=== PATIENT | female | born 1955 | race Caucasian/White ===

== ENCOUNTER 2023-08-24 07:03 | Outpatient (OUT) | payer OTHER, SELFPAY ==
[2023-08-24 07:26] LABS: Basophils Percent Auto 1.1 % (0.2-2.0); Eosinophils Absolute Auto 0.1 10^3/uL (0.0-0.7); Hematocrit 39.2 % (36.0-48.0); Hemoglobin 12.6 g/dL (12.0-16.0); Immature Granulocytes Abs Auto 0.01 10^3/uL (0.00-0.03); Immature Granulocytes Pct Auto 0.3 % (0.0-0.5); Lymphocytes Absolute Auto 1.4 10^3/uL (1.2-3.8); Lymphocytes Percent Auto 38.6 % (20.5-60.0); Mean Corpuscular HGB Conc 32.1 g/dL (29.9-35.2); Mean Corpuscular Volume 99.5 fL (81.0-99.0); Mean Platelet Volume 9.6 fL (9.5-13.5); Monocytes Absolute Auto 0.4 10^3/uL (0.3-0.8); Monocytes Percent Auto 10.9 % (1.7-12.0); Neutrophils Absolute Auto 1.7 10^3/uL (1.4-6.5); Neutrophils Percent Auto 47.1 % (43.0-75.0); Platelet Count 230 10^3/uL (150-450); Red Blood Count 3.94 10^6/uL (4.20-5.40); Red Cell Distribution Width 13.6 % (11.0-15.0); White Blood Count 3.5 10^3/uL (4.0-11.0)
[2023-08-24 09:00] LABS: Percent Iron Saturation 29.1 %
[2023-08-24 10:52] LABS: Alanine Aminotransferase 20 U/L (14-59); Albumin Globulin Ratio 0.9; Albumin Level 3.4 g/dL (3.4-5.0); Alkaline Phosphatase 46 U/L (46-116); Anion Gap 11.8; Aspartate Amino Transferase 15 U/L (15-37); BUN Creatinine Ratio 28.8; Bilirubin Total 0.4 mg/dL (0.2-1.0); Calcium 8.5 mg/dL (8.5-10.1); Carbon Dioxide 27.9 mmol/L (21.0-32.0); Chloride 104 mmol/L (98-107); Chol HDL Ratio 2.2; Cholesterol 213 mg/dL (<=200); Estimated GFR (African America >60 (>=60); Estimated GFR (Non-African Ame >60 (>=60); Globulin 3.7 g/dL; Glucose 90 mg/dL (74-106); HDL Cholesterol 96 mg/dL (40-60); Potassium 3.7 mmol/L (3.5-5.1); Sodium 140 mmol/L (136-145); Total Protein 7.1 g/dL (6.4-8.2); Triglycerides 60 mg/dL (<=150)
[2023-08-25 06:09] LABS: Transferrin 249 mg/dL (192-364)
[2023-08-25 10:09] LABS: Lead, Blood (Adult) 1.1 ug/dL (0.0-3.4)
== END 2023-08-24 07:04 | disposition home or self-care (01) ==
LOC: LAB 07:03
PROVIDERS: PCP Internal Medicine; Visit Provider Internal Medicine
DX: Z77.011 Contact with and (suspected) exposure to lead (principal); E78.5 Hyperlipidemia, unspecified; I10 Essential (primary) hypertension; D50.8 Other iron deficiency anemias
CPT/HCPCS: 36415; 80053; 80061; 82607; 82728; 82746; 83540; 83550; 83655; 84466; 85025

== ENCOUNTER 2023-09-05 09:42 | Emergency (ER) | payer OTHER, SELFPAY ==
[2023-09-05 09:45] VITALS: BP 112/63; PULSE 81; RESP 20; TEMP 37; O2SAT 97; BMI 23.0
--- NOTE | 2023-09-05 10:15 | XR_ITS ---
The [address] [address] Patient Name: CHLOE BADILLO MRN: [id number] date: 1955 Sex: F Assigned Patient Location: ER Current Patient Location: ED.MAIN Accession/Order Number: [id number] Exam Date: 09/05/2023 10:25 Report Date: 09/05/2023 10:39 At the request of: BILLIE JENSEN Procedure: XR chest 1V EXAM: XR chest 1V HISTORY: Cough; dizziness. COMPARISON: None. TECHNIQUE: AP erect portable chest radiograph performed. FINDINGS: The trachea is midline. The cardiac silhouette is upper limits normal size to slightly prominent. There is a large hiatal hernia. The lung volumes are normal. The lung bucio are clear. There is no pneumothorax. The osseous structures are unremarkable. XR/XR chest 1V IMPRESSION: There is no acute cardiopulmonary process. Large hiatal hernia. Electronically authenticated by: SULEMA GARDNER Date: 09/05/2023 10:39
--- NOTE | 2023-09-05 10:15 | ECG_ITS ---
The [facility] Test Date: 2023-09-05 Pat Name: CHLOE PENA Department: Room: - Gender: Female [employer] Manager: : 1955 Requested By: [id number] Order Number: [id number] Reading MD: XAVI DUBOIS Measurements Intervals [place] Rate: 101 P: 58 ME: 170 QRS: 71 QRSD: 86 T: 77 QT: 350 QTc: 408 Interpretive Statements 1120 Sinus tachycardia 2420 RSR (QR) in lead V1/V2, consistent with right ventricular conduction delay 9140 abnormal rhythm ECG No previous ECG available for comparison Electronically Signed On 09-05-2023 17:59:30 EST by XAVI DUBOIS
--- NOTE | 2023-09-05 10:16 | ED.GENADUL1 ---
HPI - General Adult General Chief complaint: Dizziness Stated complaint: DIZZINESS Time Seen by Provider: 09/05/23 10:12 Source: patient Mode of arrival: Wheelchair History of Present Illness HPI narrative: 68-year-old female presents for not feeling well. For few days she has had a cough and has been feeling dizzy. No vomiting or diarrhea and she has not had a known fever. She has not complained to me of any pain. Symptoms are continuous. Related Data Home Medications Medication Instructions Recorded Confirmed alendronate 70 mg tablet mg PO 09/05/23 atenolol 25 mg tablet mg 09/05/23 atorvastatin 20 mg tablet mg 09/05/23 escitalopram oxalate 10 mg tablet mg 09/05/23 escitalopram oxalate 20 mg tablet mg 09/05/23 solifenacin 10 mg tablet mg PO 09/05/23 Previous Rx's Medication Instructions Recorded benzonatate 100 mg capsule 100 mg PO TID PRN cough #20 caps 09/05/23 loratadine 5 mg-pseudoephedrine ER 1 tab PO Q12H PRN nasal congestion 09/05/23 120 mg tablet,extended #20 tabs release,12hr (Claritin-D 12 Hour) Allergies Allergy/AdvReac Type Severity Reaction Status Date / Time No Known Drug Allergies Allergy Verified 09/05/23 09:49 Review of Systems ROS Narrative A ten point review of systems is negative except as noted above. Exam Narrative Exam Narrative: Nurses note and vital signs reviewed and patient is not hypoxic. General: The patient appears in no apparent respiratory distress. Patient is resting comfortably on cart. Her voice is hoarse. Skin: Warm, dry, no pallor noted. There is no rash noted. Head: Normocephalic, atraumatic Eye: Normal conjunctiva, no drainage Ears, Nose, Mouth, and Throat: oral mucosa is slightly dry. Nares patent. Cardiovascular: Regular Rate and Rhythm Respiratory: Patient is in no distress, no accessory muscle use, lungs are clear to auscultation, no wheezing, rales or rhonchi Back: non-tender GI: Soft and nontender Musculoskeletal: The patient has no evidence of calf tenderness, no pitting edema, symmetrical pulses noted bilaterally Neurological: A&O, normal speech Psychiatric: Cooperative Constitutional Vital Signs, click to edit/add: Last Vital Signs Temp 98.6 F 02/18/24 09:45 Pulse 81 09/05/23 09:45 Resp 20 09/05/23 09:45 BP 112/63 09/05/23 09:45 Pulse Ox 97 09/05/23 09:45 O2 Del Method Room Air 09/05/23 09:45 Course Vital Signs Vital signs: Vital Signs Temperature 98.6 F 09/05/23 09:45 Pulse Rate 81 09/05/23 09:45 Respiratory Rate 20 09/05/23 09:45 Blood Pressure 112/63 09/05/23 09:45 Pulse Oximetry 97 09/05/23 09:45 Oxygen Delivery Method Room Air 09/05/23 09:45 Temperature 98.6 F 09/05/23 09:45 Pulse Rate 81 09/05/23 09:45 Respiratory Rate 20 09/05/23 09:45 Blood Pressure 112/63 09/05/23 09:45 Pulse Oximetry 97 09/05/23 09:45 Oxygen Delivery Method Room Air 09/05/23 09:45 Medical Decision Making MDM Narrative Medical decision making narrative: Chest x-ray is negative. COVID and influenza testing is negative. She felt better with IV fluids. She is being discharged home with symptomatic treatment. My clinical impression is that this is a viral illness and there is no indication for an antibiotic. Treatment diagnosis and follow-up were discussed with the patient. Differential Diagnosis Differential Diagnosis: Pneumonia, COVID, influenza Lab Data Lab results reviewed: Yes I reviewed the patient's lab results Labs: Lab Results 09/05/23 09/05/23 Range/Units 09:55 09:58 WBC 4.8 (4.0-11.0) 10^3/uL RBC 3.89 L (4.20-5.40) 10^6/uL Hgb 12.4 (12.0-16.0) g/dL Hct 38.6 (36.0-48.0) % MCV 99.2 H (81.0-99.0) fL MCH 31.9 (26.7-34.0) pg MCHC 32.1 (29.9-35.2) g/dL RDW 13.2 (11.0-15.0) % Plt Count 202 (150-450) 10^3/uL MPV 9.9 (9.5-13.5) fL Neut % (Auto) 65.2 (43.0-75.0) % Lymph % (Auto) 20.8 (20.5-60.0) % [place] % (Auto) 13.0 H (1.7-12.0) % Eos % (Auto) 0.0 L (0.9-7.0) % Baso % (Auto) 0.6 (0.2-2.0) % Neut # (Auto) 3.1 (1.4-6.5) 10^3/uL Lymph # (Auto) 1.0 L (1.2-3.8) 10^3/uL [place] # (Auto) 0.6 (0.3-0.8) 10^3/uL Eos # (Auto) 0.0 (0.0-0.7) 10^3/uL Baso # (Auto) 0.0 (0.0-0.1) 10^3/uL Abs Immat Gran (auto) 0.02 (0.00-0.03) 10^3/uL Imm/Tot Granulo (auto) 0.4 (0.0-0.5) % Sodium 136 (136-145) mmol/L Potassium 4.0 (3.5-5.1) mmol/L Chloride 102 (98-107) mmol/L Carbon Dioxide 27.0 (21.0-32.0) mmol/L Anion Gap 11.0 BUN 18.0 (7.0-18.0) mg/dL Creatinine 0.77 (0.55-1.02) mg/dL Est GFR ( Amer) >60 (>=60) Est GFR (Non-Af Amer) >60 (>=60) BUN/Creatinine Ratio 23.4 Glucose 96 (74-106) mg/dL Calcium 8.6 (8.5-10.1) mg/dL Influenza Type A Ag Negative Influenza Type B Ag Negative SARS-CoV-2 Ag (CV2AG) Negative (NEGATIVE) Imaging Data Chest x-ray: Radiologist's impression: ITS Impressions Chest X-Ray 09/05/23 10:15 IMPRESSION: There is no acute cardiopulmonary process. Large hiatal hernia. Electronically authenticated by: SULEMA GARDNER Date: 09/05/2023 10:39 ECG Data Attestation: I personally reviewed and interpreted this ECG as follows: (EKG on my interpretation shows sinus rhythm with a rate of 101. No acute changes) Discharge Plan Discharge Chief Complaint: Dizziness Clinical Impression: Viral URI Patient Disposition: Home, Self-Care Time of Disposition Decision: 11:18 Condition: Good Mode of Transportation: Private Vehicle Prescriptions / Home Meds: New benzonatate 100 mg capsule 100 mg PO TID PRN (Reason: cough) Qty: 20 0RF Claritin-D 12 Hour 5-120 mg tablet extended release 12 hr 1 tab PO Q12H PRN (Reason: nasal congestion) Qty: 20 0RF No Action atorvastatin 20 mg tablet alendronate 70 mg tablet PO atenolol 25 mg tablet escitalopram oxalate 10 mg tablet escitalopram oxalate 20 mg tablet solifenacin 10 mg tablet PO Instructions: Upper Respiratory Infection (ED), Viral Syndrome (ED) Stand Alone Forms: Portal Instructions Referrals: Shaikh Hinds MD [Primary Care Provider] - 1 week
[2023-09-05 10:26] LABS: Basophils Percent Auto 0.6 % (0.2-2.0); Hematocrit 38.6 % (36.0-48.0); Hemoglobin 12.4 g/dL (12.0-16.0); Immature Granulocytes Abs Auto 0.02 10^3/uL (0.00-0.03); Immature Granulocytes Pct Auto 0.4 % (0.0-0.5); Lymphocytes Percent Auto 20.8 % (20.5-60.0); Mean Corpuscular HGB Conc 32.1 g/dL (29.9-35.2); Mean Corpuscular Hemoglobin 31.9 pg (26.7-34.0); Mean Corpuscular Volume 99.2 fL (81.0-99.0); Mean Platelet Volume 9.9 fL (9.5-13.5); Monocytes Absolute Auto 0.6 10^3/uL (0.3-0.8); Neutrophils Absolute Auto 3.1 10^3/uL (1.4-6.5); Neutrophils Percent Auto 65.2 % (43.0-75.0); Platelet Count 202 10^3/uL (150-450); Red Blood Count 3.89 10^6/uL (4.20-5.40); Red Cell Distribution Width 13.2 % (11.0-15.0); White Blood Count 4.8 10^3/uL (4.0-11.0)
[2023-09-05 10:30] LABS: BUN Creatinine Ratio 23.4; Calcium 8.6 mg/dL (8.5-10.1); Chloride 102 mmol/L (98-107); Estimated GFR (African America >60 (>=60); Estimated GFR (Non-African Ame >60 (>=60); Glucose 96 mg/dL (74-106); Sodium 136 mmol/L (136-145)
[2023-09-05] MEDS: 0.9 % SODIUM CHLORIDE 500 ML IV (10:30)
[2023-09-05 10:38] LABS: Influenza Virus A Antigen Negative; Influenza Virus B Antigen Negative; Internal Control Within Normal Limits; SARS-CoV-2 Ag NEGATIVE (NEGATIVE)
== END 2023-09-05 11:42 | disposition home or self-care (01) ==
PROVIDERS: Emergency Provider Emergency Medicine; PCP Internal Medicine
DX: J06.9 Acute upper respiratory infection, unspecified (principal); Z79.899 Other long term (current) drug therapy; Z20.822 Contact with and (suspected) exposure to COVID-19
CPT/HCPCS: 36415; 71045; 80048; 85025; 87804; 87811; 93005; 99285

== ENCOUNTER 2023-09-20 20:35 | Outpatient (REF) | payer OTHER, SELFPAY ==
--- OUTSIDE RECORDS SUMMARY | 2023-09-20 20:39 | XMS_ITS | CCD ---
Author Name Unknown Address [address] [place] [address] Organization [facility] Care Team Providers Care Ppa Teacher Name Role Phone SHAIKH HINDS Primary Care Physician [phone] DAVID HINDSIKH H Admitting Unavailable FAWWAD, HOOKER H Attending Unavailable FAWWAD, HOOKER H Primary Care Unavailable KARASIK ., DR PARHAM Admitting Unavailabl e KARASIK ., DR PARHAM Attending Unavailabl e FAWWAD, HOOKER H Primary Care Unavailable KARASIK ., DR PARHAM Consulting Unavailabl e KARASIK ., DR PARHAM Admitting Unavailabl e KARASIK ., DR PARHAM Attending Unavailabl e FAWWAD, HOOKER H Primary Care Unavailable KARASIK ., DR PARHAM Consulting Unavailabl e ZIEBEDUARD, DR SABRINA Platt Consulting Unavailable FAWWAD, HOOKER H Admitting Unavailable FAWWAD, HOOKER H Attending Unavailable FAWWAD, HOOKER H Primary Care Unavailable FAWZACHARYD, HOOKER H Consulting Unavailable FAWWAD, HOOKER H Admitting Unavailable FAWWAD, HOOKER H Attending Unavailable FAWWAD, HOOKER H Primary Care Unavailable [place], DR LAVERN Olmos Consulting Unavailable FAWWAD, HOOKER H Consulting Unavailable Shaikh Hinds MD Unavailable Shaikh Hinds MD Primary Care Provider SHAIKH HINDS Attending Unavailable SUSANA BRANDON Attending Unavailable ROMA, SUSANA E Admitting Unavailable SUSANA BRANDON Attending Unavailable SHAIKH HINDS Primary Care Unavailable ROMA, SUSANA E Admitting Unavailable Debi Lucio Attending Unavailable Vinicio HERNANDEZ Attending [facility] Primary Care Unavailable SUSANA BRANDON Attending Unavailable GUZMAN HOOKER Primary Care Unavailable SUSANA BRANDON Attending Unavailable SUSANA BRANDON Attending Unavailable SUSANA BRANDON Attending Unavailable [facility] Primary Care Unavailable Medications Current Medications Medication Drug Class(es) Dates Sig (Normalized) Sig (Original) acetaminophen 500 mg oral tablet (5 sources) Start: 11-26-2020 acetaminophen 500 mg, Oral, PRN as needed for pain, Refills(s) 0 Start Date: 11/26/20 Status: Ordered alendronic acid 70 mg oral tablet (5 sources) Bisphosphonate Start: 06-01-2023 alendronate 70 mg Tab Refills(s) 0 Start Date: 06/01/23 Status: Ordered aspirin 81 mg chewable tablet (5 sources) Platelet Aggregation Inhibitor, Nonsteroidal Anti-inflammatory Drug Start: 11-26-2020 aspirin 81 mg Chew Tab 81 mg = 1 tab(s), Chewed, Daily, Refills(s) 0, Blood Thinner Start Date: 11/26/20 Status: Ordered atenolol 25 mg oral tablet (2 sources) beta-Adrenergic Claire take 1 tablet by mouth in the morning atenolol (Tenormin) 25 MG tablet Take 25 mg by mouth in the morning. 0 Active atorvastatin 20 mg oral tablet (2 sources) HMG-CoA Reductase Inhibitor take 1 tablet by mouth in the morning atorvastatin (Lipitor) 20 MG tablet Take 20 mg by mouth in the morning. 0 Active carvedilol 6.25 mg oral tablet (5 sources) alpha-Adrenergic Claire, beta-Adrenergic Claire Start: 11-26-2020 take 1 tablet by mouth twice daily carvedilol 6.25 mg Tab 6.25 mg = 1 tab(s), Oral, BID, High blood pressure Start Date: 11/26/20 Status: Ordered ciprofloxacin 500 mg oral tablet (1 source) Quinolone Antimicrobial Start: 02-03-2022 End: 02-08-2022 take 1 tablet by mouth twice daily Cipro 500 mg Tab 500 mg = 1 tab(s), Oral, BID, X 5 day(s), # 10 tab(s), Refills(s) 0, Pharmacy: [facility]/pharmacy #[id number], 167, cm, 02/03/22 9:28:00 EDT, Height/Length Dosing, 69, kg, 02/03/22 9:28:00 EDT, Weight Dosing Start Date: 02/03/22 Stop Date: 02/08/22 Status: Ordered escitalopram 20 mg oral tablet (6 sources) Serotonin Reuptake Inhibitor Start: 06-01-2023 take 1 tablet by mouth in the morning escitalopram (Lexapro) 20 MG tablet Take 20 mg by mouth in the morning. 0 08/12/2023 Active End: 08-19-2023 take 1 tablet by mouth in the morning escitalopram (Lexapro) 10 MG tablet Take 10 mg by mouth in the morning. 0 08/19/2023 Discontinued (Dose adjustment) ferrous sulfate 325 mg oral tablet (10 sources) Start: 11-26-2020 take 325 mg by mouth every other day ferrous sulfate 325 mg, Oral, q2Days, Anemia Start Date: 11/26/20 Status: Ordered End: 08-19-2023 take 1 tablet by mouth in the morning ferrous sulfate 325 (65 Fe) MG EC tablet Take 325 mg by mouth in the morning and 325 mg before bedtime. Do not crush, chew, or split.. 0 08/19/2023 Discontinued (Therapy completed) ibuprofen 200 mg oral tablet (5 sources) Nonsteroidal Anti-inflammatory Drug Start: 11-26-2020 take 200 mg by mouth every eight hours as needed for pain ibuprofen 200 mg, Oral, q8hr, PRN as needed for pain, Refills(s) 0 Start Date: 11/26/20 Status: Ordered Multiple Vitamin (multivitamin) tablet (2 sources) take 1 tablet by mouth in the morning Multiple Vitamin (multivitamin) tablet Take 1 tablet by mouth in the morning. 0 Active 24 hr oxybutynin chloride 10 mg extended release oral tablet (6 sources) Cholinergic Muscarinic Antagonist Start: 02-04-2023 take 1 tablet by mouth once daily oxybutynin 10 mg ER Tab 10 mg = 1 tab(s), Oral, Daily, # 30 tab(s), Refills(s) 0, Pharmacy: [facility]/pharmacy #[id number], 167, cm, 02/04/23 11:36:00 EDT, Height/Length Dosing, 69.1, kg, 02/04/23 11:36:00 EDT, Weight Dosing Start Date: 02/04/23 Status: Ordered Start: 02-04-2023 oxybutynin 15 mg ER Tab 15 mg = 1 tab(s), Oral, Daily, start after you finish the 10mg tabs, # 30 tab(s), Refills(s) 0, Pharmacy: [facility]/pharmacy #[id number], 167, cm, 02/04/23 11:36:00 EDT, Height/Length Dosing, 69.1, kg, 02/04/23 11:36:00 EDT, Weight Dosing Start Date: 02/04/23 Status: Ordered solifenacin succinate 10 mg oral tablet (2 sources) Cholinergic Muscarinic Antagonist Start: 06-14-2023 End: 10-12-2023 take 1 tablet by mouth once daily solifenacin 10 mg Tab 10 mg = 1 tab(s), Oral, Daily, X 30 day(s), # 30 tab(s), Refills(s) 3, Pharmacy: [facility]/pharmacy #[id number], 167, cm, 06/01/23 11:31:00 EST, Height/Length Dosing, 63, kg, 06/01/23 11:31:00 EST, Weight Dosing Start Date: 06/14/23 Stop Date: 10/12/23 Status: Ordered 24 hr tolterodine tartrate 2 mg extended release oral capsule (2 sources) Cholinergic Muscarinic Antagonist Start: 08-19-2022 take 1 capsule by mouth once daily tolterodine 2 mg Cap-ER 2 mg = 1 cap(s), Oral, Daily, # 30 cap(s), Refills(s) 2, Pharmacy: [facility] #[id number], 167, cm, 08/19/22 13:07:00 EST, Height/Length Dosing, 69, kg, 08/19/22 13:07:00 EST, Weight Dosing Start Date: 08/19/22 Status: Ordered Vitamin B-12 1000 mcg oral tablet (8 sources) Start: 11-26-2020 take 1 tablet by mouth once daily Vitamin B-12 1000 mcg oral tablet 1,000 mcg = 1 tab(s), Oral, Daily, Anemia Start Date: 11/26/20 Status: Ordered vitamin b12 1 mg oral tablet (2 sources) Vitamin B12 take 1 tablet by mouth in the morning cyanocobalamin (Vitamin B-12) 1000 MCG tablet Take 1,000 mcg by mouth in the morning. 0 Active Completed/Discontinued Medications Medication Drug Class(es) Dates Sig (Normalized) Sig (Original) diphenhydrAMINE hydrochloride 25 mg oral tablet (2 sources) Histamine-1 Receptor Antagonist End: 08-19-2023 diphenhydrAMINE (Sominex) 25 MG tablet Take 25 mg by mouth as needed at bedtime for sleep 0 08/19/2023 Discontinued (Ineffective) estradiol 0.1 mg/ml vaginal cream (1 source) Estrogen Start: 04-29-2022 estradiol 0.1 mg/g Vag Crm See Instructions, 42.5 gm, Refill(s) 6, insert 1 gm Vaginally and apply pea-sized amount around the urethra. Daily x 3 wks. then 3x per week thereafter., [id number], 167, cm, 04/29/22 15:35:00 EDT, Height/Length Dosing, 69, kg, 04/29/22 15:35:... Start Date: 04/29/22 Status: Ordered Problems Active Problems Problem Classification Problem Date Documented Da te Episodic/Chronic Deficiency and other anemia (8 sources) Anemia 02-03-2022 Episodic Deficiency and other anemia (2 sources) Iron deficiency anemia secondary to inadequate dietary iron intake; Translations: [Other iron deficiency anemias] Onset: 08-19-2023 08-19-2023 Episodic Disorders of lipid metabolism (3 sources) Hyperlipidemia, unspecified; Translations: [Hyperlipidemia] Onset: 11-28-2021 08-19-2023 Chronic Essential hypertension (11 sources) Hypertensive disorder; Translations: [Essential (primary) hypertension] Onset: 12-03-2021 02-03-2022 Chronic Genitourinary symptoms and ill-defined conditions (14 sources) Mixed incontinence; Translations: [Incontinence] Onset: 02-03-2022 Chronic Genitourinary symptoms and ill-defined conditions (20 sources) Retention of urine; Translations: [Retention of urine, unspecified] Onset: 04-29-2022 Episodic Mood disorders (2 sources) Recurrent major depression in full remission; Translations: [Major depressive disorder, recurrent, in full remission] Onset: 08-19-2023 08-19-2023 Chronic Occlusion or stenosis of precerebral arteries (1 source) Occlusion and stenosis of bilateral carotid arteries; Translations: [OCCLUSION AND STENOS ROMAINE CAROTID ART] Onset: 12-03-2021 Chronic Osteoporosis (1 source) Age-related osteoporosis without current pathological fracture; Translations: [AGE-REL OSTEOPOR W/O CURR PATH FX] Onset: 02-24-2022 Chronic Other circulatory disease (1 source) Disorder of arteries and arterioles, unspecified; Translations: [DISORDER ARTERIES AND ARTERIOLES UNS] Onset: 12-03-2021 Chronic Other diseases of bladder and urethra (4 sources) Male urethral stricture; Translations: [Unspecified urethral stricture, male, unspecified site] Onset: 04-29-2022 Episodic Other diseases of bladder and urethra (7 sources) Urethral stricture 04-29-2022 Episodic Other female genital disorders (1 source) Disorder of female genital system; Translations: [Unspecified condition associated with female genital organs and menstrual cycle] Onset: 08-19-2023 08-19-2023 Episodic Other screening for suspected conditions (not mental disorders or infectious disease) (9 sources) Encounter for screening for malignant neoplasm of cervix; Translations: [Encounter for screening mammogram for malignant neoplasm of breast] Onset: 11-28-2021 Episodic Prolapse of female genital organs (4 sources) Cystocele 08-20-2022 Chronic Screening and history of mental health and substance abuse codes (8 sources) Ex-smoker 02-03-2022 Episodic Urinary tract infections (13 sources) Acute cystitis; Translations: [Acute cystitis without hematuria] Onset: 02-03-2022 Episodic Past or Other Problems Problem Classification Problem Date Documented Date Episodic/Chronic Deficiency and other anemia (1 source) Iron deficiency anemia, unspecified; Translations: [IRON DEFICIENCY ANEMIA UNSPECIFIED] Onset: 11-28-2021 Episodic Diabetes mellitus without complication (4 sources) Other abnormal glucose; Translations: [OTHER ABNORMAL GLUCOSE] Onset: 11-26-2021 Episodic Immunizations and screening for infectious disease (1 source) Encounter for screening for human papillomavirus (HPV); Translations: [ENC SCREENING HUMAN PAPILLOMAVIRUS] Onset: 12-31-2021 Episodic Residual codes; unclassified (4 sources) Asymptomatic menopausal state; Translations: [ASYMPTOMATIC MENOPAUSAL STATE] Onset: 02-10-2022 Episodic Results Test Name Value Interpretation Reference Range Facility C Urineon 06-03-2023 Bacteria identified Cx Nom (U) Microbiology PROCEDURE: Urine Culture [R1] SOURCE: U CleanCatch BODY SITE: COLLECTED DATE/TIME: 06/01/2023 14:05 EST RECEIVED DATE/TIME: 06/01/2023 19:56 EST START DATE/TIME: 06/01/2023 19:56 EST FREE TEXT SOURCE: ROMA OSCAR, SUSANA BRANDON PA-C, SUSANA Salazar FINAL REPORTS Final Report [] Verified Date/Time: 06/03/2023 08:38 EST >100,000 cfu/ml Escherichia coli SUSCEPTIBILITY RESULTS LEGEND: S=Susceptible, N/R=Not Reported, Blank=Data not available, or drug not advisable or tested, I=Intermediate, ESBL=Extended spectrum beta-lactamase, R=Resistant, TFG=Thymidine-depende nt strain, STACY=Beta-lactamase positive, DOMENIC=mcg/m;(mg/L), S*=Predicted susceptible interp, R*=Predicted resistant interp EC Antibiotic DOMENIC Dilutn DOMENIC Interp Amikacin <=16 S Ampicillin <=8 S Ampicillin/ <=8/4 S Sulbactam Aztreonam <=4 S Cefazolin <=2 S Cefepime <=2 S Cefoxitin <=8 S Ceftazidime <=1 S Ceftazidime/ <=8 S Avibactam Ceftriaxone <=1 S Ciprofloxacin >2 R Ertapenem <=0.5 S Gentamicin <=4 S Levofloxacin 4 I Meropenem <=1 S Nitrofurantoin <=32 S Piperacillin/ <=16 S Tazobactam Tetracycline <=4 S Tigecycline <=2 S Tobramycin <=4 S Trimethoprim/ <=2/38 S Sulfa Performing Locations R1: This test was performed at: [facility], [address] [place] [address], [id number] , , [facility] Comment on above: Performed By: #### [id number] ####[facility] [id number] [place] [address] Screenson 06-02-2023 Screens [id number]# 1.00TIFF [facility] Ambulatory Visit Summaryon 1 08-01-2022 Ambulatory Visit Summary CHLOE MOJICA :1955 Visit Date:06/01/2023 Ambulatory Visit Instructions Your Diagnosis Mixed incontinence Urethral stricture Incomplete bladder emptying UTI (urinary tract infection) Tests Performed Urnls Dip Stick Auto w/o Microscopy POC 11991 Your Care Team Attending Physician - SUSANA BRANDON PA-C Primary Care Physician - GUZMAN HENRY, HOOKER This Is Your Medications List oxybutynin (oxybutynin 10 mg ER Tab) oxybutynin (oxybutynin 15 mg ER Tab) Contact prescribing physician if questions or concerns alendronate (alendronate 70 mg Tab) cyanocobalamin (Vitamin B-12 1000 mcg oral tablet) escitalopram (escitalopram 20 mg Tab) ferrous sulfate Procedures Performed Cystourethroscopy with dilation of urethral stricture (12/03/2022), Cystourethroscopy with dilation of urethral stricture (02/09/2022), Cataract extraction and insertion of intraocular lens (11/26/2020), Cataract extraction and insertion of intraocular lens (11/12/2020), Bilateral tubal ligation (07/19/1981). Discharge Vitals Heart Rate (Peripheral) 68 Respiratory Rate 16 Blood Pressure 116/74 Height 167 cm Height 66 in Weight 63 kg Weight 138.6 lb BMI 22.59 What to do next Scheduled Follow-Up Appointments Wednesday 2:00 PM EST With: SUSANA BRANDON PA-C Where: [facility] Jessica Partida [facility] Patient Educationon 06-01-20 23 Patient Education Obstetrics and Gynecology Overactive Bladder, Adult Overactive bladder is a condition in which a person has a sudden and frequent need to urinate. A person might also leak urine if he or she cannot get to the bathroom fast enough (urinary incontinence). Sometimes, symptoms can interfere with work or social activities. What are the causes? Overactive bladder is associated with poor nerve signals between your bladder and your brain. Your bladder may get the signal to empty before it is full. You may also have very sensitive muscles that make your bladder squeeze too soon. This condition may also be caused by other factors, such as: ? Medical conditions: ? Urinary tract infection. ? Infection of nearby tissues. ? Prostate enlargement. ? Bladder stones, inflammation, or tumors. ? Diabetes. ? Muscle or nerve weakness, especially from these conditions: ? A spinal cord injury. ? Stroke. ? Multiple sclerosis. ? Parkinson's disease. ? Other causes: ? Surgery on the uterus or urethra. ? Drinking too much caffeine or alcohol. ? Certain medicines, especially those that eliminate extra fluid in the body (diuretics). ? Constipation. What increases the risk? You may be at greater risk for overactive bladder if you: ? Are an older adult. ? Smoke. ? Are going through menopause. ? Have prostate problems. ? Have a neurological disease, such as stroke, dementia, Parkinson's disease, or multiple sclerosis (MS). ? Eat or drink alcohol, spicy food, caffeine, and other things that irritate the bladder. ? Are overweight or obese. What are the signs or symptoms? Symptoms of this condition include a sudden, strong urge to urinate. Other symptoms include: ? Leaking urine. ? Urinating 8 or more times a day. ? Waking up to urinate 2 or more times overnight. How is this diagnosed? This condition may be diagnosed based on: ? Your symptoms and medical history. ? A physical exam. ? Blood or urine tests to check for possible causes, such as infection. You may also need to see a health care provider who specializes in urinary tract problems. This is called a urologist. How is this treated? Treatment for overactive bladder depends on the cause of your condition and whether it is mild or severe. Treatment may include: ? Bladder training, such as: ? Learning to control the urge to urinate by following a schedule to urinate at regular intervals. ? Doing Kegel exercises to strengthen the pelvic floor muscles that support your bladder. ? Special devices, such as: ? Biofeedback. This uses sensors to help you become aware of your body's signals. ? Electrical stimulation. This uses electrodes placed inside the body (implanted) or outside the body. These electrodes send gentle pulses of electricity to strengthen the nerves or muscles that control the bladder. ? Women may use a plastic device, called a pessary, that fits into the vagina and supports the bladder. ? Medicines, such as: ? Antibiotics to treat bladder infection. ? Antispasmodics to stop the bladder from releasing urine at the wrong time. ? Tricyclic antidepressants to relax bladder muscles. ? Injections of botulinum toxin type A directly into the bladder tissue to relax bladder muscles. ? Surgery, such as: ? A device may be implanted to help manage the nerve signals that control urination. ? An electrode may be implanted to stimulate electrical signals in the bladder. ? A procedure may be done to change the shape of the bladder. This is done only in very severe cases. Follow these instructions at home: Eating and drinking ? Make diet or lifestyle changes recommended by your health care provider. These may include: ? Drinking fluids throughout the day and not only with meals. ? Cutting down on caffeine or alcohol. ? Eating a healthy and balanced diet to prevent constipation. This may include: ? Choosing foods that are high in fiber, such as beans, whole grains, and fresh fruits and vegetables. ? Limiting foods that are high in fat and processed sugars, such as fried and sweet foods. Lifestyle ? Lose weight if needed. ? Do not use any products that contain nicotine or tobacco. These include cigarettes, chewing tobacco, and vaping devices, such as e-cigarettes. If you need help quitting, ask your health care provider. General instructions ? Take joxa-oha-aixqixj and prescription medicines only as told by your health care provider. ? If you were prescribed an antibiotic medicine, take it as told by your health care provider. Do not stop taking the antibiotic even if you start to feel better. ? Use any implants or pessary as told by your health care provider. ? If needed, wear pads to absorb urine leakage. ? Keep a log to track how much and when you drink, and when you need to urinate. This will help your health care provider monitor yo (more content not included)... Normal [facility] Urology Office/Clinic Noteon 06-01-2023 Urology Office/Clinic Note Chief Complaint Incontinence HPI Staff Former DLS pt. Last seen in our office by SHANTELL 02/05/23 due to mixed incontinence, urethral stricture, incomplete bladder emptying & Hx of UTI. *Oxybutynin 5mg increased to 10mg for 1m then upped to 15mg for 1m at time of last encounter. +C&S at time of last encounter *>100k E Coli Tx'd w/ Keflex therapy. Pt cancelled 2m follow up, then later called to schedule today's appt due to incontinence. Did take 1m of 10mg Oxybutynin, then 1m of Oxybutynin 15mg. Ran out, did not call for refills. recently . Leaking has increased. With activity & urgency. Occasionally leaks through the night. Was not completely satisfied with Oxybutynin 15mg, did improve symptoms but still had to wear pads. Is interested in possible new med. Denies current pain & burning. Denies visible blood in urine. Occasional frequency with smaller voids. PVR 174ml History of Present Illness staff HPI reviewed and agree. Review of Systems PHQ Score Initial Depression Screen Score: 0 SCORE no fever, chills, malaise, myalgia. no rash/lesions. no chest pain, palpitations, or SOB. no abdominal pain, nausea, vomiting. no unilateral calf swelling, redness, pain Physical Exam Vitals & Measurements HR: 68(Peripheral) RR: 16 BP: 116/74 HT: 66 in HT: 167 cm WT: 63 kg WT: 138.6 lb BMI: 22.59 General: nontoxic, NAD Mouth: moist mucosa Lungs: normal respiratory effort Cardio: regular rate, good distal perfusion Abdomen: nondistended, no suprapubic distention or tenderness, no CVA tenderness Neurologic: Grossly normal Skin: No rashes or suspicious lesions Assessment/Plan 1. Mixed incontinence (N39.46: Mixed incontinence) BBS 25. Leaking has increased. With activity & urgency. Occasionally leaks through the night. 2 scripts were sent for Oxybutynin 10mg and 25mg at last visit. Did take 1mg of 10mg Oxybutynin, then 1mg of Oxybutynin 15mg. Ran out, did not call for refills. Was not completely satisfied with Oxybutynin 15mg, did improve symptoms but still had to wear pads. No bothersome side effects. Pt is interested in possible new med. Pt was provided a list of alternative anticholinergics. She was instructed to call her insurance company to see which ones are approved Consider urodynamics vs botox vs SNM if fails 1-2 more meds. -Call with covered meds -Follow up in 3 months (will give us time to try a few dose changes/a few meds) 2. Urethral stricture (N35.919: Unspecified urethral stricture, male, unspecified site) S/p cysto/UD 02/09/2022 and 12/03/22 better stream since UD. 3. Incomplete bladder emptying (R33.9: Retention of urine, unspecified) PVR: 08/19/22 - 60 ml 06/01/23 - 174 ml -Emptying maneuvers discussed at length. pt agrees to try these consistently. 4. UTI (urinary tract infection) (N39.0: Urinary tract infection, site not specified) UCx: 08/19/22 - >100k E Coli. Tx'd w/ Keflex 02/04/23 - >100k E Coli. Tx'd w/ Keflex UA today small blood,+ nitrates and small leuks. Asx currently. -Sending for culture -Pt to be called with results and will tx if + due to #1 Follow-up With When Contact Information ROMA OSCAR, SUSANA Salazar, URL [address] [place] [address] Additional Instructions: 3 mos Patient Education Overactive Bladder, Adult Documentation recorded by the scribe Isabel Christine accurately reflects the services(s) I performed and decisions made by me. Authenticated by Susana Brandon PA-C on 06/01/2023 12:12:10. IIsabel, personally scribed for Susana Brandon PA-C on 06/01/2023 12:06:29. . Problem List/Past Medical History Ongoing Acute cystitis without hematuria Anemia Cystocele with prolapse Former smoker History of UTI Hypertension Incomplete bladder emptying Mixed incontinence Urethral stricture UTI (urinary tract infection) Weak urine stream Historical No qualifying data Procedure/Surgical History Cystourethroscopy with dilation of urethral stricture (12/03/2022), Cystourethroscopy with dilation of urethral stricture (02/09/2022), Cataract extraction and insertion of intraocular lens (11/26/2020), Cataract extraction and insertion of intraocular lens (11/12/2020), Bilateral tubal ligation (07/19/1981). Medications alendronate 70 mg Tab escitalopram 20 mg Tab ferrous sulfate, 325 mg, Oral, q2Days oxybutynin 10 mg ER Tab, 10 mg= 1 tab(s), Oral, Daily, Not taking oxybutynin 15 mg ER Tab, 15 mg= 1 tab(s), Oral, Daily Vitamin B-12 1000 mcg oral tablet, 1000 mcg= 1 tab(s), Oral, Daily Allergies No Known Allergies Social History Alcohol Current, Wine, 1-2 times per month, 02/03/2022 Tobacco Former smoker, quit more than 30 days ago Tobacco Use:. Never Smokeless Tobacco Use:. Cigarettes, Household tobacco concerns: No. Yes, 06/01/2023 Family History Congenital heart disease: Mother and Sister. Diab (more content not included)... Normal [facility] Comment on above: Result Comment: Elec tronically Signed By: SUSANA BRANDON PA-C\.br\Date and Time Signed: 06/01/23 12:12 EST\.br\Electronically Co-Signed By: Isabel Christinebr\Date and Time Co-Signed: 06/01/23 12:06 EST Patient Letter FTon 2022 Patient Letter [facility] [place] April 13, 2023 [address]LOE [address]ICA [address] [place] [address] : 1955 Dear Chloe, You missed your scheduled appointment on: 04/13/2023 with Susana Brandon PA-C. Please note our appointment slots fill quickly. When you fail to cancel or reschedule an appointment the office is unable to fill the appointment slot that was reserved for you. In the future, we ask that you call 24 hours in advance to cancel your appointment. Our current reminder system gives you the opportunity to cancel by responding to our reminder text, phone call or email. You can also call the office to reschedule during normal business hours or use our on-line scheduling portal at your convenience. Our goal is to provide convenient and quality care to all of our patients. We appreciate your consideration regarding any future cancellations. Sincerely, [facility] [address], [place] [address] [facility] C Urineon 02-06-2023 Bacteria identified Cx Nom (U) Microbiology PROCEDURE: Urine Culture [R1] SOURCE: U Random BODY SITE: COLLECTED DATE/TIME: 02/04/2023 14:12 EDT RECEIVED DATE/TIME: 02/04/2023 18:15 EDT START DATE/TIME: 02/04/2023 18:15 EDT FREE TEXT SOURCE: SUSANA BRANDON PA-C, PA-C, SUSANA Salazar FINAL REPORTS Final Report [] Verified Date/Time: 02/06/2023 08:29 EDT >100,000 cfu/ml Escherichia coli SUSCEPTIBILITY RESULTS LEGEND: S=Susceptible, N/R=Not Reported, Blank=Data not available, or drug not advisable or tested, I=Intermediate, ESBL=Extended spectrum beta-lactamase, R=Resistant, TFG=Thymidine-depende nt strain, STACY=Beta-lactamase positive, DOMENIC=mcg/m;(mg/L), S*=Predicted susceptible interp, R*=Predicted resistant interp EC Antibiotic DMOENIC Dilutn DOMENIC Interp Amikacin <=16 S Ampicillin <=8 S Ampicillin/ <=8/4 S Sulbactam Aztreonam <=4 S Cefazolin 8 S Cefepime <=2 S Cefoxitin >16 R Ceftazidime <=1 S Ceftazidime/ <=8 S Avibactam Ceftriaxone <=1 S Ciprofloxacin >2 R Ertapenem <=0.5 S Gentamicin <=4 S Levofloxacin >4 R Meropenem <=1 S Nitrofurantoin <=32 S Piperacillin/ <=16 S Tazobactam Tetracycline <=4 S Tigecycline <=2 S Tobramycin <=4 S Trimethoprim/ <=2/38 S Sulfa Performing Locations R1: This test was performed at: [facility], [address] [place] [address], [facility]- , , [facility] Comment on above: Performed By: #### [id number] ####[place] [address] Urology Office/Clinic Noteon 02-05-2023 Urology Office/Clinic Note Chief Complaint f/u to cysto UD HPI Staff 67 year-old female here for 2 month follow up to Cysto/UD. Previous DX: urethral stricture, mixed incontinence, incomplete bladder emptying, cystocele with prolapse, history of UTI. S/p Cysto/UD done 12/03/22 and 02/09/22. Pt states that she feels the cysto UD did not make any difference with her leakage. She state that she regularly is leaking all over and wakes up with everything soaked with no knowledge that she has even voided. Dysuria: no Incomplete bladder emptying: unsure because she leaks so much Hematuria: no Frequency: pt states she leaks so much that she really doesn't get the urge to void before she will leak out Urgency: once in a while Nocturia: only wakes up once in a while Stream: straining to keep her stream going some times. Leaking: excessively Post void dripping: no Wearing pads/ Depends: pads changes 4-5x or more daily because the pads become soaked Urge incontinence: yes Stress incontinence: yes Incontinence without Sensory Awareness: yes Abdominal pain: no Flank pain: no Sexual complaints: no History of Present Illness staff HPI reviewed and agree. Review of Systems PHQ Score Initial Depression Screen Score: 0 no fever, chills, malaise, myalgia. no rash/lesions. no chest pain, palpitations, or SOB. no abdominal pain, nausea, vomiting. no unilateral calf swelling, redness, pain Physical Exam Vitals & Measurements HR: 79(Peripheral) RR: 16 BP: 132/84 HT: 66 in HT: 167 cm WT: 69.1 kg WT: 152.02 lb BMI: 24.78 General: nontoxic, NAD Mouth: moist mucosa Lungs: normal respiratory effort Cardio: regular rate, good distal perfusion Abdomen: nondistended, no suprapubic distention or tenderness, no CVA tenderness Neurologic: Grossly normal Skin: No rashes or suspicious lesions Assessment/Plan 1. Mixed incontinence (N39.46: Mixed incontinence) She state that she regularly is leaking all over and wakes up with everything soaked with no knowledge that she has even voided. Pt is currently taking Oxybutynin 5 mg, not having any bothersome SE's. Discussed increasing the dose to 10 mg for 1 mos and then upping the dose to 15 mg for 1 mos to see if this improves her symptoms. Side effects discussed. Discussed alternative anticholinergic vs myrbetriq as next steps. then consider urodynamics vs botox vs SNM vs PFPT if fails or possibly PFPT if medication does not improve her symptoms. Will send 2 scripts for Oxybutynin to pharmacy on file. Oxybutynin 10 mg and 15 mg. 2. Urethral stricture (N35.919: Unspecified urethral stricture, male, unspecified site) S/P Cysto/UD 02/09/2022. S/p Cysto/UD 12/03/22 better stream since UD. 3. Incomplete bladder emptying (R33.9: Retention of urine, unspecified) No urine sample given today. 4. History of UTI (Z87.440: Personal history of urinary (tract) infections) No UTI since last OV. No UA given today IO but pt is concerned she may have UTI, pt was given sample cup to bring sample to [place] office. will send for cx if UA abnl. Follow up in 2 mos. All questions/concerns were discussed. Pt to call the office if she encounters any issues prior. Pt acknowledges understanding. Follow-up With When Contact Information ROMA OSCAR, SUSANA Salazar, URL In 2 months [address] [place] [address] Additional Instructions: Patient Education Kegel Exercises Documentation recorded by the scribpatric Leggett accurately reflects the services(s) I performed and decisions made by me. Authenticated by Susana Brandon PA-C on 02/05/2023 18:05:03. ICarmel, personally scribed for Susana Brandon PA-C on 02/04/2023 12:00:46. . Problem List/Past Medical History Ongoing Acute cystitis without hematuria Anemia Cystocele with prolapse Former smoker History of UTI Hypertension Incomplete bladder emptying Mixed incontinence Urethral stricture Weak urine stream Historical No qualifying data Procedure/Surgical History Cystourethroscopy with dilation of urethral stricture (12/03/2022), Cystourethroscopy with dilation of urethral stricture (02/09/2022), Cataract extraction and insertion of intraocular lens (11/26/2020), Cataract extraction and insertion of intraocular lens (11/12/2020), Bilateral tubal ligation (07/19/1981). Medications acetaminophen, 500 mg, Oral, PRN aspirin 81 mg Chew Tab, 81 mg= 1 tab(s), Chewed, Daily carvedilol 6.25 mg Tab, 6.25 mg= 1 tab(s), Oral, BID ferrous sulfate, 325 mg, Oral, q2Days ibuprofen, 200 mg, Oral, q8hr, PRN oxybutynin 5 mg ER Tab, 5 mg= 1 tab(s), Oral, Daily, 3 refills Vitamin B-12 1000 mcg oral tablet, 1000 mcg= 1 tab(s), Oral, Daily Allergies No Known Allergies Social History Alcohol Current, Wine, 1-2 times per month, 02/03/2022 Tobacco Never (less than 100 in lifetime) Tobacco Use:. Never Smokeless Tobacco Use:., 12/03/2022 Family History (more content not included)... [facility] Comment on above: Result Comment: Elec tronically Signed By: SUSANA BRANDON PA-C\.br\Date and Time Signed: 02/05/23 18:05 EDT\.br\Electronically Co-Signed By: Carmel Leggett\.br\Date and Time Co-Signed: 02/04/23 12:01 EDT Ambulatory Visit Summaryon 0 02-04-2023 Ambulatory Visit Summary CHLOE MOJICA :1955 Visit Date:02/04/2023 Ambulatory Visit Instructions Your Diagnosis Mixed incontinence Urethral stricture Incomplete bladder emptying History of UTI Tests Performed Urnls Dip Stick Auto w/o Microscopy POC [address] Your Care Team Attending Physician - SUSANA BRANDON PA-C Primary Care Physician - SHAIKH HINDS This Is Your Medications List oxybutynin (oxybutynin 5 mg ER Tab) Contact prescribing physician if questions or concerns acetaminophen aspirin (aspirin 81 mg Chew Tab) carvedilol (carvedilol 6.25 mg Tab) cyanocobalamin (Vitamin B-12 1000 mcg oral tablet) ferrous sulfate ibuprofen Procedures Performed Cystourethroscopy with dilation of urethral stricture (12/03/2022), Cystourethroscopy with dilation of urethral stricture (02/09/2022), Cataract extraction and insertion of intraocular lens (11/26/2020), Cataract extraction and insertion of intraocular lens (11/12/2020), Bilateral tubal ligation (07/19/1981). Discharge Vitals Heart Rate (Peripheral) 79 Respiratory Rate 16 Blood Pressure 132/84 Height 167 cm Height 66 in Weight 69.1 kg Weight 152.02 lb BMI 24.78 What to do next Scheduled Follow-Up Appointments Wednesday:00 AM EDT With: SUSANA BRANDON PA-C Where: [facility] [place] [facility] Patient Educationon 02-05-20 Patient Education Obstetrics and Gynecology Kegel Exercises Kegel exercises can help strengthen your pelvic floor muscles. The pelvic floor is a group of muscles that support your rectum, small intestine, and bladder. In females, pelvic floor muscles also help support the uterus. These muscles help you control the flow of urine and stool (feces). Kegel exercises are painless and simple. They do not require any equipment. Your provider may suggest Kegel exercises to: ? Improve bladder and bowel control. ? Improve sexual response. ? Improve weak pelvic floor muscles after surgery to remove the uterus (hysterectomy) or after , in females. ? Improve weak pelvic floor muscles after prostate gland removal or surgery, in males. Kegel exercises involve squeezing your pelvic floor muscles. These are the same muscles you squeeze when you try to stop the flow of urine or keep from passing gas. The exercises can be done while sitting, standing, or lying down, but it is best to vary your position. Ask your health care provider which exercises are safe for you. Do exercises exactly as told by your health care provider and adjust them as directed. Do not begin these exercises until told by your health care provider. Exercises How to do Kegel exercises: 1. Squeeze your pelvic floor muscles tight. You should feel a tight lift in your rectal area. If you are a female, you should also feel a tightness in your vaginal area. Keep your stomach, buttocks, and legs relaxed. 2. Hold the muscles tight for up to 10 seconds. 3. Breathe normally. 4. Relax your muscles for up to 10 seconds. 5. Repeat as told by your health care provider. Repeat this exercise daily as told by your health care provider. Continue to do this exercise for at least 4?6 weeks, or for as long as told by your health care provider. You may be referred to a physical therapist who can help you learn more about how to do Kegel exercises. Depending on your condition, your health care provider may recommend: ? Varying how long you squeeze your muscles. ? Doing several sets of exercises every day. ? Doing exercises for several weeks. ? Making Kegel exercises a part of your regular exercise routine. This information is not intended to replace advice given to you by your health care provider. Make sure you discuss any questions you have with your health care provider. Document Revised: 11/13/2021 Document Reviewed: 11/13/2021 Elsevier Patient Education ? 2022 [place]. [facility] Consent for Procedure/Surger yon 12-04-2022 Consent for Procedure/Surgery [id number] [facility] Ambulatory Visit Summaryon 0 12-03-2022 Ambulatory Visit Summary CHLOE MOJICA :1955 Visit Date:12/03/2022 Ambulatory Visit Instructions Your Diagnosis Urethral stricture Mixed incontinence Incomplete bladder emptying Cystocele with prolapse History of UTI Your Care Team Attending Physician - MARY HENRY, Vinicio Marie Primary Care Physician - SHAIKH HINDS This Is Your Medications List ciprofloxacin (Cipro 500 mg Tab) oxybutynin (oxybutynin 5 mg ER Tab) Contact prescribing physician if questions or concerns acetaminophen aspirin (aspirin 81 mg Chew Tab) carvedilol (carvedilol 6.25 mg Tab) cyanocobalamin (Vitamin B-12 1000 mcg oral tablet) ferrous sulfate ibuprofen Procedures Performed Cystourethroscopy with dilation of urethral stricture (12/03/2022), Cystourethroscopy with dilation of urethral stricture (02/09/2022), Cataract extraction and insertion of intraocular lens (11/26/2020), Cataract extraction and insertion of intraocular lens (11/12/2020), Bilateral tubal ligation (07/19/1981). Discharge Vitals Heart Rate (Peripheral) 73 Blood Pressure 125/75 Height 167 cm Height 66 in Weight 69 kg Weight 151.8 lb BMI 24.74 What to do next Scheduled Follow-Up Appointments 2022 11:00 AM EDT With: SUSANA BRANDON PA-C Where: [facility] Patient Educationon 12-04-19 23 Patient Education Obstetrics and Gynecology Overactive Bladder, Adult Overactive bladder is a condition in which a person has a sudden and frequent need to urinate. A person might also leak urine if he or she cannot get to the bathroom fast enough (urinary incontinence). Sometimes, symptoms can interfere with work or social activities. What are the causes? Overactive bladder is associated with poor nerve signals between your bladder and your brain. Your bladder may get the signal to empty before it is full. You may also have very sensitive muscles that make your bladder squeeze too soon. This condition may also be caused by other factors, such as: ? Medical conditions: ? Urinary tract infection. ? Infection of nearby tissues. ? Prostate enlargement. ? Bladder stones, inflammation, or tumors. ? Diabetes. ? Muscle or nerve weakness, especially from these conditions: ? A spinal cord injury. ? Stroke. ? Multiple sclerosis. ? Parkinson's disease. ? Other causes: ? Surgery on the uterus or urethra. ? Drinking too much caffeine or alcohol. ? Certain medicines, especially those that eliminate extra fluid in the body (diuretics). ? Constipation. What increases the risk? You may be at greater risk for overactive bladder if you: ? Are an older adult. ? Smoke. ? Are going through menopause. ? Have prostate problems. ? Have a neurological disease, such as stroke, dementia, Parkinson's disease, or multiple sclerosis (MS). ? Eat or drink alcohol, spicy food, caffeine, and other things that irritate the bladder. ? Are overweight or obese. What are the signs or symptoms? Symptoms of this condition include a sudden, strong urge to urinate. Other symptoms include: ? Leaking urine. ? Urinating 8 or more times a day. ? Waking up to urinate 2 or more times overnight. How is this diagnosed? This condition may be diagnosed based on: ? Your symptoms and medical history. ? A physical exam. ? Blood or urine tests to check for possible causes, such as infection. You may also need to see a health care provider who specializes in urinary tract problems. This is called a urologist. How is this treated? Treatment for overactive bladder depends on the cause of your condition and whether it is mild or severe. Treatment may include: ? Bladder training, such as: ? Learning to control the urge to urinate by following a schedule to urinate at regular intervals. ? Doing Kegel exercises to strengthen the pelvic floor muscles that support your bladder. ? Special devices, such as: ? Biofeedback. This uses sensors to help you become aware of your body's signals. ? Electrical stimulation. This uses electrodes placed inside the body (implanted) or outside the body. These electrodes send gentle pulses of electricity to strengthen the nerves or muscles that control the bladder. ? Women may use a plastic device, called a pessary, that fits into the vagina and supports the bladder. ? Medicines, such as: ? Antibiotics to treat bladder infection. ? Antispasmodics to stop the bladder from releasing urine at the wrong time. ? Tricyclic antidepressants to relax bladder muscles. ? Injections of botulinum toxin type A directly into the bladder tissue to relax bladder muscles. ? Surgery, such as: ? A device may be implanted to help manage the nerve signals that control urination. ? An electrode may be implanted to stimulate electrical signals in the bladder. ? A procedure may be done to change the shape of the bladder. This is done only in very severe cases. Follow these instructions at home: Eating and drinking ? Make diet or lifestyle changes recommended by your health care provider. These may include: ? Drinking fluids throughout the day and not only with meals. ? Cutting down on caffeine or alcohol. ? Eating a healthy and balanced diet to prevent constipation. This may include: ? Choosing foods that are high in fiber, such as beans, whole grains, and fresh fruits and vegetables. ? Limiting foods that are high in fat and processed sugars, such as fried and sweet foods. Lifestyle ? Lose weight if needed. ? Do not use any products that contain nicotine or tobacco. These include cigarettes, chewing tobacco, and vaping devices, such as e-cigarettes. If you need help quitting, ask your health care provider. General instructions ? Take [id number] and prescription medicines only as told by your health care provider. ? If you were prescribed an antibiotic medicine, take it as told by your health care provider. Do not stop taking the antibiotic even if you start to feel better. ? Use any implants or pessary as told by your health care provider. ? If needed, wear pads to absorb urine leakage. ? Keep a log to track how much and when you drink, and when you need to urinate. This will help your health care provider monitor yo (more content not included)... [facility] Urology Office/Clinic Noteon 12-03-2022 Urology Office/Clinic Note Chief Complaint Cysto/UD HPI Staff Cysto/UD ABX TAKEN History of Present Illness I have reviewed and verified the staff HPI to be accurate for this encounter. Review of Systems PHQ Score Initial Depression Screen Score: 0 ROS - Provider Constitutional: denies weight loss, denies hot flashes. Eyes: denies eye problems. Gastrointestinal: denies nausea, denies vomiting. Cardiovascular: denies chest pain or angina. Integumentary: no dryness Musculoskeletal: denies musculoskeletal symptoms. ENMT: denies otolaryngeal symptoms. Respiratory: no shortness of breath. Heme/Lymph: denies easy bleeding tendency, denies easy bruising tendency. Psychiatric: no confusion, no anxiety. Genitourinary: denies vaginal discharge, denies incontinence, denies dysuria, denies hematuria, denies urinary frequency, denies amenorrhea, denies menorrhagia, denies abnormal bleeding, denies pelvic pain, denies genital sores, and denies decreased libido. Physical Exam Vitals & Measurements HR: 73(Peripheral) BP: 125/75 HT: 66 in HT: 167 cm WT: 69 kg WT: 151.8 lb BMI: 24.74 General Appearance: alert , no acute distress, well nourished, well developed female. Genitourinary: bladder nonpalpable, no flank pain. Procedure Operative Information Anesthesia Type: Local Procedure: Local Cystoscopy with Urethral Dilation Complications: None Surgical risks, benefits, details of the procedure have been explained to the patient. Full informed consent has been obtained. Intraoperative Information Prepped: Patient is brought back to the endoscopy suite. Patient is placed in modified dorso/lithotomy position. Patient prepped in the usual fashion with Betadine solution. 2% Xylocaine Jelly is placed per Urethra. After waiting several minutes, the Cystoscope is introduced. The Urethra is: Tight Tight at 16 Fr. The Bladder: Normal, Trabeculated: Moderate (2) No tumors, No Stones. Moderate retained urine. The Ureteral orifices: Show efflux of clear urine The Urethra was dilated to: 16-30 Mauritian with sounds. Specimens Removed: None Removal: Cystoscope is removed. The patient tolerated it well. Postoperative Information Patient is discharged home with antibiotic coverage. Follow up arranged. Assessment/Plan 1. Urethral stricture (N35.919: Unspecified urethral stricture, male, unspecified site) S/P Cysto/UD 02/09/2022. Pt's stream has slowed. Cysto/UD done IO today. Pt will f/u in 3-4 months. 2. Mixed incontinence (N39.46: Mixed incontinence) The leakage can sometimes occur w/ activity and can also occur when sitting doing nothing and can get leakage at night when sleeping. 3. Incomplete bladder emptying (R33.9: Retention of urine, unspecified) PVR last OV 60cc. 4. Cystocele with prolapse (N81.4: Uterovaginal prolapse, unspecified) Moderate cystocele w/ Valsalva on previous exam 5. History of UTI (Z87.440: Personal history of urinary (tract) infections) No UTI since last OV. Overall the patient has a long history of intermittent urethral dilatations and symptoms had persisted and became worse. She tolerates the scope today without difficulty. She is retaining a bit of urine and does show signs of bladder outlet obstruction with a significant bladder trabeculation. She tolerates the urethral dilatation and we will see her back in a couple months with an appointment with David Escobar. She agrees with the plan. She will finish antibiotic Follow-up With When Contact Information MARY HENRY, Vinicio Marie, URL In 4 months 04/05/[address] [place] [id number]- Additional Instructions: Patient Education Overactive Bladder, Adult I, Amnada Hackett , personally scribed for Dr. Hernandez on 12/03/2022 14:37:09. . Documentation recorded by the scribe, Amanda Hackett MA, accurately reflects the services(s) I performed and decisions made by me. Authenticated by Dr. Hernandez on 12/03/2022 14:38:23. Problem List/Past Medical History Ongoing Acute cystitis without hematuria Anemia Cystocele with prolapse Former smoker History of UTI Hypertension Incomplete bladder emptying Mixed incontinence Urethral stricture Weak urine stream Historical No qualifying data Procedure/Surgical History Cystourethroscopy with dilation of urethral stricture (12/03/2022), Cystourethroscopy with dilation of urethral stricture (02/09/2022), Cataract extraction and insertion of intraocular lens (11/26/2020), Cataract extraction and insertion of intraocular lens (11/12/2020), Bilateral tubal ligation (07/19/1981). Medications acetaminophen, 500 mg, Oral, PRN aspirin 81 mg Chew Tab, 81 mg= 1 tab(s), Chewed, Daily carvedilol 6.25 mg Tab, 6.25 mg= 1 tab(s), Oral, BID Cipro 500 mg Tab, See Instructions ferrous sulfate, 325 mg, Oral, q2Days ibuprofen, 200 mg, Oral, q8hr, PRN oxybutynin 5 mg ER Tab, 5 mg= 1 tab(s), Oral, Daily, 3 refills [place]ie (more content not included)... [facility] Comment on above: Result Comment: Elec tronically Signed By: Vinicio HERNANDEZ MD\.br\Date and Time Signed: 12/03/22 14:39 EDT\.br\Electronically Co-Signed By: Amanda Hackett MA\.br\Date and Time Co-Signed: 12/03/22 14:37 EDT URINALYSISOrdered By: Ellen hernadez on 08-19-2022 Bacteria LM Ql (Urine sed) 2+ /HPF Invalid Interpretation Code Trace/HPF [facility] UA Auto SS Bilirubin Ql (U) Negative (08/19/22 2:15 PM) Normal Negative [facility] UA Auto SS Clarity (U) Cloudy *ABN* (08/19/22 2:15 PM) Invalid Interpretation Code Clear [facility] UA Auto SS Color (U) Yellow (08/19/22 2:15 PM) Normal Yellow [facility] UA Auto SS Crystals LM Ql (Urine sed) Present (08/19/22 2:15 PM) Normal [facility] UA Auto SS Epithelial cells.squamous LM.HPF (Urine sed) [#/Area] 0-2 /HPF Normal 0-2/HPF [facility] UA Aut o SS Glucose Test strip (U) [Mass/Vol] Negative (08/19/22 2:15 PM) Normal Negative [facility] UA Auto SS Hemoglobin Ql (U) Negative (08/19/22 2:15 PM) Normal Negative [facility] UA Auto SS Ketones (U) [Mass/Vol] Trace *NA* (08/19/22 2:15 PM) Invalid Interpretation Code Negative [facility] UA Auto SS Carlton.plasma/Lithiu m.RBC (Bld) [Mass ratio] 4-20 /HPF Normal 0-3/HPF [facility] UA Auto SS Mucus Ql (Urine sed) Trace (08/19/22 2:15 PM) Normal [facility] UA Auto SS Nitrite Ql (U) Positive *ABN* (08/19/22 2:15 PM) Invalid Interpretation Code Negative [facility] UA Auto SS pH (U) 6.0 *NA* (08/19/22 2:15 PM) Invalid Interpretation Code 5.0 - 9.0 [facility] UA Auto SS Protein (U) [Mass/Vol] Negative (08/19/22 2:15 PM) Normal Negative [facility] UA Auto SS Specific gravity (U) [Rel density] >=1.030 *NA* (08/19/22 2:15 PM) Invalid Interpretation Code 1.005 - 1.030 [facility] UA Auto SS UA Spec Desc Clean Catch (08/19/22 2:15 PM) Normal [facility] UA Auto SS Urobilinogen Qn (U) [id number] {Shawna'U}/dL Normal 0.0 - 1.0 EU/dL [facility] UA Auto SS WBC Auto Ql (U) 2+ *ABN* (08/19/22 2:15 PM) Invalid Interpretation Code Negative [facility] UA Auto SS WBC LM.HPF (Urine sed) [#/Area] /[HPF] Invalid Interpretation Code 0-5/HPF [facility] UA Auto SS XR DEXA BONE DENSITYon 02-10 XR DEXA BONE DENSITY EXAMINATION: XR DEX A BONE DENSITY, 02/10/2022 1:37 PM EDT HISTORY: Screening for osteoporosis COMPARISON: DEXA bone densitometry 12/19/2013 TECHNIQUE: Dual-energy X-ray absorptiometry (DEXA) bone density study performed for the axial skeleton. FINDINGS: SPINE ANALYSIS: Average bone mineral density is 0.761 g/cm2. T-score (standard deviation relative to young adult mean): -3.5 . -12.8% change since prior study. HIP ANALYSIS: Lowest bone mineral density is within the femoral neck, 0.64 g/cm2. T-score (standard deviation relative to young adult mean): -2.5 . -10.3% change since prior study. IMPRESSION: World [employer] Classification: Osteoporosis - High Fracture Risk Electronically authenticated by: SABRINA PORTILLO Date: 2022-02-10 16:45 Normal [facility] COVID-19 Antigenon 2 COVID-19 Antigen Healthcare Worker?: N Reference Range: Negative Negative results, from patients with symptom onset beyond five days, should be treated as presumptive and confirmation with a molecular assay, if necessary, for patient management, may be performed. Negative results do not rule out COVID-19 and should not be used as the sole basis for treatment or patient management decisions, including infection control decisions. Negative results should be considered in the context of a patient's recent exposures, history and the presence of clinical signs and symptoms consistent with COVID-19. The Vick SARS Antigen QUINN does not differentiate between SARS-CoV and SARS-CoV-2. This test was developed and its performance characteristic determined by [employer] and validated at [facility]. This test has not been FDA cleared or approved. This test has been authorized by FDA under an Emergency Use Authorization (EUA). This test has been validated in accordance with the FDA's Guidance Document (Policy for Diagnostics Testing in Laboratories Certified to Perform High Complexity Testing under CLIA prior to Emergency Use Authorization for Coronavirus Disease-2019 during the Public Health Emergency) issued on October 19, 2019. This test is only authorized for the duration of time the declaration that circumstances exist justifying the authorization of the emergency use of in vitro diagnostic tests for detection of SARS-CoV-2 virus and/or diagnosis of COVID-19 infection under section 564(b)(1) of the Act, 21 U.S.C. 360bbb-3(b)(1), unless the authorization is terminated or revoked sooner. SARS-CoV+SARS-CoV-2 (COVID-19) Ag [Presence] in Respiratory specimen by Rapid immunoassay Negative for SARS Antigen by QUINN PERFORMED BY: [place] [address] PATHOLOGIST LABORATORY CHIEF CHERYL RIVAS M.D. Normal [facility] Comment on above: Performed By: #### S OFJAVIER, COVID-19 VICK #### [address] PAP ACOG PANEL 2: 30 to 65on 01-02-2022 . . Normal [facility] Comment on above: Performed By: #### [id number] #### [facility] [address] [place] [address] Dr. Huang Ojeda Age Gdln ACOG Testing Comment Normal [facility] Comment on above: Result Comment: <21 or >65 or no age provided Performed By: #### [id number] #### [facility] [address] [place] [address] Dr. Huang Ojeda DIAGNOSIS: Comment Normal [facility] Comment on above: Result Comment: NEGA TIVE FOR INTRAEPITHELIAL LESION OR MALIGNANCY. Performed By: #### [id number] #### [facility] [address] [place] [address] Dr. Huang Ojeda Methodology: Comment [facility] Comment on above: Result Comment: This liquid based ThinPrep(R) pap test was screened with the use of an image guided system. Performed By: #### [id number] #### [facility] [address] [place] [address] Dr. Huang Ojeda Note: Comment [facility] Comment on above: Result Comment: The Pap smear is a screening test designed to aid in the detection of premalignant and malignant conditions of the uterine cervix. It is not a diagnostic procedure and should not be used as the sole means of detecting cervical cancer. Both false-positive and false-negative reports do occur. . Performed By: #### [id number] #### [facility] [address] [place] [address] Dr. Huang Ojeda Performed by: Comment Normal [facility] Comment on above: Result Comment: Isela Britt, Child Psychiatrist (ASCP) Performed By: #### [id number] #### [facility] [address] [place] [address] Dr. Huang Ojeda Specimen adequacy: Comment Normal [facility] Comment on above: Result Comment: Sati sfactory for evaluation. Endocervical and/or squamous metaplastic cells (endocervical component) are present. Performed By: #### [id number] #### [facility] [address] [address] [address] Huang Ojeda Vick Ag Negativeon 01-03-20 Vick Ag Negative Negative Normal Negative [facility] Comment on above: Result Comment: This is a duplicate Vick SARS Antigen (QUINN) result to be used for statistical tracking purpose only. PERFORMED BY: [place] [address] PATHOLOGIST LABORATORY CHIEF CHERYL RIVAS M.D. Performed By: #### S OFIANEG, COVID-19 VICK #### [address] MG MAMM SCREEN 3D ROMAINE CADon 11-28-2021 MG MAMM SCREEN 3D ROMAINE CAD Patient: CHLOE MOJICA Exam Date: 11/28/2021 : 1955 Gender:F Ordering : SHAIKH Rand HINDS . Admission #: [id number] Family : Order #: [id number] CLICK HERE TO VIEW EXAM RADIOLOGY REPORT PROCEDURE: MAMMOGRAM SCREENING 3D BILATERAL CAD COMPARISON: MG MAMM ROMAINE SCRN W CAD DIG, 12/19/2013. INDICATIONS: Screening mammography Calculator Name NCI Breast Cancer Risk Assessment Tool 5 Year Breast Cancer Risk 1.20% Lifetime Breast Cancer Risk 4.40% Personal Breast Cancer No Personal Ovarian Cancer No Treatments None Family Cancers None LOCATION: [facility] BREAST COMPOSITION: Scattered areas fibroglandular density. FINDINGS: DIAGNOSTIC CATEGORY 1--NEGATIVE. NO CHANGE FROM COMPARISON ASSESSMENT. Scattered benign-appearing calcifications are present. Scattered benign-appearing lymph nodes are present. RIGHT BREAST: No significant suspicious finding. LEFT BREAST: No significant suspicious finding. RECOMMENDATIONS: ROUTINE MAMMOGRAM AND CLINICAL EVALUATION IN 12 MONTHS. PLEASE NOTE: A NORMAL MAMMOGRAM DOES NOT EXCLUDE THE POSSIBILITY OF BREAST CANCER. A CLINICALLY SUSPICIOUS PALPABLE LUMP SHOULD BE BIOPSIED. Dictated by: Lavern Britt MD on 11/28/2021 at 15:00 Approved by: Lavern Britt MD on 11/28/2021 at 15:01 Normal [facility] US CAROTID ART BILon 022 US CAROTID ART ROMAINE EXAMINATION: US CAROTID ART ROMAINE HISTORY: Bilateral carotid artery occlusion COMPARISON: No relevant comparison available. TECHNIQUE: Duplex Doppler ultrasound analysis of carotid and vertebral arteries. . Bilateral carotid arterial duplex examination was performed using B-mode, color flow and spectral analysis. Carotid stenosis is reported according to validated velocity parameters, similar to NASCET criteria. FINDINGS: RIGHT CAROTID ARTERY Mild atherosclerotic plaque Subclavian: PSV: 86.5 cm/s cm/s EDV: 0.0 cm/s cm/s CCA: Prox: PSV: 68.6 cm/s cm/s EDV: 13.6 cm/s cm/s Mid: PSV: 67.7 cm/s cm/s EDV: 18.0 cm/s cm/s Distal: PSV: 52.9 cm/s cm/s EDV: 16.2 cm/s cm/s BULB: PSV: 49.4 cm/s cm/s EDV: 11.0 cm/s cm/s ICA: Prox: PSV: 65.1 cm/s cm/s EDV: 27.6 cm/s cm/s Mid: PSV: 101.7 cm/s cm/s EDV: 40.9 cm/s cm/s Distal: PSV: 69.4 cm/s cm/s EDV: 20.2 cm/s cm/s ECA: PSV: 54.6 cm/s cm/s EDV: 9.2 cm/s cm/s VERTEBRAL: PSV: 46.8 cm/s cm/s EDV: 16.2 cm/s cm/s ICA/CCA ratio: PSV: 1.9 EDV: 2.5 LEFT CAROTID ARTERY Mild atherosclerotic plaque Subclavian: PSV: 86.6 cm/s cm/s EDV: 0.0 cm/s CCA: Prox: PSV: 90.7 cm/s cm/s EDV: 23.7 cm/s Mid: PSV: 75.3 cm/s cm/s EDV: 18.2 cm/s Distal: PSV: 61.6 cm/s cm/s EDV: 21.5 cm/s BULB: PSV: 45.9 cm/s cm/s EDV: 17.1 cm/s ICA: Prox: PSV: 40.6 cm/s cm/s EDV: 18.0 cm/s Mid: PSV: 49.4 cm/s cm/s EDV: 22.3 cm/s Distal: PSV: 43.3 cm/s cm/s EDV: 20.6 cm/s ECA: PSV: 54.6 cm/s cm/s EDV: 11.0 cm/s VERTEBRAL: PSV: 39.8 cm/s cm/s EDV: 18.0 cm/s ICA/CCA ratio: PSV: 0.8 EDV: 1.0 IMPRESSION: 0-49% flow stenosis bilateral internal carotid arteries Spectral Doppler US Thresholds (Reference: Apollo EG, et al. Radiology 2000; 214:247-252) Stenosis (%) PSV (cm/sec) VICA/VCCA 0-49 <150 <2.5 50-69 150-225 2.5-4.0 >70 >225 >4.0 Electronically authenticated by: LAVERN BRITT Date: 2021-11-28 14:17 Normal [facility] CBC AUTO DIFFon 11-27-2021 BASO # 0.1 103/ul Normal 0.0-0.1 [facility] Comment on above: Performed By: #### C BC #### [facility] [address] [place] [address] Dr. Huang Ojeda Basophils/100 WBC (Bld) 0.8 % Normal 0.2-2.0 [facility] Comment on above: Performed By: #### C BC #### [facility] [address] [place] [address] Dr. Huang Ojeda EO # 0.2 103/ul Normal 0.0-0.7 [facility] Comment on above: Performed By: #### C BC #### [facility] [address] [place] [address] Dr. Huang Ojeda Eosinophils/100 WBC (Bld) 2.5 % Normal 0.9-7.0 [facility] Comment on above: Performed By: #### C BC #### [facility] [address] [place] [address] Dr. Huang Ojeda Erythrocyte distribution width (RBC) [Ratio] 13.1 % Normal 11.0-15.0 [facility] Comment on above: Performed By: #### C BC #### [facility] [address] [place] [address] Dr. Huang Ojeda Hematocrit (Bld) [Volume fraction] 38.9 % Normal 36.0-48.0 [facility] Comment on above: Performed By: #### C BC #### [facility] [address] [place] [address] Dr. Huang Ojeda Hemoglobin (Bld) [Mass/Vol] 12.1 g/dL Normal 12.0-16.0 [facility] Comment on above: Performed By: #### C BC #### [facility] [address] [place] [address] Dr. Huang Ojeda IG # 0.01 10e3/ul Normal 0.00-0.03 [facility] Comment on above: Performed By: #### C BC #### [facility] [address] [place] [address] Dr. Huang Ojeda IG % 0.2 % Normal 0.0-0.5 [facility] Comment on above: Performed By: #### C BC #### [facility] [address] [place] [address] Dr. Huang Ojeda LYMPH # 1.7 103/ul Normal 1.2-3.8 [facility] Comment on above: Performed By: #### C BC #### [facility] [address] [place] [address] Dr. Huang Ojeda Lymphocytes/100 WBC (Bld) 27.8 % Normal 20.5-60.0 [facility] Comment on above: Performed By: #### C BC #### [facility] [address] [place] [address] Dr. Huang Ojeda MANUAL DIFF REQ NO Normal [facility] Comment on above: Performed By: #### C BC #### [facility] [address] [place] [address] Dr. Huang Ojeda MCH (RBC) [Entitic mass] 31.3 pg Normal 26.7-34.0 [facility] Comment on above: Performed By: #### C BC #### [facility] [address] [place] [address] Dr. Huang Ojeda MCHC (RBC) [Mass/Vol] 31.1 g/dL Normal 29.9-35.2 [facility] Comment on above: Performed By: #### C BC #### [facility] [address] [address] [address] Huang Ojeda MCV (RBC) [Entitic vol] 100.8 fL Critically high 81.0-99.0 [facility] Comment on above: Performed By: #### C BC #### [facility] [address] [address] [address] Huang Ojeda MONO # 0.6 103/ul Normal 0.3-0.8 [facility] Comment on above: Performed By: #### C BC #### [facility] [address] [place] [address] Dr. Huang Ojeda Monocytes/100 WBC (Bld) 10.2 % Normal 1.7-12.0 [facility] Comment on above: Performed By: #### C BC #### [facility] [address] [place] [address] Dr. Huang Ojeda NEUT # 3.5 103/ul Normal 1.4-6.5 [facility] Comment on above: Performed By: #### C BC #### [facility] [address] [place] [address] Dr. Huang Ojeda Neutrophils/100 WBC (Bld) 58.5 % Normal 43.0-75.0 [facility] Comment on above: Performed By: #### C BC #### [facility] [address] [place] [address] Dr. Huang Ojeda Platelet mean volume (Bld) [Entitic vol] 10.6 fL Normal 9.5-13.5 [facility] Comment on above: Performed By: #### C BC #### [facility] [address] [place] [address] Dr. Huang Ojeda PLT 364 103/ul Normal 150-450 [facility] Comment on above: Performed By: #### C BC #### [facility] [address] [place] [address] Dr. Huang Ojeda RBC 3.86 106/ul Critically low 4.20-5.40 [facility] Comment on above: Performed By: #### C BC #### [facility] [address] [place] [address] Dr. Huang Ojeda WBC 6.0 103/ul Normal 4.0-11.0 [facility] Comment on above: Performed By: #### C BC #### [facility] [address] [place] [address] Dr. Huang Ojeda FERRITINon 11-27-2021 Ferritin [Mass/Vol] 92.0 ng/mL Normal 8.0-252.0 [facility] Comment on above: Performed By: #### F ERR #### [facility] [address] [place] [address] Dr. Huang Ojeda GLYCOHEMOGLOBIN A1Con 2021 ADA RECOMMENDATION SEE BELOW Normal [facility] Comment on above: Result Comment: ADA RECOMMENDED LIMIT 4.0 - 6.0 ADA THERAPEUTIC TARGET < 7.0 ACTION SUGGESTED > 7.0 Performed By: #### A 1C #### [facility] [address] [place] [address] Dr. Huang Ojeda Glucose [Mass/Vol] 120 mg/dL Normal [facility] Comment on above: Performed By: #### A 1C #### [facility] [address] [place] [address] Dr. Huang Ojeda HbA1c (Bld) [Mass fraction] 5.8 % Normal 4.5-6.2 [facility] Comment on above: Performed By: #### A 1C #### [facility] [address] [place] [address] Dr. Huang Ojeda LIPID PROFILEon 11-27-2021 CHOL-HDL RATIO NORM SEE BELOW Normal [facility] Comment on above: Result Comment: 3.3 - 4.4 LOW RISK 4.4 - 7.1 AVERAGE RISK 7.1 - 11.0 MODERATE RISK >11.0 HIGH RISK Performed By: #### C MP, LIPID #### [facility] [address] [place] [address] Dr. Huang Ojeda Cholesterol [Mass/Vol] 146 mg/dL Normal <=200 [facility] Comment on above: Performed By: #### C MP, LIPID #### [facility] [address] [address] [address] Huang Ojeda Cholesterol in HDL [Mass/Vol] 62 mg/dL Critically high 40-60 [facility] Comment on above: Performed By: #### C MP, LIPID #### [facility] [address] [address] [address] Huang Ojeda Cholesterol in LDL [Mass/Vol] 62.4 mg/dL Normal [facility] Comment on above: Performed By: #### C MP, LIPID #### [facility] [address] [address] [address] Huang Ojeda Cholesterol.total/Cho lesterol in HDL [Mass ratio] 2.4 {ratio} Normal [facility] Comment on above: Performed By: #### C MP, LIPID #### [facility] [address] [address] [address] Huang Ojeda HDL NORMAL > or = 60 mg/dl - LO W CARDIOVASCULAR RISK <40 mg/dl - HIGH CARDIOVASCULAR RISK Normal [facility] Comment on above: Performed By: #### C MP, LIPID #### [facility] [address] [address] [address] Huang Ojeda LDL CALC NORMAL SEE BELOW Normal [facility] Comment on above: Result Comment: <100 mg/dl OPTIMAL 100 - 129 mg/dl NEAR OR ABOVE OPTIMAL 130 - 159 mg/dl BORDERLINE HIGH 160 - 189 mg/dl HIGH >190 mg/dl VERY HIGH Performed By: #### C MP, LIPID #### [facility] [address] [address] [address] Huang Ojeda Triglyceride [Mass/Vol] 108 mg/dL Normal <=150 [facility] Comment on above: Performed By: #### C MP, LIPID #### [facility] [address] [place] [address] Dr. Huang Ojeda VLDL CALC 21.6 mg/dL Normal [facility] Comment on above: Performed By: #### C MP, LIPID #### [facility] [address] [address] [address] Huang Ojeda PROF 14(COMP METB)on 022 Albumin [Mass/Vol] 3.7 g/dL Normal 3.4-5.0 [facility] Comment on above: Performed By: #### C MP, LIPID #### [facility] [address] [address] [address] Huang Ojeda Albumin/Globulin [Mass ratio] 1.1 {ratio} Normal [facility] Comment on above: Performed By: #### C MP, LIPID #### [facility] [address] [address] [address] Huang Ojeda ALP [Catalytic activity/Vol] 72 U/L Normal 46-116 [facility] Comment on above: Performed By: #### C MP, LIPID #### [facility] [address] [address] [address] Huang Ojeda ALT [Catalytic activity/Vol] 28 U/L Normal 14-59 [facility] Comment on above: Performed By: #### C MP, LIPID #### [facility] [address] [address] [address] Huang Ojeda Anion gap [Moles/Vol] 11.0 mmol/L Normal [facility] Comment on above: Performed By: #### C MP, LIPID #### [facility] [address] [address] [address] Huang Ojeda AST [Catalytic activity/Vol] 17 U/L Normal 15-37 [facility] Comment on above: Performed By: #### C MP, LIPID #### [facility] [address] [address] [address] Huang Ojeda Bilirubin [Mass/Vol] 0.3 mg/dL Normal 0.2-1.0 [facility] Comment on above: Performed By: #### C MP, LIPID #### [facility] [address] [address] [address] Huang Ojeda Calcium [Mass/Vol] 9.2 mg/dL Normal 8.5-10.1 [facility] Comment on above: Performed By: #### C MP, LIPID #### [facility] [address] [address] [address] Huang Ojeda Chloride [Moles/Vol] 106 mmol/L Normal 98-107 [facility] Comment on above: Performed By: #### C MP, LIPID #### [facility] [address] [address] [address] Huang Ojeda CO2 [Moles/Vol] 29.1 mmol/L Normal 21.0-32.0 [facility] Comment on above: Performed By: #### C MP, LIPID #### [facility] [address] [address] [address] Huang Ojeda Creatinine [Mass/Vol] 0.69 mg/dL Normal 0.55-1.02 [facility] Comment on above: Performed By: #### C MP, LIPID #### [facility] [address] [place] [address] Dr. Huang Ojeda EGFR-AF SAUDI ARABIAN >60 Normal >=60 [facility] Comment on above: Performed By: #### C MP, LIPID #### [facility] [address] [place] [address] Dr. Huang Ojeda EGFR-NON AF SAUDI ARABIAN >60 Normal >=60 [facility] Comment on above: Performed By: #### C MP, LIPID #### [facility] [address] [place] [address] Dr. Huang Ojeda Globulin (S) [Mass/Vol] 3.4 g/dL Normal [facility] Comment on above: Performed By: #### C MP, LIPID #### [facility] [address] [place] [address] Dr. Huang Ojeda Glucose [Mass/Vol] 92 mg/dL Normal 74-106 [facility] Comment on above: Performed By: #### C MP, LIPID #### [facility] [address] [address] [address] Huang Ojeda Potassium [Moles/Vol] 4.1 mmol/L Normal 3.5-5.1 [facility] Comment on above: Performed By: #### C MP, LIPID #### [facility] [address] [place] [address] Dr. Huang Ojeda Protein [Mass/Vol] 7.1 g/dL Normal 6.4-8.2 [facility] Comment on above: Performed By: #### C MP, LIPID #### [facility] [address] [address] [address] Huang Ojeda Sodium [Moles/Vol] 142 mmol/L Normal 136-145 [facility] Comment on above: Performed By: #### C MP, LIPID #### [facility] [address] [address] [address] Huang Ojeda Urea nitrogen [Mass/Vol] 19.0 mg/dL Critically high 7.0-18.0 [facility] Comment on above: Performed By: #### C MP, LIPID #### [facility] [address] [address] [address] Huang Ojeda Urea nitrogen/Creatinine [Mass ratio] 27.5 mg/mg Normal [facility] Comment on above: Performed By: #### C MP, LIPID #### [facility] [address] [address] [address] Huang Ojeda Vital Signs Date Time Vital Sign Value Performing Clinician Facility 08-19-2023 15:43-0500 Body height 166.6 cm Shaikh Guzman HENRY Work Phone: [facility] 08-19-2023 15:43-0500 Body mass index (BMI) [Ratio] 22.38 kg/m2 Shaikh Guzman HENYR Work Phone: [facility] 08-19-2023 15:43-0500 Body temperature 96.49 [degF] Shaikh Guzman HENRY Work Phone: [facility] 08-19-2023 15:43-0500 Body weight 62.14 kg Shaikh Guzman HENRY Work Phone: [facility] 08-19-2023 15:43-0500 Diastolic blood pressure 84 mm[Hg] Shaikh Guzman HENRY Work Phone: [facility] 08-19-2023 15:43-0500 Heart rate 73 /min Shaikh Guzman HENRY Work Phone: [facility] 08-19-2023 15:43-0500 SaO2% (BldA) [Mass fraction] 99 % Shaikh Guzman HENRY Work Phone: [facility] 08-19-2023 15:43-0500 Systolic blood pressure 130 mm[Hg] Shaikh Guzman HENRY Work Phone: [facility] 06-01-2023 11:30-0500 Blood Pressure Location SUSANA ROMA [facility] 06-01-2023 11:30-0500 Diastolic blood pressure 74 mm[Hg] SUSANA ROMA [facility] 06-01-2023 11:30-0500 Heart rate 68 /min SUSANA ROMA [facility] 06-01-2023 11:30-0500 Respiratory rate 16 /min SUSANA ROMA [facility] 06-01-2023 11:30-0500 Systolic blood pressure 116 mm[Hg] SUSANA ROMA [facility] 02-04-2023 11:11-0400 Blood Pressure Location SUSANA ROMA [facility] 02-04-2023 11:11-0400 Diastolic blood pressure 84 mm[Hg] SUSANA ROMA [facility] 02-04-2023 11:11-0400 Heart rate 79 /min SUSANA ROMA [facility] 02-04-2023 11:11-0400 Respiratory rate 16 /min SUSANA BRANDON [facility] 02-04-2023 11:11-0400 Systolic blood pressure 132 mm[Hg] SUSANA ROMA [facility] 08-19-2022 12:57-0500 Blood Pressure Location Cynthia Rodriguez [facility] 08-19-2022 12:57-0500 Diastolic blood pressure 87 mm[Hg] Cynthia Rodriguez [facility] 08-19-2022 12:57-0500 Heart rate 76 /min Cynthia Rodriguez [facility] 08-19-2022 12:57-0500 Systolic blood pressure 135 mm[Hg] Cynthia Rodriguez [facility] 04-29-2022 15:33-0400 Blood Pressure Location SUSANA BRANDON [facility] 04-29-2022 15:33-0400 Diastolic blood pressure 76 mm[Hg] SUSANA ROMA [facility] 04-29-2022 15:33-0400 Heart rate 62 /min SUSANA KAURRY [facility] 04-29-2022 15:33-0400 Systolic blood pressure 134 mm[Hg] SUSANA ROMA [facility] 02-03-2022 09:21-0400 Blood Pressure Location Chucky Berkowitz Jr. [facility] 02-03-2022 09:21-0400 Diastolic blood pressure 82 mm[Hg] Chucky Berkowitz Jr. [facility] 02-03-2022 09:21-0400 Heart rate 70 /min Chucky Berkowitz Jr. [facility] 02-03-2022 09:21-0400 Systolic blood pressure 140 mm[Hg] Chucky Berkowitz Jr. [facility] Encounters Encounter Date Encounter Type Care Provider Facility Start: 09-24-2023 ambulatory Debi X Orzech Facilit y:YANELI Morejon Start: 09-07-2023 End: 09-08-2023 ambulatory SUSANA BRANDON Facility:[facility] Start: 09-07-2023 End: 09-07-2023 Patient encounter procedure SUSANA BRANDON [facility] Start: 08-19-2023 End: 08-19-2023 ambulatory SHAIKH GUZMAN Not Available Start: 08-19-2023 End: 08-19-2023 Office outpatient visit 25 minutes Shaikh Guzman HENRY Work Phone: [facility] Comment on above: Hyperlipidemia, unsp ecified hyperlipidemia type (CMS/HCC) (Primary Dx); Essential hypertension (CMS/HCC); Mixed incontinence; Encounter for screening mammogram for breast cancer; Iron deficiency anemia secondary to inadequate dietary iron intake; Recurrent major depressive disorder, in full remission (CMS/HCC) Start: 08-19-2023 Catia Hinds MD Work Phone: [facility] Start: 08-19-2023 Catia Hinds MD Work Phone: [facility] Start: 06-01-2023 End: 06-02-2023 ambulatory SUSANA E ROMA Facility:[facility] Start: 06-01-2023 End: 06-01-2023 Lab Drop off SUSANA E ROMA [facility] Start: 06-01-2023 End: 06-02-2023 ambulatory SUSANA E ROMA Facility:[facility] Start: 06-01-2023 End: 06-01-2023 Patient encounter procedure SUSANA E ROMA [facility] Start: 04-13-2023 End: 04-14-2023 ambulatory SUSANA E ROMA Facility:[facility] Start: 02-04-2023 End: 02-05-2023 ambulatory SUSANA E ROMA Facility:[facility] Start: 02-04-2023 End: 02-05-2023 ambulatory SUASNA E ROMA Facility:[facility] Start: 02-04-2023 End: 02-04-2023 Patient encounter procedure SUSANA E ROMA [facility] Start: 12-03-2022 End: 12-04-2022 ambulatory Vinicio HERNANDEZ Facility:[facility] Start: 09-24-2022 ambulatory SHAIKH Monique Joy y:[facility] Start: 08-19-2022 End: 08-19-2022 Lab Drop off Cynthia Rodriguez [facility] Start: 08-19-2022 End: 08-19-2022 Patient encounter procedure Cynthia Rodriguez [facility] Start: 04-29-2022 End: 04-29-2022 Patient encounter procedure SUSANA E ROMA [facility] Start: 02-10-2022 End: 02-11-[address] VINICIO KERNS . Facility:[facility] Start: 02-03-2022 End: 02-03-2022 Patient encounter procedure Chucky Berkowitz Jr. [facility] Start: 12-30-2021 End: 12-30-[address] VINICIO KERNS . Facility:[facility] Start: 11-28-2021 End: 11-29-2021 ambulatory SHAIKH Monique HINDS Facility:[facility] Start: 11-26-2021 End: 11-27-2021 ambulatory SHAIKH Monique HINDS Facility:[facility] Procedures Date Procedure Procedure Detail Performing Clinician Start: 12-03-2022 Cystourethroscopy wi th dilation of urethral stricture SUSANA ROMA Start: 02-17-2022 Colonoscopy Shaikh Flaquito hughes MD Work Phone: Start: 02-09-2022 Cystourethroscopy wi th dilation of urethral stricture SUSANA ROMA Start: 11-26-2020 Cataract extraction and insertion of intraocular lens Chucky Berkowitz Jr. Start: 11-12-2020 Cataract extraction and insertion of intraocular lens Chucky Berkowitz Jr. Start: 01-01-2014 Colonoscopy Shaikh Flaquito hughes MD Work Phone: Start: 07-19-1981 Bilateral tubal ligation Chucky Berkowitz Jr. Plan of Treatment Date Care Activity Detail Author Start: 02-18-2032 Screening for malign ant neoplasm of colon [facility] Start: 01-02-2024 Screening for malign ant neoplasm of colon [facility] Start: 12-29-2023 End: 12-29-2023 Patient encounter procedure 12/29/2023 3:15 PM EDT Office Visit [facility] [address] [place] [id number] Shaikh Hinds MD [address] [place] [address] [facility] Start: 09-20-2023 End: 09-20-2023 Patient encounter procedure 09/20/2023 10:00 AM EST Office Visit [facility] [address] [place] [address] Alba Daley PA [address] [place] [address] [facility] Start: 08-19-2023 End: 08-19-2023 Patient encounter procedure 08/19/2023 3:45 PM EST Office Visit [facility] [address] [place] [address] Shaikh Hinds MD [address] [place] [address] Arrived [facility] Comment on above: Arrived Start: 08-19-2023 End: 08-19-2024 CBC W Auto Differential panel - Blood CBC and differential Lab Routine Essential hypertension (CMS/HCC) Expected: 08/19/2023 (Approximate), Expires: 08/19/2024 [facility] Comment on above: Expected: 08/19/2023 (Approximate), Expires: 08/19/2024 Start: 08-19-2023 End: 08-19-2024 Cobalamin (Vitamin B12) [Mass/volume] in Serum or Plasma Vitamin B12 Lab Routine Iron deficiency anemia secondary to inadequate dietary iron intake Expected: 08/19/2023 (Approximate), Expires: 08/19/2024 [facility] Comment on above: Expected: 08/19/2023 (Approximate), Expires: 08/19/2024 Start: 08-19-2023 End: 08-19-2024 Comprehensive metabolic 2000 panel - Serum or Plasma Comprehensive metabolic panel Lab Routine Essential hypertension (CMS/HCC) Expected: 08/19/2023 (Approximate), Expires: 08/19/2024 [facility] Comment on above: Expected: 08/19/2023 (Approximate), Expires: 08/19/2024 Start: 08-19-2023 End: 08-19-2024 Ferritin [Mass/volume] in Serum or Plasma Ferritin Lab Routine Iron deficiency anemia secondary to inadequate dietary iron intake Expected: 08/19/2023 (Approximate), Expires: 08/19/2024 [facility] Comment on above: Expected: 08/19/2023 (Approximate), Expires: 08/19/2024 Start: 08-19-2023 End: 08-19-2024 Folate [Mass/volume] in Serum or Plasma Folate Lab Routine Iron deficiency anemia secondary to inadequate dietary iron intake Expected: 08/19/2023 (Approximate), Expires: 08/19/2024 [facility] Comment on above: Expected: 08/19/2023 (Approximate), Expires: 08/19/2024 Start: 08-19-2023 End: 08-19-2024 Iron + transferrin + TIBC Iron + transferrin + TIBC Lab Routine Iron deficiency anemia secondary to inadequate dietary iron intake Expected: 08/19/2023 (Approximate), Expires: 08/19/2024 [facility] Comment on above: Expected: 08/19/2023 (Approximate), Expires: 08/19/2024 Start: 08-19-2023 End: 08-19-2024 Lipid 1996 panel - Serum or Plasma Lipid panel Lab Routine Hyperlipidemia, unspecified hyperlipidemia type (CMS/HCC) Expected: 08/19/2023 (Approximate), Expires: 08/19/2024 [facility] Comment on above: Expected: 08/19/2023 (Approximate), Expires: 08/19/2024 Start: 08-19-2023 End: 10-17-2024 MG Breast - bilateral Screening Bilateral screening mammogram Imaging Routine Encounter for screening mammogram for breast cancer Expected: 08/19/2023, Expires: 10/17/2024 [facility] Work Phone: Comment on above: Expected: 08/19/2023 , Expires: 10/17/2024 Start: 03-19-2023 Influenza vaccination Influenza Vacc ine (#1) [facility] Start: 2020 Pneumococcal Vaccine : 65+ Years (1 - PCV) Pneumococcal Vaccine: 65+ Years (1 - PCV) [facility] Start: 1995 Screening for malign ant neoplasm of breast Mammogram [facility] Start: 1955 Medicare Annual Wellness (AWV) Medicare Annual Wellness (AWV) [facility] Start: 1955 Screening for malign ant neoplasm of colon [facility] Immunizations Immunization Date Immunization Notes Care Provider [facility] 12-08-2022 zoster vaccine recombinant SUSANA ROMA [facility] 10-07-2022 zoster vaccine recombinant SUSANA ROMA [facility] 05-20-2022 influenza virus vaccine, unspecified formulation Cynthia Rodriguez [facility] 05-20-2022 Influenza, High-dose Seasonal, Quadrivalent, Preservative Free Shaikh Guzman HENRY Work Phone: [facility] 05-20-2022 SARS-CoV-2 (COVID-19 ) [id number] Cynthia Melvinmons [facility] 04-07-2021 influenza virus vaccine, unspecified formulation SUSANA ROMA [facility] 04-07-2021 Influenza, High-dose Seasonal, Quadrivalent, Preservative Free Shaikh Guzman HENRY Work Phone: [facility] 11-20-2020 SARS-CoV-2 (COVID-19 ) mRNA BNT-162b2 vax SUSANA ROMA [facility] 10-30-2020 SARS-CoV-2 (COVID-19 ) mRNA BNT-162b2 vax SUSANA ROMA [facility] Payers Date Payer Category Payer Unknown [employer] [id number] 2022-Present [address] [place] [address] [id number] 2020 Unknown [id number] 1959 Medicare [id number] 1955 Unknown [id number] 1955 Unknown [id number] 1955 Unknown [id number] 1955 Unknown [id number] 1955 Unknown [id number] 1955 Unknown [id number] 1955 Unknown [id number] 1955 Unknown [id number] 1955 Unknown [id number] 1955 Unknown [id number] 1955 Unknown [id number] 1955 Unknown [id number] 1955 Unknown [id number] 1955 Unknown [id number] Social History Date Type Detail Facility Start: 02-03-2022 End: 12-03-2022 Tobacco smoking status Never smoked tobacco (finding) [facility] Tobacco smoking status Never [facility] Start: 06-18-2023 End: 08-19-2023 Sex Assigned At Female [facility] Start: 06-01-2023 End: 08-19-2023 Tobacco smoking status Ex-smoker (finding) [facility] End: 07-19-1989 History of tobacco use Current smoker [facility] End: 07-19-1989 History of tobacco use Cigarette Smoker [facility] Start: 07-01-2023 End: 08-19-2023 Alcohol intake Current drinker of alcohol (finding) [facility] Start: 06-18-2023 End: 08-19-2023 History of Social function [facility] Start: 06-18-2023 Alcohol Comment Positive alcohol use [facility] Start: 1955 Sex Assigned At Not on file [facility] NEGATED: Highlighted rowStart: NINF History of tobacco use Passive smoker [facility] Medical Equipment Procedure Code Equipment Code Equipment Origin al Text Equipment Identifier Dates CATARACT EXTRACT ION W/ INTRAOCULAR LENS Nohemidallaseduard MIN Devan 11/12/20 Non Biological Eye L [id number] FDA Start: 11-12-2020 CATARACT EXTRACT ION W/ INTRAOCULAR LENS NohemiDevan esquivel DO 11/26/20 Non Biological Eye R {[id number] FDA Start: 11-26-2020 Functional Status Date Assessment Result Facility 06-01-2023 Functional Status N/A [facility] 02-04-2023 Functional Status N/A [facility] 08-19-2022 Functional Status N/A [facility] Jean-Pierre 04-29-2022 Functional Status N/A [facility] Jessica 02-03-2022 Functional Status N/A [facility] Clinical Notes 02-03-2022 to 08-19-2023 Shaikh Guzman MD - 08/19/2023 5:03 PM Janette Hinds MD - 08/19/2023 5:02 PM Janette Hinds MD - 08/19/2023 5:02 PM Janette Hinds MD - 08/19/2023 5:01 PM EST Note Date & Type Note Facility 08-19-2023 History of Present illness Narrative Associated Problem(s): Hyperlipidemia (CMS/HCC) On Lipitor 20 mg. Check Lipid panel. Associated Problem(s): Mixed incontinence Following Urology and recently started using Vesicare. Associated Problem(s): Recurrent major depressive disorder, in full remission (CMS/HCC) Was acutely exacerbated by her 's illness and then his . She was started on Lexapro and has been doing well on it. Her mood is stable and depression well controlled on current dose of Lexapro. Denies adverse effects and tolerating it well. Associated Problem(s): Iron deficiency anemia secondary to inadequate dietary iron intake Normal colonoscopy 03/09. On PO Iron. Check Iron profile, CBC. Associated Problem(s): Essential hypertension (CMS/HCC) BP well controlled. On average less than 130/90. Tolerating Anti hypertensive w/o adverse effects. Denies lightheadedness, dizziness, syncope, presyncope. Patient encouraged to continue with home BP monitoring and call office if he experiences orthostatic symptoms or persistently elevated BP. C/w atenolol. Subjective Patient ID: Chloe Mojica is a 68 y.o. female who presents for Follow-up. Patient here for regular follow up. No active complaints to offer. Tolerating her medications w/o adverse effects. Current Outpatient Medications on File Prior to Visit Medication Sig Dispense Refill alendronate (Fosamax) 70 MG tablet Take 70 mg by mouth every 7 (seven) days Take in the morning with a full glass of water, on an empty stomach, and do not take anything else by mouth or lie down for the next 30 min. atenolol (Tenormin) 25 MG tablet Take 25 mg by mouth in the morning. atorvastatin (Lipitor) 20 MG tablet Take 20 mg by mouth in the morning. cyanocobalamin (Vitamin B-12) 1000 MCG tablet Take 1,000 mcg by mouth in the morning. escitalopram (Lexapro) 20 MG tablet Take 20 mg by mouth in the morning. Multiple Vitamin (multivitamin) tablet Take 1 tablet by mouth in the morning. solifenacin (VESIcare) 10 MG tablet Take 10 mg by mouth in the morning. [DISCONTINUED] diphenhydrAMINE (Sominex) 25 MG tablet Take 25 mg by mouth as needed at bedtime for sleep [DISCONTINUED] escitalopram (Lexapro) 10 MG tablet Take 10 mg by mouth in the morning. [DISCONTINUED] ferrous sulfate 325 (65 Fe) MG EC tablet Take 325 mg by mouth in the morning and 325 mg before bedtime. Do not crush, chew, or split.. No current facility-administered medications on file prior to visit. No Known Allergies Review of System All systems negative except as mentioned in HPI. Visit Vitals BP 130/84 (BP Location: Left arm, Patient Position: Sitting, BP Cuff Size: Large adult) Pulse 73 Temp 96.5 F (Tympanic) Ht 5' 5.6 Wt 137 lb SpO2 99% BMI 22.38 kg/m Smoking Status Former BSA 1.7 m Patient Health Questionnaire-2 Score: 0 @LABRESULTS@ No images are attached to the encounter. Objective Comfortable, doing well. No complaints to offer. Physical Exam General: Comfortable, NAD HEENT: AT/NC. Resp: Normal RR, CTA b/l CVS: Normal HR, No mumur noted. Neuro: AAOX 3, moving all extremities. Psych: Calm, co operative, no HI/SI. Assessment/Plan Problem List Items Addressed This Visit Essential hypertension (CMS/HCC) BP well controlled. On average less than 130/90. Tolerating Anti hypertensive w/o adverse effects. Denies lightheadedness, dizziness, syncope, presyncope. Patient encouraged to continue with home BP monitoring and call office if he experiences orthostatic symptoms or persistently elevated BP. C/w atenolol. Relevant Orders CBC and differential Comprehensive metabolic panel Hyperlipidemia (CMS/HCC) - Primary On Lipitor 20 mg. Check Lipid panel. Relevant Orders Lipid panel Mixed incontinence Following Urology and recently started using Vesicare. Recurrent major depressive disorder, in full remission (CMS/HCC) Was acutely exacerbated by her 's illness and then his . She was started on Lexapro and has been doing well on it. Her mood is stable and depression well controlled on current dose of Lexapro. Denies adverse effects and tolerating it well. Iron deficiency anemia secondary to inadequate dietary iron intake Normal colonoscopy 03/09. On PO Iron. Check Iron profile, CBC. Relevant Orders Folate Vitamin B12 Ferritin Iron + transferrin + TIBC Other Visit Diagnoses Encounter for screening mammogram for breast cancer Relevant Orders Bilateral screening mammogram Follow up in about 3 months (around 11/17/2023). documented in this encounter [facility] 06-01-2023 Hospital Discharge instructions Patient Education 06/01/2023 12:05:35 Overactive Bladder, Adult Overactive Bladder, Adult Overactive bladder is a condition in which a person has a sudden and frequent need to urinate. A person might also leak urine if he or she cannot get to the bathroom fast enough (urinary incontinence). Sometimes, symptoms can interfere with work or social activities. What are the causes? Overactive bladder is associated with poor nerve signals between your bladder and your brain. Your bladder may get the signal to empty before it is full. You may also have very sensitive muscles that make your bladder squeeze too soon. This condition may also be caused by other factors, such as: Medical conditions: ?Urinary tract infection. ?Infection of nearby tissues. ?Prostate enlargement. ?Bladder stones, inflammation, or tumors. ?Diabetes. ?Muscle or nerve weakness, especially from these conditions: ?A spinal cord injury. ?Stroke. ?Multiple sclerosis. ?Parkinson's disease. Other causes: ?Surgery on the uterus or urethra. ?Drinking too much caffeine or alcohol. ?Certain medicines, especially those that eliminate extra fluid in the body (diuretics). ?Constipation. What increases the risk? You may be at greater risk for overactive bladder if you: Are an older adult. Smoke. Are going through menopause. Have prostate problems. Have a neurological disease, such as stroke, dementia, Parkinson's disease, or multiple sclerosis (MS). Eat or drink alcohol, spicy food, caffeine, and other things that irritate the bladder. Are overweight or obese. What are the signs or symptoms? Symptoms of this condition include a sudden, strong urge to urinate. Other symptoms include: Leaking urine. Urinating 8 or more times a day. Waking up to urinate 2 or more times overnight. How is this diagnosed? This condition may be diagnosed based on: Your symptoms and medical history. A physical exam. Blood or urine tests to check for possible causes, such as infection. You may also need to see a health care provider who specializes in urinary tract problems. This is called a urologist. How is this treated? Treatment for overactive bladder depends on the cause of your condition and whether it is mild or severe. Treatment may include: Bladder training, such as: ?Learning to control the urge to urinate by following a schedule to urinate at regular intervals. ?Doing Kegel exercises to strengthen the pelvic floor muscles that support your bladder. Special devices, such as: ?Biofeedback. This uses sensors to help you become aware of your body's signals. ?Electrical stimulation. This uses electrodes placed inside the body (implanted) or outside the body. These electrodes send gentle pulses of electricity to strengthen the nerves or muscles that control the bladder. ?Women may use a plastic device, called a pessary, that fits into the vagina and supports the bladder. Medicines, such as: ?Antibiotics to treat bladder infection. ?Antispasmodics to stop the bladder from releasing urine at the wrong time. ?Tricyclic antidepressants to relax bladder muscles. ?Injections of botulinum toxin type A directly into the bladder tissue to relax bladder muscles. Surgery, such as: ?A device may be implanted to help manage the nerve signals that control urination. ?An electrode may be implanted to stimulate electrical signals in the bladder. ?A procedure may be done to change the shape of the bladder. This is done only in very severe cases. Follow these instructions at home: Eating and drinking Make diet or lifestyle changes recommended by your health care provider. These may include: ?Drinking fluids throughout the day and not only with meals. ?Cutting down on caffeine or alcohol. ?Eating a healthy and balanced diet to prevent constipation. This may include: ?Choosing foods that are high in fiber, such as beans, whole grains, and fresh fruits and vegetables. ?Limiting foods that are high in fat and processed sugars, such as fried and sweet foods. Lifestyle Lose weight if needed. Do not use any products that contain nicotine or tobacco. These include cigarettes, chewing tobacco, and vaping devices, such as e-cigarettes. If you need help quitting, ask your health care provider. General instructions Take [id number] and prescription medicines only as told by your health care provider. If you were prescribed an antibiotic medicine, take it as told by your health care provider. Do not stop taking the antibiotic even if you start to feel better. Use any implants or pessary as told by your health care provider. If needed, wear pads to absorb urine leakage. Keep a log to track how much and when you drink, and when you need to urinate. This will help your health care provider monitor your condition. Keep all follow-up visits. This is important. Contact a health care provider if: You have a fever or chills. Your symptoms do not get better with treatment. Your pain and discomfort get worse. You have more frequent urges to urinate. Get help right away if: You are not able to control your bladder. Summary Overactive bladder refers to a condition in which a person has a sudden and frequent need to urinate. Several conditions may lead to an overactive bladder. Treatment for overactive bladder depends on the cause and severity of your condition. Making lifestyle changes, doing Kegel exercises, keeping a log, and taking medicines can help with this condition. This information is not intended to replace advice given to you by your health care provider. Make sure you discuss any questions you have with your health care provider. Document Revised: 03/24/2021 Document Reviewed: 03/24/2021 [employer] Patient Education 2022 [place]. 06/01/2023 11:59:28 Clean Intermittent Catheterization, Female Clean Intermittent Catheterization, Female Clean intermittent catheterization (CIC) is a procedure to remove urine from the bladder by placing a small, flexible tube (catheter) into the bladder though the urethra. The urethra is a tube in the body that carries urine from the bladder out of the body. CIC may be done when: You cannot completely empty your bladder on your own. This may be due to a blockage in the bladder or urethra. Your bladder leaks urine. This may happen when the muscles or nerves near the bladder are not working normally, and the bladder overflows. Your health care provider will show you how to perform CIC and will help you to feel comfortable performing this procedure at home. Your health care provider will also help you to get the home care supplies that are needed for this procedure. Supplies needed Germ-free (sterile), water-based lubricant. A container for urine collection. You may also use the toilet to dispose of urine from the catheter. A catheter. Your health care provider will determine the best size for you. ?Use this catheter size: Clean gloves. Soap and water. Clean washcloth and towel. How to perform this procedure: Most people need CIC at least 4 times per day to adequately empty the bladder. Your health care provider will tell you how often you should perform CIC. Number of times per day to perform CIC: To perform CIC, follow these steps: 1.Wash your hands with soap and water. If soap and water are not available, use hand registrar assistant. 2.Prepare the supplies that you will use during the procedure. Open the catheter package and lubricant. 3.Get in a comfortable position. It may be helpful to use a handheld mirror to look at the opening of your urethra. Possible positions include: Sitting on a toilet, a chair, or the edge of a bed. Standing next to a toilet with one foot on the toilet rim. Lying down with your head raised on pillows and your knees pointing to the ceiling. You may wish to place a waterproof mat or pad under you. 4.If you are using a urine collection container, position it between your legs. 5.Urinate, if you are able. 6.Put on gloves. 7.Apply lubricant to about 2 inches (5 cm) of the tip of the catheter. 8.Set the catheter down on a clean, dry surface within reach. 9.Gently spread the folds of skin around your vagina (labia) with your non-dominant hand. For example, if you are right-handed, use your left hand to do this. With the other hand, clean the urethral opening with a washcloth and warm, soapy water, wiping from front to back. Dry the area completely with a towel. 10.While keeping your labia spread apart, slowly insert the lubricated catheter straight into your urethra until urine flows freely. This is usually 2 3 inches (5 8 cm). 11.When urine starts to flow freely, insert the catheter 1 inch (3 cm) more. Allow urine to drain into the toilet or the urine collection container. 12.When urine stops flowing, slowly remove the catheter. 13.Note the color, amount, and odor of the urine. 14.Measure your urine and note the amount, if told by your health care provider. 15.Discard the urine in the toilet. 16.Wash your genital area with soap and water. Wipe from front to back. 17.If you are using a single-use catheter, discard the catheter and supplies. 18.Wash your hands with soap and water. 19.If you are using a reusable catheter, follow package instructions about how to clean the catheter after each use. What are the risks? Generally, this is a safe procedure, however problems may occur, including: Infection. Injury to the urethra. Irritation of the urethra. How often should I perform this procedure? Do CIC to empty your bladder every 4 6 hours or as often as told by your health care provider. ?If you have symptoms of too much urine in your bladder (overdistension) and you are not able to urinate, perform CIC. Symptoms of overdistension may include: ?Restlessness. ?Sweating or chills. ?Headache. ?Flushed or pale skin. ?Bloated lower abdomen. Follow these instructions at home: General instructions Drink enough fluid to keep your urine pale yellow. Dispose of a multiple-use catheter when it becomes dry, brittle, or cloudy. This usually happens after you use the catheter for 1 week. Avoid caffeine. Caffeine may make you need to urinate more frequently and more urgently. When traveling, bring extra supplies with you in case of delays. Keep supplies with you in a place that you can access easily. If traveling by plane: ?Make sure that the lubricant in your carry-on bag is less than 3.4 ounces (100 mL). ?Use a single-use catheter. It may be difficult to clean a reusable catheter in a small bathroom. Take jirg-mpk-isijlsc and prescription medicines only as told by your health care provider. Keep all follow-up visits as told by your health care provider. This is important. Contact a health care provider if you: Have problems performing CIC. Have urine leaking during CIC. Have: ?Dark or cloudy urine. ?Blood in your urine or in your catheter. ?A change in the smell of your urine or discharge. ?A burning feeling while you urinate. Feel nauseous or you vomit. Have pain in your abdomen, your back, or your sides below your ribs. Have swelling or redness around the opening of your urethra. Develop a rash or sores on your skin. Get help right away if you have: A fever. Symptoms that do not go away after 3 days. Symptoms that suddenly get worse. Severe pain. A decrease in the amount of urine that drains from your bladder. Summary Clean intermittent catheterization (CIC) is a procedure to remove urine from the bladder by placing a small, flexible tube (catheter) into the bladder though the urethra. Your health care provider will show you how to perform CIC and will help you to feel comfortable performing this procedure at home. Most people need CIC at least 4 times per day to adequately empty the bladder. This information is not intended to replace advice given to you by your health care provider. Make sure you discuss any questions you have with your health care provider. Document Revised: 05/11/2022 Document Reviewed: 05/11/2022 [employer] Patient Education 2022 [employer]. Follow Up Care 05/03/2023 11:43:53 With:ROMA OSCAR, SUSANA Salazar, URL Address: [address] [place] [address] When: Unknown [facility] Hospital Discharge instructions Patient Education 02/04/2023 12:00:21 Kegel Exercises Kegel Exercises Kegel exercises can help strengthen your pelvic floor muscles. The pelvic floor is a group of muscles that support your rectum, small intestine, and bladder. In females, pelvic floor muscles also help support the uterus. These muscles help you control the flow of urine and stool (feces). Kegel exercises are painless and simple. They do not require any equipment. Your provider may suggest Kegel exercises to: Improve bladder and bowel control. Improve sexual response. Improve weak pelvic floor muscles after surgery to remove the uterus (hysterectomy) or after , in females. Improve weak pelvic floor muscles after prostate gland removal or surgery, in males. Kegel exercises involve squeezing your pelvic floor muscles. These are the same muscles you squeeze when you try to stop the flow of urine or keep from passing gas. The exercises can be done while sitting, standing, or lying down, but it is best to vary your position. Ask your health care provider which exercises are safe for you. Do exercises exactly as told by your health care provider and adjust them as directed. Do not begin these exercises until told by your health care provider. Exercises How to do Kegel exercises: 1.Squeeze your pelvic floor muscles tight. You should feel a tight lift in your rectal area. If you are a female, you should also feel a tightness in your vaginal area. Keep your stomach, buttocks, and legs relaxed. 2.Hold the muscles tight for up to 10 seconds. 3.Breathe normally. 4.Relax your muscles for up to 10 seconds. 5.Repeat as told by your health care provider. Repeat this exercise daily as told by your health care provider. Continue to do this exercise for at least 4 6 weeks, or for as long as told by your health care provider. You may be referred to a physical therapist who can help you learn more about how to do Kegel exercises. Depending on your condition, your health care provider may recommend: Varying how long you squeeze your muscles. Doing several sets of exercises every day. Doing exercises for several weeks. Making Kegel exercises a part of your regular exercise routine. This information is not intended to replace advice given to you by your health care provider. Make sure you discuss any questions you have with your health care provider. Document Revised: 11/13/2021 Document Reviewed: 11/13/2021 [employer] Patient Education 2022 [employer]. Follow Up Care 12/03/2022 14:42:27 With:ROMA OSCAR, SUSANA Salazar, URL Address: [address] [facility] [place] [address] When:Within 2 Month(s) [facility] 08-19-2022 Evaluation + Plan note Diagnostic Tests PendingUrine Culture 08/19/22 [facility] 04-29-2022 Hospital Discharge instructions Patient Education 04/29/2022 15:36:40 Overactive Bladder, Adult Overactive Bladder, Adult Overactive bladder refers to a condition in which a person has a sudden need to pass urine. The person may leak urine if he or she cannot get to the bathroom fast enough (urinary incontinence). A person with this condition may also wake up several times in the night to go to the bathroom. Overactive bladder is associated with poor nerve signals between your bladder and your brain. Your bladder may get the signal to empty before it is full. You may also have very sensitive muscles that make your bladder squeeze too soon. These symptoms might interfere with daily work or social activities. What are the causes? This condition may be associated with or caused by: Urinary tract infection. Infection of nearby tissues, such as the prostate. Prostate enlargement. Surgery on the uterus or urethra. Bladder stones, inflammation, or tumors. Drinking too much caffeine or alcohol. Certain medicines, especially medicines that get rid of extra fluid in the body (diuretics). Muscle or nerve weakness, especially from: ?A spinal cord injury. ?Stroke. ?Multiple sclerosis. ?Parkinson's disease. Diabetes. Constipation. What increases the risk? You may be at greater risk for overactive bladder if you: Are an older adult. Smoke. Are going through menopause. Have prostate problems. Have a neurological disease, such as stroke, dementia, Parkinson's disease, or multiple sclerosis (MS). Eat or drink things that irritate the bladder. These include alcohol, spicy food, and caffeine. Are overweight or obese. What are the signs or symptoms? Symptoms of this condition include: Sudden, strong urge to urinate. Leaking urine. Urinating 8 or more times a day. Waking up to urinate 2 or more times a night. How is this diagnosed? Your health care provider may suspect overactive bladder based on your symptoms. He or she will diagnose this condition by: A physical exam and medical history. Blood or urine tests. You might need bladder or urine tests to help determine what is causing your overactive bladder. You might also need to see a health care provider who specializes in urinary tract problems (urologist). How is this treated? Treatment for overactive bladder depends on the cause of your condition and whether it is mild or severe. You can also make lifestyle changes at home. Options include: Bladder training. This may include: ?Learning to control the urge to urinate by following a schedule that directs you to urinate at regular intervals (timed voiding). ?Doing Kegel exercises to strengthen your pelvic floor muscles, which support your bladder. Toning these muscles can help you control urination, even if your bladder muscles are overactive. Special devices. This may include: ?Biofeedback, which uses sensors to help you become aware of your body's signals. ?Electrical stimulation, which uses electrodes placed inside the body (implanted) or outside the body. These electrodes send gentle pulses of electricity to strengthen the nerves or muscles that control the bladder. ?Women may use a plastic device that fits into the vagina and supports the bladder (pessary). Medicines. ?Antibiotics to treat bladder infection. ?Antispasmodics to stop the bladder from releasing urine at the wrong time. ?Tricyclic antidepressants to relax bladder muscles. ?Injections of botulinum toxin type A directly into the bladder tissue to relax bladder muscles. Lifestyle changes. This may include: ?Weight loss. Talk to your health care provider about weight loss methods that would work best for you. ?Diet changes. This may include reducing how much alcohol and caffeine you consume, or drinking fluids at different times of the day. ?Not smoking. Do not use any products that contain nicotine or tobacco, such as cigarettes and e-cigarettes. If you need help quitting, ask your health care provider. Surgery. ?A device may be implanted to help manage the nerve signals that control urination. ?An electrode may be implanted to stimulate electrical signals in the bladder. ?A procedure may be done to change the shape of the bladder. This is done only in very severe cases. Follow these instructions at home: Lifestyle Make any diet or lifestyle changes that are recommended by your health care provider. These may include: ?Drinking less fluid or drinking fluids at different times of the day. ?Cutting down on caffeine or alcohol. ?Doing Kegel exercises. ?Losing weight if needed. ?Eating a healthy and balanced diet to prevent constipation. This may include: ?Eating foods that are high in fiber, such as fresh fruits and vegetables, whole grains, and beans. ?Limiting foods that are high in fat and processed sugars, such as fried and sweet foods. General instructions Take hzif-adt-vlugokd and prescription medicines only as told by your health care provider. If you were prescribed an antibiotic medicine, take it as told by your health care provider. Do not stop taking the antibiotic even if you start to feel better. Use any implants or pessary as told by your health care provider. If needed, wear pads to absorb urine leakage. Keep a journal or log to track how much and when you drink and when you feel the need to urinate. This will help your health care provider monitor your condition. Keep all follow-up visits as told by your health care provider. This is important. Contact a health care provider if: You have a fever. Your symptoms do not get better with treatment. Your pain and discomfort get worse. You have more frequent urges to urinate. Get help right away if: You are not able to control your bladder. Summary Overactive bladder refers to a condition in which a person has a sudden need to pass urine. Several conditions may lead to an overactive bladder. Treatment for overactive bladder depends on the cause and severity of your condition. Follow your health care provider's instructions about lifestyle changes, doing Kegel exercises, keeping a journal, and taking medicines. This information is not intended to replace advice given to you by your health care provider. Make sure you discuss any questions you have with your health care provider. Document Released: 05/01/2010 Document Revised: 10/26/2019 Document Reviewed: 07/21/2018 [employer] Patient Education 2020 [employer]. Follow Up Care 04/07/2022 15:15:55 With:DAVID BRANDON PA-CNIJULIETTE Salazar, URL Address: [address] [place] [address] [phone] When: Unknown [facility] Hospital Discharge instructions Patient Education 02/03/2022 09:39:24 Overactive Bladder, Adult Overactive Bladder, Adult Overactive bladder refers to a condition in which a person has a sudden need to pass urine. The person may leak urine if he or she cannot get to the bathroom fast enough (urinary incontinence). A person with this condition may also wake up several times in the night to go to the bathroom. Overactive bladder is associated with poor nerve signals between your bladder and your brain. Your bladder may get the signal to empty before it is full. You may also have very sensitive muscles that make your bladder squeeze too soon. These symptoms might interfere with daily work or social activities. What are the causes? This condition may be associated with or caused by: Urinary tract infection. Infection of nearby tissues, such as the prostate. Prostate enlargement. Surgery on the uterus or urethra. Bladder stones, inflammation, or tumors. Drinking too much caffeine or alcohol. Certain medicines, especially medicines that get rid of extra fluid in the body (diuretics). Muscle or nerve weakness, especially from: ?A spinal cord injury. ?Stroke. ?Multiple sclerosis. ?Parkinson's disease. Diabetes. Constipation. What increases the risk? You may be at greater risk for overactive bladder if you: Are an older adult. Smoke. Are going through menopause. Have prostate problems. Have a neurological disease, such as stroke, dementia, Parkinson's disease, or multiple sclerosis (MS). Eat or drink things that irritate the bladder. These include alcohol, spicy food, and caffeine. Are overweight or obese. What are the signs or symptoms? Symptoms of this condition include: Sudden, strong urge to urinate. Leaking urine. Urinating 8 or more times a day. Waking up to urinate 2 or more times a night. How is this diagnosed? Your health care provider may suspect overactive bladder based on your symptoms. He or she will diagnose this condition by: A physical exam and medical history. Blood or urine tests. You might need bladder or urine tests to help determine what is causing your overactive bladder. You might also need to see a health care provider who specializes in urinary tract problems (urologist). How is this treated? Treatment for overactive bladder depends on the cause of your condition and whether it is mild or severe. You can also make lifestyle changes at home. Options include: Bladder training. This may include: ?Learning to control the urge to urinate by following a schedule that directs you to urinate at regular intervals (timed voiding). ?Doing Kegel exercises to strengthen your pelvic floor muscles, which support your bladder. Toning these muscles can help you control urination, even if your bladder muscles are overactive. Special devices. This may include: ?Biofeedback, which uses sensors to help you become aware of your body's signals. ?Electrical stimulation, which uses electrodes placed inside the body (implanted) or outside the body. These electrodes send gentle pulses of electricity to strengthen the nerves or muscles that control the bladder. ?Women may use a plastic device that fits into the vagina and supports the bladder (pessary). Medicines. ?Antibiotics to treat bladder infection. ?Antispasmodics to stop the bladder from releasing urine at the wrong time. ?Tricyclic antidepressants to relax bladder muscles. ?Injections of botulinum toxin type A directly into the bladder tissue to relax bladder muscles. Lifestyle changes. This may include: ?Weight loss. Talk to your health care provider about weight loss methods that would work best for you. ?Diet changes. This may include reducing how much alcohol and caffeine you consume, or drinking fluids at different times of the day. ?Not smoking. Do not use any products that contain nicotine or tobacco, such as cigarettes and e-cigarettes. If you need help quitting, ask your health care provider. Surgery. ?A device may be implanted to help manage the nerve signals that control urination. ?An electrode may be implanted to stimulate electrical signals in the bladder. ?A procedure may be done to change the shape of the bladder. This is done only in very severe cases. Follow these instructions at home: Lifestyle Make any diet or lifestyle changes that are recommended by your health care provider. These may include: ?Drinking less fluid or drinking fluids at different times of the day. ?Cutting down on caffeine or alcohol. ?Doing Kegel exercises. ?Losing weight if needed. ?Eating a healthy and balanced diet to prevent constipation. This may include: ?Eating foods that are high in fiber, such as fresh fruits and vegetables, whole grains, and beans. ?Limiting foods that are high in fat and processed sugars, such as fried and sweet foods. General instructions Take huuf-umu-qesnesr and prescription medicines only as told by your health care provider. If you were prescribed an antibiotic medicine, take it as told by your health care provider. Do not stop taking the antibiotic even if you start to feel better. Use any implants or pessary as told by your health care provider. If needed, wear pads to absorb urine leakage. Keep a journal or log to track how much and when you drink and when you feel the need to urinate. This will help your health care provider monitor your condition. Keep all follow-up visits as told by your health care provider. This is important. Contact a health care provider if: You have a fever. Your symptoms do not get better with treatment. Your pain and discomfort get worse. You have more frequent urges to urinate. Get help right away if: You are not able to control your bladder. Summary Overactive bladder refers to a condition in which a person has a sudden need to pass urine. Several conditions may lead to an overactive bladder. Treatment for overactive bladder depends on the cause and severity of your condition. Follow your health care provider's instructions about lifestyle changes, doing Kegel exercises, keeping a journal, and taking medicines. This information is not intended to replace advice given to you by your health care provider. Make sure you discuss any questions you have with your health care provider. Document Released: 05/01/2010 Document Revised: 10/26/2019 Document Reviewed: 07/21/2018 [employer] Patient Education 2020 [employer] [facility] Evaluation + Plan note No data available for this section [facility] Evaluation + Plan note Future Appointments Appointment Date:03/30/2023 09:00:00 AM Scheduled Provider:SUSANA BRANDON PA-C Location:[facility] Appointment Type:URO Office Visit [facility] Evaluation + Plan note Future Appointments Appointment Date:09/07/2023 02:00:00 PM Scheduled Provider:SUSANA BRANDON PA-C Location:[facility] Appointment Type:URO Office Visit [facility] Evaluation + Plan note Future Appointments Appointment Date:09/07/2023 02:00:00 PM Scheduled Provider:SUSANA BRANDON PA-C Location:[facility] Appointment Type:URO Office Visit Diagnostic Tests PendingUrine Culture 06/01/23 [facility] Evaluation + Plan note Future Appointments Appointment Date:09/24/2023 08:00:00 AM Scheduled Provider:BLADIMIR Lucio APRN, [place] [facility] Location:[facility] Appointment Type:URO Office Visit [facility] Evaluation note Diagnosis Hyperlipidemia, unspecified hyperlipidemia type (CMS/HCC)- Primary Essential hypertension (CMS/HCC) Unspecified essential hypertension Mixed incontinence Mixed incontinence urge and stress (male)(female) Encounter for screening mammogram for breast cancer Iron deficiency anemia secondary to inadequate dietary iron intake Recurrent major depressive disorder, in full remission (CMS/HCC) [facility] in [facility] encounter [facility] No data available for this section [facility] Progress note No data available for this section [facility] [employer] Summary Purpose Family History No Family History Records FoundNo Family History Records Found No data available for this section No data available for this section No Family History Records Found No data available for this section No Family History Records Found Advance Directives No Advanced Directives Records FoundNo Advanced Directives Records FoundNo Advanced Directives Records FoundNo Advanced Directives Records Found Additional Source Comments INFORMATION SOURCE (unrecogn ized section and content) DATE CREATED AUTHOR 01/09/2022 [facility] DATE CREATED AUTHOR AUTHOR'S ORGANIZ ATION 09/25/2022 [facility] DATE CREATED AUTHOR AUTHOR'S ORGANIZ ATION 08/21/2023 [facility] EPIC DATE CREATED AUTHOR AUTHOR'S ORGANIZ ATION 09/15/2023 Otto Meehan [facility] Care Team (unrecognized sect ion and content) Ppa Teacher Relationship Specialty Start Date End Date Shaikh Hinds MD [address] [place] [phone] PCP - Devoted 04/18/23 Shaikh Hinds MD [address] [place] [phone] PCP - General Internal Medicine 08/19/23 Ppa Teacher Relationship Specialty Start Date End Date Shaikh Hinds MD [address] [place] [phone] PCP - Devoted 04/18/23 Shaikh Hinds MD [address] [place] [phone] PCP - General Internal Medicine 08/19/23 Reason for Visit (unrecogniz ed section and content) Reason Comments Follow-up FOR RECORDS PERTAINING TO PATIENTS WHO ARE OR HAVE BEEN ENROLLED IN A CHEMICAL DEPENDENCY/SUBSTANCEABUSE PROGRAM, SOME INFORMATION MAY BE OMITTED. This clinical summary was aggregated from multiple sources. Caution should be exercised in using it in the provision of clinical care. This summary normalizes information from multiple sources, and as a consequence, information in this document may materially change the coding, format and clinical context of patient data. In addition, data may be omitted in some cases. CLINICAL DECISIONS SHOULD BE BASED ON THE PRIMARY CLINICAL RECORDS. [employer] [facility]. provides no warranty or guarantee of the accuracy or completeness of information in this document.
[2023-09-24 19:08] LABS: Age Gdln ACOG Testing Note (.); Pap IG (Image Guided) Note (.)
== END 2023-09-20 20:36 | disposition home or self-care (01) ==
LOC: LAB 20:35
PROVIDERS: PCP Internal Medicine; Visit Provider Physician Assistant
DX: Z01.419 Encounter for gynecological examination (general) (routine) without abnormal findings (principal)
CPT/HCPCS: G0145

== ENCOUNTER 2024-02-14 14:07 | Outpatient (OUT) | payer OTHER, SELFPAY ==
--- NOTE | 2024-02-14 14:10 | XR_ITS ---
[address] [address] Patient Name: CHLOE BADILLO MRN: [id number] date: 1955 Sex: F Assigned Patient Location: [facility] Current Patient Location: Accession/Order Number: [id number] Exam Date: 02/14/2024 14:20 Report Date: 02/15/2024 05:13 At the request of: JAVIER CASTILLO Procedure: XR DEXA axial skeleton EXAMINATION: XR DEXA axial skeleton HISTORY: Post Menopausal State Z78.0 COMPARISON: DEXA bone densitometry 02/10/2022 TECHNIQUE: Dual-energy X-ray absorptiometry (DXA) was performed. FINDINGS: SPINE ANALYSIS: Average bone mineral density is 0.704 g/cm2. T-score (standard deviation relative to young adult mean): -4.0 . -7.5% change since prior study. HIP ANALYSIS: Lowest bone mineral density is within the left femoral neck, 0.668 g/cm2. T-score (standard deviation relative to young adult mean): -2.7 . -0.9% change since prior study. XR/XR DEXA axial skeleton IMPRESSION: World Health Organization Classification: Osteoporosis - High Fracture Risk FRAX: Cannot calculate. Pharmacologic treatment recommendations * No uniform recommendation applies to all patients. Management plans must be individualized. * Consider initiating pharmacologic treatment in postmenopausal women and men >= 50 years of age who have the following: Primary fracture prevention: * T-score <= - 2.5 at the femoral neck, total hip, lumbar spine, 33% radius (some uncertainty with existing data) by DXA. * Low bone mass (osteopenia: T-score between - 1.0 and - 2.5) at the femoral neck or total hip by DXA with a 10-year hip fracture risk >= 3% or a 10-year major osteoporosis-related fracture risk >= 20% (i.e., clinical vertebral, hip, forearm, or proximal humerus) based on the [place]-adapted FRAXregistered model. Secondary fracture prevention: * Fracture of the hip or vertebra regardless of BMD [4, 5]. * Fracture of proximal humerus, pelvis, or distal forearm in persons with low bone mass (osteopenia: T-score between - 1.0 and - 2.5). The decision to treat should be individualized in persons with a fracture of the proximal humerus, pelvis, or distal forearm who do not have osteopenia or low BMD [12, 13]. Cecilio MS, Keiry SL, Gurjit KL, Laura EM, Mono KG, AJ, Radha ES. The clinician's guide to prevention and treatment of osteoporosis. Osteoporos Int. 2021;33(10):4039-7967. doi: 10.1007/y54657-676-73625-p. Epub 2021Nov 13. Erratum in: Osteoporos Int. 2021Feb 12;: PMID: [id number]; PMCID: [id number]. Electronically authenticated by: SABRINA PORTILLO Date: 02/15/2024 05:13
--- NOTE | 2024-02-14 14:11 | MM_ITS ---
Patient Name: CHLOE BAIDLLO MR#: [id number] : 1955 Exam Date: 02/14/2024 Ordering Doctor: SANTOS Daley . RADIOLOGY REPORT PROCEDURE: MM TOMOSYNTHESIS SCREENING BI COMPARISON: MG MAMM SCREEN 3D ROMAINE CAD, 11/28/2021. MG MAMM ROMAINE SCRN W CAD DIG, 12/19/2013. INDICATIONS: Screening Calculator Name NCI Breast Cancer Risk Assessment Tool 5 Year Breast Cancer Risk 1.20% Lifetime Breast Cancer Risk 4.00% Personal Breast Cancer No Personal Ovarian Cancer No Treatments None Family Cancers None LOCATION: [facility] BREAST COMPOSITION: There are scattered areas of fibroglandular density. FINDINGS: DIAGNOSTIC CATEGORY 1--NEGATIVE. RIGHT BREAST: No significant suspicious finding. No significant change has occurred. LEFT BREAST: No significant suspicious finding. No significant change has occurred. RECOMMENDATIONS: ROUTINE MAMMOGRAM AND CLINICAL EVALUATION IN 12 MONTHS. PLEASE NOTE: A NORMAL MAMMOGRAM DOES NOT EXCLUDE THE POSSIBILITY OF BREAST CANCER. A CLINICALLY SUSPICIOUS PALPABLE LUMP SHOULD BE BIOPSIED. Dictated by: Justin Lara M.D. on 02/14/2024 at 16:28 Approved by: Justin Lara M.D. on 02/14/2024 at 16:35
--- OUTSIDE RECORDS SUMMARY | 2024-02-14 14:21 | XMS_ITS | CCD ---
Author Organization [facility] CliniSynj Care Team Providers Care Casting Sorter Name Role Phone SHAIKH HINDS Primary Care Physician FAWZACHARYD, HOOKER H Admitting Unavailable FAWWAD, HOOKER H Attending Unavailable FAWWAEsther, HOOKER H Primary Care Unavailable KARASIK ., DR PARHAM Admitting Unavailabl e KARASIK ., DR PARHAM Attending Unavailabl e FAWWAD, HOOKER H Primary Care Unavailable KARASIK ., DR PARHAM Consulting Unavailabl e KARASIK ., DR PARHAM Admitting Unavailabl e KARASIK ., DR PARHAM Attending Unavailabl e FAWWAD, HOOKER H Primary Care Unavailable KARASIK ., DR PARHAM Consulting Unavailabl e ZIEBER, DR SABRINA Platt Consulting Unavailable FAWWAD, HOOKER H Admitting Unavailable FAWWAD, HOOKER H Attending Unavailable FAWWAD, HOOKER H Primary Care Unavailable FAWWAD, HOOKER H Consulting Unavailable FAWWAD, HOOKER H Admitting Unavailable FAWWAD, HOOKER H Attending Unavailable FAWWAD, HOOKER H Primary Care Unavailable WEST, DR LAVERN Olmos Consulting Unavailable FAWWAD, HOOKER H Consulting Unavailable Ivanwwad Shaikh HENRY Unavailable Shaikh Hinds MD Primary Care Provider SHAIKH HINDS Primary Care Unavailable SUSANA BRANDON Attending Unavailable SUSANA BRANDON Attending Unavailable SUSANA BRANDON Attending Unavailable SHAIKH HINDS Primary Care Unavailable ROMASUSANA ANAND Attending Unavailable Orzekeshawn, Debi X Admitting Unavailable Orkevin Debi X Attending Unavailable ROMASUSANA ANAND Admitting Unavailable ROMASUSANA ANAND Attending Unavailable SUSANA BRANDON Admitting Unavailable [facility], [facility] Primary Care Unavailable SUSANA BRANDON Attending Unavailable SUSANA BRANDON Attending Unavailable SUSANA BRANDON Admitting Unavailable Dione HERNANDEZ Attending Unavailable [facility], [facility] Primary Care Unavailable SUSANA BRANDON Attending Unavailable Debi Lucio Attending Unavailable GUZMAN, [facility] Attending Unavailable ALBA CASTILLO Attending Unavailable ZACK WILSON Attending Unavailable ZACK WILSON Attending Unavailable ZACK WILSON Attending Unavailable Franki MOTT Attending Unavailable Medications Current Medications Medication Drug Class(es) Dates Sig (Normalized) Sig (Original) acetaminophen 500 mg oral tablet (5 sources) Start: 11-26-2020 acetaminophen 500 mg, Oral, PRN as needed for pain, Refills(s) 0 Start Date: 11/26/20 Status: Ordered alendronic acid 70 mg oral tablet (11 sources) Bisphosphonate Start: 06-01-2023 take 1 tablet by mouth every week alendronate 70 mg Tab 70 mg = 1 tab(s), Oral, qWeek, Refills(s) 0 Start Date: 06/01/23 Status: Ordered Start: 06-01-2023 alendronate 70 mg Tab Refills(s) 0 Start Date: 06/01/23 Status: Ordered aspirin 81 mg chewable tablet (5 sources) Platelet Aggregation Inhibitor, Nonsteroidal Anti-inflammatory Drug Start: 11-26-2020 aspirin 81 mg Chew Tab 81 mg = 1 tab(s), Chewed, Daily, Refills(s) 0, Blood Thinner Start Date: 11/26/20 Status: Ordered atenolol 25 mg oral tablet (6 sources) beta-Adrenergic Claire Start: 12-02-2023 take 1 tablet by mouth once daily atenolol 25 mg Tab 25 mg = 1 tab(s), Oral, Daily, Refills(s) 0 Start Date: 12/02/23 Status: Ordered take 1 tablet by mouth in the mo rning atenolol (Tenormin) 25 MG tablet Take 25 mg by mouth in the morning. 0 Active atorvastatin 20 mg oral tablet (6 sources) HMG-CoA Reductase Inhibitor Start: 12-02-2023 take 1 tablet by mouth once daily atorvastatin 20 mg Tab 20 mg = 1 tab(s), Oral, Daily, Refills(s) 0 Start Date: 12/02/23 Status: Ordered take 1 tablet by mouth in the mo rning atorvastatin (Lipitor) 20 MG tablet Take 20 mg by mouth in the morning. 0 Active carvedilol 6.25 mg oral tablet (5 sources) alpha-Adrenergic Claire, beta-Adrenergic Claire Start: 11-26-2020 take 1 tablet by mouth twice daily carvedilol 6.25 mg Tab 6.25 mg = 1 tab(s), Oral, BID, High blood pressure Start Date: 11/26/20 Status: Ordered Chondroitin Sulfates / Glucosamine (4 sources) Start: 12-02-2023 take 2 capsules by mouth once daily Glucosamine Chondroitin 2 cap(s), Oral, Daily, Refill(s) 0 Start Date: 12/02/23 Status: Ordered ciprofloxacin 500 mg oral tablet (1 source) Quinolone Antimicrobial Start: 02-03-2022 End: 02-08-2022 take 1 tablet by mouth twice daily Cipro 500 mg Tab 500 mg = 1 tab(s), Oral, BID, X 5 day(s), # 10 tab(s), Refills(s) 0, Pharmacy: [facility]/pharmacy #[id number], 167, cm, 02/03/22 9:28:00 EDT, Height/Length Dosing, 69, kg, 02/03/22 9:28:00 EDT, Weight Dosing Start Date: 02/03/22 Stop Date: 02/08/22 Status: Ordered escitalopram 20 mg oral tablet (12 sources) Serotonin Reuptake Inhibitor Start: 06-01-2023 take 1 tablet by mouth once daily escitalopram 20 mg Tab 20 mg = 1 tab(s), Oral, Daily, Refills(s) 0 Start Date: 06/01/23 Status: Ordered End: 08-19-2023 take 1 tablet by mouth in the morning escitalopram (Lexapro) 10 MG tablet Take 10 mg by mouth in the morning. 0 08/19/2023 Discontinued (Dose adjustment) ferrous sulfate 325 mg oral tablet (16 sources) Start: 11-26-2020 take 325 mg by [...] Refills(s) 0 Start Date: 11/26/20 Status: Ordered Multi Vitamin+ (4 sources) Start: 12-02-2023 take 1 capsule by mouth once daily Multi Vitamin+ 1 cap, Oral, Daily, Refill(s) 0 Start Date: 12/02/23 Status: Ordered Multiple Vitamin (multivitamin) tablet (2 [...] Daily, # 30 tab(s), Refills(s) 0, Pharmacy: [facility]/pharmacy #[id number], 167, cm, 02/04/23 11:36:00 EDT, Height/Length Dosing, 69.1, kg, 02/04/23 11:36:00 EDT, Weight Dosing Start Date: 02/04/23 Status: Ordered Start: 02-04-2023 oxybutynin 15 mg ER Tab 15 mg = 1 tab(s), Oral, Daily, start after you finish the 10mg tabs, # 30 tab(s), Refills(s) 0, Pharmacy: [facility]/pharmacy #[id number], 167, cm, 02/04/23 11:36:00 EDT, Height/Length Dosing, 69.1, kg, 02/04/23 11:36:00 EDT, Weight Dosing Start Date: 02/04/23 Status: Ordered solifenacin succinate 10 mg oral tablet (8 sources) Cholinergic Muscarinic Antagonist Start: 12-02-2023 take 1 tablet by mouth once daily solifenacin 10 mg Tab 10 mg = 1 tab(s), Oral, Daily, # 30 tab(s), Refills(s) 3, Pharmacy: [facility]/pharmacy #[id number], 167, cm, 12/02/23 10:10:00 EDT, Height/Length Dosing, 61.3, kg, 12/02/23 10:10:00 EDT, Weight Dosing Start Date: 12/02/23 Status: Ordered Start: 06-14-2023 End: 10-12-2023 take 1 tablet by mouth once daily solifenacin 10 mg Tab 10 mg = 1 tab(s), Oral, Daily, X 30 day(s), # 30 tab(s), Refills(s) 3, Pharmacy: [facility]/pharmacy #[id number], 167, cm, 06/01/23 11:31:00 EST, Height/Length Dosing, 63, kg, 06/01/23 11:31:00 EST, Weight Dosing Start Date: 06/14/23 Stop Date: 10/12/23 Status: Ordered sulfamethoxazole 400 mg / trimethoprim 80 mg oral tablet (2 sources) Dihydrofolate Reductase Inhibitor Antibacterial, Sulfonamide Antimicrobial Start: 12-13-2023 Bactrim 400 mg-80 mg Tab 1 tab(s), Oral, Daily, 30 tab(s), Refill(s) 1, [facility]/pharmacy #[id number], 167, cm, 12/02/23 10:10:00 EDT, Height/Length Dosing, 61.3, kg, 12/02/23 10:10:00 EDT, Weight Dosing Start Date: 12/13/23 Status: Ordered 24 hr tolterodine tartrate 2 mg extended release oral capsule (2 sources) Cholinergic Muscarinic Antagonist Start: 08-19-2022 take 1 capsule by mouth once daily tolterodine 2 mg Cap-ER 2 mg = 1 cap(s), Oral, Daily, # 30 cap(s), Refills(s) 2, Pharmacy: [facility] #[id number], 167, cm, 08/19/22 13:07:00 EST, Height/Length Dosing, 69, kg, 08/19/22 13:07:00 EST, Weight Dosing Start Date: 08/19/22 Status: Ordered trospium chloride 20 mg oral tablet (2 sources) Cholinergic Muscarinic Antagonist Start: 09-24-2023 take 1 tablet by mouth twice daily trospium 20 mg oral tablet 20 mg = 1 tab(s), Oral, BID, # 60 tab(s), Refills(s) 2, [id number], cm, 09/24/23 8:07:00 EST, Height/Length Dosing, 62.6, kg, 09/24/23 8:07:00 EST, Weight Dosing Start Date: 09/24/23 Status: Ordered Vitamin B-12 1000 mcg oral tablet (14 sources) Start: 11-26-2020 take 1 tablet by [...] 3 wks. then 3x per week thereafter., [facility]/pharmacy #[id number], 167, cm, 04/29/22 15:35:00 EDT, Height/Length Dosing, 69, kg, 04/29/22 15:35:... Start Date: 04/29/22 Status: Ordered Problems Active Problems Problem Classification Problem Date Documented Da te Episodic/Chronic Deficiency and other anemia (14 sources) Anemia 02-03-2022 Episodic Deficiency and other anemia (2 sources) Iron deficiency anemia secondary to inadequate dietary iron intake; Translations: [Other iron deficiency anemias] Onset: 08-19-2023 08-19-2023 Episodic Disorders of lipid metabolism (3 sources) Hyperlipidemia, unspecified; Translations: [Hyperlipidemia] Onset: 11-28-2021 08-19-2023 Chronic Essential hypertension (17 sources) Hypertensive disorder; Translations: [Essential (primary) hypertension] Onset: 12-03-2021 02-03-2022 Chronic Genitourinary symptoms and ill-defined conditions (20 sources) Mixed incontinence; Translations: [Incontinence] Onset: 02-03-2022 [...] Chronic Other diseases of bladder and urethra (6 sources) Male urethral stricture; Translations: [Unspecified urethral stricture, male, unspecified site] Onset: 04-29-2022 Episodic Other diseases of bladder and urethra (13 sources) Urethral stricture 04-29-2022 Episodic Other female [...] 11-28-2021 Episodic Prolapse of female genital organs (10 sources) Cystocele 08-20-2022 Chronic Screening and history of mental health and substance abuse codes (14 sources) Ex-smoker 02-03-2022 Episodic Urinary tract infections (20 sources) Acute cystitis; Translations: [Acute cystitis without [...] Value Interpretation Reference Range Facility C Urineon 12-04-2023 Bacteria identified Cx Nom (U) Microbiology PROCEDURE: Urine Culture [R1] SOURCE: U Random BODY SITE: COLLECTED DATE/TIME: 12/02/2023 10:33 EDT RECEIVED DATE/TIME: 12/02/2023 12:47 EDT START DATE/TIME: 12/02/2023 12:47 EDT FREE TEXT SOURCE: SUSANA BRANDON PA-C, PA-C, SUSANA Salazar FINAL REPORTS Final Report [] Verified Date/Time: 12/04/2023 09:25 EDT >100,000 cfu/ml Escherichia coli SUSCEPTIBILITY RESULTS LEGEND: S=Susceptible, N/R=Not Reported, Blank=Data not available, or drug not advisable or tested, I=Intermediate, ESBL=Extended spectrum beta-lactamase, R=Resistant, TFG=Thymidine-depende nt strain, STACY=Beta-lactamase positive, DOMENIC=mcg/m;(mg/L), S*=Predicted susceptible interp, R*=Predicted resistant interp EC Antibiotic DOMENIC Dilutn DOMENIC Interp Amikacin <=16 S Ampicillin <=8 S Ampicillin/ <=8/4 S Sulbactam Aztreonam <=4 S Cefazolin <=2 S Cefepime <=2 S Cefoxitin 16 I Ceftazidime <=1 S Ceftazidime/ <=8 S Avibactam Ceftriaxone <=1 S Ciprofloxacin >2 R Ertapenem <=0.5 S Gentamicin <=4 S Levofloxacin >4 R Meropenem <=1 S Nitrofurantoin <=32 S Piperacillin/ <=16 S Tazobactam Tetracycline <=4 S Tigecycline <=2 S Tobramycin <=4 S Trimethoprim/ <=2/38 S Sulfa Performing Locations R1: This test was performed at: [facility], [address] [place] [address], [id number] , , [facility] Comment on above: Performed By: #### [id number] #### [facility] [address] [place] [id number] Bacteria identified Cx Nom (U) Microbiology PROCEDURE: Urine Culture [R1] SOURCE: U Random BODY SITE: COLLECTED DATE/TIME: 12/02/2023 10:33 EDT RECEIVED DATE/TIME: 12/02/2023 12:47 EDT START DATE/TIME: 12/02/2023 12:47 EDT FREE TEXT SOURCE: ROMA OSCAR, SUSANA BRANDON PA-C, SUSANA Salazar FINAL REPORTS Final Report [] Verified Date/Time: 12/04/2023 09:25 EDT >100,000 cfu/ml Escherichia coli SUSCEPTIBILITY RESULTS LEGEND: S=Susceptible, N/R=Not Reported, Blank=Data not available, or drug not advisable or tested, I=Intermediate, ESBL=Extended spectrum beta-lactamase, R=Resistant, TFG=Thymidine-depende nt strain, STACY=Beta-lactamase positive, DOMENIC=mcg/m;(mg/L), S*=Predicted susceptible interp, R*=Predicted resistant interp EC Antibiotic DOMENIC Dilutn DOMENIC Interp Amikacin <=16 S Ampicillin <=8 S Ampicillin/ <=8/4 S Sulbactam Aztreonam <=4 S Cefazolin <=2 S Cefepime <=2 S Cefoxitin 16 I Ceftazidime <=1 S Ceftazidime/ <=8 S Avibactam Ceftriaxone <=1 S Ciprofloxacin >2 R Ertapenem <=0.5 S Gentamicin <=4 S Levofloxacin >4 R Meropenem <=1 S Nitrofurantoin <=32 S Piperacillin/ <=16 S Tazobactam Tetracycline <=4 S Tigecycline <=2 S Tobramycin <=4 S Trimethoprim/ <=2/38 S Sulfa Performing Locations R1: This test was performed at: [facility], [address] [place] [address], [phone] , , [facility] Comment on above: Performed By: #### [id number] #### [facility] [address] [place] [address] Screenson 12-03-2023 Screens [id number] Normal [facility] Ambulatory Visit Summaryon 0 12-02-2023 Ambulatory Visit Summary NICCI MOJICA :1955 Visit Date:12/02/2023 Ambulatory Visit Instructions Your Diagnosis Mixed incontinence UTI (urinary tract infection) Incomplete bladder emptying Urethral stricture Your Care Team Attending Physician - SUSANA BRANDON PA-C Primary Care Physician - GUZMAN HENRY, This Is Your Medications List trospium (trospium 20 mg oral tablet) Contact prescribing physician if questions or concerns alendronate (alendronate 70 mg Tab) ascorbic acid/chondroitin/gluc cassandra/wei (Glucosamine Chondroitin) atenolol (atenolol 25 mg Tab) atorvastatin (atorvastatin 20 mg Tab) cyanocobalamin (Vitamin B-12 1000 mcg oral tablet) escitalopram (escitalopram 20 mg Tab) ferrous sulfate multivitamin (Multi Vitamin+) Procedures Performed Cystourethroscopy with dilation of urethral stricture (12/03/2022), Cystourethroscopy with dilation of urethral stricture (02/09/2022), Cataract extraction and insertion of intraocular lens (11/26/2020), Cataract extraction and insertion of intraocular lens (11/12/2020), Bilateral tubal ligation (07/19/1981). Discharge Vitals Temperature (Temporal Artery) 36.7 ?C Heart Rate (Peripheral) 58 Respiratory Rate 16 Blood Pressure 128/77 Height 167 cm Height 66 in Weight 61.3 kg Weight 134.86 lb BMI 21.98 What to do next You Need to Schedule the Following Appointments Follow Up with MARY HENRY, SHERYL Valle When: Comments: sched Botox Where: [address] [place] [id number]- Medications What How Much When Why Instructions Unchanged trospium (trospium 20 mg oral tablet) 1 Tablets By Mouth 2 times a day Acute cystitis without hematuria Unchanged alendronate (alendronate 70 mg Tab) 1 Tablets By Mouth Every week Contact prescribing physician if questions or concerns Unchanged ascorbic acid/ chondroitin/ glucosa/ wei (Glucosamine Chondroitin) 2 Capsules By Mouth Every day Contact prescribing physician if questions or concerns Unchanged atenolol (atenolol 25 mg Tab) 1 Tablets By Mouth Every day Contact prescribing physician if questions or concerns Unchanged atorvastatin (atorvastatin 20 mg Tab) 1 Tablets By Mouth Every day Contact prescribing physician if questions or concerns Unchanged cyanocobalamin (Vitamin B-12 1000 mcg oral tablet) 1 Tablets By Mouth Every day Contact prescribing physician if questions or concerns Unchanged escitalopram (escitalopram 20 mg Tab) 1 Tablets By Mouth Every day Contact prescribing physician if questions or concerns Unchanged ferrous sulfate 325 Milligram By Mouth Every other day Contact prescribing physician if questions or concerns Unchanged multivitamin (Multi Vitamin+) 1 cap By Mouth Every day Contact prescribing physician if questions or concerns Allergies No Known Allergies Problems Ongoing - Any problem that you are currently receiving treatment for. Acute cystitis without hematuria Anemia Cystocele with prolapse Former smoker History of UTI Hypertension Incomplete bladder emptying Mixed incontinence Urethral stricture UTI (urinary tract infection) Weak urine stream Patient Survey You may receive a survey via text or e-mail asking about your office visit. Please share your experience with us by completing your survey. We appreciate your feedback and thank you for choosing us for your care. Education Materials Botulinum Toxin Bladder Injection A botulinum toxin bladder injection is a procedure to treat an overactive bladder. During the procedure, a drug called botulinum toxin is injected into the bladder through a long, thin needle. This drug relaxes the bladder muscles and reduces overactivity. You may need this procedure if your medicines are not working or you cannot take them. The procedure may be repeated as needed. The treatment is done once and it usually lasts for 6 months. Your health care provider will monitor you to see how well you respond. Tell a health care provider about: ? Any allergies you have. ? All medicines you are taking, including vitamins, herbs, eye drops, creams, and npcd-dhu-flgenuu medicines. ? Any problems you or family members have had with anesthetic medicines. ? Any bleeding problems you have. ? Any surgeries you have had. ? Any medical conditions you have. ? Any previous reactions to a botulinum toxin injection. ? Any symptoms of urinary tract infection. These include chills, fever, a burning feeling when passing urine, and needing to pass urine often. ? Whether you are or may be . What are the risks? Generally this is a safe procedure. However, problems may occur, including: ? Not being able to pass urine. If this happens, you may need to have your bladder emptied with a thin tube (urinary catheter). ? Bleeding. ? Urinary tract infection. ? Allergic reaction to the botulinum toxin. (more content not included)... Normal [facility] Patient Educationon 12-02-19 Patient Education Urology Botulinum Toxin Bladder Injection A botulinum toxin bladder injection is a procedure to treat an overactive bladder. During the procedure, a drug called botulinum toxin is injected into the bladder through a long, thin needle. This drug relaxes the bladder muscles and reduces overactivity. You may need this procedure if your medicines are not working or you cannot take them. The procedure may be repeated as needed. The treatment is done once and it usually lasts for 6 months. Your health care provider will monitor you to see how well you respond. Tell a health care provider about: ? Any allergies you have. ? All medicines you are taking, including vitamins, herbs, eye drops, creams, and uwoc-fkk-lfimmop medicines. ? Any problems you or family members have had with anesthetic medicines. ? Any bleeding problems you have. ? Any surgeries you have had. ? Any medical conditions you have. ? Any previous reactions to a botulinum toxin injection. ? Any symptoms of urinary tract infection. These include chills, fever, a burning feeling when passing urine, and needing to pass urine often. ? Whether you are or may be . What are the risks? Generally this is a safe procedure. However, problems may occur, including: ? Not being able to pass urine. If this happens, you may need to have your bladder emptied with a thin tube (urinary catheter). ? Bleeding. ? Urinary tract infection. ? Allergic reaction to the botulinum toxin. ? Pain or burning when passing urine. ? Damage to nearby structures or organs. What happens before the procedure? When to stop eating and drinking Follow instructions from your health care provider about what you may eat and drink before your procedure. These may include: ? 8 hours before the procedure ? Stop eating most foods. Do not eat meat, fried foods, or fatty foods. ? Eat only light foods, such as toast or crackers. ? All liquids are okay except energy drinks and alcohol. ? 6 hours before the procedure ? Stop eating. ? Drink only clear liquids, such as water, clear fruit juice, black coffee, plain tea, and sports drinks. ? Do not drink energy drinks or alcohol. ? 2 hours before the procedure ? Stop drinking all liquids. ? You may be allowed to take medicines with small sips of water. If you do not follow your health care provider's instructions, your procedure may be delayed or canceled. Medicines Ask your health care provider about: ? Changing or stopping your regular medicines. This is especially important if you are taking diabetes medicines or blood thinners. ? Taking medicines such as aspirin and ibuprofen. These medicines can thin your blood. Do not take these medicines unless your health care provider tells you to take them. ? Taking ypws-kat-dseonbk medicines, vitamins, herbs, and supplements. General instructions ? Ask your health care provider what steps will be taken to help prevent infection. These steps may include: ? Removing hair at the procedure site. ? Washing skin with a germ-killing soap. ? Taking antibiotic medicine. ? If you will be going home right after the procedure, plan to have a responsible adult: ? Take you home from the hospital or clinic. You will not be allowed to drive. ? Care for you for the time you are told. What happens during the procedure? ? You will be asked to empty your bladder. ? An IV will be inserted into one of your veins. ? You will be given one or more of the following: ? A medicine to help you relax (sedative). ? A medicine to numb the area (local anesthetic). ? A medicine to make you fall asleep (general anesthetic). ? A long, thin scope called a cystoscope will be passed into your bladder through the part of the body that carries urine from your bladder (urethra). ? The cystoscope will be used to fill your bladder with water. ? A long needle will be passed through the cystoscope and into the bladder. ? The botulinum toxin will be injected into your bladder. It may be injected into multiple areas of your bladder. ? The cystoscope will be removed and your bladder will be emptied with a urinary catheter. The procedure may vary among health care providers and hospitals. What can I expect after the procedure? After your procedure, it is common to have: ? Blood-tinged urine. ? Burning or soreness when you pass urine. Follow these instructions at home: Medicines ? Take urll-xqi-hnvuhmi and prescription medicines only as told by your health care provider. ? If you were prescribed an antibiotic medicine, take it as told by your health care provider. Do not stop using the antibiotic even if you start to feel better. General instructions ? If you were given a sedative during the procedure, it can affect you for several hours. Do not drive or operate machinery until your health ca (more content not included)... Normal [facility] Urology Office/Clinic Noteon 12-02-2023 Urology Office/Clinic Note Chief Complaint 2 mo f/u HPI Staff [facility] pt here for 2 mos f/u w/ PVR. Last seen in office 09/24/23 by GUERRERO. Previous dx: mixed incontinence, urethral stricture, incomplete bladder emptying, UTI. Most recent cysto/UD 12/03/22. *Stopped Solifenacin 10mg and started on Tropsium 20mg bid at prior OV. Pt called our office 11/30/23 c/o Trospium not working after taking it for 2 months. Urine culture 09/24/23 - >100k E. coli. Not treated, pt was asymptomatic. Dysuria: denies Incomplete bladder emptying: yes Hematuria: denies Frequency: yes Urgency: yes Nocturia: 4x a night Stream: weak Leaking: yes Post void dripping: yes Wearing pads/ Depends: wears pads and depends Urge incontinence: yes Stress incontinence: yes Incontinence without Sensory Awareness: denies Abdominal pain: denies Flank pain: denies Sexual complaints: _ History of Present Illness staff HPI reviewed and agree. Review of Systems PHQ Score Initial Depression Screen Score: 0 SCORE no fever, chills, malaise, myalgia. no rash/lesions. no chest pain, palpitations, or SOB. no abdominal pain, nausea, vomiting. no unilateral calf swelling, redness, pain Physical Exam Vitals & Measurements T: 36.7 ?C(Temporal Artery) HR: 58(Peripheral) RR: 16 BP: 128/77 HT: 66 in HT: 167 cm WT: 61.3 kg WT: 134.86 lb BMI: 21.98 General: nontoxic, NAD Mouth: moist mucosa Lungs: normal respiratory effort Cardio: regular rate, good distal perfusion Abdomen: nondistended, no suprapubic distention or tenderness, no CVA tenderness Neurologic: Grossly normal Skin: No rashes or suspicious lesions Assessment/Plan [facility] pt 1. Mixed incontinence (N39.46: Mixed incontinence) BBS 25. Failed multiple doses of oxybutynin. D/c'd Solifenacin 10mg at prior OV due to insufficient improvement (had some, but not at goal). Started on Tropsium 20mg bid. However pt does not feel this improved sxs at all after taking it for 2 months. no control with leakage. Wears pads and depends, changes 6x/day. Very bothersome,especially at work. Discussed options including adding Gemtesa/Myrbetriq to anticholinergic regimen vs Botox. Pt prefers latter. Procedural details/risks/benefit s discussed. -D/c Trospium. Resume Vesicare as pt thinks this worked better. Will take through Botox treatment and then likely dc after Botox takes effect. -Will schedule Botox. The procedural risks, benefits, details, and treatment alternatives have been discussed with the patient. These include bleeding, infection, continued problems with overactive bladder, inability to empty the bladder which could require an indwelling catheter or need for in/out catheterization to empty the bladder, and need for repeat procedures over time (usually lasts up to six months), as well as fatigue and insomnia, among others. There is a minimal risk of Botox entering the blood stream and causing neurological problems, which is quite rare. Full informed consent has been obtained. Will order Local anesthesia. 2. UTI (urinary tract infection) (N39.0: Urinary tract infection, site not specified) UCx: 08/19/22 - >100k E Coli, tx'd w/ Keflex 02/04/23 - >100k E Coli, tx'd w/ Keflex 06/01/23 - >100e E coli, tx'd w/ keflex 09/24/23 - >100k E. coli. Not treated, was asx and previously treated multiple times w abx w no sx change. UA today shows trace-intact blood, moderate leuks, and positive nitrites (similar to UA 09/24/23). No deanna UTI sx. Continues to have her baseline voiding sx. Discussed pt is likely colonized with E. coli -Urine sample to be sent for culture. Will treat if positive and then start low dose suppressive abx until Botox procedure so infection does not come back/postpone procedure. 3. Incomplete bladder emptying (R33.9: Retention of urine, unspecified) PVR (cc): 08/19/22 - 60 06/01/23 - 174 09/24/23 - 98 12/02/23 - 78 Emptying has improved. -Double voids 4. Urethral stricture (N35.919: Unspecified urethral stricture, male, unspecified site) S/p Cysto/UD 02/09/22 by D[facility] and 12/03/22 by [facility]. Continues to report mildly weak stream. Again discussed repeat urethral dilation. Still declines treatment. -Double voids Follow-up With When Contact Information MARY HENRY, Dione Marie, URL [address] [address]- Additional Instructions: sched Botox Patient Education Botulinum Toxin Bladder Injection Documentation recorded by the scribmartin Mac accurately reflects the services(s) I performed and decisions made by me. Authenticated by Susana Brandon PA-C on 12/02/2023 12:15:27. INereida, personally scribed for Susana Brandon PA-C on 12/02/2023 10:33:23. . Problem List/Past Medical History Ongoing Acute cystitis without hematuria Anemia Cystocele with prolapse Former smoker History of UTI Hypertension Incomplete bladder emptying Mixed incontinence Urethral st (more content not included)... Normal [facility] Comment on above: Result Comment: Elec tronically Signed By: SUSANA BRANDON PA-C\.br\Date and Time Signed: 12/02/23 12:15 EDT\.br\Electronically Co-Signed By: Nereida Macbr\Date and Time Co-Signed: 12/02/23 10:33 EDT C Urineon 09-26-2023 Bacteria identified Cx Nom (U) Microbiology PROCEDURE: Urine Culture [R1] SOURCE: U CleanCatch BODY SITE: COLLECTED DATE/TIME: 09/24/2023 08:31 EST RECEIVED DATE/TIME: 09/24/2023 12:39 EST START DATE/TIME: 09/24/2023 12:39 EST FREE TEXT SOURCE: BLADIMIR Lucio APRN, BLADIMIR Lucio APRN, Debi Carrera X FINAL REPORTS Final Report [] Verified Date/Time: 09/26/2023 09:15 EDT >100,000 cfu/ml Escherichia coli SUSCEPTIBILITY RESULTS LEGEND: S=Susceptible, N/R=Not Reported, Blank=Data not available, or drug not advisable or tested, I=Intermediate, ESBL=Extended spectrum beta-lactamase, R=Resistant, TFG=Thymidine-depende nt strain, STACY=Beta-lactamase positive, DOMENIC=mcg/m;(mg/L), S*=Predicted susceptible interp, R*=Predicted resistant interp EC Antibiotic DOMENIC Dilutn DOMENIC Interp Amikacin <=16 S Ampicillin <=8 S Ampicillin/ <=8/4 S Sulbactam Aztreonam <=4 S Cefazolin <=2 S Cefepime <=2 S Cefoxitin 16 I Ceftazidime <=1 S Ceftazidime/ <=8 S Avibactam Ceftriaxone <=1 S Ciprofloxacin >2 R Ertapenem <=0.5 S Gentamicin <=4 S Levofloxacin >4 R Meropenem <=1 S Nitrofurantoin <=32 S Piperacillin/ <=16 S Tazobactam Tetracycline <=4 S Tigecycline <=2 S Tobramycin <=4 S Trimethoprim/ <=2/38 S Sulfa Performing Locations R1: This test was performed at: [facility], [address] [place] [address], [id number]- , [place], [facility] Comment on above: Performed By: #### 2 [id number] ####[facility] [id number] [place] [id number] Ambulatory Visit Summaryon 0 09-24-2023 Ambulatory Visit Summary NICCI MOJICA :1955 Visit Date:09/24/2023 Ambulatory Visit Instructions Your Diagnosis Mixed incontinence Urethral stricture Incomplete bladder emptying UTI (urinary tract infection) Your Care Team Attending Physician - BLADIMIR Lucio APRN, [place] X Primary Care Physician - SHAIKH HINDS MD This Is Your Medications List trospium (trospium 20 mg oral tablet) Contact prescribing physician if questions or concerns alendronate (alendronate 70 mg Tab) cyanocobalamin (Vitamin B-12 1000 mcg oral tablet) escitalopram (escitalopram 20 mg Tab) ferrous sulfate solifenacin (solifenacin 10 mg Tab) Procedures Performed Cystourethroscopy with dilation of urethral stricture (12/03/2022), Cystourethroscopy with dilation of urethral stricture (02/09/2022), Cataract extraction and insertion of intraocular lens (11/26/2020), Cataract extraction and insertion of intraocular lens (11/12/2020), Bilateral tubal ligation (07/19/1981). Discharge Vitals Temperature (Temporal Artery) 37.0 ?C Heart Rate (Peripheral) 82 Blood Pressure 124/80 Height 167 cm Height 66 in Weight 62.6 kg Weight 137.72 lb BMI 22.45 What to do next Scheduled Follow-Up Appointments 2023 3:15 PM EDT With: SUSANA BRANDON PA-C Where: [facility] Patient Educationon 09-24-19 Patient Education Obstetrics and Gynecology Kegel Exercises [...] Reviewed: 11/13/2021 Elsevier Patient Education ? 2022 [employer]. Urology Urinary Incontinence Urinary incontinence refers to a condition in which a person is unable to control where and when to pass urine. A person with this condition will urinate involuntarily. This means that the person urinates when he or she does not mean to. What are the causes? This condition may be caused by: ? Medicines. ? Infections. ? Constipation. ? Overactive bladder muscles. ? Weak bladder muscles. ? Weak pelvic floor muscles. These muscles provide support for the bladder, intestine, and, in women, the uterus. ? Enlarged prostate in men. The prostate is a gland near the bladder. When it gets too big, it can pinch the urethra. With the urethra blocked, the bladder can weaken and lose the ability to empty properly. ? Surgery. ? Emotional factors, such as anxiety, stress, or post-traumatic stress disorder (PTSD). ? Spinal cord injury, nerve injury, or other neurological conditions. ? Pelvic organ prolapse. This happens in women when organs move out of place and into the vagina. This movement can prevent the bladder and urethra from working properly. What increases the risk? The following factors may make you more likely to develop this condition: ? Age. The older you are, the higher the risk. ? Obesity. ? Being physically inactive. ? and childbirth. ? Menopause. ? Diseases that affect the nerves or spinal cord. ? Long-term, or chronic, coughing. This can increase pressure on the bladder and pelvic floor muscles. What are the signs or symptoms? Symptoms may vary depending on the type of urinary incontinence you have. They include: ? A sudden urge to urinate, and passing urine involuntarily before you can get to a bathroom (urge incontinence). ? Suddenly passing urine when doing activities that force urine to pass, such as coughing, laughing, exercising, or sneezing (stress incontinence). ? Needing to urinate often but urinating only a small amount, or constantly dribbling urine (overflow incontinence). ? Urinating because you cannot get to the bathroom in time due to a physical disability, such as arthritis or injury, or due to a communication or thinking problem, such as Alzheimer's disease (functional incontinence). How is this diagnosed? This condition may be diagnosed based on: ? Your medical history. ? A physical exam. ? Tests, such as: ? Urine tests. ? X-rays of your kidney and bladder (more content not included)... Normal [facility] Urology Office/Clinic Noteon 09-24-2023 Urology Office/Clinic Note Chief Complaint 4 month F/U HPI Staff 68 year old female here for 3 month F/U. Previous DX: Mixed incontinence, urethral stricture, incomplete bladder emptying and UTI. S/P Cysto/UD done 02/09/22 and 12/03/22. >100,000 E. coil done 06/01/23 Solifencin is working good for her PVR 93 Dysuria: _denies Incomplete bladder emptying: sometimes Hematuria: denies visible blood Frequency: every 3 hours Urgency: once and awhile Nocturia: _sometimes 2x Stream: _yes hesitation, weaker stream Leaking: sometimes Post void dripping: _a little bit Wearing pads/ Depends: wears pads daily changes at least once through the day Urge incontinence: _yes Stress incontinence: yes Incontinence without Sensory Awareness: occasionally Abdominal pain: denies Flank pain: denies Sexual complaints: denies History of Present Illness I have reviewed and verified the staff HPI to be accurate for this encounter. Review of Systems PHQ Score Initial Depression Screen Score: 0 SCORE Physical Exam Vitals & Measurements T: 37.0 ?C(Temporal Artery) HR: 82(Peripheral) BP: 124/80 HT: 66 in HT: 167 cm WT: 62.6 kg WT: 137.72 lb BMI: 22.45 General: Well developed, well nourished, in no acute distress. Genitourinary: Flank Pain: none. Bladder: nonpalpable. Assessment/Plan 1. Mixed incontinence (N39.46: Mixed incontinence) Patient has previously failed multiple doses of oxybutynin. At prior office visit she did opt to start new medication, Solifenacin 10 mg. Patient reports she does have improvement of leaking with new medication. However, she is not quite satisfied with her treatment. Discussed with patient that she is on the max dose of Solifenacin. Discussed staying on this medication versus trying new medication. Patient does opt to trial new medication. Discussed possible side effects of dry eyes, dry mouth, constipation. Treat the symptomatically. Will start trospium 20 mg twice daily. Contact office if medication is not covered by insurance or experiencing intolerable side effects. Rx sent to [facility] [place]. Again discussed possibility of Botox with patient. - Follow-up 3 months with PVR. 2. Urethral stricture (N35.919: Unspecified urethral stricture, male, unspecified site) S/p cysto/UD 02/09/2022 and 12/03/22 [1] Patient does admit that she has a somewhat weak stream. Discussed repeat urethral dilation. However, patient does not feel that she needs this at this time. Most recent UTI in May 2023. Patient was asymptomatic at that time. Patient to call office if she changes her mind, is getting frequent UTIs again, or feeling that she is not able to empty. 3. Incomplete bladder emptying (R33.9: Retention of urine, unspecified) PVR: 08/19/22 - 60 ml 06/01/23 - 174 ml [2] 09/24/23- 98 ml Discussed voiding maneuvers, double voiding. 4. UTI (urinary tract infection) (N39.0: Urinary tract infection, site not specified) UCx: 08/19/22 - >100k E Coli. Tx'd w/ Keflex 02/04/23 - >100k E Coli. Tx'd w/ Keflex [3] 06/01/23 - >100e E coli, tx'd w/ keflex Patient was asymptomatic of UTI in May. UA today with trace blood, small leukocytes, positive nitrates. Patient is asymptomatic today. -Send UA for culture today. Patient to call if she becomes symptomatic. Orders: trospium, 20 mg = 1 tab(s), Oral, BID, # 60 tab(s), Refills(s) 2, Pharmacy: [facility]/pharmacy #[id number], 167, cm, 09/24/23 8:07:00 EST, Height/Length Dosing, 62.6, kg, 09/24/23 8:07:00 EST, Weight Dosing 60642 Measure Post Void residual urine and/or bladder capacity by US- non-imaging Urine Culture Urnls Dip Stick Auto w/o Microscopy POC 31094 Follow-up With When Contact Information ROMA OSCAR, SUSANA Salazar, URL In 3 months [address] [place] [address] Additional Instructions: w/ PVR Patient Education Urinary Incontinence Kegel Exercises Problem List/Past Medical History Ongoing Acute cystitis [...] Tab ferrous sulfate, 325 mg, Oral, q2Days solifenacin 10 mg Tab, 10 mg= 1 tab(s), Oral, Daily, 3 refills trospium 20 mg oral tablet, 20 mg= 1 tab(s), Oral, BID, 2 refills Vitamin B-12 1000 mcg oral tablet, 1000 mcg= 1 tab(s), Oral, Daily Allergies No Known Allergies Social History Alcohol Current, Wine, 1-2 times per month, 02/03/2022 Tobacco Former s (more content not included)... Normal [facility] Comment on above: Result Comment: Elec tronically Signed By: BLADIMIR Lucio APRN, Debi Klein\.br\Date and Time Signed: 09/24/23 09:06 EST C Urineon 06-03-2023 Bacteria identified Cx Nom (U) Microbiology PROCEDURE: Urine Culture [R1] SOURCE: U CleanCatch BODY SITE: COLLECTED DATE/TIME: 06/01/2023 14:05 EST RECEIVED DATE/TIME: 06/01/2023 19:56 EST START DATE/TIME: 06/01/2023 19:56 EST FREE TEXT SOURCE: SUSANA BRANDON PA-C, PA-C, JENNIFER E FINAL REPORTS Final Report [] Verified Date/Time: [...] Locations R1: This test was performed at: [facility], [address] [place] [address], [id number] , , [facility] Comment on above: Performed By: #### 2 [id number] ####[address] [address] [place] 06-02-2023 Screens [id number]# 1.00TIFF [facility] Ambulatory Visit Summaryon 08-01-2022 Ambulatory Visit Summary NICCI MOJICA :1955 Visit Date:06/01/2023 Ambulatory Visit Instructions Your Diagnosis Mixed incontinence Urethral stricture Incomplete bladder emptying UTI (urinary tract infection) Tests Performed Urnls Dip Stick Auto w/o Microscopy POC 99356 Your Care Team Attending Physician - SUSANA BRANDON PA-C Primary Care Physician - SHAIKH HINDS MD This Is Your Medications List oxybutynin (oxybutynin [...] SUSANA BRANDON PA-C Where: [facility] Patient Educationon 06-01-20 23 Patient Education Obstetrics [...] health care provider. General instructions ? Take rlfl-vqf-zldhnvk and prescription medicines only as told by [...] monitor yo (more content not included)... Normal [facility] Urology Office/Clinic Noteon 06-01-2023 Urology Office/Clinic Note [...] Contact Information ROMA OSCAR, SUSANA Salazar, URL [address] [place] [address] Additional Instructions: 3 mos Patient Education Overactive Bladder, Adult Documentation recorded by the chip Christine accurately reflects the services(s) I performed and decisions made by me. Authenticated by Susana Brandon PA-C on 06/01/2023 12:12:10. Isabel Salmon, personally scribed for Susana Brandon PA-C on [...] Sister. Diab (more content not included)... Normal [facility] Comment on above: Result Comment: Elec tronically Signed By: SUSANA BRANDON PA-C\.br\Date and Time Signed: 06/01/23 12:12 EST\.br\Electronically Co-Signed By: Isabel Christine\.br\Date and Time Co-Signed: 06/01/23 12:06 EST Patient Letter FTon 2022 Patient Letter [facility] April 13, 2023 NICCI MOJICA [phone] [place] [address] : 1955 Dear Nicci, You missed your scheduled appointment on: 04/13/2023 [...] [facility] [address], [place] [address] Jaquan [facility] Andriy Urineon 02-06-2023 Bacteria identified Cx Nom (U) Microbiology PROCEDURE: Urine Culture [R1] SOURCE: U Random BODY SITE: COLLECTED DATE/TIME: 02/04/2023 14:12 EDT RECEIVED DATE/TIME: 02/04/2023 18:15 EDT START DATE/TIME: 02/04/2023 18:15 EDT FREE TEXT SOURCE: ROMA OSCAR, SUSANA BRANDON [...] Locations R1: This test was performed at: [facility], [address] [place] [address], [address] , , Normal [facility] Comment on above: Performed By: #### 2 [id number] ####[facility] [address] [place] [address] Urology Office/Clinic Noteon 02-05-2023 Urology Office/Clinic Note [...] given sample cup to bring sample to [place] office. will send for cx if UA abnl. Follow up in 2 mos. All questions/concerns were discussed. Pt to call the office if she encounters any issues prior. Pt acknowledges understanding. Follow-up With When Contact Information SUSANA BRANDON PA-C, URL In 2 months [address] [place] [address] Additional Instructions: Patient Education Kegel Exercises Documentation recorded by the scribe Carmel Leggett accurately reflects the services(s) I performed and decisions made by me. Authenticated by Susana Brandon PA-C on 02/05/2023 18:05:03. I, Carmel Leggett, personally scribed for Susana Brandon PA-C on [...] Family History (more content not included)... Normal [facility] Comment on above: Result Comment: Elec tronically Signed By: SUSANA BRANDON PA-C\.br\Date and Time Signed: 02/05/23 18:05 EDT\.br\Electronically Co-Signed By: Carmel Leggett\.jaleesa\Date and Time Co-Signed: 02/04/23 12:01 EDT Ambulatory Visit Summaryon 0 02-04-2023 Ambulatory Visit Summary NICCI MOJICA :1955 Visit Date:02/04/2023 Ambulatory Visit Instructions Your Diagnosis Mixed incontinence Urethral stricture Incomplete bladder emptying History of UTI Tests Performed Urnls Dip Stick Auto w/o Microscopy POC 19584 Your Care Team Attending Physician - SUSANA [...] to do next Scheduled Follow-Up Appointments Wednesday 9:00 AM EDT With: SUSANA BRANDON PA-C Where: [facility] Patient Educationon 02-05-20 23 Patient Education Obstetrics and Gynecology Kegel Exercises [...] provider. Document Revised: 11/13/2021 Document Reviewed: 11/13/2021 [employer] Patient Education ? 2022 [employer] Normal [facility] Consent for Procedure/Surger yon 12-04-2022 Consent for Procedure/Surgery [id number]# 1.00CD:127 Normal [facility] Ambulatory Visit Summaryon 0 12-03-2022 Ambulatory Visit Summary NICCI MOJICA :1955 Visit Date:12/03/2022 Ambulatory Visit Instructions Your Diagnosis Urethral stricture Mixed incontinence Incomplete bladder emptying Cystocele with prolapse History of UTI Your Care Team Attending Physician - MARY HENRY, Dione Marie Primary Care Physician - SHAIKH HINDS [...] SUSANA BRANDON PA-C Where: [facility] Patient Educationon 12-04-19 23 Patient Education Obstetrics [...] health care provider. General instructions ? Take ocuw-lra-uzxeuph and prescription medicines only as told by [...] monitor yo (more content not included)... Normal [facility] Urology Office/Clinic Noteon 12-03-2022 Urology Office/Clinic Note [...] urine The Urethra was dilated to: 16-30 Azeri with sounds. Specimens Removed: None Removal: Cystoscope [...] a couple months with an appointment with Lashawn Escobar. She agrees with the plan. She will finish antibiotic Follow-up With When Contact Information MARY HENRY, Dione Marie, URL In 4 months 04/05/[address] [address]- Additional Instructions: Patient Education Overactive Bladder, Adult I, Amanda Hackett , personally scribed for Dr. Hernandez [...] refills Dixie (more content not included)... Normal [facility] Comment on above: Result Comment: Elec tronically Signed By: Dione HERNANDEZ MD\.br\Date and Time Signed: 12/03/22 14:39 [...] Interpretation Code Negative [facility] UA Auto SS [place].plasma/Lithiu m.RBC (Bld) [Mass ratio] 4-20 /HPF Normal [...] PM) Invalid Interpretation Code 1.005 - 1.030 [facility] UA Auto SS UA Spec Desc Clean Catch (08/19/22 2:15 PM) Normal [facility] UA Auto SS Urobilinogen Qn (U) [id number] {Shawna'U}/dL Normal 0.0 - 1.0 EU/dL [facility] UA Auto SS WBC Auto Ql (U) 2+ *ABN* (08/19/22 2:15 PM) Invalid Interpretation Code Negative [facility] UA Auto SS WBC LM.HPF (Urine sed) [#/Area] /[HPF] Invalid Interpretation Code 0-5/HPF [facility] UA Auto SS XR DEXA BONE DENSITYon [...] by: SABRINA PORTILLO Date: 2022-02-10 16:45 Normal [facility] COVID-19 Antigenon 2 COVID-19 Antigen Healthcare Worker?: [...] developed and its performance characteristic determined by [employer] and validated at [facility]. This test has not been FDA cleared [...] for SARS Antigen by QUINN PERFORMED BY: [place] [address] PATHOLOGIST JUDICIAL ADMINISTRATIVE ASSISTANT CHERYL RIVAS M.D. [facility] Comment on above: Performed By: #### S OFDEANGELOEG, COVID-19 VICK #### [address] PAP ACOG PANEL 2: 30 to 65on 01-02-2022 . . Normal [facility] Comment on above: Performed By: #### 4 [id number] #### [facility] [address] [place] [address] Dr. Huang Ojeda Age Gdln ACOG Testing Comment [facility] Comment on above: Result Comment: <21 or >65 or no age provided Performed By: #### 4 [id number] #### [facility] [address] [place] [address] Dr. Huang Ojeda DIAGNOSIS: Comment [facility] Comment on above: Result Comment: NEGA TIVE FOR INTRAEPITHELIAL LESION OR MALIGNANCY. Performed By: #### 4 [id number] #### [facility] [address] [place] [address] Dr. Huang Ojeda Methodology: Comment Normal [facility] Comment on above: Result Comment: This liquid based ThinPrep(R) pap test was screened with the use of an image guided system. Performed By: #### 4 [id number] #### [facility] [address] [place] [address] Dr. Huang Ojeda Note: Comment Normal [facility] Comment on above: Result Comment: The Pap smear is a screening test designed to aid in the detection of premalignant and malignant conditions of the uterine cervix. It is not a diagnostic procedure and should not be used as the sole means of detecting cervical cancer. Both false-positive and false-negative reports do occur. . Performed By: #### 4 [id number] #### [facility] [address] [place] [address] Dr. Huang Ojeda Performed by: Comment [facility] Comment on above: Result Comment: Isela Britt, Bill Hiker (ASCP) Performed By: #### 4 [id number] #### [facility] [address] [place] [address] Dr. Huang Ojeda Specimen adequacy: Comment Normal [facility] Comment on above: Result Comment: Sati sfactory for evaluation. Endocervical and/or squamous metaplastic cells (endocervical component) are present. Performed By: #### 4 [id number] #### [facility] [address] [place] [address] Dr. Huang Ojeda Vick Ag Negativeon 01-03-20 22 Vick Ag Negative Negative Normal Negative [facility] Comment on above: Result Comment: This is a duplicate Vick SARS Antigen (QUINN) result to be used for statistical tracking purpose only. PERFORMED BY: [place] [address] PATHOLOGIST JUDICIAL ADMINISTRATIVE ASSISTANT CHERYL RIVAS M.D. Performed By: #### S JOSE COVID-19 VICK #### [address] MG MAMM SCREEN 3D ROMAINE CADon 11-28-2021 MG MAMM SCREEN 3D ROMAINE CAD Patient: NICCI MOJICA Exam Date: 11/28/2021 : 1955 Gender:F Ordering : SHAIKH Rand HINDS . Admission #: [id number] Family : Order #: [id number] CLICK HERE TO VIEW EXAM RADIOLOGY REPORT PROCEDURE: MAMMOGRAM SCREENING 3D BILATERAL CAD COMPARISON: MG MAMM ROMAINE SCRN W CAD DIG, 12/19/2013. INDICATIONS: Screening mammography Calculator Name NCI Breast Cancer Risk Assessment Tool 5 Year Breast Cancer Risk 1.20% Lifetime Breast Cancer Risk 4.40% Personal Breast Cancer No Personal Ovarian Cancer No Treatments None Family Cancers None LOCATION: [facility] BREAST COMPOSITION: Scattered areas fibroglandular density. FINDINGS: [...] MD on 11/28/2021 at 15:01 Normal [facility] US CAROTID ART BILon 11-28-2 022 US CAROTID ART ROMAINE EXAMINATION: US [...] LAVERN BRITT Date: 2021-11-28 14:17 Normal [facility] CBC AUTO DIFFon 11-27-2021 BASO # 0.1 103/ul Normal 0.0-0.1 [facility] Comment on above: Performed By: #### C BC #### [facility] [address] [address] [address] Huang Ojeda Basophils/100 WBC (Bld) 0.8 % Normal 0.2-2.0 [facility] Comment on above: Performed By: #### C BC #### [facility] [address] [address] [address] Huang Ojeda EO # 0.2 103/ul Normal 0.0-0.7 [facility] Comment on above: Performed By: #### C BC #### [facility] [address] [address] [address] Huang Ojeda Eosinophils/100 WBC (Bld) 2.5 % Normal 0.9-7.0 [facility] Comment on above: Performed By: #### C BC #### [facility] [address] [place] [address] Dr. Huang Ojeda Erythrocyte distribution width (RBC) [Ratio] 13.1 % Normal 11.0-15.0 [facility] Comment on above: Performed By: #### C BC #### [facility] [address] [place] [address] Dr. Huang Ojeda Hematocrit (Bld) [Volume fraction] 38.9 % Normal 36.0-48.0 [facility] Comment on above: Performed By: #### C BC #### [facility] [address] [address] [address] Hunag Ojeda Hemoglobin (Bld) [Mass/Vol] 12.1 g/dL Normal 12.0-16.0 [facility] Comment on above: Performed By: #### C BC #### [facility] [address] [place] [address] Dr. Huang Ojeda IG # 0.01 10e3/ul Normal 0.00-0.03 [facility] Comment on above: Performed By: #### C BC #### [facility] [address] [place] [address] Dr. Huang Ojeda IG % 0.2 % Normal 0.0-0.5 [facility] Comment on above: Performed By: #### C BC #### [facility] [address] [place] [address] Dr. Huang Ojeda LYMPH # 1.7 103/ul Normal 1.2-3.8 [facility] Comment on above: Performed By: #### C BC #### [facility] [address] [place] [address] Dr. Huang Ojeda Lymphocytes/100 WBC (Bld) 27.8 % Normal 20.5-60.0 [facility] Comment on above: Performed By: #### C BC #### [facility] [address] [place] [address] Dr. Huang Ojead MANUAL DIFF REQ NO Normal [facility] Comment on above: Performed By: #### C BC #### [facility] [address] [place] [address] Dr. Huang Ojeda MCH (RBC) [Entitic mass] 31.3 pg Normal 26.7-34.0 [facility] Comment on above: Performed By: #### C BC #### [facility] [address] [place] [address] Dr. Huang Ojeda MCHC (RBC) [Mass/Vol] 31.1 g/dL Normal 29.9-35.2 [facility] Comment on above: Performed By: #### C BC #### [facility] [address] [place] [address] Dr. Huang Ojeda MCV (RBC) [Entitic vol] 100.8 fL Critically high 81.0-99.0 [facility] Comment on above: Performed By: #### C BC #### [facility] [address] [place] [address] Dr. Huang Ojeda MONO # 0.6 103/ul Normal 0.3-0.8 [facility] Comment on above: Performed By: #### C BC #### [facility] [address] [place] [address] Dr. Huang Ojeda Monocytes/100 WBC (Bld) 10.2 % Normal 1.7-12.0 [facility] Comment on above: Performed By: #### C BC #### [facility] [address] [address] [address] Huang Ojeda NEUT # 3.5 103/ul Normal 1.4-6.5 [facility] Comment on above: Performed By: #### C BC #### [facility] [address] [place] [address] Dr. Huang Ojeda Neutrophils/100 WBC (Bld) 58.5 % Normal 43.0-75.0 [facility] Comment on above: Performed By: #### C BC #### [facility] [address] [place] [address] Dr. Huang Ojeda Platelet mean volume (Bld) [Entitic vol] 10.6 fL Normal 9.5-13.5 [facility] Comment on above: Performed By: #### C BC #### [facility] [address] [place] [address] Dr. Huang Ojeda PLT 364 103/ul Normal 150-450 [facility] Comment on above: Performed By: #### C BC #### [facility] [address] [place] [address] Dr. Huang Ojeda RBC 3.86 106/ul Critically low 4.20-5.40 [facility] Comment on above: Performed By: #### C BC #### [facility] [address] [place] [address] Dr. Huang Ojeda WBC 6.0 103/ul Normal 4.0-11.0 [facility] Comment on above: Performed By: #### C BC #### [facility] [address] [place] [address] Dr. Huang Ojeda FERRITINon 11-27-2021 Ferritin [Mass/Vol] 92.0 ng/mL Normal 8.0-252.0 [facility] Comment on above: Performed By: #### F ERR #### [facility] [address] [address] [address] Huang Ojeda GLYCOHEMOGLOBIN A1Con 2021 ADA RECOMMENDATION SEE BELOW Normal [facility] Comment on above: Result Comment: ADA RECOMMENDED LIMIT 4.0 - 6.0 ADA THERAPEUTIC TARGET < 7.0 ACTION SUGGESTED > 7.0 Performed By: #### A 1C #### [facility] [address] [address] [address] Huang Ojeda Glucose [Mass/Vol] 120 mg/dL Normal [facility] Comment on above: Performed By: #### A 1C #### [facility] [address] [place] [address] Dr. Huang Ojeda HbA1c (Bld) [Mass fraction] 5.8 % Normal 4.5-6.2 [facility] Comment on above: Performed By: #### A 1C #### [facility] [address] [place] [address] Dr. Huang Ojeda LIPID PROFILEon 11-27-2021 CHOL-HDL RATIO NORM SEE BELOW Normal [facility] Comment on above: Result Comment: 3.3 - 4.4 LOW RISK 4.4 - 7.1 AVERAGE RISK 7.1 - 11.0 MODERATE RISK >11.0 HIGH RISK Performed By: #### C MP, LIPID #### [facility] [address] [place] [address] Dr. Huang Ojeda Cholesterol [Mass/Vol] 146 mg/dL Normal <=200 [facility] Comment on above: Performed By: #### C MP, LIPID #### [facility] [address] [place] [address] Dr. Huang Ojeda Cholesterol in HDL [Mass/Vol] 62 mg/dL Critically high 40-60 [facility] Comment on above: Performed By: #### C MP, LIPID #### [facility] [address] [place] [address] Dr. Huang Ojeda Cholesterol in LDL [Mass/Vol] 62.4 mg/dL Normal [facility] Comment on above: Performed By: #### C MP, LIPID #### [facility] [address] [place], [place] [id number] Dr. Huang Ojeda Cholesterol.total/Cho lesterol in HDL [Mass ratio] 2.4 {ratio} Normal [facility] Comment on above: Performed By: #### C MP, LIPID #### [facility] [address] [place] [address] Dr. Huang Ojeda HDL NORMAL > or = 60 mg/dl - LO W CARDIOVASCULAR RISK <40 mg/dl - HIGH CARDIOVASCULAR RISK Normal [facility] Comment on above: Performed By: #### C MP, LIPID #### [facility] [address] [place] [address] Dr. Huang Ojeda LDL CALC NORMAL SEE BELOW Normal [facility] Comment on above: Result Comment: <100 mg/dl OPTIMAL 100 - 129 mg/dl NEAR OR ABOVE OPTIMAL 130 - 159 mg/dl BORDERLINE HIGH 160 - 189 mg/dl HIGH >190 mg/dl VERY HIGH Performed By: #### C MP, LIPID #### [facility] [address] [place] [address] Dr. Huang Ojeda Triglyceride [Mass/Vol] 108 mg/dL Normal <=150 [facility] Comment on above: Performed By: #### C MP, LIPID #### [facility] [address] [place] [address] Dr. Huang Ojeda VLDL CALC 21.6 mg/dL Normal [facility] Comment on above: Performed By: #### C MP, LIPID #### [facility] [address] [place] [address] Dr. Huang Ojeda PROF 14(COMP METB)on 022 Albumin [Mass/Vol] 3.7 g/dL Normal 3.4-5.0 [facility] Comment on above: Performed By: #### C MP, LIPID #### [facility] [address] [place] [address] Dr. Huang Ojeda Albumin/Globulin [Mass ratio] 1.1 {ratio} Normal [facility] Comment on above: Performed By: #### C MP, LIPID #### [facility] [address] [place] [address] Dr. Huang Ojeda ALP [Catalytic activity/Vol] 72 U/L Normal 46-116 [facility] Comment on above: Performed By: #### C MP, LIPID #### [facility] [address] [address] [address] Huang Ojeda ALT [Catalytic activity/Vol] 28 U/L Normal 14-59 [facility] Comment on above: Performed By: #### C MP, LIPID #### [facility] [address] [address] [address] Huang Ojeda Anion gap [Moles/Vol] 11.0 mmol/L Normal [facility] Comment on above: Performed By: #### C MP, LIPID #### [facility] [address] [address] [address] Huang Ojeda AST [Catalytic activity/Vol] 17 U/L Normal 15-37 [facility] Comment on above: Performed By: #### C MP, LIPID #### [facility] [address] [address] [address] Huang Ojeda Bilirubin [Mass/Vol] 0.3 mg/dL Normal 0.2-1.0 [facility] Comment on above: Performed By: #### C MP, LIPID #### [facility] [address] [address] [address] Huang Ojeda Calcium [Mass/Vol] 9.2 mg/dL Normal 8.5-10.1 [facility] Comment on above: Performed By: #### C MP, LIPID #### [facility] [address] [address] [address] Huang Ojeda Chloride [Moles/Vol] 106 mmol/L Normal 98-107 [facility] Comment on above: Performed By: #### C MP, LIPID #### [facility] [address] [address] [address] Huang Ojeda CO2 [Moles/Vol] 29.1 mmol/L Normal 21.0-32.0 [facility] Comment on above: Performed By: #### C MP, LIPID #### [facility] [address] [address] [address] Huang Ojeda Creatinine [Mass/Vol] 0.69 mg/dL Normal 0.55-1.02 [facility] Comment on above: Performed By: #### C MP, LIPID #### [facility] [address] [address] [address] Huang Ojeda EGFR-AF MICRONESIAN >60 Normal >=60 [facility] Comment on above: Performed By: #### C MP, LIPID #### [facility] [address] [address] [address] Huang Ojeda EGFR-NON AF MICRONESIAN >60 Normal >=60 [facility] Comment on above: Performed By: #### C MP, LIPID #### [facility] [address] [address] [address] Huang Ojeda Globulin (S) [Mass/Vol] 3.4 g/dL Normal [facility] Comment on above: Performed By: #### C MP, LIPID #### [facility] [address] [address] [address] Huang Ojeda Glucose [Mass/Vol] 92 mg/dL Normal 74-106 [facility] Comment on above: Performed By: #### C MP, LIPID #### [facility] [address] [address] [address] Huang Ojeda Potassium [Moles/Vol] 4.1 mmol/L Normal 3.5-5.1 [facility] Comment on above: Performed By: #### C MP, LIPID #### [facility] [address] [address] [address] Huang Ojeda Protein [Mass/Vol] 7.1 g/dL Normal 6.4-8.2 [facility] Comment on above: Performed By: #### C MP, LIPID #### [facility] [address] [address] [address] Huang Ojeda Sodium [Moles/Vol] 142 mmol/L Normal 136-145 [facility] Comment on above: Performed By: #### C MP, LIPID #### [facility] [address] [address] [address] Huang Ojeda Urea nitrogen [Mass/Vol] 19.0 mg/dL Critically high 7.0-18.0 [facility] Comment on above: Performed By: #### C MP, LIPID #### [facility] [address] [place], [place] [address] Dr. Huang Ojeda Urea nitrogen/Creatinine [Mass ratio] 27.5 mg/mg Normal [facility] Comment on above: Performed By: #### C MP, LIPID #### [facility] [address] [place], [place] [address] Dr. Huang Ojeda Vital Signs Date Time Vital Sign Value Performing Clinician Facility 12-02-2023 10:01-0400 Blood Pressure Location SUSANA ROMA [facility] 12-02-2023 10:01-0400 Body temperature 98.06 [degF] SUSANA ROMA [facility] 12-02-2023 10:01-0400 Diastolic blood pressure 77 mm[Hg] SUSANA ROMA [facility] 12-02-2023 10:01-0400 Heart rate 58 /min SUSANA ROMA [facility] 12-02-2023 10:01-0400 Respiratory rate 16 /min SUSANA ROMA [facility] 12-02-2023 10:01-0400 Systolic blood pressure 128 mm[Hg] SUSANA ROMA [facility] 09-24-2023 08:06-0500 Blood Pressure Location Debi OrzeConnolly [facility] 09-24-2023 08:06-0500 Body temperature 98.6 [degF] Debi Orzech [facility] 09-24-2023 08:06-0500 Diastolic blood pressure 80 mm[Hg] Debi Orzech [facility] 09-24-2023 08:06-0500 Heart rate 82 /min Debi Orzech [facility] 09-24-2023 08:06-0500 Systolic blood pressure 124 mm[Hg] Debi Orzech [facility] 08-19-2023 15:43-0500 Body height 166.6 cm Shaikh Guzman HENRY Work Phone: [facility] 08-19-2023 15:43-0500 Body mass index (BMI) [Ratio] 22.38 kg/m2 Shaikh Guzman HENRY Work Phone: [facility] 08-19-2023 15:43-0500 Body temperature 96.49 [degF] Shaikh Guzman HENRY Work Phone: [facility] 08-19-2023 15:43-0500 Body weight 62.14 kg Shaikh Guzman HENRY Work Phone: [facility] 08-19-2023 15:43-0500 Diastolic blood pressure 84 mm[Hg] Shaikh Guzman HENRY Work Phone: [facility] 08-19-2023 15:43-0500 Heart rate 73 /min Shaikh Guzman HENRY Work Phone: [facility] 08-19-2023 15:43-0500 SaO2% (BldA) [Mass fraction] 99 % Shaikh Guzman HENRY Work Phone: [facility] 08-19-2023 15:43-0500 Systolic blood pressure 130 mm[Hg] Shaikh Guzman HENRY Work Phone: [facility] 06-01-2023 11:30-0500 Blood Pressure Location SUSANA ROMA [facility] 06-01-2023 11:30-0500 Diastolic blood pressure 74 mm[Hg] SUSANA ROMA [facility] 06-01-2023 11:30-0500 Heart rate 68 /min SUSANA ROMA [facility] 06-01-2023 11:30-0500 Respiratory rate 16 /min SUSANA ROMA [facility] 06-01-2023 11:30-0500 Systolic blood pressure 116 mm[Hg] SUSANA ROMA [facility] 02-04-2023 11:11-0400 Blood Pressure Location SUSANA ROMA [facility] 02-04-2023 11:11-0400 Diastolic blood pressure 84 mm[Hg] SUSANA ROMA [facility] 02-04-2023 11:11-0400 Heart rate 79 /min SUSANA ROMA [facility] 02-04-2023 11:11-0400 Respiratory rate 16 /min SUSANA ROMA [facility] 02-04-2023 11:11-0400 Systolic blood pressure 132 mm[Hg] SUSANA ROMA [facility] 08-19-2022 12:57-0500 Blood Pressure Location Cynthia Rodriguez [facility] 08-19-2022 12:57-0500 Diastolic blood pressure 87 mm[Hg] Cynthia Rodriguez [facility] 08-19-2022 12:57-0500 Heart rate 76 /min Cynthia Rodriguez [facility] 08-19-2022 12:57-0500 Systolic blood pressure 135 mm[Hg] Cynthia Rodriguez [facility] 04-29-2022 15:33-0400 Blood Pressure Location SUSANA BRANDON [facility] 04-29-2022 15:33-0400 Diastolic blood pressure 76 mm[Hg] SUSANA ROMA [facility] 04-29-2022 15:33-0400 Heart rate 62 /min SUSANA ROMA [facility] 04-29-2022 15:33-0400 Systolic blood pressure 134 mm[Hg] SUSANA BRANDON [facility] 02-03-2022 09:21-0400 Blood Pressure Location Chucky Berkowitz Jr. [facility] 02-03-2022 09:21-0400 Diastolic blood pressure 82 mm[Hg] Chucky Berkowitz Jr. [facility] 02-03-2022 09:21-0400 Heart rate 70 /min Chucky Berkowitz Jr. [facility] 02-03-2022 09:21-0400 Systolic blood pressure 140 mm[Hg] Chucky Berkowitz Jr. [facility] Encounters Encounter Date Encounter Type Care Provider Facility Start: 01-31-2024 End: 01-31-2024 ambulatory Frankimarsha MOTT Facility:[facility] Start: 01-31-2024 End: 01-31-2024 Patient encounter procedure Franki MOTT [facility] Start: 01-04-2024 End: 01-04-2024 ambulatory ZACK WILSON Not Available Start: 12-07-2023 End: 12-07-2023 ambulatory ZACK WILSON Not Available Start: 12-07-2023 End: 02-08-2024 Pre-admission assessment Dione HERNANDEZ [facility] Start: 12-02-2023 End: 12-03-2023 ambulatory SUSANA BRANDON [facility] Start: 12-02-2023 End: 12-02-2023 Lab Drop off SUSANA BRANDON [facility] Start: 12-02-2023 End: 12-02-2023 Patient encounter procedure SUSANA BRANDON [facility] Start: 09-28-2023 End: 09-28-2023 ambulatory ZACK WILSON Not Available Start: 09-24-2023 End: 09-25-2023 ambulatory Debi X Orzech [facility] Start: 09-24-2023 End: 09-24-2023 Lab Drop off Debi X Orzech [facility] Start: 09-24-2023 End: 09-24-2023 Patient encounter procedure Debi X Orzech [facility] Start: 09-20-2023 End: 09-20-2023 ambulatory ALBA CASTILLO Not Available Start: 09-07-2023 End: 09-08-2023 ambulatory SUSANA E ROMA Facility:[facility] Start: 09-07-2023 End: 09-07-2023 Patient encounter procedure SUSANA E ROMA [facility] Start: 08-19-2023 End: 08-19-2023 Office outpatient visit 25 minutes Shaikh Guzman HENRY Work Phone: [facility] Comment on above: Hyperlipidemia, unsp ecified hyperlipidemia type (CMS/HCC) (Primary Dx); Essential hypertension (CMS/HCC); Mixed incontinence; Encounter for screening mammogram for breast cancer; Iron deficiency anemia secondary to inadequate dietary iron intake; Recurrent major depressive disorder, in full remission (CMS/HCC) Start: 08-19-2023 End: 08-19-2023 ambulatory SHAIKH GUZMAN Not Available Start: 08-19-2023 Catia flowsheet Shaikh Guzman HENRY Work Phone: [facility] Start: 08-19-2023 Catia Hinds MD Work Phone: [facility] Start: 06-01-2023 End: 06-02-2023 ambulatory SUSANA E ROMA [facility] Start: 06-01-2023 End: 06-01-2023 Lab Drop off SUSANA E ROMA [facility] Start: 06-01-2023 End: 06-02-2023 ambulatory SUSANA E ROMA Facility:[facility] Start: 06-01-2023 End: 06-01-2023 Patient encounter procedure SUSANA E ROMA [facility] Start: 04-13-2023 End: 04-14-2023 ambulatory HOOKER IVANIsraelZACHARYD Facility:[facility] Start: 02-04-2023 End: 02-05-2023 ambulatory SUSANA Martin ROMA [facility] Start: 02-04-2023 End: 02-05-2023 ambulatory SHAIKH FLAQUITOZACHARYD Facility:[facility] Start: 02-04-2023 End: 02-04-2023 Patient encounter procedure SUSANA BRANDON [facility] Start: 12-03-2022 End: 12-04-2022 ambulatory Dione HERNANDEZ Facility:[facility] Start: 09-24-2022 ambulatory SHAIKH Monique HUDDLESTONZACHARYEsther Facilit y:[facility] Start: 08-19-2022 End: 08-19-2022 Lab Drop off Cynthia Vega [facility] Start: 08-19-2022 End: 08-19-2022 Patient encounter procedure Cynthia Vega [place] [facility] Start: 04-29-2022 End: 04-29-2022 Patient encounter procedure SUSANA E ROMA [facility] Start: 02-10-2022 End: 02-11-[address] DIONE KERNS . Facility: Start: 02-03-2022 End: 02-03-2022 Patient encounter procedure Chucky Berkowitz Jr. [facility] Start: 12-30-2021 End: 12-30-[address] DIONE KERNS . Facility: Start: 11-28-2021 End: 11-29-2021 ambulatory Monique GUZMAN Facility: Start: 11-26-2021 End: 11-27-2021 ambulatory SHAIKH Monique HINDS Facility:[facility] Procedures Date Procedure Procedure Detail Performing Clinician Start: 12-03-2022 Cystourethroscopy wi th dilation of urethral stricture SUSANA BRANDON Start: 02-17-2022 Colonoscopy Shaikh Flaquito hughes MD Work Phone: Start: 02-09-2022 Cystourethroscopy wi th dilation of urethral stricture SUSANA BRANDON Start: 11-26-2020 Cataract extraction and insertion of intraocular lens Chucky Berkowitz Jr. Start: 11-12-2020 Cataract extraction and insertion of intraocular lens Chucky Berkowitz Jr. Start: 01-01-2014 Colonoscopy Shaikh Flaquito hughes MD Work Phone: Start: 07-19-1981 Bilateral tubal ligation Chucky Berkowitz Jr. Plan of Treatment Date Care Activity Detail Author Start: 02-18-2032 Screening for malign ant neoplasm of colon [facility] Start: 01-02-2024 Screening for malign ant neoplasm of colon [facility] Start: 12-29-2023 End: 12-29-2023 Patient encounter procedure 12/29/2023 3:15 PM EDT Office Visit [facility] [address] [place] [address] Shaikh Hinds MD [address] [place] [address] [facility] Start: 09-20-2023 End: 09-20-2023 Patient encounter procedure 09/20/2023 10:00 AM EST Office Visit [facility] [address] [place] [id number] Alba Castillo PA [address] [place] [address] [facility] Start: 08-19-2023 End: 08-19-2023 Patient encounter procedure 08/19/2023 3:45 PM EST Office Visit [facility] [address] [place] [address] Shaikh Hinds MD [address] [place] [address] Arrived [facility] Comment on above: Arrived Start: 08-19-2023 End: 08-19-2024 CBC W Auto Differential panel - Blood CBC and differential Lab Routine Essential hypertension (CMS/HCC) Expected: 08/19/2023 (Approximate), Expires: 08/19/2024 [facility] Comment on above: Expected: 08/19/2023 (Approximate), Expires: 08/19/2024 Start: 08-19-2023 End: 08-19-2024 Cobalamin (Vitamin B12) [Mass/volume] in Serum or Plasma Vitamin B12 Lab Routine Iron deficiency anemia secondary to inadequate dietary iron intake Expected: 08/19/2023 (Approximate), Expires: 08/19/2024 [facility] Comment on above: Expected: 08/19/2023 (Approximate), Expires: 08/19/2024 Start: 08-19-2023 End: 08-19-2024 Comprehensive metabolic 2000 panel - Serum or Plasma Comprehensive metabolic panel Lab Routine Essential hypertension (CMS/HCC) Expected: 08/19/2023 (Approximate), Expires: 08/19/2024 [facility] Comment on above: Expected: 08/19/2023 (Approximate), Expires: 08/19/2024 Start: 08-19-2023 End: 08-19-2024 Ferritin [Mass/volume] in Serum or Plasma Ferritin Lab Routine Iron deficiency anemia secondary to inadequate dietary iron intake Expected: 08/19/2023 (Approximate), Expires: 08/19/2024 [facility] Comment on above: Expected: 08/19/2023 (Approximate), Expires: 08/19/2024 Start: 08-19-2023 End: 08-19-2024 Folate [Mass/volume] in Serum or Plasma Folate Lab Routine Iron deficiency anemia secondary to inadequate dietary iron intake Expected: 08/19/2023 (Approximate), Expires: 08/19/2024 [facility] Comment on above: Expected: 08/19/2023 (Approximate), Expires: 08/19/2024 Start: 08-19-2023 End: 08-19-2024 Iron + transferrin + TIBC Iron + transferrin + TIBC Lab Routine Iron deficiency anemia secondary to inadequate dietary iron intake Expected: 08/19/2023 (Approximate), Expires: 08/19/2024 [facility] Comment on above: Expected: 08/19/2023 (Approximate), Expires: 08/19/2024 Start: 08-19-2023 End: 08-19-2024 Lipid 1996 panel - Serum or Plasma Lipid panel Lab Routine Hyperlipidemia, unspecified hyperlipidemia type (CMS/HCC) Expected: 08/19/2023 (Approximate), Expires: 08/19/2024 [facility] Comment on above: Expected: 08/19/2023 (Approximate), Expires: 08/19/2024 Start: 08-19-2023 End: 10-17-2024 MG Breast - bilateral Screening Bilateral screening mammogram Imaging Routine Encounter for screening mammogram for breast cancer Expected: 08/19/2023, Expires: 10/17/2024 [facility] Work Phone: Comment on above: Expected: 08/19/2023 , Expires: 10/17/2024 Start: 03-19-2023 Influenza vaccination Influenza Vacc ine (#1) [facility] Start: 2020 Pneumococcal Vaccine : 65+ Years (1 - PCV) Pneumococcal Vaccine: 65+ Years (1 - PCV) [facility] Start: 1995 Screening for malign ant neoplasm of breast Mammogram [facility] Start: 1955 Medicare Annual Wellness (AWV) Medicare Annual Wellness (AWV) [facility] Start: 1955 Screening for malign ant neoplasm of colon [facility] Immunizations Immunization Date Immunization Notes Care Provider Ivan mendoza 12-08-2022 zoster vaccine recombinant SUSANA BRANDON [facility] 10-07-2022 zoster vaccine recombinant SUSANA BRANDON [facility] 05-20-2022 influenza virus vaccine, unspecified formulation Cynthia Melvinmons [facility] 05-20-2022 Influenza, High-dose Seasonal, Quadrivalent, Preservative Free Shaikh Guzman HENRY Work Phone: [facility] 05-20-2022 SARS-CoV-2 (COVID-19 ) [id number] Cynthia [place] [facility] 04-07-2021 influenza virus vaccine, unspecified formulation SUSANA BRANDON [facility] 04-07-2021 Influenza, High-dose Seasonal, Quadrivalent, Preservative Free Shaikh Guzman HENRY Work Phone: [facility] 11-20-2020 SARS-CoV-2 (COVID-19 ) mRNA BNT-162b2 vax SUSANA BRANDON [facility] 10-30-2020 SARS-CoV-2 (COVID-19 ) mRNA BNT-162b2 vax SUSANA ROMA [facility] Payers Date Payer Category Payer Unknown [employer] [id number] 2022-Present [address] [place] [address] [id number] 2020 Unknown [id number] 1959 Medicare [id number] 1955 Unknown [id number] [id number]3 1955 Unknown [id number] 2.16.840.1.029050.3.579.2.593 1955 Unknown [id number] 2.16.840.1.364871.3.579.2.593 1955 Unknown [id number] 2.16.840.1.337202.3.579.2.593 1955 Unknown [id number] 2.16.840.1.082037.3.579.2.593 1955 Unknown [id number] 2.16.840.1.985241.3.579.2.727 1955 Unknown [id number] 2.16.840.1.505532.3.579.2.727 1955 Unknown [id number] 2.16.840.1.088088.3.579.2.727 1955 Unknown [id number] 2.16.840.1.226770.3.579.2.727 1955 Unknown [id number] 2.16.840.1.617803.3.579.2.727 1955 Unknown [id number] 2.16.840.1.028720.3.579.2.727 1955 Unknown [id number] 2.16.840.1.819885.3.579.2.727 1955 Unknown [id number] 2.16.840.1.447323.3.579.2.727 1955 Unknown [id number] 2.16.840.1.901857.3.579.2.727 1955 Unknown [id number] 2.16.840.1.989101.3.579.2.727 1955 Unknown [id number] 2.16.840.1.913048.3.579.2.727 1955 Unknown [id number] 2.16.840.1.996867.3.579.2.1259 1955 Unknown [id number] 2.16.840.1.441488.3.579.2.1259 1955 Unknown [id number] 2.16.840.1.660321.3.579.2.1259 1955 Unknown [id number] 2.16.840.1.599065.3.579.2.1259 1955 Unknown [id number] 2.16.840.1.009761.3.579.2.1259 1955 Unknown [id number] 2.16.840.1.272840.3.579.2.727 Social History Date Type Detail Facility Start: 02-03-2022 End: 12-03-2022 Tobacco smoking status Never smoked tobacco (finding) [facility] Tobacco smoking status Never [facility] Start: 06-18-2023 End: 08-19-2023 Sex Assigned At Female [facility] Start: 06-01-2023 End: 12-02-2023 Tobacco smoking status Ex-smoker (finding) [facility] End: 07-19-1989 History of tobacco use Current [...] Dates CATARACT EXTRACT ION W/ INTRAOCULAR LENS Zack Wilson DO 11/12/20 Non Biological Eye L {[id number] FDA Start: 11-12-2020 CATARACT EXTRACT ION W/ INTRAOCULAR LENS Zack Wilson DO 11/26/20 Non Biological Eye R {01}[id number] FDA Start: 11-26-2020 Functional Status Date Assessment Result Facility 12-02-2023 Functional Status N/A [facility] 09-24-2023 Functional Status N/A [facility] 06-01-2023 Functional Status N/A [facility] 02-04-2023 Functional Status N/A [facility] 08-19-2022 Functional Status N/A [facility] 04-29-2022 Functional Status N/A [facility] 02-03-2022 Functional Status N/A [facility] Clinical Notes 02-03-2022 to 12-02-2023 Shaikh Guzman MD - 08/19/2023 5:03 PM Janette Hinds MD - 08/19/2023 5:02 PM Janette Hinds MD - 08/19/2023 5:02 PM Janette Hinds MD - 08/19/2023 5:01 PM EST Note Date & Type Note Facility 12-02-2023 Evaluation + Plan note Diagnostic Tests PendingUrine Culture 12/02/23 [facility] 12-02-2023 Hospital Discharge instructions Patient Education 12/02/2023 10:28:46 Botulinum Toxin Bladder Injection Botulinum Toxin Bladder Injection A botulinum toxin bladder injection is a procedure to treat an overactive bladder. During the procedure, a drug called botulinum toxin is injected into the bladder through a long, thin needle. This drug relaxes the bladder muscles and reduces overactivity. You may need this procedure if your medicines are not working or you cannot take them. The procedure may be repeated as needed. The treatment is done once and it usually lasts for 6 months. Your health care provider will monitor you to see how well you respond. Tell a health care provider about: Any allergies you have. All medicines you are taking, including vitamins, herbs, eye drops, creams, and ymwz-rlr-zfogsjk medicines. Any problems you or family members have had with anesthetic medicines. Any bleeding problems you have. Any surgeries you have had. Any medical conditions you have. Any previous reactions to a botulinum toxin injection. Any symptoms of urinary tract infection. These include chills, fever, a burning feeling when passing urine, and needing to pass urine often. Whether you are or may be . What are the risks? Generally this is a safe procedure. However, problems may occur, including: Not being able to pass urine. If this happens, you may need to have your bladder emptied with a thin tube (urinary catheter). Bleeding. Urinary tract infection. Allergic reaction to the botulinum toxin. Pain or burning when passing urine. Damage to nearby structures or organs. What happens before the procedure? When to stop eating and drinking Follow instructions from your health care provider about what you may eat and drink before your procedure. These may include: 8 hours before the procedure ?Stop eating most foods. Do not eat meat, fried foods, or fatty foods. ?Eat only light foods, such as toast or crackers. ?All liquids are okay except energy drinks and alcohol. 6 hours before the procedure ?Stop eating. ?Drink only clear liquids, such as water, clear fruit juice, black coffee, plain tea, and sports drinks. ?Do not drink energy drinks or alcohol. 2 hours before the procedure ?Stop drinking all liquids. ?You may be allowed to take medicines with small sips of water. If you do not follow your health care provider's instructions, your procedure may be delayed or canceled. Medicines Ask your health care provider about: Changing or stopping your regular medicines. This is especially important if you are taking diabetes medicines or blood thinners. Taking medicines such as aspirin and ibuprofen. These medicines can thin your blood. Do not take these medicines unless your health care provider tells you to take them. Taking xtcr-oyg-bhomqdf medicines, vitamins, herbs, and supplements. General instructions Ask your health care provider what steps will be taken to help prevent infection. These steps may include: ?Removing hair at the procedure site. ?Washing skin with a germ-killing soap. ?Taking antibiotic medicine. If you will be going home right after the procedure, plan to have a responsible adult: ?Take you home from the hospital or clinic. You will not be allowed to drive. ?Care for you for the time you are told. What happens during the procedure? You will be asked to empty your bladder. An IV will be inserted into one of your veins. You will be given one or more of the following: ?A medicine to help you relax (sedative). ?A medicine to numb the area (local anesthetic). ?A medicine to make you fall asleep (general anesthetic). A long, thin scope called a cystoscope will be passed into your bladder through the part of the body that carries urine from your bladder (urethra). The cystoscope will be used to fill your bladder with water. A long needle will be passed through the cystoscope and into the bladder. The botulinum toxin will be injected into your bladder. It may be injected into multiple areas of your bladder. The cystoscope will be removed and your bladder will be emptied with a urinary catheter. The procedure may vary among health care providers and hospitals. What can I expect after the procedure? After your procedure, it is common to have: Blood-tinged urine. Burning or soreness when you pass urine. Follow these instructions at home: Medicines Take waup-pae-ydpplbz and prescription medicines only as told by your health care provider. If you were prescribed an antibiotic medicine, take it as told by your health care provider. Do not stop using the antibiotic even if you start to feel better. General instructions If you were given a sedative during the procedure, it can affect you for several hours. Do not drive or operate machinery until your health care provider says that it is safe. Drink enough fluid to keep your urine pale yellow. Return to your normal activities as told by your health care provider. Ask your health care provider what activities are safe for you. Keep all follow-up visits. Contact a health care provider if you have: A fever or chills. Blood-tinged urine for more than one day after your procedure. Worsening pain or burning when you pass urine. Pain or burning when passing urine for more than two days after your procedure. Trouble emptying your bladder. Get help right away if you: Have bright red blood in your urine. Are unable to pass urine. Summary A botulinum toxin bladder injection is a procedure to treat an overactive bladder. This is generally a safe procedure. However, problems may occur, including not being able to pass urine, bleeding, infection, pain, and an allergic reaction to the botulinum toxin. You will be told when to stop eating and drinking, and what medicines to change or stop. Follow instructions carefully. After the procedure, it is common to have blood in your urine and to have soreness or burning when passing urine. Contact a health care provider if you have a fever, blood in your urine for more than a few days, or trouble passing urine. Get help right away if you have bright red blood in your urine, or if you are unable to pass urine. This information is not intended to replace advice given to you by your health care provider. Make sure you discuss any questions you have with your health care provider. Document Revised: 01/09/2022 Document Reviewed: 01/09/2022 [employer]ighter Patient Education 2022 [employer]. Follow Up Care 09/24/2023 08:48:04 With:MARY HENRY, Dione Marie, URL Address: [address] [place] [address] When: Unknown Comments:prashant Lorenzanaox [facility] 09-24-2023 Hospital Discharge instructions Patient Education 09/24/2023 09:05:26 Urinary Incontinence Urinary Incontinence Urinary incontinence refers to a condition in which a person is unable to control where and when to pass urine. A person with this condition will urinate involuntarily. This means that the person urinates when he or she does not mean to. What are the causes? This condition may be caused by: Medicines. Infections. Constipation. Overactive bladder muscles. Weak bladder muscles. Weak pelvic floor muscles. These muscles provide support for the bladder, intestine, and, in women, the uterus. Enlarged prostate in men. The prostate is a gland near the bladder. When it gets too big, it can pinch the urethra. With the urethra blocked, the bladder can weaken and lose the ability to empty properly. Surgery. Emotional factors, such as anxiety, stress, or post-traumatic stress disorder (PTSD). Spinal cord injury, nerve injury, or other neurological conditions. Pelvic organ prolapse. This happens in women when organs move out of place and into the vagina. This movement can prevent the bladder and urethra from working properly. What increases the risk? The following factors may make you more likely to develop this condition: Age. The older you are, the higher the risk. Obesity. Being physically inactive. and childbirth. Menopause. Diseases that affect the nerves or spinal cord. Long-term, or chronic, coughing. This can increase pressure on the bladder and pelvic floor muscles. What are the signs or symptoms? Symptoms may vary depending on the type of urinary incontinence you have. They include: A sudden urge to urinate, and passing urine involuntarily before you can get to a bathroom (urge incontinence). Suddenly passing urine when doing activities that force urine to pass, such as coughing, laughing, exercising, or sneezing (stress incontinence). Needing to urinate often but urinating only a small amount, or constantly dribbling urine (overflow incontinence). Urinating because you cannot get to the bathroom in time due to a physical disability, such as arthritis or injury, or due to a communication or thinking problem, such as Alzheimer's disease (functional incontinence). How is this diagnosed? This condition may be diagnosed based on: Your medical history. A physical exam. Tests, such as: ?Urine tests. ?X-rays of your kidney and bladder. ?Ultrasound. ?CT scan. ?Cystoscopy. In this procedure, a health care provider inserts a tube with a light and camera (cystoscope) through the urethra and into the bladder to check for problems. ?Urodynamic testing. These tests assess how well the bladder, urethra, and sphincter can store and release urine. There are different types of urodynamic tests, and they vary depending on what the test is measuring. To help diagnose your condition, your health care provider may recommend that you keep a log of when you urinate and how much you urinate. How is this treated? Treatment for this condition depends on the type of incontinence that you have and its cause. Treatment may include: Lifestyle changes, such as: ?Quitting smoking. ?Maintaining a healthy weight. ?Staying active. Try to get 150 minutes of moderate-intensity exercise every week. Ask your health care provider which activities are safe for you. ?Eating a healthy diet. ?Avoid high-fat foods, like fried foods. ?Avoid refined carbohydrates like white bread and white rice. ?Limit how much alcohol and caffeine you drink. ?Increase your fiber intake. Healthy sources of fiber include beans, whole grains, and fresh fruits and vegetables. Behavioral changes, such as: ?Pelvic floor muscle exercises. ?Bladder training, such as lengthening the amount of time between bathroom breaks, or using the bathroom at regular intervals. ?Using techniques to suppress bladder urges. This can include distraction techniques or controlled breathing exercises. Medicines, such as: ?Medicines to relax the bladder muscles and prevent bladder spasms. ?Medicines to help slow or prevent the growth of a man's prostate. ?Botox injections. These can help relax the bladder muscles. Treatments, such as: ?Using pulses of electricity to help change bladder reflexes (electrical nerve stimulation). ?For women, using a medical care evaluation specialist to prevent urine leaks. This is a small, tampon-like, disposable device that is inserted into the urethra. ?Injecting collagen or carbon beads (bulking agents) into the urinary sphincter. These can help thicken tissue and close the bladder opening. ?Surgery. Follow these instructions at home: Lifestyle Limit alcohol and caffeine. These can fill your bladder quickly and irritate it. Keep yourself clean to help prevent odors and skin damage. Ask your health care provider about special skin creams and cleansers that can protect the skin from urine. Consider wearing pads or adult diapers. Make sure to change them regularly, and always change them right after experiencing incontinence. General instructions Take otmq-vhq-ynsvfie and prescription medicines only as told by your health care provider. Use the bathroom about every 3 4 hours, even if you do not feel the need to urinate. Try to empty your bladder completely every time. After urinating, wait a minute. Then try to urinate again. Make sure you are in a relaxed position while urinating. If your incontinence is caused by nerve problems, keep a log of the medicines you take and the times you go to the bathroom. Keep all follow-up visits. This is important. Where to find more information National [place] of Diabetes and Digestive and Kidney Diseases: www.niddk.nih.gov [employer]: www.urologyhealth.org Contact a health care provider if: You have pain that gets worse. Your incontinence gets worse. Get help right away if: You have a fever or chills. You are unable to urinate. You have redness in your groin area or down your legs. Summary Urinary incontinence refers to a condition in which a person is unable to control where and when to pass urine. This condition may be caused by medicines, infection, weak bladder muscles, weak pelvic floor muscles, enlargement of the prostate (in men), or surgery. Factors such as older age, obesity, and childbirth, menopause, neurological diseases, and chronic coughing may increase your risk for developing this condition. Types of urinary incontinence include urge incontinence, stress incontinence, overflow incontinence, and functional incontinence. This condition is usually treated first with lifestyle and behavioral changes, such as quitting smoking, eating a healthier diet, and doing regular pelvic floor exercises. Other treatment options include medicines, bulking agents, medical devices, electrical nerve stimulation, or surgery. This information is not intended to replace advice given to you by your health care provider. Make sure you discuss any questions you have with your health care provider. Document Revised: 02/07/2021 Document Reviewed: 02/07/2021 High[employer]ighter Patient Education 2022 [employer]. 09/24/2023 09:05:24 Kegel Exercises Kegel Exercises Kegel exercises can [...] provider. Document Revised: 11/13/2021 Document Reviewed: 11/13/2021 [employer]ighter Patient Education 2022 [employer]. Follow Up Care 09/06/2023 13:10:25 With:ROMA OSCAR, SUSANA Salazar, URL Address: [address] [place] [address] When:Within 3 Month(s) Comments:w/ PVR [facility] [place] 08-19-2023 History of Present illness Narrative Associated [...] elevated BP. C/w atenolol. Subjective Patient ID: Nicci Mojica is a 68 y.o. female who [...] months (around 11/17/2023). documented in this encounter [facility] 06-01-2023 Hospital Discharge instructions Patient Education 06/01/2023 [...] your health care provider. General instructions Take bbcc-okn-owyjsdi and prescription medicines only as told by [...] provider. Document Revised: 03/24/2021 Document Reviewed: 03/24/2021 High[employer]ighter Patient Education 2022 [employer]. 06/01/2023 11:59:28 Clean Intermittent Catheterization, Female Clean [...] and water are not available, use hand loader unloader. 2.Prepare the supplies that you will use [...] reusable catheter in a small bathroom. Take pyxa-jaj-vyjakvk and prescription medicines only as told by [...] provider. Document Revised: 05/11/2022 Document Reviewed: 05/11/2022 [employer]ighter Patient Education 2022 [employer]. Follow Up Care 05/03/2023 11:43:53 With:ROMA OSCAR, SUSANA Salazar, URL Address: [address] [place] [address] [place] [address] When: Unknown [facility] 02-04-2023 Hospital Discharge instructions Patient Education 02/04/2023 [...] provider. Document Revised: 11/13/2021 Document Reviewed: 11/13/2021 High[employer]ighter Patient Education 2022 [employer]. Follow Up Care 12/03/2022 14:42:27 With:ROMA OSCAR, SUSANA Salazar, URL Address: [address] [place] [address]. [place] [address] When:Within 2 Month(s) [facility] 08-19-2022 Evaluation + Plan note Diagnostic Tests PendingUrine Culture 08/19/22 [facility] 04-29-2022 Hospital Discharge instructions Patient Education 04/29/2022 [...] fried and sweet foods. General instructions Take ewrx-ltm-hzdingz and prescription medicines only as told by [...] 05/01/2010 Document Revised: 10/26/2019 Document Reviewed: 07/21/2018 Highlighter Patient Education 2020 [employer]. Follow Up Care 04/07/2022 15:15:55 With:ROMA OSCAR, SUSANA Salazar, URL Address: [address] [place] [address] [facility] [place] [address] [phone] When: Unknown [facility] 02-03-2022 Hospital Discharge instructions Patient Education 02/03/2022 [...] fried and sweet foods. General instructions Take cawo-soq-avwziqg and prescription medicines only as told by [...] 05/01/2010 Document Revised: 10/26/2019 Document Reviewed: 07/21/2018 Elsevier Patient Education 2020 [employer]. [facility] Evaluation + Plan note No data available for this section [facility] Evaluation + Plan note Future Appointments Appointment Date:03/30/2023 09:00:00 AM Scheduled Provider:SUSANA BRANDON PA-C Location:[facility] Appointment Type:URO Office Visit [facility] Evaluation + Plan note Future Appointments Appointment Date:09/07/2023 02:00:00 PM Scheduled Provider:SUSANA BRANDON PA-C Location:[facility] Appointment Type:URO Office Visit [facility] Evaluation + Plan note Future Appointments Appointment Date:09/07/2023 02:00:00 PM Scheduled Provider:SUSANA BRANDON PA-C Location:[facility] Appointment Type:URO Office Visit Diagnostic Tests PendingUrine Culture 06/01/23 [facility] Evaluation + Plan note Future Appointments Appointment Date:09/24/2023 08:00:00 AM Scheduled Provider:BLADIMIR Lucio APRN, [place] Location:[facility] Appointment Type:URO Office Visit [facility] Evaluation + Plan note Future Appointments Appointment Date:12/30/2023 03:15:00 PM Scheduled Provider:SUSANA BRANDON PA-C Location:[facility] Appointment Type:URO Office Visit [facility] Evaluation + Plan note Future Appointments Appointment Date:12/30/2023 03:15:00 PM Scheduled Provider:SUSANA BRANDON PA-C Location:[facility] Appointment Type:URO Office Visit Diagnostic Tests PendingUrine Culture 09/24/23 [facility] Evaluation + Plan note Future Appointments Appointment Date:02/02/2024 10:00:00 AM Scheduled Provider: Location:[facility] Appointment Type:Urology CALL PAT FT Appointment Date:02/07/2024 03:00:00 PM Scheduled Provider: Location:[facility] Appointment Type:Urology FT [facility] Evaluation note Diagnosis Hyperlipidemia, unspecified hyperlipidemia type [...] this section [facility] Progress note No data available for this section [facility] Summary Purpose Family History No Family History Records FoundNo Family History Records Found No data available for this section No data available for this section No data available for this section No data available for this section No data available for this section No data available for this section No data available for this section No Family History Records FoundNo Family History Records FoundNo Family History Records Found No data available for this section No Family History Records Found No data available for this section Advance Directives No Advanced Directives Records FoundNo Advanced Directives Records FoundNo Advanced Directives Records FoundNo Advanced Directives Records FoundNo Advanced Directives Records FoundNo Advanced Directives Records Found Additional Source Comments INFORMATION SOURCE (unrecogn ized section and content) DATE CREATED AUTHOR 01/09/2022 [facility] DATE CREATED AUTHOR AUTHOR'S ORGANIZ ATION 09/25/2022 [facility] DATE CREATED AUTHOR AUTHOR'S ORGANIZ ATION 12/04/2023 [facility] DATE CREATED AUTHOR AUTHOR'S ORGANIZ ATION 12/06/2023 [facility] DATE CREATED AUTHOR AUTHOR'S ORGANIZ ATION 01/06/2024 [facility] DATE CREATED AUTHOR AUTHOR'S ORGANIZ ATION 02/04/2024 [facility] Care Team (unrecognized sect ion and content) Personnel Name: SHAIKH HINDS MD Address: Address: [address] [place] [address] [employer] Relationship Specialty Start Date End Date Shaikh Hinds MD [address] [place] [id number] PCP - Devoted 04/18/23 Shaikh Hinds MD [address] [place] [id number] PCP - General Internal Medicine 08/19/23 [employer] Relationship Specialty Start Date End Date Shaikh Hinds MD [address] [place] [id number] PCP - Devoted 04/18/23 Shaikh Hinds MD [address] [place] [phone] PCP - General Internal Medicine 08/19/23 Reason [...] BE BASED ON THE PRIMARY CLINICAL RECORDS. [facility] [employer] provides no warranty or guarantee of the accuracy or completeness of information in this document.
== END 2024-02-14 14:08 | disposition home or self-care (01) ==
LOC: MAMMO 14:07
PROVIDERS: PCP Internal Medicine; Visit Provider Physician Assistant
DX: Z12.31 Encounter for screening mammogram for malignant neoplasm of breast (principal); Z78.0 Asymptomatic menopausal state; M81.8 Other osteoporosis without current pathological fracture
CPT/HCPCS: 77063; 77067; 77080

== ENCOUNTER 2025-01-17 23:51 | Emergency (ER) | payer OTHER, SELFPAY ==
[2025-01-17 23:54] VITALS: BP 120/95; PULSE 78; TEMP 36.8; O2SAT 100; BMI 23.1
--- NOTE | 2025-01-18 | XR_ITS ---
The [address] [address] Patient Name: CHLOE BADILLO MRN: [id number] date: 1955 Sex: F Assigned Patient Location: ER Current Patient Location: Accession/Order Number: [id number] Exam Date: 01/18/2025 08:50 Report Date: 01/18/2025 08:53 At the request of: SAGAR HESS Procedure: XR ankle RT 2V RIGHT ANKLE - 2 views CLINICAL DATA: Follow-up after closed reduction of ankle fractures and disrupted ankle mortise COMPARISON: 01/18/2025 AP and lateral views were obtained in a cast that slightly obscures fine bone detail. There is redemonstration of a comminuted fracture at the distal shaft of the fibula with mild displacement of the fracture fragments, similar to the prior. There is also redemonstration of a displaced fracture at the base of the medial malleolus. There is continued disruption of the ankle mortise with medial displacement of the tibial plafond. No new bony abnormalities are seen. XR/XR ankle RT 2V IMPRESSION: DISTAL TIBIA AND FIBULAR FRACTURES WITH DISRUPTION OF THE ANKLE MORTISE NO SIGNIFICANT CHANGE FROM THE PREREDUCTION EXAM. Impression dictated by: Veronica Pickering M.D. 01/18/2025 8:53 AM Dictation Location: [place] [address] Electronically authenticated by: [id number] Y Date: 01/18/2025 08:53
--- OUTSIDE RECORDS SUMMARY | 2025-01-18 00:04 | XMS_ITS | CCD ---
Author Organization [facility] Care Team Providers Care Chief Fundraising Officer Name Role Phone SHAIKH HINDS Primary Care Physician FASHAYY, HOOKER H Admitting Unavailable FAWWAD, HOOKER H [...] Unavailable FAWWAD, HOOKER H Primary Care Unavailable LORENZA, DR LAVERN Olmos Consulting Unavailable FAWWAD, HOOKER H Consulting Unavailable JerilynwaShaikh arreaga MD Unavailable Shaikh Hinds MD Primary Care Provider Franki MOTT Attending Unavailable Franki MOTT Attending Unavailable Dione HERNANDEZ Admitting Unavailable Dione HERNANDEZ Attending Unavailable KHRIS BRANDON Attending Unavailable KHRIS BRANDON Attending Unavailable Lizette Carrero Attending Unavailable Lizette Carrero Attending Unavailable Dione HERNANDEZ Referring Unavailable Dione HERNANDEZ Admitting Unavailable Dione HERNANDEZ Attending Unavailable Shaikh Hinds MD Unavailable Shaikh Hinds MD Primary Care Provider SHAIKH HINDS Attending Unavailable ALBA CASTILLO Attending Unavailable ZACK WILSON Attending Unavailable ZACK WILSON Attending Unavailable ZACK WILSON Attending Unavailable ZACK WILSON Attending Unavailable No Moore Attending Unavailable Debi Lucio Attending Unavailable No Moore Attending Unavailable No Moore Admitting Unavailable Debi Lucio Attending Unavailable Dione HERNANDEZ Attending Unavailable Dione HERNANDEZ Referring Unavailable Lizette Carrero Attending Unavailable Dione HERNANDEZ Referring Unavailable Dione HERNANDEZ Admitting Unavailable Dione HERNANDEZ Attending Unavailable Medications Current Medications Medication Drug Class(es) Dates Sig (Normalized) Sig (Original) acetaminophen 500 mg oral tablet (5 sources) Start: 11-26-2020 acetaminophen 500 mg, Oral, PRN as needed for pain, Refills(s) 0 Start Date: 11/26/20 Status: Ordered alendronic acid 70 mg oral tablet (20 sources) Bisphosphonate Start: 09-06-2024 take 1 tablet by mouth every week alendronate (Fosamax) 70 MG tablet Indications: Age-related osteoporosis without current pathological fracture ([facility]) TAKE 1 TABLET BY MOUTH ONCE PER WEEK 12 tablet 09/06/2024 Active Start: 06-01-2023 End: 09-06-2024 take 1 tablet by mouth every week alendronate 70 mg Tab 70 mg = 1 tab(s), Oral, qWeek, Refills(s) 0 Start Date: 06/01/23 Status: Ordered Repeat number: 1 Start: 06-01-2023 alendronate 70 mg Tab Refills(s) 0 Start Date: 06/01/23 Status: Ordered aspirin 81 mg chewable tablet (5 sources) Platelet Aggregation Inhibitor, Nonsteroidal Anti-inflammatory Drug Start: 11-26-2020 aspirin 81 mg Chew Tab 81 mg = 1 tab(s), Chewed, Daily, Refills(s) 0, Blood Thinner Start Date: 11/26/20 Status: Ordered atenolol 25 mg oral tablet (20 sources) beta-Adrenergic Claire Start: 10-18-2023 End: 05-19-2024 take 1 tablet by mouth once daily atenolol 25 mg Tab 25 mg = 1 tab(s), Oral, Daily, Refills(s) 0 Start Date: 12/02/23 Status: Ordered Repeat number: 1 take 1 tablet by mouth in the hi rning atenolol (Tenormin) 25 MG tablet Take 25 mg by mouth in the morning. 0 Active atorvastatin 20 mg oral tablet (20 sources) HMG-CoA Reductase Inhibitor Start: 11-02-2023 End: 06-29-2024 take 1 tablet by mouth once daily atorvastatin 20 mg Tab 20 mg = 1 tab(s), Oral, Daily, Refills(s) 0 Start Date: 12/02/23 Status: Ordered Repeat number: 1 take 1 tablet by mouth in the [facility] atorvastatin (Lipitor) 20 MG tablet Take 20 mg by mouth in the morning. 0 Active benzonatate 100 mg oral capsule (5 sources) Non-narcotic Antitussive Start: 09-05-2023 take 1 capsule by mouth three times daily as needed for cough benzonatate (Tessalon) 100 MG capsule TAKE 1 CAPSULE BY MOUTH THREE TIMES A DAY NEEDED FOR COUGH 09/05/2023 Active brimonidine tartrate 1 mg/ml ophthalmic solution (2 sources) alpha-Adrenergic Agonist Start: 07-05-2024 End: 01-01-2025 take 1 drop(s) into the eye(s) in the morning brimonidine (Alphagan P) 0.1 % ophthalmic solution Indications: Optic atrophy Administer 1 drop into both eyes in the morning and 1 drop before bedtime. 10 mL 5 07/05/2024 01/01/2025 Active carvedilol 6.25 mg oral tablet (5 sources) alpha-Adrenergic Claire, beta-Adrenergic Claire Start: 11-26-2020 take 1 tablet by mouth twice daily carvedilol 6.25 mg Tab 6.25 mg = 1 tab(s), Oral, BID, High blood pressure Start Date: 11/26/20 Status: Ordered cephalexin 500 mg oral capsule (1 source) Cephalosporin Antibacterial Start: 11-13-2024 End: 11-20-2024 take 1 capsule by mouth twice daily cephalexin 500 mg Cap 500 mg = 1 cap(s), Oral, BID, X 7 day(s), # 14 cap(s), Refills(s) 0, Pharmacy: [facility]/pharmacy #[id number], 167, cm, 10/16/24 8:18:00 EDT, Height/Length Dosing, 61, kg, 10/16/24 8:18:00 EDT, Weight Dosing Start Date: 11/13/24 Stop Date: 11/20/24 Status: Ordered Quantity: 14.0 Unit: cap(s) Repeat number: 1 Chondroitin Sulfates / Glucosamine (13 sources) Start: 12-02-2023 take 2 capsules by mouth once daily Glucosamine Chondroitin 2 cap(s), Oral, Daily, Refill(s) 0 Start Date: 12/02/23 Status: Ordered Repeat number: 1 Start: 12-02-2023 take 2 capsules by m outh once daily Glucosamine Chondroitin 2 cap(s), Oral, Daily, Refill(s) 0 Start Date: 12/02/23 Status: Ordered ciprofloxacin 500 mg oral tablet (5 sources) Quinolone Antimicrobial Start: 10-16-2024 Cipro 500 mg Tab 500 mg = 1 tab(s), Oral, BID, Take twice daily x5 days starting the day prior to the procedure, # 10 tab(s), Refills(s) 0, Pharmacy: [facility]/pharmacy #[id number], 167, cm, 10/16/24 8:18:00 EDT, Height/Length Dosing, 61, kg, 10/16/24 8:18:00 EDT, Weight Dosing Start Date: 10/16/24 Status: Ordered Quantity: 10.0 Unit: tab(s) Repeat number: 1 Start: 02-14-2024 Cipro 500 mg T ab 500 mg = 1 tab(s), Oral, BID, Take twice daily x5 days starting the day prior to the procedure, # 10 tab(s), Refills(s) 0, Pharmacy: [facility]/pharmacy #[id number], 167, cm, 12/02/23 10:10:00 EDT, Height/Length Dosing, 61.3, kg, 12/02/23 10:10:00 EDT, Weight Dosing Start Date: 02/14/24 Status: Ordered Start: 02-03-2022 End: 02-08-2022 take 1 tablet by mouth twice daily Cipro 500 mg Tab 500 mg = 1 tab(s), Oral, BID, X 5 day(s), # 10 tab(s), Refills(s) 0, Pharmacy: [facility]/pharmacy #[id number], 167, cm, 02/03/22 9:28:00 EDT, Height/Length Dosing, 69, kg, 02/03/22 9:28:00 EDT, Weight Dosing Start Date: 02/03/22 Stop Date: 02/08/22 Status: Ordered escitalopram 20 mg oral tablet (20 sources) Serotonin Reuptake Inhibitor Start: 09-06-2024 take 1 tablet by mouth once daily escitalopram (Lexapro) 20 MG tablet Indications: Major depressive disorder, single episode, moderate (HCC) (CMS/HCC) TAKE 1 TABLET BY MOUTH EVERY DAY 90 tablet 09/06/2024 Active Start: 06-01-2023 End: 09-06-2024 take 1 tablet by mouth once daily escitalopram 20 mg Tab 20 mg = 1 tab(s), Oral, Daily, Refills(s) 0 Start Date: 06/01/23 Status: Ordered Repeat number: 1 End: 08-19-2023 take 1 tablet by mouth in the morning escitalopram (Lexapro) 10 MG tablet Take 10 mg by mouth in the morning. 0 08/19/2023 Discontinued (Dose adjustment) ferrous sulfate 325 mg oral tablet (20 sources) Start: 11-26-2020 take 325 mg by mouth every other day ferrous sulfate 325 mg, Oral, q2Days, Anemia Start Date: 11/26/20 Status: Ordered Repeat number: 1 End: 08-19-2023 take 1 tablet by mouth [...] Refills(s) 0 Start Date: 11/26/20 Status: Ordered 12 hr loratadine 5 mg / pseudoephedrine sulfate 120 mg extended release oral tablet (5 sources) alpha-Adrenergic Agonist Start: 09-05-2023 take 5-120 mg by mouth every twelve hours as needed [facility] Allergy Relief-D12 5-120 MG 12 hr tablet TAKE 1 TABLET BY MOUTH EVERY 12 HOURS NEEDED FOR NASAL CONGESTION 09/05/2023 Active Multi Vitamin+ (13 sources) Start: 12-02-2023 take 1 capsule by mouth once daily Multi Vitamin+ 1 cap, Oral, Daily, Refill(s) 0 Start Date: 12/02/23 Status: Ordered Repeat number: 1 Start: 12-02-2023 take 1 capsule by mo [facility] once daily Multi Vitamin+ 1 cap, Oral, Daily, Refill(s) 0 Start Date: 12/02/23 Status: Ordered Multiple Vitamin (multivitamin) tablet (7 sources) take 1 tablet by tracy in the morning Multiple Vitamin (multivitamin) tablet Take 1 tablet by mouth in the morning. Active take 1 tablet by mouth in the mo rning Multiple Vitamin (multivitamin) tablet Take 1 tablet by mouth in the morning. 0 Active 24 hr oxybutynin chloride 10 mg extended release oral tablet (6 sources) Cholinergic Muscarinic Antagonist Start: 02-04-2023 take 1 tablet by mouth once daily oxybutynin 10 mg ER Tab 10 mg = 1 tab(s), Oral, Daily, # 30 tab(s), Refills(s) 0, [id number] 167, cm, 02/04/23 11:36:00 EDT, Height/Length Dosing, 69.1, kg, 02/04/23 11:36:00 EDT, Weight Dosing Start Date: 02/04/23 Status: Ordered Start: 02-04-2023 oxybutynin 15 mg ER Tab 15 mg = 1 tab(s), Oral, Daily, start after you finish the 10mg tabs, # 30 tab(s), Refills(s) 0, Pharmacy: [facility]/pharmacy #[id number], 167, cm, 02/04/23 11:36:00 EDT, Height/Length Dosing, 69.1, kg, 02/04/23 11:36:00 EDT, Weight Dosing Start Date: 02/04/23 Status: Ordered solifenacin succinate 10 mg oral tablet (20 sources) Cholinergic Muscarinic Antagonist Start: 12-02-2023 take 1 tablet by mouth once daily solifenacin 10 mg Tab 10 mg = 1 tab(s), Oral, Daily, # 30 tab(s), Refills(s) 3, Pharmacy: [facility]/pharmacy #[id number], 167, cm, 12/02/23 10:10:00 EDT, Height/Length Dosing, 61.3, kg, 12/02/23 10:10:00 EDT, Weight Dosing Start Date: 12/02/23 Status: Ordered Quantity: 30.0 Unit: tab(s) Repeat number: 4 Start: 06-14-2023 End: 10-12-2023 take 1 tablet by mouth once daily solifenacin 10 mg Tab 10 mg = 1 tab(s), Oral, Daily, X 30 day(s), # 30 tab(s), Refills(s) 3, Pharmacy: [facility]/pharmacy #[id number], 167, cm, 06/01/23 11:31:00 EST, Height/Length Dosing, 63, kg, 06/01/23 11:31:00 EST, Weight Dosing Start Date: 06/14/23 Stop Date: 10/12/23 Status: Ordered sulfamethoxazole 400 mg / trimethoprim 80 mg oral tablet (10 sources) Dihydrofolate Reductase Inhibitor Antibacterial, Sulfonamide Antimicrobial Start: 12-13-2023 Bactrim 400 mg-80 mg Tab 1 tab(s), Oral, Daily, 30 tab(s), Refill(s) 1, [id number], cm, 12/02/23 10:10:00 EDT, Height/Length Dosing, 61.3, kg, 12/02/23 10:10:00 EDT, Weight Dosing Start Date: 12/13/23 Status: Ordered Start: 12-06-2023 take 1 tablet by tracy th once in the morning, then take 1 tablet by mouth once at bedtime sulfamethoxazole-trimethoprim (Bactrim D S) 800-160 MG per tablet Take 1 tablet by mouth in the morning and 1 tablet before bedtime. 12/06/2023 Active 24 hr tolterodine tartrate 2 mg extended release oral capsule (2 sources) Cholinergic Muscarinic Antagonist Start: 08-19-2022 take 1 capsule by mouth once daily tolterodine 2 mg Cap-ER 2 mg = 1 cap(s), Oral, Daily, # 30 cap(s), Refills(s) 2, [facility]: [id number], 167, cm, 08/19/22 13:07:00 EST, Height/Length Dosing, 69, kg, 08/19/22 13:07:00 EST, Weight Dosing Start Date: 08/19/22 Status: Ordered trospium chloride 20 mg oral tablet (7 sources) Cholinergic Muscarinic Antagonist Start: 09-24-2023 trospium (Sanctura) 20 MG tablet 09/24/2023 Active Vitamin B-12 1000 mcg oral tablet (20 sources) Start: 11-26-2020 take 1 tablet by mouth once daily Vitamin B-12 1000 mcg oral tablet 1,000 mcg = 1 tab(s), Oral, Daily, Anemia Start Date: 11/26/20 Status: Ordered Repeat number: 1 Start: 11-26-2020 take 1 tablet by mouth once da yao Vitamin B-12 1000 mcg oral tablet 1,000 mcg = 1 tab(s), Oral, Daily, Anemia Start Date: 11/26/20 Status: Ordered vitamin b12 1 mg oral tablet (7 sources) Vitamin B12 take 1 tablet by mouth in the morning cyanocobalamin (Vitamin B-12) 1000 MCG tablet Take 1,000 mcg by mouth in the morning. Active Completed/Discontinued Medications Medication Drug Class(es) Dates [...] Da te Episodic/Chronic Deficiency and other anemia (20 sources) Anemia 07-19-2022 Episodic Disorders of lipid metabolism (9 sources) Hyperlipidemia, unspecified; Translations: [Hyperlipidemia] Onset: 11-28-2021 08-19-2023 Chronic Essential hypertension (20 sources) Hypertensive disorder; Translations: [Essential (primary) hypertension] Onset: 12-03-2021 02-03-2022 Chronic Genitourinary symptoms and ill-defined conditions (20 sources) Mixed incontinence; Translations: [Incontinence] Onset: 02-03-2022 Chronic Genitourinary symptoms and ill-defined conditions (20 sources) Retention of urine; Translations: [Retention of urine, unspecified] Onset: 04-29-2022 Episodic Mood disorders (8 sources) Recurrent major depression in full remission; Translations: [Major depressive disorder, recurrent, in full remission] Onset: 08-19-2023 08-19-2023 Chronic Occlusion or stenosis of precerebral arteries (1 source) Occlusion and stenosis of bilateral carotid arteries; Translations: [OCCLUSION AND STENOS ROMAINE CAROTID ART] Onset: 12-03-2021 Chronic Osteoporosis (2 sources) Age-related osteoporosis without current pathological fracture; Translations: [Senile osteoporosis] Onset: 02-24-2022 09-06-2024 Chronic Other circulatory disease (1 source) Disorder of arteries and arterioles, unspecified; Translations: [DISORDER ARTERIES AND ARTERIOLES UNS] Onset: 12-03-2021 Chronic Other diseases of bladder and urethra (9 sources) Male urethral stricture; Translations: [Unspecified urethral stricture, male, unspecified site] Onset: 04-29-2022 Episodic Other diseases of bladder and urethra (20 sources) Urethral stricture 04-29-2022 Episodic Other eye disorders (6 sources) Optic atrophy; Translations: [Unspecified optic atrophy] Onset: 09-28-2023 09-28-2023 Chronic Other screening for suspected conditions (not mental disorders or infectious disease) (9 sources) Encounter for screening for malignant neoplasm of cervix; Translations: [Encounter for screening mammogram for malignant neoplasm of breast] Onset: 11-28-2021 Episodic Prolapse of female genital organs (19 sources) Cystocele 08-20-2022 Chronic Retinal detachments; defects; vascular occlusion; and retinopathy (6 sources) Nonexudative age-related macular degeneration; Translations: [Nonexudative age-related macular degeneration, bilateral, early dry stage] Onset: 09-28-2023 09-28-2023 Chronic Screening and history of mental health and substance abuse codes (20 sources) Ex-smoker 02-03-2022 Episodic Urinary tract infections (20 sources) Acute cystitis; Translations: [Acute cystitis without hematuria] Onset: 02-03-2022 Episodic Past or Other Problems Problem Classification Problem Date Documented Date Episodic/Chronic Deficiency and other anemia (1 source) Iron deficiency anemia, unspecified; Translations: [IRON DEFICIENCY ANEMIA UNSPECIFIED] Onset: 11-28-2021 Episodic Deficiency and other anemia (7 sources) Iron deficiency anemia secondary to inadequate dietary iron intake; Translations: [Other iron deficiency anemias] Onset: 08-19-2023 08-19-2023 Episodic Diabetes mellitus without complication (4 sources) Other abnormal glucose; Translations: [OTHER ABNORMAL GLUCOSE] Onset: 11-26-2021 Episodic Immunizations and screening for infectious disease (1 source) Encounter for screening for human papillomavirus (HPV); Translations: [ENC SCREENING HUMAN PAPILLOMAVIRUS] Onset: 12-31-2021 Episodic Inflammation; infection of eye (except that caused by tuberculosis or sexually transmitteddisease) (6 sources) Blepharitis of upper and lower eyelids of bilateral eyes; Translations: [Unspecified blepharitis right eye, upper and lower eyelids] Onset: 09-29-2023 09-29-2023 Episodic Other eye disorders (6 sources) Dry eyes; Translations: [Dry eye syndrome of bilateral lacrimal glands] Onset: 09-28-2023 09-28-2023 Episodic Other female genital disorders (6 sources) Disorder of female genital system; Translations: [Unspecified condition associated with female genital organs and menstrual cycle] Onset: 08-19-2023 08-19-2023 Episodic Residual codes; unclassified (4 sources) Asymptomatic menopausal state; Translations: [ASYMPTOMATIC MENOPAUSAL STATE] Onset: 02-10-2022 Episodic Results Test Name Value Interpretation Reference Range Facility Patient Letter FTon 2024 Patient Letter [facility] [place] [facility] December 07, 2024 NICCI MOJICA [phone] [place] [id number] : 1955 Dear Ms. Nicci Mojica, You missed your scheduled appointment on:12/07/2024. Please note our appointment slots fill quickly. [...] regarding any future cancellations. Sincerely, [facility] [phone] [phone] [facility] Inpatient Patient Summaryon 11-16-2024 Inpatient Patient Summary Inpatient Patient Summary [address] [address] Clinical Summary Person Information Name: NICCI MOJICA Age: 69 Years : 1955 Sex: Female PCP: SHAIKH HINDS MD Marital Status: Race: White Ethnicity: Non- or Language: Bermudian Visit Id: Visit Reason: URINARY INCONTENENCE Speciality: Acuity: Enc Type: Outpatient Med Service: Surgery Arrival: 11/16/2024 10:39:50 Discharge: Dispo Type: Address: [address] [id number] Provider Notes: Diagnosis: Problems Active History of UTI Cystocele with prolapse Weak urine stream Urethral stricture Incomplete bladder emptying Mixed incontinence Former smoker Hypertension Anemia Smoking Status: Functional Status: Sensory Deficits: History of Falls: Mobility Assistance Prior to Admission: ADLs: Current Level of Assistance for Self-Care/Mobility: Cognitive Status: Allergies No Known Allergies Laboratory or Other Results This Visit (last charted value for your 11/16/2024 visit) No Laboratory or Other Results This Visit Measurements: Height: 164 cm Weight: 61 kg Blood Pressure: Not Valued / Not Valued BMI: 22.68 kg/m2 Procedures No Procedures Documented Immunizations No Immunizations Documented This Visit Final Med List: alendronate (alendronate 70 mg Tab) 1 Tablets By Mouth every week. ascorbic acid/chondroitin/gluc cassandra/wei (Glucosamine Chondroitin) 2 Capsules By Mouth every day. atenolol (atenolol 25 mg Tab) 1 Tablets By Mouth every day. atorvastatin (atorvastatin 20 mg Tab) 1 Tablets By Mouth every day. cephalexin (cephalexin 500 mg Cap) 1 Capsules By Mouth 2 times a day for 7 Days. Refills: 0. cyanocobalamin (Vitamin B-12 1000 mcg oral tablet) 1 Tablets By Mouth every day. escitalopram (escitalopram 20 mg Tab) 1 Tablets By Mouth every day. ferrous sulfate 325 Milligram By Mouth every other day. multivitamin (Multi Vitamin+) 1 cap By Mouth every day. solifenacin (solifenacin 10 mg Tab) 1 Tablets By Mouth every day. Refills: 3. Care Team Members: Attending Physician: Dione HERNANDEZ MD Consulting Physician: Referring Physician: Dione HERNANDEZ MD Follow up: With: Address: When: Dione HERNANDEZ [address] [place] [address], [address], [place] [address] [facility] (1) Comments: We were able to put the 150 units of Botox into the bladder. Monitor for bladder emptying. We know you do not empty sometimes so it is important that you take your time to do so. Hopefully the dilatation of the urinary channel will help with that as well. Please make a follow-up appointment with one of our nurse practitioners or physician assistants within the next 2 to 3 weeks with a bladder scan. Please finish your antibiotics and have a great day. Patient Education Information: EU - Cystoscopy with Botox Injection Discharge Instructions (Custom) [facility] Main OR Intraoperative Recor don 11-16-2024 Main OR Intraoperative Record Main OR Intraoperative Record IntraOp Document Type FTURO Summary Primary Physician: Dione HERNANDEZ MD Finalized Date/Time: 11/16/24 12:15:18 Pt. Name: NICCI MOJICA/Sex: 1955 Female Med Rec #: [id number] Physician: Dione HERNANDEZ MD Financial #: [id number] Pt. Type: O Room/Bed: / Admit/Disch: 11/16/24 10:39:50 - Institution: Case Times FTURO Entry 1 Patient Times In Room 11/16/24 11:56:00 Out Room 11/16/24 12:18:00 Procedure Times Start 11/16/24 12:02:00 Stop 11/16/24 12:13:00 Anesthesia Times Last Modified By: Princess HUNG, CHASOR, Jahaira 11/16/24 12:13:49 Case Attendance FTURO Entry 1 Entry 2 Entry 3 Case Attendee MARY HENRY, Dione Sánchez RN, CNOR, Robbi ZAVALA, Millicent Campo Role Performed Surgeon - Primary Cnc Milling Machinist - Primary Scrub - Primary Time In 11/16/24 11:56:00 11/16/24 11:56:00 11/16/24 11:56:00 Time Out 11/16/24 12:18:00 11/16/24 12:18:00 11/16/24 12:18:00 Procedure CYSTOSCOPY LOCAL(.) CYSTOSCOPY LOCAL(.) CYSTOSCOPY LOCAL(.) Comments Last Modified By: Princess HUNG, CNOR, Princess HUNG, CHASOR, Pricness HUNG, CHASOR, Jahaira 11/16/24 Jahaira 11/16/24 Jahaira 11/16/24 12:13:51 12:14:06 12:14:06 Surgical Procedures FTURO Entry 1 Procedure Description Procedure CYSTOSCOPY LOCAL Modifiers . Surgeon Description CYSTO 150 UNITS OF BOTOX Primary Procedure Yes Primary Surgeon MARY HENRY, Dione Terrazas 11/16/24 12:02:00 Stop 11/16/24 12:13:00 Anesthesia Type Local Surgical Service Urology Wound Class 2 - Clean-Contaminated Last Modified By: Princess HUNG, CHASOR, Jahaira 11/16/24 12:13:53 General Comments: botox 150 units lot [id number] outdate 11/2026 General Case Data FTURO Pre-Care Text: Classifies surgical wound, implements aseptic technique, initiates traffic control Entry 1 Case Information OR URO 1 FT Case Level None Wound Class 2 - Clean-Contaminated Specialty Urology Preop Diagnosis URINARY INCONTENENCE Postop Same As Preop Yes Postop Diagnosis URINARY INCONTENENCE Outcomes Met? Yes Last Modified By: Princess HUNG, CHASOR, Jahaira 11/16/24 12:08:46 Post-Care Text: The patient is free from signs and symptoms of infection EU IntraOp - FTURO Pre-Care Text: Implements protective measures prior to operative or invasive procedure, confirms identity before the operative or invasive procedure, verifies operative procedure, surgical site, and laterality Entry 1 EU Perioperative Protocols Procedure(s) CYSTOSCOPY LOCAL(.) Patient Identity Birthday, ID Band Verified (select at Check, Patient least 2): Participation Consents / H and P H&P, Surgery/Procedure Operative Site N/A Verified Consent Marking Verified Surgical Site Yes Laterality Verified n/a Verified Procedure Verified Yes Correct Patient Yes Position Verified Availability Equipment, Medication Time Out Dione HERNANDEZ MD, Verified (If Participants CHAS Sánchez RNOR, Applicable) Robbi Campo CST, Millicent Vega Time Out Complete 11/16/24 11:58:00 Allergies Reviewed? Yes Allergies Reviewed Self/Patient With Body Position Low Lithotomy Prep Area perineal area Prep Agents Betadine Solution Skin. Condition Unable to Visualize Additional None Specimens Collected Vitals - EU Blood Pressure 120/82 Pulse 74 bpm Respirations 18 br/min SPO2 97 % EBL 0 I&O - EU Total Intake 0 mL Total Output 0 mL Outcomes Met? Yes Last Modified By: MALINDA Sánchez RN, Ruthann 11/16/24 12:15:02 Post-Care Text: The patient is free from signs and symptoms of injury caused by extraneous objects Sign Out FTURO Entry 1 Before Patient Leaves OR Nurse verbally Yes Nurse verbally n/a confirms with the confirms with the team the name of team that the procedure(s) instrument, sponge, recorded and needle counts are correct (or N/A) Nurse verbally n/a Nurse verbally n/a confirms with the confirms with the team how the team whether there specimen is labeled are any equipment (including patient problems to be name), if applicable addressed Sign Out Complete 11/16/24 12:16:00 Last Modified By: MALINDA Sánchez RN, Ruthann 11/16/24 12:15:15 Case Comments Finalized By: MALINDA Sánchez RN, Ruthann Document Signatures Signed By: MALINDA Sánchez RN, Ruthann 11/16/24 12:15 Normal [facility] Main OR Preoperative Recordo n 11-16-2024 Main OR Preoperative Record Main OR Preoperative Record Holding Area Document Type FTURO Summary Primary Physician: Dione HERNANDEZ MD Finalized Date/Time: 11/16/24 11:45:28 Pt. Name: NICCI MOJICA /Sex: 1955 Female Med Rec #: [id number] Physician: Dione HERNANDEZ MD Financial #: [id number] Pt. Type: O Room/Bed: / Admit/Disch: 11/16/24 10:39:50 - Institution: Case Times Holding FTURO Pre-Care Text: Verifies consent for planned procedure, identifies individual values and wishes concerning care, includes family members in perioperative teaching Secures patient's records' belongings, and valuables, maintains patient's dignity and privacy, and maintains patient confidentiality Entry 1 In Holding 11/16/24 11:44:00 Outcomes Met? Yes Last Modified By: Cally Fernandez 11/16/24 11:44:27 Post-Care Text: The patient participates in decisions affecting his or her perioperative plan of care The patient's right to privacy is maintained Surgery Checklist FTURO Entry 1 Patient Birthday, ID Band Procedure History and Physical, Identification: Check, Patient Verification: Surgical Consent, With Participation Patient NPO after Midnight: n/a Date/Time: 11/16/24 11:44:00 Personal Items: Glasses, Jewelry Personal Items CLOTHES, SHOES AND PURSE Comment: Limitations: N/A Complaints of Pain: No Pain Comment: NONE Skin Integrity Unable to Visualize Vitals - EU Blood Pressure 128/82 Pulse 74 bpm Respirations 18 br/min SPO2 97 % Additional Other (See Comment) Specimens Comment URINE FOR UA DIPSTICK Specimens Collected Residual Amount - 0 RN Reviewed Yes Post Void Last Modified By: Cally Fernandez 11/16/24 11:45:25 Finalized By: Cally Fernandez Document Signatures Signed By: Cally Fernandez 11/16/24 11:45 [facility] Operative Reporton Operative Report Operative Report Patient: NICCI MOJICA Age: 69 years Sex: Female : 1955 Associated Diagnoses: None Author: MARY HENRY, Dione Marie Procedure Operative Information Details: Date/ Time: 11/16/2024 12:12:00. Pre-Op Dx: Mixed stress and urge urinary incontinence (KNJ28-DX N39.46, Working, Medical), OAB (overactive bladder) (MCM96-BX N32.81, Working, Medical), Unspecified urethral stricture, female (DTP37-II N35.92, Working, Medical). Post-Op Dx: Same. Anesthesia Type: Local. Procedure: Local Cystoscopy with botox injection, , along with urethral calibration/dilatatio n. Complications: None. Risks/Benefits/Inform ed Consent: Surgical risks, benefits, details of the procedure have been explained to the patient, Full informed consent has been obtained. Intraoperative Information Prepped: Patient is brought back to the endoscopy suite, Female Prep (Patient is placed in modified dorso/lithotomy position, 5 cc 2% Xylocaine Jelly is placed per Urethra, Straight cath inserted to obtain urine specimen, 60 cc 2% Xylocaine liquid inserted into bladder, 5 additional cc 2% Xylocaine Jelly is placed per Urethra, Patient in sitting position for 20 min dwell), Urine Specimen Results Negative for infection, Patient prepped in the usual fashion with Betadine solution, 10 cc 2% Xylocaine Jelly is placed per Urethra, After waiting several minutes the Cystoscope is introduced. Procedure: The trigone was identified and evaluated, The bladder was instilled with enough saline to achieve adequate visualization for the injections, The needle was inserted approximately 2 mm into the detrusor spaced approximately 1 cm apart, Upon placement of the scope, I was unable to. I to proceed with urethral dilatation. [place] sounds were utilized. I was able to paste the [address] [place] sound and followed all the way up to [address] [place]. This caused no bleeding. I was subsequently able to pass the scope into the bladder. Panendoscopy reveals no tumors, no stones. There is a bladder diverticulum extending off the right posterolateral aspect of the bladder. The scope was placed within it. Nothing suspicious present. She does have trabeculation universally. The Botox instillation was initiated. A total of 15 injections were utilized to place 150 units.. The Urethra is: Tight. Botox: 200 units. The ureteral orifices: Show efflux of clear urine. Devices Implanted: None. Removal: Cystoscope is removed, The patient tolerated it well. Postoperative Information Discharge: Patient is discharged home with antibiotic coverage, Follow up arranged, Follow-up within the next 2 to 3 weeks with one of our AALIYAH's with a bladder scan for PVR, knowing that she does carry a moderate residual. The patient understands that we will be monitoring for worsening urinary retention.. Correction: 150 units Botox injected in total. [facility] Comment on above: Result Comment: Elec tronically Signed By: Dione HERNANDEZ MD\.br\Date and Time Signed: 11/16/24 12:16 EDT Outpatient Surgery Discharge Instructionon 11-16-2024 Outpatient Surgery Discharge Instruction Outpatient Surgery Discharge Instruction [address] [address] Patient Discharge Instructions PERSON INFORMATION Name: NICCI MOJICA Date of : 1955 Current Date: 11/16/2024 12:12:12 PHYSICIANS Admitting Physician: Dione HERNANDEZ MD Comment: Discharge Diagnosis: NICCI MOJICA has been given the following list of follow-up instructions, prescriptions, and patient education materials: IF UNABLE TO CONTACT YOUR PHYSICIAN AND YOU FEEL IT IS AN EMERGENCY, GO TO THE NEAREST EMERGENCY ROOM OR CALL 911 Follow up: With: Address: When: Dione HERNANDEZ [address] [place] [address], [address], [place] [id number] [facility] (1) Comments: We were able to put the 150 units of Botox into the bladder. Monitor for bladder emptying. We know you do not empty sometimes so it is important that you take your time to do so. Hopefully the dilatation of the urinary channel will help with that as well. Please make a follow-up appointment with one of our nurse practitioners or physician assistants within the next 2 to 3 weeks with a bladder scan. Please finish your antibiotics and have a great day. Comment: PATIENT EDUCATION INFORMATION Instructions: Cystoscopy with Botox injection ??? Voiding after the procedure: there may be some pain, burning, urgency, frequency and blood tinged urine following the procedure. These symptoms usually resolve within 2-5 days. Drink the amount of fluid it takes to keep the urine pink to yellow or clear in color. Drinking enough water and fluids will help to ease any discomfort after your procedure. ??? It may take a few days to a week to notice a gradual improvement in the overactive bladder symptoms. ??? If you are having problems that seem out of the ordinary, please call. ??? If unable to contact your physician and you feel it is an emergency, go to the nearest emergency room or call 911 ??? Do not lift more than fifteen pounds for 1-2 days. If you see a lot of blood, you probably did too much. ??? Diet ??? you may resume your normal diet. ??? Pain control ??? You may take extra strength Tylenol or Motrin for discomfort. ??? Call if you have a fever over 100 degrees. ABY Salmon VILMA A, have received the attached patient education materials/instruction s and have verbalized understanding: May we do a follow up call? Yes No I was present when discharge instructions were given Patient Signature Date Clinican/Nurse Signature Date You may receive a survey from Natali Clifford asking you to rate your care experience. Your feedback is important and will help us understand what we do well and how we can improve the quality of care we provide to you, your loved ones and our community. It???s an honor to serve you. Thank you for choosing [facility] C Urineon 11-12-2024 Bacteria identified Cx Nom (U) Microbiology PROCEDURE: Urine Culture [R1] SOURCE: U CleanCatch BODY SITE: COLLECTED DATE/TIME: 11/09/2024 16:11 EDT RECEIVED DATE/TIME: 11/10/2024 17:58 EDT START DATE/TIME: 11/10/2024 17:58 EDT FREE TEXT SOURCE: Oscar HENRY, No Moore MD, No Olvera FINAL REPORTS Final Report [] Verified Date/Time: 11/12/2024 11:39 EDT 75,000 cfu/ml Enterococcus faecium SUSCEPTIBILITY RESULTS LEGEND: S=Susceptible, N/R=Not Reported, Blank=Data not available, or drug not advisable or tested, I=Intermediate, ESBL=Extended spectrum beta-lactamase, R=Resistant, TFG=Thymidine-depende nt strain, STACY=Beta-lactamase positive, DOMENIC=mcg/m;(mg/L), S*=Predicted susceptible interp, R*=Predicted resistant interp Entfaeci Antibiotic DOMENIC Dilutn DOMENIC Interp Ampicillin <=2 S Ciprofloxacin 2 I Daptomycin 4 S Levofloxacin 4 I Linezolid <=2 S Nitrofurantoin <=32 S Penicillin 2 S Rifampin >2 R Tetracycline <=4 S Vancomycin <=0.5 S Performing Locations R1: This test was performed at: [facility], [address] [place] [address], [id number] , [place], Normal [facility] Comment on above: Performed By: #### 2 [id number] #### [facility] [address] [place] [id number] Ambulatory Visit Summaryon 0 10-16-2024 Ambulatory Visit Summary Ambulatory Visit Summary NICCI MOJICA :1955 Visit Date:10/16/2024 Ambulatory Visit Instructions Your Diagnosis Mixed incontinence Incomplete bladder emptying Urethral stricture Your Care Team Attending Physician - Naveed CHRISTIANSON, BLADIMIR, Debi Klein Primary Care Physician - GUZMAN HENRY, This Is Your Medications List Contact prescribing physician if questions or concerns alendronate (alendronate 70 mg Tab) ascorbic acid/chondroitin/gluc cassandra/wei (Glucosamine Chondroitin) atenolol (atenolol 25 mg Tab) atorvastatin (atorvastatin 20 mg Tab) cyanocobalamin (Vitamin B-12 1000 mcg oral tablet) escitalopram (escitalopram 20 mg Tab) ferrous sulfate multivitamin (Multi Vitamin+) solifenacin (solifenacin 10 mg Tab) Procedures Performed 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 Discharge Vitals Heart Rate (Peripheral) 76 Respiratory Rate 19 Blood Pressure 138/88 Height 167 cm Height 66 in Weight 61 kg Weight 134.482 lb BMI 21.87 What to do next Scheduled Follow-Up Appointments Wednesday 12:00 PM EDT Where: [facility] November. 2024 11:15 AM EDT Where: [facility] You Need to Schedule the Following Appointments Follow Up with MARY HENRY, SHERYL Valle When: Where: [address] [place] [id number] Medications What How Much When Instructions Unchanged alendronate (alendronate 70 mg Tab) 1 [...] prescribing physician if questions or concerns Unchanged solifenacin (solifenacin 10 mg Tab) 1 Tablets By Mouth Every day Contact prescribing physician if questions or concerns Allergies No Known Allergies Problems Ongoing - Any problem that you are currently receiving treatment for. Anemia Cystocele with prolapse Former smoker History of UTI Hypertension Incomplete bladder emptying Mixed incontinence Urethral stricture Weak urine stream Patient Survey You may receive a survey via text or e-mail asking about your office visit. Please share your experience with us by completing your survey. We appreciate your feedback and thank you for choosing us for your care. [facility] Urology Office/Clinic Noteon 10-16-2024 Urology Office/Clinic Note Urology Office/Clinic Note Chief Complaint 2 month F/U HPI Staff 69 year old female 2 month follow up Previous DX: mixed incontinence, UTI and incomplete bladder emptying S/p Cysto, Botox 100u, UD done 04/03/24 BBSQ 21 Pt. denies dysuria and gross hematuria Pt. denies abd pain History of Present Illness Tests reviewed: UA I have reviewed the previous health record information and history for this patient from Dr. Hernandez. I have reviewed and verified the staff HPI to be accurate for this encounter. Review of Systems PHQ Score Initial Depression Screen Score: 0 SCORE ROS - Provider Constitutional: denies weight loss, denies hot flashes. Eyes: denies eye problems. Gastrointestinal: denies nausea, denies vomiting. Cardiovascular: denies chest pain or angina. Integumentary: no dryness Musculoskeletal: denies musculoskeletal symptoms. ENMT: denies otolaryngeal symptoms. Respiratory: no shortness of breath. Heme/Lymph: denies easy bleeding tendency, denies easy bruising tendency. Psychiatric: no confusion, no anxiety. Genitourinary: See HPI. Physical Exam Vitals & Measurements HR: 76(Peripheral) RR: 19 BP: 138/88 HT: 66 in HT: 167 cm WT: 61 kg WT: 134.482 lb BMI: 21.87 General Appearance: alert, no distress, well nourished, well developed female. Assessment/Plan Nicci 69 year old female 2 month follow up Previous DX: mixed incontinence, UTI and incomplete bladder emptying 1. Mixed incontinence (N39.46: Mixed incontinence) S/p Cysto, Botox 100u, UD 04/03/24. Stopped taking Solifenacin 10 mg qd after Botox. BBS 21, continues w/ bothersome OAB/UUI sxs, but improvement of stream since UD, improved emptying. Discussed repeat botox at increased dose Will schedule Botox. The procedural risks, benefits, details, [...] has been obtained. Will order Local anesthesia. -scheduled botox, likely 150 units, but will discuss w/ [facility] 2. Incomplete bladder emptying (R33.9: Retention of urine, unspecified) PVR (cc): 08/19/22 - 60 06/01/23 - 174 09/24/23 - 98 12/02/23 - 78 04/20/24 - 84 06/22/24 - 191 10/16/24 - 155 UA today shows trace intact blood and small leuks. Denies any gross hematuria or dysuria. Denies any recent urinary infections. No longer taking Solifenacin 10mg. Pt reports still having the same urinary sxs, does see improvement with stream. Shares at times she can control it better. Discussed PVR with the patient today, which is decreasing, discussed increasing Botox injections to 150u. Pt agrees. Follow up Schedule Botox Injections or sooner if needed. Pt understands and agrees with plan. 3. Urethral stricture (N35.919: Unspecified urethral stricture, male, unspecified site) S/p Cysto/UD 02/09/22 by DLS and 12/03/22 by GPC. 04/03/24 cysto/Botox - 100u (1st), urethra tight [1]. Follow-up With When Contact Information MARY HENRY, Dione P, URL [address] [place] [id number] Additional Instructions: Follow up Schedule Botox Injections or sooner if needed Patient Education Noam Salmon, personally scribed for BLADIMIR Ventura APRN on 10/16/2024 08:34:16. . Documentation recorded by the chip Rodriguez accurately reflects the services(s) I performed and decisions made by me. Authenticated by Debi Lucio APRN, FNP-C on 10/16/2024 08:46:59. 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 Medications alendronate 70 mg Tab, 70 mg= 1 tab(s), Oral, qWeek atenolol 25 mg Tab, 25 mg= 1 tab(s), Oral, Daily atorvastatin 20 mg Tab, 20 mg= 1 tab(s), Oral, Daily escitalopram 20 mg Tab, 20 mg= 1 tab(s), Oral, Daily ferrous sulfate, 325 mg, Oral, q2Days Glucosamine Chondroitin, 2 cap(s), Oral, Daily Multi Vitamin+, 1 cap, Oral, Daily solifen (more content not included)... [facility] Comment on above: Result Comment: Elec tronically Signed By: BLADIMIR Lucio APRN, [place] X\.br\Date and Time Signed: 10/16/24 08:47 EDT\.br\Electronically Co-Signed By: Noam Rodriguez\.br\Date and Time Co-Signed: 10/16/24 08:34 EDT Ambulatory Visit Summaryon 0 08-14-2024 Ambulatory Visit Summary Ambulatory Visit Summary NICCI MOJICA [place] :1955 Visit Date:08/14/2024 Ambulatory Visit Instructions Your Diagnosis Urethral stricture Mixed incontinence Incomplete bladder emptying Your Care Team Attending Physician - MARY HENRY, Dione Marie Primary Care Physician - GUZMAN HENRY, This Is Your Medications List solifenacin (solifenacin 10 mg Tab) Contact prescribing physician if questions or concerns alendronate (alendronate 70 mg Tab) ascorbic acid/chondroitin/gluc cassandra/wei (Glucosamine Chondroitin) atenolol (atenolol 25 mg Tab) atorvastatin (atorvastatin 20 mg Tab) cyanocobalamin (Vitamin B-12 1000 mcg oral tablet) escitalopram (escitalopram 20 mg Tab) ferrous sulfate multivitamin (Multi Vitamin+) Procedures Performed 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 Discharge Vitals Heart Rate (Peripheral) 64 Respiratory Rate 16 Blood Pressure 160/100 Height 167 cm Height 66 in Weight 61 kg Weight 134.482 lb BMI 21.87 What to do next Scheduled Follow-Up Appointments Wednesday 10:20 AM EDT With: BLADIMIR Lucio APRN, Debi Klein Where: [facility] [address] [place] [address]- You Need to Schedule the Following Appointments Follow Up with MARY HENRY, Dione Marie, SHERYL When: Where: [address] [facility] [address] [place] [address]- Medications What How Much When Instructions Unchanged solifenacin (solifenacin 10 mg Tab) 1 Tablets By Mouth Every day Unchanged alendronate (alendronate 70 mg Tab) 1 [...] that you are currently receiving treatment for. Anemia Cystocele with prolapse Former smoker History of UTI Hypertension Incomplete bladder emptying Mixed incontinence Urethral stricture Weak urine stream Patient Survey You may receive a survey via text or e-mail asking about your office visit. Please share your experience with us by completing your survey. We appreciate your feedback and thank you for choosing us for your care. Education Materials Urethral Dilation Urethral dilation is a procedure to stretch open (dilate) the urethra. The urethra is the tube that drains pee (urine) from the bladder out of the body. In females, the urethra opens above the vaginal opening. In males, the urethra opens at the tip of the penis. Urethral dilation is usually done to treat narrowing of the urethra (urethral stricture), which can make it difficult to pee (urinate). Urethral strictures can be caused by scar tissue, infection, injury, or surgery. Urethral dilation widens the urethra so that you can pee normally. Urethral dilation is done through the opening of the urethra. There are no incisions made during the procedure. Tell a health care provider about: ??? Any allergies you have. ??? All medicines you are taking, including vitamins, herbs, eye drops, creams, and [id number] medicines. ??? Any problems you or family members have had with anesthesia. ??? Any bleeding problems you have. ??? Any surgeries you have had. ??? Any medical conditions you have. ??? Whether you are or may be . What are the risks? Your health care provider will talk with you about risks. These may include: ??? Bleeding. ??? Infection. ??? A return of urethral stricture, which requires repeating the dilation procedure or more surgery. ??? Damage to the urethr (more content not included)... [facility] Urology Office/Clinic Noteon 08-14-2024 Urology Office/Clinic Note Urology Office/Clinic Note Chief Complaint IO UD HPI Staff IO UD Previous Dx: mixed incontinence, UTI and incomplete bladder emptying S/p Cysto, Botox 100u, UD done 04/03/24 *Solifenacin 10mg QD-stopped after she had botox in March 2024 Dysuria: _ Incomplete bladder emptying: sometimes Hematuria: _ Frequency: yes Urgency: yes Nocturia: 2x Stream: denies hesitancy, denies weak stream Leaking: denies Post void dripping: denies Wearing pads/ Depends: yes wears pads daily, changes 3-4x a day Urge incontinence: yes Stress incontinence: yes Incontinence without Sensory Awareness: denies Abdominal pain: denies Flank pain: denies Sexual complaints: deneis History of Present Illness Tests reviewed: UA I have reviewed the previous health record information and history for this patient from DAYRON Miller I have reviewed and verified the staff HPI to be accurate for this encounter. Review of Systems PHQ Score Initial Depression Screen Score: 0 SCORE ROS - Provider Constitutional: denies weight loss, denies hot flashes. Eyes: denies eye problems. Gastrointestinal: denies nausea, denies vomiting. Cardiovascular: denies chest pain or angina. Integumentary: no dryness Musculoskeletal: denies musculoskeletal symptoms. ENMT: denies otolaryngeal symptoms. Respiratory: no shortness of breath. Heme/Lymph: denies easy bleeding tendency, denies easy bruising tendency. Psychiatric: no confusion, no anxiety. Genitourinary: See HPI. Physical Exam Vitals & Measurements HR: 64(Peripheral) RR: 16 BP: 160/100 HT: 66 in HT: 167 cm WT: 61 kg WT: 134.482 lb BMI: 21.87 General Appearance: alert, no distress, well nourished, well developed female. Procedure Operative Information Anesthesia Type: Local Procedure: Local Urethral Dilation Complications: None Surgical risks, benefits, details of the procedure have been explained to the patient. Full informed consent has been obtained. Intraoperative Information Prepped: Patient is brought back to the endoscopy suite. Patient is placed in modified dorso/lithotomy position. Patient prepped in the usual fashion with Betadine solution. 2% Xylocaine Jelly is placed per Urethra. The Urethra is: Tightat 16 Fr. The Urethra was dilated to: 16-30 [place] with sounds. Specimens Removed: None Postoperative Information Patient is discharged home. Follow up arranged. Assessment/Plan Last seen by AO. 1. Urethral stricture (N35.919: Unspecified urethral stricture, male, unspecified site) S/p Cysto/UD 02/09/22 by DLS and 12/03/22 by GPC. 04/03/24 cysto/Botox - 100u (1st), urethra tight [1]. UA shows small leuks. Asx. Pt had IO UD today wo complications. Follow up 2 mos with AALIYAH or sooner if needed. Pt understands and agrees with plan. 2. Mixed incontinence (N39.46: Mixed incontinence) S/p Cysto, Botox 100u, UD 04/03/24. Stopped taking Solifenacin 10 mg qd after Botox. 3. Incomplete bladder emptying (R33.9: Retention of urine, unspecified) PVR (cc): 08/19/22 - 60 06/01/23 - 174 09/24/23 - 98 12/02/23 - 78 04/20/24 - 84 06/22/24 - 191 The patient tolerates the urethral dilatation well. She still has overactive bladder symptomatology despite the Botox about 4 months ago. Hopefully decreasing bladder outlet tone will improve some symptomatology. We did discuss the possibility of repeating Botox sooner than they normally planned every 6 months and we could consider increasing the dose. We do have to take into account that she had her 190 cc PVR at last visit but my estimation of residual urine today based on the dilatation is not as high. She agrees with the plan to f/u with AALIYAH in two months Follow-up With When Contact Information MARY HENRY, Dione Marie, URL [address] [place] [id number]- Additional Instructions: 2 mos with AALIYAH (AG on mat leave) Patient Education Urethral Dilation I, Sultana Casillas, personally scribed for Dr. Hernandez on 08/14/2024 10:26:38. . Documentation recorded by the scribe, Sultana Casillas, accurately reflects the services(s) I performed and decisions made by me. Authenticated by Dr. Hernandez on 08/14/2024 10:29:07. Portions of this record may have been created with voice recognition artificial intelligence software, specifically [employer] and or [employer]. Substitutions may have occurred due to the inherent limitations of voice recognition and artificial intelligence software. 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 [facility] Comment on above: Result Comment: Elec tronically Signed By: Dione HERNANDEZ MD\.br\Date and Time Signed: 08/14/24 10:30 EST\.br\Electronically Co-Signed By: Sultana Casillas\.br\Date and Time Co-Signed: 08/14/24 10:27 EST Ophthalmic OCT panelon 07-05 [facility] Right Eye Images reviewed and comparison made to baseline, Images reviewed. To assess optic nerve function and for use in future follow-up. Reliability: good and adequate. Left Eye Images reviewed and comparison made to baseline, Images reviewed. To assess optic nerve function and for use in future follow-up. Reliability: good and adequate. 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 [facility] Radiology Study observation (narrative) [facility] Optical coherence tomography study reporton 07-05-2024 [facility] Radiology Study observation (narrative) [facility] C Urineon 06-24-2024 Bacteria identified Cx Nom (U) Microbiology PROCEDURE: Urine Culture [R1] SOURCE: U Random BODY SITE: COLLECTED DATE/TIME: 06/22/2024 09:35 EST RECEIVED DATE/TIME: 06/22/2024 18:56 EST START DATE/TIME: 06/22/2024 18:56 EST FREE TEXT SOURCE: Lizette Ball, Lizette Urbina FINAL REPORTS Final Report [] Verified Date/Time: 06/24/2024 07:49 EST 75,000 cfu/ml Viridans Streptococcus Group Presumptive isolated. Therapeutic Options: Penicillin or ceftriaxone, with or without an aminoglycoside; vancomycin is used in cases of penicillin allergies and beta-lactam resistance. 200 cfu/ml Mixed skin contaminants Performing Locations R1: This test was performed at: [facility], [address] [place] [address], [id number] , [place], Normal [facility] Comment on above: Performed By: #### [id number] #### [facility] [address] [place] [id number] Ambulatory Visit Summaryon 1 Ambulatory Visit Summary Ambulatory Visit Summary NICCI MOJICA :1955 Visit Date:04/20/2024 Ambulatory Visit Instructions Your Diagnosis Mixed incontinence UTI (urinary tract infection) Incomplete bladder emptying Urethral stricture Your Care Team Attending Physician - Lizette Ball Primary Care Physician - SHAIKH HINDS MD This Is Your Medications List Contact prescribing physician if questions or concerns alendronate (alendronate 70 mg Tab) ascorbic acid/chondroitin/gluc cassandra/wei (Glucosamine Chondroitin) atenolol (atenolol 25 mg Tab) atorvastatin (atorvastatin 20 mg Tab) cyanocobalamin (Vitamin B-12 1000 mcg oral tablet) escitalopram (escitalopram 20 mg Tab) ferrous sulfate multivitamin (Multi Vitamin+) solifenacin (solifenacin 10 mg Tab) Procedures Performed 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 Discharge Vitals Temperature (Temporal Artery) 37 ?C Heart Rate (Peripheral) 63 Respiratory Rate 16 Blood Pressure 128/74 Height 167 cm Height 66 in Weight 61 kg Weight 134.2 lb BMI 21.87 What to do next Scheduled Follow-Up Appointments 2023 9:00 AM EST With: Lizette Ball Where: [facility] [address] [place] [address]- Medications What How Much When Instructions Unchanged alendronate (alendronate 70 mg Tab) 1 [...] prescribing physician if questions or concerns Unchanged solifenacin (solifenacin 10 mg Tab) 1 Tablets By Mouth Every [...] you for choosing us for your care. [facility] Urology Office/Clinic Noteon 04-20-2024 Urology Office/Clinic Note Urology Office/Clinic Note Chief Complaint f/u to Botox done 04/03/24 HPI Staff [facility] pt here for 2 wk f/u to Botox w/ PVR. PVR today is 84 ml. Previous dx: mixed incontinence, urethral stricture, incomplete bladder emptying, UTI. *Solifenacin 10mg qd S/p Cysto, Botox 100u, UD done 04/03/24. Dysuria: denies Incomplete bladder emptying: not always Hematuria: denies Frequency: every couple of hours Urgency: states once in a while Nocturia: denies Stream: a little straining Leaking: yes Post void dripping: denies Wearing pads/ Depends: wears pads changes 3x daily Urge incontinence: yes Stress incontinence: yes Incontinence without Sensory Awareness: pt states she dribbles when she sleeps without knowing Abdominal pain: denies Flank pain: denies Sexual complaints: denies History of Present Illness Staff HPI reviewed and agree. Review of Systems PHQ Score Initial Depression Screen Score: 0 SCORE no fever, chills, malaise, myalgia. no rash/lesions. no chest pain, palpitations, or SOB. no abdominal pain, nausea, vomiting. no unilateral calf swelling, redness, pain Physical Exam Vitals & Measurements T: 37 ?C(Temporal Artery) HR: 63(Peripheral) RR: 16 BP: 128/74 HT: 66 in HT: 167 cm WT: 61 kg WT: 134.2 lb BMI: 21.87 General: nontoxic, well-nourished, appears stated age Mouth: moist mucosa Lungs: normal respiratory effort Cardio: regular rate, good distal perfusion Abdomen: nondistended, no suprapubic distention or tenderness, no CVA tenderness Neurologic: Grossly normal Skin: No rashes or suspicious lesions Assessment/Plan [facility] pt 1. Mixed incontinence (N39.46: Mixed incontinence) 04/03/24 cysto/Botox - 100u (1st) UA today trace-intact blood, small leuks PVR today 84 ml BBSQ 12(25) Pt previously failed multiple doses of oxybutynin, vesicare 10mg and tropsium 20mg bid. Pt had 1st Botox on 04/03/[address] Hernandez. Pt previously had no control with leakage and was wearing 6 pads per day. Pt now reports wearing 2 pads during the day and 1 pad at night. Pt reports daytime symptoms are better after Botox but she continues to leak at night without knowing she is leaking, she will wake up in the morning and her pad will be soaked. Pt reports she drinks coffee or pop in the evenings. Advised pt to stop bladder irritants in the evening and reduce fluid intake at HS. Discussed with patient that Botox can take up to 6 weeks or so to see full effect so since we are only about 2 weeks out, we can follow up closely to monitor symptoms and adjust medications at that time. Pt is taking Vesicare 10mg at this time but we can consider increasing dose at HS at follow up if pt continues with bothersome leakage. Also discussed timed and double voiding with patient. -Timed voids, double voids -Limit bladder irritants and fluids at HS -F/U 8 weeks with PVR -If PVR lower and pt continues leakage, will need to consider dosage increase Ordered: E&M of Est. Patient Moderate 30-39 Min 44690 Urnls Dip Stick Auto w/o Microscopy POC 49004 2. UTI (urinary tract infection) (N39.0: Urinary tract infection, site not specified) UCx: 08/19/22 - >100k E Coli, tx'd w/ Keflex 02/04/23 - >100k E Coli, tx'd w/ Keflex 06/01/23 - >100k E coli, tx'd w/ keflex 09/24/23 - >100k E. coli. Not treated, was asx and previously treated multiple times w abx w no sx change. UA today trace-intact blood & small leuks Pt denies UTI symptoms today. -Call our office for any future UTI symptoms Ordered: E&M of Est. Patient Moderate 30-39 Min 09274 3. Incomplete bladder emptying (R33.9: Retention of urine, unspecified) PVR (cc): 08/19/22 - 60 06/01/23 - 174 09/24/23 - 98 12/02/23 - 78 04/20/24 - 84 -See #1 Ordered: E&M of Est. Patient Moderate 30-39 Min 09112 4. Urethral stricture (N35.919: Unspecified urethral stricture, male, unspecified site) S/p Cysto/UD 02/09/22 by [facility] and 12/03/22 by [facility] Continues to report mildly weak stream. Again discussed repeat urethral dilation if patient continues to have leakage, weak stream and increased PVRs. -See #1 -Consider UD at f/u Ordered: E&M of Est. 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 [facility] Comment on above: Result Comment: Elec tronically Signed By: Lizette Ball\.br\Date and Time Signed: 04/20/24 12:17 EDT Inpatient Patient Summaryon 04-03-2024 Inpatient Patient Summary Inpatient Patient Summary [address] [address] Clinical Summary Person Information Name: NICCI MOJICA Age: 68 Years : 1955 Sex: Female PCP: SHAIKH HINDS MD Marital Status: Race: White Ethnicity: Non- or Language: Bermudian Visit Id: Visit Reason: URINARY INCONTINENCE Speciality: Acuity: Enc Type: Outpatient Med Service: Surgery Arrival: 04/03/2024 13:00:31 Discharge: Dispo Type: Address: [address] [id number] Provider Notes: Diagnosis: Problems Active UTI (urinary tract infection) History of UTI Cystocele with prolapse Weak urine stream Urethral stricture Incomplete bladder emptying Acute cystitis without hematuria Mixed incontinence Former smoker Hypertension Anemia Smoking Status: Functional Status: Sensory Deficits: History of Falls: Mobility Assistance Prior to Admission: ADLs: Current Level of Assistance for Self-Care/Mobility: Cognitive Status: Allergies No Known Allergies Laboratory or Other Results This Visit (last charted value for your 04/03/2024 visit) No Laboratory or Other Results This Visit Measurements: Height: Weight: Blood Pressure: Not Valued / Not Valued BMI: Procedures No Procedures Documented Immunizations No Immunizations Documented This Visit Final Med List: alendronate (alendronate 70 mg Tab) 1 Tablets By Mouth every week. ascorbic acid/chondroitin/gluc cassandra/wei (Glucosamine Chondroitin) 2 Capsules By Mouth every day. atenolol (atenolol 25 mg Tab) 1 Tablets By Mouth every day. atorvastatin (atorvastatin 20 mg Tab) 1 Tablets By Mouth every day. ciprofloxacin (Cipro 500 mg Tab) 1 Tablets By Mouth 2 times a day. Take twice daily x5 days starting the day prior to the procedure. Refills: 0. cyanocobalamin (Vitamin B-12 1000 mcg oral tablet) 1 Tablets By Mouth every day. escitalopram (escitalopram 20 mg Tab) 1 Tablets By Mouth every day. ferrous sulfate 325 Milligram By Mouth every other day. multivitamin (Multi Vitamin+) 1 cap By Mouth every day. solifenacin (solifenacin 10 mg Tab) 1 Tablets By Mouth every day. Refills: 3. sulfamethoxazole-trim ethoprim (Bactrim 400 mg-80 mg Tab) 1 Tablets By Mouth every day. Refills: 1. Care Team Members: Attending Physician: Dione HERNANDEZ MD Consulting Physician: Referring Physician: Dione HRENANDEZ MD Follow up: With: Address: When: Lizette Carrero Within 2 to 4 weeks Comments: Please make an appointment so we can check the urine and do the bladder scan to be sure you are emptying the bladder. For now, stay on the Vesicare (solefenacin), which may be stopped at that visit. Have a great day! Patient Education Information: EU - Cystoscopy with Botox Injection Discharge Instructions (Custom) [facility] Main OR Intraoperative Recor don 04-03-2024 Main OR Intraoperative Record Main OR Intraoperative Record IntraOp Document Type FTURO Summary Primary Physician: Dione HERNANDEZ MD Finalized Date/Time: 04/03/24 13:41:31 Pt. Name: NICCI MOJICA./Sex: 1955 Female Med Rec #: [id number] Physician: Dione HERNANDEZ MD Financial #: [id number] Pt. Type: O Room/Bed: / Admit/Disch: 04/03/24 13:00:31 - Institution: Case Times FTURO Entry 1 Patient Times In Room 04/03/24 13:25:00 Out Room 04/03/24 13:42:00 Procedure Times Start 04/03/24 13:30:00 Stop 04/03/24 13:37:00 Anesthesia Times Last Modified By: Narinder Dillard Ii 04/03/24 13:39:03 Case Attendance FTURO Entry 1 Entry 2 Entry 3 Case Attendee Dione HERNANDEZ MD, Alfons Ii F McClain CST, Kimberly A Role Performed Surgeon - Primary Cnc Milling Machinist - Primary Scrub - Primary Time In 04/03/24 13:25:00 04/03/24 13:25:00 04/03/24 13:25:00 Time Out 04/03/24 13:42:00 04/03/24 13:42:00 04/03/24 13:42:00 Procedure CYSTOSCOPY LOCAL BOTOX CYSTOSCOPY LOCAL BOTOX CYSTOSCOPY LOCAL BOTOX INJECTION(.) INJECTION(.) INJECTION(.) Comments Last Modified By: Narinder Dillard Ii, Alfons Ii F Letrondo, Alfons Ii F 04/03/24 13:39:04 04/03/24 13:39:04 04/03/24 13:39:04 Surgical Procedures FTURO Entry 1 Procedure Description Procedure CYSTOSCOPY LOCAL BOTOX Modifiers . INJECTION Surgeon Description CYSTO 100 UNITS BOTOX Primary Procedure Yes Primary Surgeon Dione HERNANDEZ MD Start 04/03/24 13:30:00 Stop 04/03/24 13:37:00 Anesthesia Type Local Surgical Service Urology Wound Class 2 - Clean-Contaminated Last Modified By: Narinder Dillard Ii 04/03/24 13:39:04 General Case Data FTURO Pre-Care Text: Classifies surgical wound, implements aseptic technique, initiates traffic control Entry 1 Case Information OR URO 1 FT Case Level None Wound Class 2 - Clean-Contaminated Specialty Urology Preop Diagnosis URINARY INCONTINENCE Postop Same As Preop Yes Postop Diagnosis URINARY INCONTINENCE Outcomes Met? Yes Last Modified By: Narinder Dillard Ii 04/03/24 13:15:29 Post-Care Text: The patient is free from signs and symptoms of infection EU IntraOp - FTURO Pre-Care Text: Implements protective measures prior to operative or invasive procedure, confirms identity before the operative or invasive procedure, verifies operative procedure, surgical site, and laterality Entry 1 EU Perioperative Protocols Procedure(s) CYSTOSCOPY LOCAL BOTOX Patient Identity Birthday, ID Band INJECTION(.) Verified (select at Check, Patient least 2): Participation Consents / H and P H&P, Surgery/Procedure Operative Site N/A Verified Consent Marking Verified Surgical Site Yes Laterality Verified n/a Verified Procedure Verified Yes Correct Patient Yes Position Verified Availability Equipment, Medication Time Out Narinder Dillard Ii, Verified (If Participants Dione HERNANDEZ MD, Applicable) Millicent Culp CST Time Out Complete 04/03/24 13:30:00 Allergies Reviewed? Yes Allergies Reviewed Self/Patient With Body Position Low Lithotomy Prep Area VAGINA Prep Agents Betadine Solution Skin. Condition Intact, [place], Warm, & Dry Additional None Specimens Collected Vitals - EU Blood Pressure 128/74 Pulse 63 bpm Respirations SPO2 98 % I&O - EU Outcomes Met? Yes Last Modified By: Narinder Dillard Ii 04/03/24 13:33:27 Post-Care Text: The patient is free from signs and symptoms of injury caused by extraneous objects Sign Out FTURO Entry 1 Before Patient Leaves OR Nurse verbally Yes Nurse verbally n/a confirms with the confirms with the team the name of team that the procedure(s) instrument, sponge, recorded and needle counts are correct (or N/A) Nurse verbally Yes Nurse verbally Yes confirms with the confirms with the team how the team whether there specimen is labeled are any equipment (including patient problems to be name), if applicable addressed Sign Out Complete 04/03/24 13:37:00 Last Modified By: Narinder Dillard Ii 04/03/24 13:39:11 Case Comments Finalized By: Narinder Dillard Ii Document Signatures Signed By: Narinder Dillard Ii 04/03/24 13:41 [facility] Main OR Preoperative Recordo n 04-03-2024 Main OR Preoperative Record Main OR Preoperative Record Holding Area Document Type FTURO Summary Primary Physician: Dione HERNANDEZ MD Finalized Date/Time: 04/03/24 13:26:47 Pt. Name: ABYNICCI./Sex: 1955 Female Med Rec #: [id number] Physician: Dione HERNANDEZ MD Financial #: [id number] Pt. Type: O Room/Bed: / Admit/Disch: 04/03/24 13:00:31 - Institution: Case Times Holding FTURO Pre-Care Text: Verifies consent for planned procedure, identifies individual values and wishes concerning care, includes family members in perioperative teaching Secures patient's records' belongings, and valuables, maintains patient's dignity and privacy, and maintains patient confidentiality Entry 1 In Holding 04/03/24 13:24:00 Outcomes Met? Yes Last Modified By: Princess HUNG, Jahaira PETTY 04/03/24 13:24:48 Post-Care Text: The patient participates in decisions affecting his or her perioperative plan of care The patient's right to privacy is maintained Surgery Checklist FTURO Entry 1 Patient Birthday, ID Band Procedure History and Physical, Identification: Check, Patient Verification: Surgical Consent Participation NPO after Midnight: n/a Personal Items: Cataract Lens Implant, Dentures Personal Items clothes Limitations: none Comment: Complaints of Pain: n/a Skin Integrity Unable to Visualize Vitals - EU Blood Pressure 128/74 Pulse 66 bpm Respirations 14 br/min SPO2 98 % Additional Other (See Comment) Specimens Comment ua dipstick Specimens Collected RN Reviewed Yes Last Modified By: MALINDA Sánchez RN, Ruthann 04/03/24 13:26:45 Finalized By: MALINDA Sánchez RN, Ruthann Document Signatures Signed By: MALINDA Sánchez RN, Ruthann 04/03/24 13:26 [facility] Operative Reporton Operative Report Operative Report Patient: NICCI MOJICA Age: 68 years Sex: Female : 1955 Associated Diagnoses: None Author: Dione HERNANDEZ MD Procedure Operative Information Details: Date/ Time: 04/03/2024 13:39:00. Pre-Op Dx: Mixed stress and urge urinary incontinence (CSO06-RZ N39.46, Working, Medical), Overactive bladder (YPW33-LL N32.81, Working, Medical), Recurrent UTI (QZH67-GH N39.0, Working, Medical), Unspecified urethral stricture, female (YVY36-JK N35.92, Working, Medical). Post-Op Dx: Same. Anesthesia Type: Local. Procedure: Local Cystoscopy with botox injection, Urethral dilation. Complications: None. Risks/Benefits/Inform ed Consent: Surgical risks, benefits, details of the procedure have been explained to the patient, Full informed consent has been obtained. Intraoperative Information Prepped: Patient is brought back to the endoscopy suite, Female Prep (Patient is placed in modified dorso/lithotomy position, 5 cc 2% Xylocaine Jelly is placed per Urethra, Straight cath inserted to obtain urine specimen, 60 cc 2% Xylocaine liquid inserted into bladder, 5 additional cc 2% Xylocaine Jelly is placed per Urethra, Patient in sitting position for 20 min dwell, Unable to initially place the 22 Fr. Scope. Dilated urethra from 16 to 26 Fr. Tight at 16 Fr. Then scope placed. ), Patient prepped in the usual fashion with Betadine solution, 10 cc 2% Xylocaine Jelly is placed per Urethra, After waiting several minutes the Cystoscope is introduced. Procedure: The trigone was identified and evaluated, 20 template injection sites were identified, The bladder was instilled with enough saline to achieve adequate visualization for the injections, The needle was inserted approximately 2 mm into the detrusor spaced approximately 1 cm apart, A total of 20 injections with a 0.5 ml volume was delivered at each site for a total of 100 units of Botox. The Urethra is: Tight. Botox: 100 units. The ureteral orifices: Show efflux of clear urine. The Bladder is: Trabeculated Moderate (2), No tumor, no stones identified. . Devices Implanted: None. Removal: Cystoscope is removed, The patient tolerated it well. Postoperative Information Discharge: Patient is discharged home with antibiotic coverage, Follow up arranged, F/U with LAURA Ordoñez within 2-4 weeks with bladder scan for PVR> . [facility] Comment on above: Result Comment: Elec tronically Signed By: Dione HERNANDEZ MD\.br\Date and Time Signed: 04/03/24 13:42 EDT Outpatient Surgery Discharge Instructionon 04-03-2024 Outpatient Surgery Discharge Instruction Outpatient Surgery Discharge Instruction [place] [id number] Patient Discharge Instructions PERSON INFORMATION Name: NICCI MOJICA Date of : 1955 Current Date: 04/03/2024 13:38:30 PHYSICIANS Admitting Physician: Dione HERNANDEZ MD Comment: Discharge Diagnosis: NICCI MOJICA has been given the following list of follow-up instructions, prescriptions, and patient education materials: IF UNABLE TO CONTACT YOUR PHYSICIAN AND YOU FEEL IT IS AN EMERGENCY, GO TO THE NEAREST EMERGENCY ROOM OR CALL 911 Follow up: With: Address: When: Lizette Carrero Within 2 to 4 weeks Comments: Please make an appointment so we can check the urine and do the bladder scan to be sure you are emptying the bladder. For now, stay on the Vesicare (solefenacin), which may be stopped at that visit. Have a great day! Comment: PATIENT EDUCATION INFORMATION Instructions: Cystoscopy with Botox injection ? Voiding after the procedure: there may be some pain, burning, urgency, frequency and blood tinged urine following the procedure. These symptoms usually resolve within 2-5 days. Drink the amount of fluid it takes to keep the urine pink to yellow or clear in color. Drinking enough water and fluids will help to ease any discomfort after your procedure. ? It may take a few days to a week to notice a gradual improvement in the overactive bladder symptoms. ? If you are having problems that seem out of the ordinary, please call. ? If unable to contact your physician and you feel it is an emergency, go to the nearest emergency room or call 911 ? Do not lift more than fifteen pounds for 1-2 days. If you see a lot of blood, you probably did too much. ? Diet ? you may resume your normal diet. ? Pain control ? You may take extra strength Tylenol or Motrin for discomfort. ? Call if you have a fever over 100 degrees. ABY Salmon VILMA A, have received the attached patient education materials/instruction s and have verbalized understanding: May we do a follow up call? Yes No I was present when discharge instructions were given Patient Signature Date Clinican/Nurse Signature Date You may receive a survey from Natali Clifford asking you to rate your care experience. Your feedback is important and will help us understand what we do well and how we can improve the quality of care we provide to you, your loved ones and our community. It?s an honor to serve you. Thank you for choosing [facility] C Urineon 03-30-2024 Bacteria identified Cx Nom (U) Microbiology PROCEDURE: Urine Culture [R1] SOURCE: U CleanCatch BODY SITE: COLLECTED DATE/TIME: 03/27/2024 16:30 EDT RECEIVED DATE/TIME: 03/28/2024 18:37 EDT START DATE/TIME: 03/28/2024 18:37 EDT FREE TEXT SOURCE: MARY HENRY, Dione HERNANDEZ MD, Dione Marie FINAL REPORTS Final Report [] Verified Date/Time: 03/30/2024 11:02 EDT 2,000 cfu/ml Mixed skin contaminants Performing Locations R1: This test was performed at: [facility], [address] [place] [address], [facility] , , [facility] Comment on above: Performed By: #### [id number] #### [facility] [address] [place] [address] Urineon 12-04-2023 Bacteria identified Cx Nom (U) Microbiology PROCEDURE: Urine Culture [R1] SOURCE: U Random BODY SITE: COLLECTED DATE/TIME: 12/02/2023 10:33 EDT RECEIVED DATE/TIME: 12/02/2023 12:47 EDT START DATE/TIME: 12/02/2023 12:47 EDT FREE TEXT SOURCE: ROMA OSCAR, KHRIS BRANDON PA-C, KHRIS Salazar FINAL REPORTS Final Report [] Verified [...] Locations R1: This test was performed at: [facility], [address] [place] [address], [id number] , , [facility] Comment on above: Performed By: #### [id number] #### [facility] [address] [place] [id number] Bacteria identified Cx Nom (U) Microbiology PROCEDURE: Urine Culture [R1] SOURCE: U Random BODY SITE: COLLECTED DATE/TIME: 12/02/2023 10:33 EDT RECEIVED DATE/TIME: 12/02/2023 12:47 EDT START DATE/TIME: 12/02/2023 12:47 EDT FREE TEXT SOURCE: KHRIS BRANDON PA-C, PA-C, KHRIS Salazar FINAL REPORTS Final Report [] Verified [...] Locations R1: This test was performed at: [facility], [address] [place] [address], [id number] , [place], Normal [facility] Comment on above: Performed By: #### [id number] #### [facility] [address] [place] [id number] URINALYSISOrdered By: Ellen hernadez on 08-19-2022 Bacteria [...] Interpretation Code Negative [facility] UA Auto SS [place].plasma/Lithiu m.RBC (Bld) [Mass ratio] 4-20 /HPF Normal [...] [facility] UA Auto SS Urobilinogen Qn (U) [id number] {Shawna'U}/dL Normal 0.0 - 1.0 EU/dL [facility] [...] by: SABRINA PORTILLO Date: 2022-02-10 16:45 Normal [facility] COVID-19 Antigenon 2 COVID-19 Antigen Healthcare Worker?: [...] developed and its performance characteristic determined by [facility] and validated at [facility]. This test has not been FDA [...] for SARS Antigen by QUINN PERFORMED BY: [place] [address] PATHOLOGIST GRASSLAND CONSERVATIONIST CHERYL RIVAS M.D. [facility] Comment on above: Performed By: #### S OFIANEG, COVID-19 VICK #### [facility] [address] PAP ACOG PANEL 2: 30 to 65on 01-02-2022 . . [facility] Comment on above: Performed By: #### [id number] #### [facility] [address] [place] [address] Dr. Huang Sullivan Gdln ACOG Testing Comment [facility] Comment on above: Result Comment: <21 or >65 or no age provided Performed By: #### [id number] #### [facility] [address] [place] [address] Dr. Huang Ojeda DIAGNOSIS: Comment Normal [facility] Comment on above: Result Comment: NEGA TIVE FOR INTRAEPITHELIAL LESION OR MALIGNANCY. Performed By: #### [id number] #### [facility] [address] [place] [address] Dr. Huang Ojeda Methodology: Comment Normal [facility] Comment on above: Result Comment: This liquid based ThinPrep(R) pap test was screened with the use of an image guided system. Performed By: #### [id number] #### [facility] [address] [place] [address] Dr. Huang Ojeda Note: Comment Normal [facility] Comment on above: Result Comment: The Pap smear is a screening test designed to aid in the detection of premalignant and malignant conditions of the uterine cervix. It is not a diagnostic procedure and should not be used as the sole means of detecting cervical cancer. Both false-positive and false-negative reports do occur. . Performed By: #### [id number] #### [facility] [address] [place] [address] Dr. Huang Ojeda Performed by: Comment Normal [facility] Comment on above: Result Comment: Isela Britt, Wood Pile Driver Operator (ASCP) Performed By: #### [id number] #### [facility] [address] [place] [address] Dr. Huang Ojeda Specimen adequacy: Comment Normal [facility] Comment on above: Result Comment: Sati sfactory for evaluation. Endocervical and/or squamous metaplastic cells (endocervical component) are present. Performed By: #### [id number] #### [facility] [address] [place] [address] Dr. Huang Ojeda Vick Ag Negativeon 01-03-20 22 Vick Ag Negative Negative Normal Negative [facility] Comment on above: Result Comment: This is a duplicate Vick SARS Antigen (QUINN) result to be used for statistical tracking purpose only. PERFORMED BY: [place] [address] PATHOLOGIST GRASSLAND CONSERVATIONIST CHERYL RIVAS M.D. Performed By: #### S STEVE GARCIA #### [address] MG MAMM SCREEN 3D ROMAINE CADon 11-28-2021 MG MAMM SCREEN 3D ROMAINE CAD Patient: NICCI MOJICA Exam Date: 11/28/2021 : 1955 Gender:F Ordering : SHAIKH Rand HINDS . Admission #: [id number] Family : Order #: [id number] CLICK HERE TO VIEW EXAM RADIOLOGY REPORT PROCEDURE: MAMMOGRAM SCREENING 3D BILATERAL CAD COMPARISON: MG MAMM ROMAINE SCRN W CAD DIG, 12/19/2013. INDICATIONS: Screening mammography Calculator Name NCI Breast Cancer Risk Assessment Tool 5 Year Breast Cancer Risk 1.20% Lifetime Breast Cancer Risk 4.40% Personal Breast Cancer No Personal Ovarian Cancer No Treatments None Family Cancers None LOCATION: [facility] BREAST COMPOSITION: Scattered areas fibroglandular density. FINDINGS: [...] MD on 11/28/2021 at 15:01 Normal [facility] US CAROTID ART BILon 2 022 US CAROTID ART ROMAINE EXAMINATION: US [...] LAVERN BRITT Date: 2021-11-28 14:17 Normal [facility] CBC AUTO DIFFon 11-27-2021 BASO # 0.1 103/ul Normal 0.0-0.1 [facility] Comment on above: Performed By: #### C BC #### [facility] [address] [place] [address] Dr. Huang Ojeda Basophils/100 WBC (Bld) 0.8 % Normal 0.2-2.0 [facility] Comment on above: Performed By: #### C BC #### [facility] [address] [place] [address] Dr. Huang Ojeda EO # 0.2 103/ul Normal 0.0-0.7 [facility] Comment on above: Performed By: #### C BC #### [facility] [address] [place] [address] Dr. Huang Ojeda Eosinophils/100 WBC (Bld) 2.5 % Normal 0.9-7.0 [facility] Comment on above: Performed By: #### C BC #### [facility] [address] [place] [address] Dr. Huang Ojeda Erythrocyte distribution width (RBC) [Ratio] 13.1 % Normal 11.0-15.0 [facility] Comment on above: Performed By: #### C BC #### [facility] [address] [place] [address] Dr. Huang Ojeda Hematocrit (Bld) [Volume fraction] 38.9 % Normal 36.0-48.0 [facility] Comment on above: Performed By: #### C BC #### [facility] [address] [place] [address] Dr. Huang Ojeda Hemoglobin (Bld) [Mass/Vol] 12.1 g/dL Normal 12.0-16.0 [facility] Comment on above: Performed By: #### C BC #### [facility] [address] [place] [address] Dr. Huang Ojeda IG # 0.01 10e3/ul Normal 0.00-0.03 [facility] Comment on above: Performed By: #### C BC #### [facility] [address] [place] [address] Dr. Huang Ojeda IG % 0.2 % Normal 0.0-0.5 [facility] Comment on above: Performed By: #### C BC #### [facility] [address] [place] [address] Dr. Huang Ojeda LYMPH # 1.7 103/ul Normal 1.2-3.8 [facility] Comment on above: Performed By: #### C BC #### [facility] [address] [place] [address] Dr. Huang Ojeda Lymphocytes/100 WBC (Bld) 27.8 % Normal 20.5-60.0 [facility] Comment on above: Performed By: #### C BC #### [facility] [address] [place] [address] Dr. Huang Ojeda MANUAL DIFF REQ NO Normal [facility] Comment on above: Performed By: #### C BC #### [facility] [address] [place] [address] Dr. Huang Ojeda MCH (RBC) [Entitic mass] 31.3 pg Normal 26.7-34.0 [facility] Comment on above: Performed By: #### C BC #### [facility] [address] [place] [address] Dr. Huang Ojeda MCHC (RBC) [Mass/Vol] 31.1 g/dL Normal 29.9-35.2 [facility] Comment on above: Performed By: #### C BC #### [facility] [address] [place] [address] Dr. Huang Ojeda MCV (RBC) [Entitic vol] 100.8 fL Critically high 81.0-99.0 [facility] Comment on above: Performed By: #### C BC #### [facility] [address] [place] [address] Dr. Huang Ojeda MONO # 0.6 103/ul Normal 0.3-0.8 [facility] Comment on above: Performed By: #### C BC #### [facility] [address] [place] [address] Dr. Huang Ojeda Monocytes/100 WBC (Bld) 10.2 % Normal 1.7-12.0 [facility] Comment on above: Performed By: #### C BC #### [facility] [address] [place] [address] Dr. Huang Ojeda NEUT # 3.5 103/ul Normal 1.4-6.5 [facility] Comment on above: Performed By: #### C BC #### [facility] [address] [place] [address] Dr. Huang Ojeda Neutrophils/100 WBC (Bld) 58.5 % Normal 43.0-75.0 [facility] Comment on above: Performed By: #### C BC #### [facility] [address] [place] [address] Dr. Huang Ojeda Platelet mean volume (Bld) [Entitic vol] 10.6 fL Normal 9.5-13.5 [facility] Comment on above: Performed By: #### C BC #### [facility] [address] [place] [address] Dr. Huang Ojeda PLT 364 103/ul Normal 150-450 [facility] Comment on above: Performed By: #### C BC #### [facility] [address] [place] [address] Dr. Huang Ojeda RBC 3.86 106/ul Critically low 4.20-5.40 [facility] Comment on above: Performed By: #### C BC #### [facility] [address] [place] [address] Dr. Huang Ojeda WBC 6.0 103/ul Normal 4.0-11.0 [facility] Comment on above: Performed By: #### C BC #### [facility] [address] [address] [address] Huang Ojeda FERRITINon 11-27-2021 Ferritin [Mass/Vol] 92.0 ng/mL Normal 8.0-252.0 [facility] Comment on above: Performed By: #### F ERR #### [facility] [address] [address] [address] Huang Ojeda GLYCOHEMOGLOBIN A1Con 2021 ADA RECOMMENDATION SEE BELOW Normal [facility] Comment on above: Result Comment: ADA RECOMMENDED LIMIT 4.0 - 6.0 ADA THERAPEUTIC TARGET < 7.0 ACTION SUGGESTED > 7.0 Performed By: #### A 1C #### [facility] [address] [place] [address] Dr. Huang Ojeda Glucose [Mass/Vol] 120 mg/dL Normal [facility] Comment on above: Performed By: #### A 1C #### [facility] [address] [address] [address] Huang Ojeda HbA1c (Bld) [Mass fraction] 5.8 % Normal 4.5-6.2 [facility] Comment on above: Performed By: #### A 1C #### [facility] [address] [place] [address] Dr. Huang Ojeda LIPID PROFILEon 11-27-2021 CHOL-HDL RATIO NORM SEE BELOW Normal [facility] Comment on above: Result Comment: 3.3 - 4.4 LOW RISK 4.4 - 7.1 AVERAGE RISK 7.1 - 11.0 MODERATE RISK >11.0 HIGH RISK Performed By: #### C MP, LIPID #### [facility] [address] [address] [address] Huang Ojeda Cholesterol [Mass/Vol] 146 mg/dL Normal <=200 [facility] Comment on above: Performed By: #### C MP, LIPID #### [facility] [address] [address] [address] Huang Ojeda Cholesterol in HDL [Mass/Vol] 62 mg/dL Critically high 40-60 [facility] Comment on above: Performed By: #### C MP, LIPID #### [facility] [address] [address] [address] Huang Ojeda Cholesterol in LDL [Mass/Vol] 62.4 mg/dL Normal [facility] Comment on above: Performed By: #### C MP, LIPID #### [facility] [address] [address] [address] Huang Ojeda Cholesterol.total/Cho lesterol in HDL [Mass ratio] 2.4 {ratio} Normal [facility] Comment on above: Performed By: #### C MP, LIPID #### [facility] [address] [place] [address] Dr. Huang Ojeda HDL NORMAL > or = 60 mg/dl - LO W CARDIOVASCULAR RISK <40 mg/dl - HIGH CARDIOVASCULAR RISK Normal [facility] Comment on above: Performed By: #### C MP, LIPID #### [facility] [address] [place] [address] Dr. Huang Ojeda LDL CALC NORMAL SEE BELOW Normal [facility] Comment on above: Result Comment: <100 mg/dl OPTIMAL 100 - 129 mg/dl NEAR OR ABOVE OPTIMAL 130 - 159 mg/dl BORDERLINE HIGH 160 - 189 mg/dl HIGH >190 mg/dl VERY HIGH Performed By: #### C MP, LIPID #### [facility] [address] [place] [address] Dr. Huang Ojeda Triglyceride [Mass/Vol] 108 mg/dL Normal <=150 [facility] Comment on above: Performed By: #### C MP, LIPID #### [facility] [address] [place] [address] Dr. Huang Ojeda VLDL CALC 21.6 mg/dL Normal [facility] Comment on above: Performed By: #### C MP, LIPID #### [facility] [address] [place] [address] Dr. Huang Ojeda PROF 14(COMP METB)on 022 Albumin [Mass/Vol] 3.7 g/dL Normal 3.4-5.0 [facility] Comment on above: Performed By: #### C MP, LIPID #### [facility] [address] [place] [address] Dr. Huang Ojeda Albumin/Globulin [Mass ratio] 1.1 {ratio} Normal [facility] Comment on above: Performed By: #### C MP, LIPID #### [facility] [address] [place] [address] Dr. Huang Ojeda ALP [Catalytic activity/Vol] 72 U/L Normal 46-116 [facility] Comment on above: Performed By: #### C MP, LIPID #### [facility] [address] [place] [address] Dr. Huang Ojeda ALT [Catalytic activity/Vol] 28 U/L Normal 14-59 [facility] Comment on above: Performed By: #### C MP, LIPID #### [facility] [address] [place] [address] Dr. Huang Ojeda Anion gap [Moles/Vol] 11.0 mmol/L Normal [facility] Comment on above: Performed By: #### C MP, LIPID #### [facility] [address] [place] [address] Dr. Huang Ojeda AST [Catalytic activity/Vol] 17 U/L Normal 15-37 [facility] Comment on above: Performed By: #### C MP, LIPID #### [facility] [address] [place] [address] Dr. Huang Ojeda Bilirubin [Mass/Vol] 0.3 mg/dL Normal 0.2-1.0 [facility] Comment on above: Performed By: #### C MP, LIPID #### [facility] [address] [place] [address] Dr. Huang Ojeda Calcium [Mass/Vol] 9.2 mg/dL Normal 8.5-10.1 [facility] Comment on above: Performed By: #### C MP, LIPID #### [facility] [address] [place] [address] Dr. Huang Ojeda Chloride [Moles/Vol] 106 mmol/L Normal 98-107 [facility] Comment on above: Performed By: #### C MP, LIPID #### [facility] [address] [place] [address] Dr. Huang Ojeda CO2 [Moles/Vol] 29.1 mmol/L Normal 21.0-32.0 [facility] Comment on above: Performed By: #### C MP, LIPID #### [facility] [address] [place] [address] Dr. Huang Ojeda Creatinine [Mass/Vol] 0.69 mg/dL Normal 0.55-1.02 [facility] Comment on above: Performed By: #### C MP, LIPID #### [facility] [address] [place] [address] Dr. Huang Ojeda EGFR-AF [place]ANDER >60 Normal >=60 [facility] Comment on above: Performed By: #### C MP, LIPID #### [facility] [address] [place] [address] Dr. Huang Ojeda EGFR-NON AF [place]ANDER >60 Normal >=60 [facility] Comment on above: Performed By: #### C MP, LIPID #### [facility] [address] [place] [address] Dr. Huang Ojeda Globulin (S) [Mass/Vol] 3.4 g/dL Normal [facility] Comment on above: Performed By: #### C MP, LIPID #### [facility] [address] [place] [address] Dr. Huang Ojeda Glucose [Mass/Vol] 92 mg/dL Normal 74-106 [facility] Comment on above: Performed By: #### C MP, LIPID #### [facility] [address] [place] [address] Dr. Huang Ojeda Potassium [Moles/Vol] 4.1 mmol/L Normal 3.5-5.1 [facility] Comment on above: Performed By: #### C MP, LIPID #### [facility] [address] [place] [address] Dr. Huang Ojeda Protein [Mass/Vol] 7.1 g/dL Normal 6.4-8.2 [facility] Comment on above: Performed By: #### C MP, LIPID #### [facility] [address] [place] [address] Dr. Huang Ojeda Sodium [Moles/Vol] 142 mmol/L Normal 136-145 [facility] Comment on above: Performed By: #### C MP, LIPID #### [facility] [address] [address] [address] Huang Ojeda Urea nitrogen [Mass/Vol] 19.0 mg/dL Critically high 7.0-18.0 [facility] Comment on above: Performed By: #### C MP, LIPID #### [facility] [address] [place], [place] [address] Dr. Huang Ojeda Urea nitrogen/Creatinine [Mass ratio] 27.5 mg/mg Normal [facility] Comment on above: Performed By: #### C MP, LIPID #### [facility] [address] [address] [address] Huang Ojeda Vital Signs Date Time Vital Sign Value Performing Clinician Facility 08-14-2024 10:00-0500 Diastolic blood pressure 100 mm[Hg] Dione HERNANDEZ [facility] 08-14-2024 10:00-0500 Heart rate 64 /min [employer] [facility] 08-14-2024 10:00-0500 Respiratory rate 16 /min Dione HERNANDEZ [facility] 08-14-2024 10:00-0500 Systolic blood pressure 160 mm[Hg] Dione HERNANDEZ [facility] 06-22-2024 09:08-0500 Blood Pressure Location Lizette Galea [facility] 06-22-2024 09:08-0500 Body temperature 98.6 [degF] Lizette Galea [facility] 06-22-2024 09:08-0500 Diastolic blood pressure 92 mm[Hg] Lizette Galea [facility] 06-22-2024 09:08-0500 Heart rate 76 /min Lizette Galea [facility] 06-22-2024 09:08-0500 Respiratory rate 16 /min Lizette Galea [facility] 06-22-2024 09:08-0500 Systolic blood pressure 140 mm[Hg] Lizette Galea [facility] 04-20-2024 11:28-0400 Blood Pressure Location Lizette Galea [facility] 04-20-2024 11:28-0400 Body temperature 98.6 [degF] Lizette Galea [facility] 04-20-2024 11:28-0400 Diastolic blood pressure 74 mm[Hg] Lizette Galea [facility] 04-20-2024 11:28-0400 Heart rate 63 /min Lizette Galea [facility] 04-20-2024 11:28-0400 Respiratory rate 16 /min Lizette Galea [facility] 04-20-2024 11:28-0400 Systolic blood pressure 128 mm[Hg] Lizette Galea [facility] 12-02-2023 10:01-0400 Blood Pressure Location KHRIS BRANDON [facility] 12-02-2023 10:01-0400 Body temperature 98.06 [degF] KHIRS ROMA [facility] 12-02-2023 10:01-0400 Diastolic blood pressure 77 mm[Hg] KHRIS ROMA [facility] 12-02-2023 10:01-0400 Heart rate 58 /min KHRIS ROMA [facility] 12-02-2023 10:01-0400 Respiratory rate 16 /min KHRIS ROMA [facility] 12-02-2023 10:01-0400 Systolic blood pressure 128 mm[Hg] KHRIS ROMA [facility] 09-24-2023 08:06-0500 Blood Pressure Location Debi Orzech [facility] 09-24-2023 08:06-0500 Body temperature 98.6 [degF] Debi Orzech [facility] 09-24-2023 08:06-0500 Diastolic blood pressure 80 mm[Hg] Debi Orzech [facility] 09-24-2023 08:06-0500 Heart rate 82 /min Debi Orzech [facility] 09-24-2023 08:06-0500 Systolic blood pressure 124 mm[Hg] Debi Orzech [facility] 08-19-2023 15:43-0500 Body height 166.6 cm Shaikh Guzman HENRY Work Phone: [facility] 08-19-2023 15:43-0500 Body mass index (BMI) [Ratio] 22.38 kg/m2 Shaikh Guzman HENRY Work Phone: [facility] 08-19-2023 15:43-0500 Body temperature 96.49 [degF] Shaikh Guzman HENRY Work Phone: [facility] 08-19-2023 15:43-0500 Body weight 62.14 kg Shaikh Guzman HENRY Work Phone: [facility] 08-19-2023 15:43-0500 Diastolic blood pressure 84 mm[Hg] Shaikh Guzman HENRY Work Phone: [facility] 08-19-2023 15:43-0500 Heart rate 73 /min Shaikh Guzman HENRY Work Phone: [facility] 08-19-2023 15:43-0500 SaO2% (BldA) [Mass fraction] 99 % Shaikh Guzman HENRY Work Phone: [facility] 08-19-2023 15:43-0500 Systolic blood pressure 130 mm[Hg] Shaikh Guzman HENRY Work Phone: [facility] 06-01-2023 11:30-0500 Blood Pressure Location KHRISJULIETTE BRANDON [facility] 06-01-2023 11:30-0500 Diastolic blood pressure 74 mm[Hg] KHRIS ROMA [facility] 06-01-2023 11:30-0500 Heart rate 68 /min KHRIS ROMA [facility] 06-01-2023 11:30-0500 Respiratory rate 16 /min KHRIS ROMA [facility] 06-01-2023 11:30-0500 Systolic blood pressure 116 mm[Hg] KHRIS ROMA [facility] 02-04-2023 11:11-0400 Blood Pressure Location KHRIS ROMA [facility] 02-04-2023 11:11-0400 Diastolic blood pressure 84 mm[Hg] KHRIS ROMA [facility] 02-04-2023 11:11-0400 Heart rate 79 /min KHRIS ROMA [facility] 02-04-2023 11:11-0400 Respiratory rate 16 /min KHRIS ROMA [facility] 02-04-2023 11:11-0400 Systolic blood pressure 132 mm[Hg] KHRIS ROMA [facility] 08-19-2022 12:57-0500 Blood Pressure Location Cynthia Rodriguez [facility] 08-19-2022 12:57-0500 Diastolic blood pressure 87 mm[Hg] Cynthia Rodriguez [facility] [facility] 08-19-2022 12:57-0500 Heart rate 76 /min Cynthia Rodriguez [facility] 08-19-2022 12:57-0500 Systolic blood pressure 135 mm[Hg] Cynthia Rodriguez [facility] 04-29-2022 15:33-0400 Blood Pressure Location KHRIS ROMA [facility] 04-29-2022 15:33-0400 Diastolic blood pressure 76 mm[Hg] KHRIS ROMA [facility] 04-29-2022 15:33-0400 Heart rate 62 /min KHRIS BRANDON [facility] 04-29-2022 15:33-0400 Systolic blood pressure 134 mm[Hg] KHRIS BRANDON [facility] 02-03-2022 09:21-0400 Blood Pressure Location Chucky Berkowitz Jr. [facility] 02-03-2022 09:21-0400 Diastolic blood pressure 82 mm[Hg] Chucky Berkowitz Jr. [facility] 02-03-2022 09:21-0400 Heart rate 70 /min Chucky Berkowitz Jr. [facility] 02-03-2022 09:21-0400 Systolic blood pressure 140 mm[Hg] Chucky Berkowitz Jr. [facility] Encounters Encounter Date Encounter Type Care Provider Facility Start: 12-07-2024 End: 12-07-2024 ambulatory Dione HERNANDEZ Facility:[facility] Start: 11-16-2024 End: 11-16-2024 ambulatory Dione HERNANDEZ Facility:[facility] Start: 11-16-2024 End: 11-16-2024 Patient encounter procedure Dione HERNANDEZ [facility] Start: 11-09-2024 End: 11-09-2024 Lab Drop off No Moore [facility] Start: 11-09-2024 End: 11-09-2024 ambulatory No Moore Facility:[facility] Start: 10-16-2024 End: 10-16-2024 ambulatory Debi X Orzech Facility:[facility] Start: 10-09-2024 End: 10-09-2024 ambulatory Debi X Orzech Facility:[facility] Start: 09-06-2024 End: 09-06-2024 Refill Stephenie Olivier TUBE LANCER Work Phone: [facility] Comment on above: Age-related osteopor osis without current pathological fracture (CMS/HCC); Major depressive disorder, single episode, moderate (HCC) (CMS/HCC) Start: 08-14-2024 End: 08-14-2024 ambulatory Dione HERNANDEZ Facility:[facility] Start: 08-14-2024 End: 08-14-2024 Patient encounter procedure Dione HERNANDEZ [facility] Start: 07-05-2024 End: 07-05-2024 Bamboo flowsheet Zack Wilson DO Work Phone: [facility] Start: 07-05-2024 End: 07-05-2024 Bamboo flowsheet Zack Wilson DO Work Phone: [facility] Start: 07-05-2024 End: 07-05-2024 ambulatory ZACK WILSON Not Available Start: 06-29-2024 End: 06-29-2024 Refill Stephenie Olivier TUBE LANCER Work Phone: [facility] Comment on above: Hyperlipidemia, unsp ecified hyperlipidemia type (CMS/HCC) Start: 06-22-2024 End: 06-22-2024 Lab Drop off Lizette Carrero [facility] Start: 06-22-2024 ambulatory Lizette Carrero Facility :[facility] Start: 06-22-2024 End: 06-22-2024 Patient encounter procedure Lizette Carrero [facility] Start: 05-18-2024 End: 05-19-2024 Refill Stepheniejuancarlos Olivier TUBE LANCER Work Phone: [facility] Comment on above: Essential (primary) hypertension (CMS/HCC); Benign essential hypertension (CMS/HCC) Start: 04-20-2024 End: 04-20-2024 ambulatory Lizette Carrero Facility:[facility] Start: 04-20-2024 End: 04-20-2024 Patient encounter procedure Lizette Carrero [facility] Start: 04-03-2024 End: 04-03-2024 ambulatory Dione HERNANDEZ Facility:[facility] Start: 04-03-2024 End: 04-03-2024 Patient encounter procedure Dione HERNANDEZ [facility] Start: 03-27-2024 End: 03-27-2024 ambulatory Dione HERNANDEZ Facility:[facility] Start: 03-27-2024 End: 03-27-2024 Lab Drop off Dione HERNANDEZ [facility] Start: 03-27-2024 End: 03-27-2024 ambulatory Franki MOTT Facility:[facility] Start: 03-27-2024 End: 03-27-2024 Patient encounter procedure Franki MOTT [facility] Start: 03-02-2024 ambulatory KHRIS Villalobos ty:YANELI Jimenes Start: 01-31-2024 End: 01-31-2024 ambulatory Franki MOTT Facility:[facility] Start: 01-31-2024 End: 01-31-2024 Patient encounter procedure Franki Platt PANTERA [facility] Start: 01-04-2024 End: 01-04-2024 ambulatory ZACK WILSON Not Available Start: 12-07-2023 End: 12-07-2023 ambulatory ZACK WILSON Not Available Start: 12-07-2023 End: 02-08-2024 Pre-admission assessment Dione Frank HERNANDEZ [facility] Start: 12-02-2023 End: 12-02-2023 Lab Drop off KHRIS BRANDON [facility] Start: 12-02-2023 End: 12-02-2023 Patient encounter procedure KHRIS BRANDON [facility]Pierre Start: 09-28-2023 End: 09-28-2023 ambulatory ZACK WILSON Not Available Start: 09-24-2023 End: 09-24-2023 Lab Drop off Debi X Orzech [facility] Start: 09-24-2023 End: 09-24-2023 Patient encounter procedure Debi X Orzech [facility]-Pierre Start: 09-20-2023 End: 09-20-2023 ambulatory ALBA JONATHAN Not Available Start: 09-07-2023 End: 09-07-2023 Patient encounter procedure KHRIS BRANDON [facility] Start: 08-19-2023 End: 08-19-2023 Office outpatient visit [...] ambulatory SHAIKH GUZMAN Not Available Start: 08-19-2023 ipsyheet Shaikh Guzman HENRY Work Phone: [facility] Start: 08-19-2023 ipsyheet Shaikh Guzman HENRY Work Phone: [facility] Start: 06-01-2023 End: 06-01-2023 Lab Drop off KHRIS BRANDON [facility] Start: 06-01-2023 End: 06-01-2023 Patient encounter procedure KHRIS BRANDON [facility] Start: 02-04-2023 End: 02-04-2023 Patient encounter procedure KHRIS BRANDON [facility] Start: 09-24-2022 ambulatory SHAIKH Monique HINDS Facilit y:[facility] Start: 08-19-2022 End: 08-19-2022 Lab Drop off Cynthia Rodriguez [facility] Start: 08-19-2022 End: 08-19-2022 Patient encounter procedure Cynthia Rodriguez [facility] Start: 04-29-2022 End: 04-29-2022 Patient encounter procedure KHRIS BRANDON [facility] Start: 02-10-2022 End: 02-11-[address] DIONE KERNS . Facility:[facility] Start: 02-03-2022 End: 02-03-2022 Patient encounter procedure Chucky Berkowitz Jr. [facility] Start: 12-30-2021 End: 12-30-[address] DIONE KERNS . Facility:[facility] Start: 11-28-2021 End: 11-29-2021 ambulatory SHAIKH Monique HINDS Facility: Start: 11-26-2021 End: 11-27-2021 ambulatory SHAIKH Monique HINDS Facility: Procedures Date Procedure Procedure Detail Performing Clinician Start: 07-05-2024 End: 07-05-2024 [facility] medical xm&eval comprhnsv estab pt 1/> Optic atrophy Zack Wilson DO Work Phone: Comment on above: Optic atrophy (Prima ry Dx); Early dry stage nonexudative age-related macular degeneration of both eyes; Dry eyes; Blepharitis of upper and lower eyelids of both eyes, unspecified type Start: 07-05-2024 End: 07-05-2024 Computerized ophthalmic imaging optic nerve Zack Wilson DO Work Phone: Start: 04-03-2024 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 Lizettekendrick Carrero Start: 02-14-2024 Mammography Stephenie cervantes NP Work Phone: Start: 12-03-2022 Cystourethroscopy wi th dilation of urethral stricture KHRIS BRANDON Start: 02-17-2022 Colonoscopy Shaikh Jerilyn hguhes MD Work Phone: Start: 02-09-2022 Cystourethroscopy wi th dilation of urethral stricture KHRIS BRANDON Start: 11-26-2020 Cataract extraction and insertion of intraocular lens Chucky Woo Perry Start: 11-12-2020 Cataract extraction and insertion of intraocular lens Chucky Woo Perry Start: 01-01-2014 Colonoscopy Shaikh Jerilyn hughes MD Work Phone: Start: 07-19-1981 Bilateral tubal ligation Chucky Woo Perry Plan of Treatment Date Care Activity Detail Author Start: 02-18-2032 Screening for malign ant neoplasm of colon [facility] Start: 02-13-2025 Screening for malign ant neoplasm of breast Mammogram [facility] Start: 01-08-2025 End: 01-08-2025 Patient encounter procedure 01/08/2025 1:00 PM EDT Office Visit [facility] [address] [place] [address] Zack Wilson, [address] [place] [address] [facility] Start: 09-19-2024 Medicare Annual Wellness (AWV) Medicare Annual Wellness (AWV) [facility] Start: 07-05-2024 End: 07-05-2024 Patient encounter procedure [facility] Comment on above: Arrived Start: 03-19-2024 Influenza vaccination Influenza Vacc ine (#1) [facility] Start: 01-02-2024 Screening for malign ant neoplasm of colon [facility] Start: 12-29-2023 End: 12-29-2023 Patient encounter procedure 12/29/2023 3:15 PM EDT Office Visit [facility] [address] [place] [id number] Shaikh Hinds MD [address] [place] [address] [facility] Start: 09-20-2023 End: 09-20-2023 Patient encounter procedure 09/20/2023 10:00 AM EST Office Visit [facility] [address] [place] [id number] Alba Castillo PA [address] [place] [address] [facility] Start: 08-19-2023 End: 08-19-2023 Patient encounter procedure 08/19/2023 3:45 PM EST Office Visit [facility] [address] [place] [address] Shaikh Hinds MD [address] [place] [phone] Arrived [facility] Comment on above: Arrived Start: 08-19-2023 End: 08-19-2024 CBC W Auto Differential panel - Blood CBC and differential Lab Routine Essential hypertension (CMS/HCC) Expected: 08/19/2023 (Approximate), Expires: 08/19/2024 [facility] Comment on above: Expected: 08/19/2023 (Approximate), Expires: 08/19/2024 Start: 08-19-2023 End: 08-19-2024 Cobalamin (Vitamin B12) [Mass/volume] in Serum or Plasma Vitamin B12 Lab Routine Iron deficiency anemia secondary to inadequate dietary iron intake Expected: 08/19/2023 (Approximate), Expires: 08/19/2024 [facility] Comment on above: Expected: 08/19/2023 (Approximate), Expires: 08/19/2024 Start: 08-19-2023 End: 08-19-2024 Comprehensive metabolic 2000 panel - Serum or Plasma Comprehensive metabolic panel Lab Routine Essential hypertension (CMS/HCC) Expected: 08/19/2023 (Approximate), Expires: 08/19/2024 [facility] Comment on above: Expected: 08/19/2023 (Approximate), Expires: 08/19/2024 Start: 08-19-2023 End: 08-19-2024 Ferritin [Mass/volume] in Serum or Plasma Ferritin Lab Routine Iron deficiency anemia secondary to inadequate dietary iron intake Expected: 08/19/2023 (Approximate), Expires: 08/19/2024 [facility] Comment on above: Expected: 08/19/2023 (Approximate), Expires: 08/19/2024 Start: 08-19-2023 End: 08-19-2024 Folate [Mass/volume] in Serum or Plasma Folate Lab Routine Iron deficiency anemia secondary to inadequate dietary iron intake Expected: 08/19/2023 (Approximate), Expires: 08/19/2024 [facility] Comment on above: Expected: 08/19/2023 (Approximate), Expires: 08/19/2024 Start: 08-19-2023 End: 08-19-2024 Iron + transferrin + TIBC Iron + transferrin + TIBC Lab Routine Iron deficiency anemia secondary to inadequate dietary iron intake Expected: 08/19/2023 (Approximate), Expires: 08/19/2024 [facility] Comment on above: Expected: 08/19/2023 (Approximate), Expires: 08/19/2024 Start: 08-19-2023 End: 08-19-2024 Lipid 1996 panel - Serum or Plasma Lipid panel Lab Routine Hyperlipidemia, unspecified hyperlipidemia type (CMS/HCC) Expected: 08/19/2023 (Approximate), Expires: 08/19/2024 [facility] Comment on above: Expected: 08/19/2023 (Approximate), Expires: 08/19/2024 Start: 08-19-2023 End: 10-17-2024 MG Breast - bilateral Screening Bilateral screening mammogram Imaging Routine Encounter for screening mammogram for breast cancer Expected: 08/19/2023, Expires: 10/17/2024 [facility] Work Phone: Comment on above: Expected: 08/19/2023 , Expires: 10/17/2024 Start: 03-19-2023 Influenza vaccination Influenza Vacc ine (#1) [facility] Start: 2020 Pneumococcal Vaccine : 65+ Years (1 - PCV) Pneumococcal Vaccine: 65+ Years (1 - PCV) [facility] Start: 2020 Pneumococcal Vaccine : 65+ Years (1 of 1 - PCV) Pneumococcal Vaccine: 65+ Years (1 of 1 - PCV) [facility] Start: 1995 Screening for malign ant neoplasm of breast Mammogram [facility] Start: 1955 Medicare Annual Wellness (AWV) Medicare Annual Wellness (AWV) [facility] Start: 1955 Screening for malign ant neoplasm of colon [facility] Immunizations Immunization Date Immunization Notes Care Provider [facility] 12-08-2022 zoster vaccine recombinant KHRIS ROMA [facility] 10-07-2022 zoster vaccine recombinant KHRIS ROMA [facility] 05-20-2022 influenza virus vaccine, unspecified formulation Cynthia Rodriguez [facility] 05-20-2022 Influenza, High-dose Seasonal, Quadrivalent, Preservative Free Shaikh Guzman HENRY Work Phone: [facility] 05-20-2022 SARS-CoV-2 (COVID-19 ) [id number] Cynthia Melvinmons [facility] 04-07-2021 influenza virus vaccine, unspecified formulation KHRIS ROMA [facility] 04-07-2021 Influenza, High-dose Seasonal, Quadrivalent, Preservative Free Shaikh Guzman HENRY Work Phone: [facility] 11-20-2020 SARS-CoV-2 (COVID-19 ) mRNA BNT-162b2 vax KHRIS ROMA [facility] 10-30-2020 SARS-CoV-2 (COVID-19 ) mRNA BNT-162b2 vax KHRIS ROMA [facility] Payers Date Payer Category Payer Medicare [id number] 2022 Medicare (Managed Care) [employer] [id number] 2022 Unknown [employer] D [facility] [employer] [id number] 2022-Present [address] [place] [phone] [id number] 2020 Unknown [id number] 1959 Medicare [id number] 1955 Unknown [id number] 2.16.840.1.877450.3.579. 2.593 1955 Unknown [id number] 2.16.840.1.874674.3.579. 2.593 1955 Unknown [id number] 2.16.840.1.695493.3.579. 2.593 1955 Unknown [id number] 2.16.840.1.728529.3.579. 2.593 1955 Unknown [id number] 2.16.840.1.864509.3.579. 2.593 1955 Unknown [id number] 2.16.840.1.218058.3.579. 2.727 1955 Unknown [id number] 2.16.840.1.882523.3.579. 2.727 1955 Unknown [id number] 2.16.840.1.706293.3.579. 2.727 1955 Unknown [id number] 2.16.840.1.803078.3.579. 2.72 1955 Unknown [id number] 2.16.840.1.611496.3.579. 2.72 1955 Unknown [id number] 2.16.840.1.813200.3.579. 2.72 1955 Unknown [id number] 2.16.840.1.738269.3.579. 2.72 1955 Unknown [id number] 2.16.840.1.160627.3.579. 2.72 1955 Unknown [id number] 2.16.840.1.186970.3.579. 2.1258 1955 Unknown [id number] 2.16.840.1.552847.3.579. 2.1259 1955 Unknown [id number] 2.16.840.1.608523.3.579. 2.1258 1955 Unknown [id number] 2.16.840.1.827679.3.579. 2.1259 1955 Unknown [id number] 2.16.840.1.368695.3.579. 2.125 1955 Unknown [id number] 2.16.840.1.180126.3.579. 2.1259 1955 Unknown [id number] 2.16.840.1.912081.3.579. 2.72 1955 Unknown [id number] 2.16.840.1.346195.3.579. 2.72 1955 Unknown [id number] 2.16.840.1.293499.3.579. 2.72 1955 Unknown [id number] 2.16.840.1.098258.3.579. 2.727 1955 Unknown [id number] 2.16.840.1.865939.3.579. 2.727 1955 Unknown [id number] 2.16.840.1.895924.3.579. 2.727 1955 Unknown [id number] 2.16.840.1.949655.3.579. 2.727 Social History Date Type Detail Facility Start: 02-03-2022 End: 12-03-2022 Tobacco smoking status Never smoked tobacco (finding) [facility] Tobacco smoking status Never [facility] Start: 06-18-2023 End: 07-05-2024 Sex Assigned At Female [facility] Start: 06-01-2023 End: 10-16-2024 Tobacco smoking status Ex-smoker (finding) [facility] End: 07-19-1989 History of tobacco use Current smoker [facility] End: 07-19-1989 History of tobacco use Cigarette Smoker [facility] Start: 07-01-2023 End: 07-05-2024 Alcohol intake Current drinker of alcohol (finding) [facility] Start: 06-18-2023 End: 07-05-2024 History of Social function [facility] Start: 06-18-2023 Alcohol Comment Positive alcohol use [facility] Start: 1955 Sex Assigned At Not on file [facility] Sexual Orientation [facility] Start: 09-24-2020 Sex Female (finding) [facility] NEGATED: Highlighted rowStart: NINF History of tobacco use Passive smoker [facility] Medical Equipment Procedure Code Equipment Code Equipment Origin al Text Equipment Identifier Dates CATARACT EXTRACT ION W/ INTRAOCULAR LENS Zack Wilson DO 11/12/20 Non Biological Eye L {[id number] FDA Start: 11-12-2020 CATARACT EXTRACT ION W/ INTRAOCULAR LENS Zack Wilson DO 11/26/20 Non Biological Eye R {[id number] FDA Start: 11-26-2020 Functional Status Date Assessment Result Facility 11-16-2024 Functional Status N/A [facility] 08-14-2024 Functional Status N/A [facility] 06-22-2024 Functional Status N/A [facility] 04-20-2024 Functional Status N/A [facility] 12-02-2023 Functional Status N/A [facility] 09-24-2023 Functional Status N/A [facility] 06-01-2023 Functional Status N/A [facility] 02-04-2023 Functional Status N/A [facility] 08-19-2022 Functional Status N/A [facility] 04-29-2022 Functional Status N/A [facility] 02-03-2022 Functional Status N/A [facility] Clinical Notes 02-03-2022 to 11-16-2024 Note Date & Type Note Facility 11-16-2024 Evaluation + Plan note Extrac vera from: Title:EU Local Cysto with willy tox injection 200 Units - FT Author:Dione HERNANDEZ MD Date:11/16/24 Patient: NICCI MOJICA Age: 69 years Sex: Female : 1955 Associated Diagnoses: None Author: Dione HERNANDEZ MD Procedure Operative Information Details: Date/ Time: 11/16/2024 12:12:00. Pre-Op Dx: Mixed stress and urge urinary incontinence (SCV82-VU N39.46, Working, Medical), OAB (overactive bladder) (OPL18-EP N32.81, Working, Medical), Unspecified urethral stricture, female (FES75-EI N35.92, Working, Medical). Post-Op Dx: Same. Anesthesia Type: Local. Procedure: Local Cystoscopy with botox injection, , along with urethral calibration/dilatation. Complications: None. Risks/Benefits/Informed Consent: Surgical risks, benefits, details of the procedure have been explained to the patient, Full informed consent has been obtained. Intraoperative Information Prepped: Patient is brought back to the endoscopy suite, Female Prep (Patient is placed in modified dorso/lithotomy position, 5 cc 2% Xylocaine Jelly is placed per Urethra, Straight cath inserted to obtain urine specimen, 60 cc 2% Xylocaine liquid inserted into bladder, 5 additional cc 2% Xylocaine Jelly is placed per Urethra, Patient in sitting position for 20 min dwell), Urine Specimen Results Negative for infection, Patient prepped in the usual fashion with Betadine solution, 10 cc 2% Xylocaine Jelly is placed per Urethra, After waiting several minutes the Cystoscope is introduced. Procedure: The trigone was identified and evaluated, The bladder was instilled with enough saline to achieve adequate visualization for the injections, The needle was inserted approximately 2 mm into the detrusor spaced approximately 1 cm apart, Upon placement of the scope, I was unable to. I to proceed with urethral dilatation. [place] sounds were utilized. I was able to paste the [address] [place] sound and followed all the way up to [address] [place]. This caused no bleeding. I was subsequently able to pass the scope into the bladder. Panendoscopy reveals no tumors, no stones. There is a bladder diverticulum extending off the right posterolateral aspect of the bladder. The scope was placed within it. Nothing suspicious present. She does have trabeculation universally. The Botox instillation was initiated. A total of 15 injections were utilized to place 150 units.. The Urethra is: Tight. Botox: 200 units. The ureteral orifices: Show efflux of clear urine. Devices Implanted: None. Removal: Cystoscope is removed, The patient tolerated it well. Postoperative Information Discharge: Patient is discharged home with antibiotic coverage, Follow up arranged, Follow-up within the next 2 to 3 weeks with one of our AALIYAH's with a bladder scan for PVR, knowing that she does carry a moderate residual. The patient understands that we will be monitoring for worsening urinary retention.. Addendum by Dione HERNANDEZ MD on November 16, 2024 12:16 EDT Correction: 150 units Botox injected in total. Future Appointments Appointment Date:12/07/2024 10:40:00 AM Scheduled Provider:Lizette Ball Location:[facility] Appointment Type:URO Office Visit [facility] 05-01-2025 Hospital Discharge instructions Patient Education 11/16/2024 11:49:18 EU - Cystoscopy with Botox Injection Discharge Instructions (Custom) Cystoscopy with Botox injection Voiding after the procedure: there may be some pain, burning, urgency, frequency and blood tinged urine following the procedure. These symptoms usually resolve within 2-5 days. Drink the amount of fluid it takes to keep the urine pink to yellow or clear in color. Drinking enough water and fluids will help to ease any discomfort after your procedure. It may take a few days to a week to notice a gradual improvement in the overactive bladder symptoms. If you are having problems that seem out of the ordinary, please call. If unable to contact your physician and you feel it is an emergency, go to the nearest emergency room or call 911 Do not lift more than fifteen pounds for 1-2 days. If you see a lot of blood, you probably did too much. Diet you may resume your normal diet. Pain control You may take extra strength Tylenol or Motrin for discomfort. Call if you have a fever over 100 degrees. Follow Up Care 10/16/2024 08:40:28 With:Dione HERNANDEZ Address: [address] [id number]- Business (1) When: Unknown Comments:We were able to put the 150 units of Botox into the bladder. Monitor for bladder emptying. We know you do not empty sometimes so it is important that you take your time to do so.Hopefully the dilatation of the urinary channel will help with that as well.Please make a follow-up appointment with one of our nurse practitioners or physician assistants within the next 2 to 3 weeks with a bladder scan.Please finish your antibiotics and have a great day. [facility] 05-01-2025 NotePatient Education Cystoscopy with Botox injection ??? Voiding after the procedure: there may be some pain, burning, urgency, frequency and blood tinged urine following the procedure. These symptoms usually resolve within 2-5 days. Drink the amount of fluid it takes to keep the urine pink to yellow or clear in color. Drinking enough water and fluids will help to ease any discomfort after your procedure. ??? It may take a few days to a week to notice a gradual improvement in the overactive bladder symptoms. ??? If you are having problems that seem out of the ordinary, please call. ??? If unable to contact your physician and you feel it is an emergency, go to the nearest emergency room or call 911 ??? Do not lift more than fifteen pounds for 1-2 days. If you see a lot of blood, you probably did too much. ??? Diet ??? you may resume your normal diet. ??? Pain control ??? You may take extra strength Tylenol or Motrin for discomfort. ??? Call if you have a fever over 100 degrees.[facility] 08-14-2024 Hospital Discharge instructions Patient Education 08/14/2024 10:22:48 Urethral Dilation Urethral Dilation Urethral dilation is a procedure to stretch open (dilate) the urethra. The urethra is the tube thatdrains pee (urine) from the bladder out of the body. In females, the urethra opens above the vaginal opening. In males, the urethra opens at the tip of the penis. Urethral dilation is usually done to treat narrowing of the urethra (urethral stricture), which canmake it difficult to pee (urinate). Urethral strictures can be caused by scar tissue, infection, injury, or surgery. Urethral dilation widens the urethra so that you can pee normally. Urethral dilation is done through the opening of the urethra. There are no incisions made during the procedure. Tell a health care provider about: Any allergies you have. All medicines you are taking, including vitamins, herbs, eye drops, creams, and sqre-kgx-dtoywng medicines. Any problems you or family members have had with anesthesia. Any bleeding problems you have. Any surgeries you have had. Any medical conditions you have. Whether you are or may be . What are the risks? Your health care provider will talk with you about risks. These may include: Bleeding. Infection. A return of urethral stricture, which requires repeating the dilation procedure or more surgery. Damage to the urethra, which may require reconstructive surgery. Allergic reactions to medicines. What happens before the procedure? Medicines Ask your provider about: Changing or stopping your regular medicines. These include any diabetes medicines or blood thinnersyou take. Taking medicines such as aspirin and ibuprofen. These medicines can thin your blood. Do not take them unless your provider tells you to. Taking hpvh-adf-lsxcgzm medicines, vitamins, herbs, and supplements. General instructions Follow instructions from your provider about what you may eat and drink. If you will be going home right after the procedure, plan to have a responsible adult: ?Take you home from the hospital or clinic. You will not be allowed to drive. ?Care for you for the time you are told. Ask your provider: ?How your surgery site will be marked. ?What steps will be taken to help prevent infection. These steps may include: ?Removing hair at the surgery site. ?Washing skin with a soap that kills germs. ?Taking antibiotics. What happens during the procedure? An IV may be inserted into one of your veins. You may be given: ?A local anesthetic to numb your urethral opening. This will be applied as a gel that will also lubricate the opening of the urethra. ?A sedative. This helps you relax. ?Anesthesia. This keeps you from feeling pain. It will make you fall asleep for surgery. A thin tube with a light and camera on the end (cystoscope) will be inserted into your urethra. Your urethra will be rinsed (irrigated) with a germ-free (sterile) water solution. Narrow parts of your urethra will be stretched open using a dilator tool. Your surgeon will start with a very thin dilator, then use wider dilators as needed. A thin tube with an inflatable balloon on the tip may be inserted into your urethra. The balloon may be inflated to help stretch your urethra open. The balloon may be coated with a medicine to help the urethra stay open longer. Your urethra will be irrigated. A catheter will be inserted into your bladder at the end of the procedure. The procedure may vary among providers and hospitals. What happens after the procedure? After the procedure, it is common to have: ?Burning pain when peeing. ?Blood in your pee. ?A need to pee frequently. You will be asked to pee before you leave the hospital or clinic. Your pee flow should improve within a few days. You may have a catheter in your bladder for 2 3 days following your procedure. Follow these instructions at home: Medicines Take kgqw-fwf-stjrbdu and prescription medicines only as told by your provider. If you were prescribed antibiotics, take them as told by your provider. Do not stop using the antibiotic even if you start to feel better. Ask your provider if the medicine prescribed to you: ?Requires you to avoid driving or using machinery. ?Can cause constipation. You may need to take these actions to prevent or treat constipation: ?Take fila-qqv-dtgkvao or prescription medicines. ?Eat foods that are high in fiber, such as beans, whole grains, and fresh fruits and vegetables. ?Limit foods that are high in fat and processed sugars, such as fried or sweet foods. General instructions If you were given a sedative during the procedure, it can affect you for several hours. Do not drive or operate machinery until your provider says that it is safe. If you were sent home with a soft tube (catheter) to help keep your urethra open, follow your provider's instructions about how and when to use it. Drink enough fluid to keep your pee pale yellow. Return to your normal activities as told by your provider. Ask your provider what activities are safe for you. Keep all follow-up visits. Your provider will check your healing and adjust your treatment plan as needed. Contact a health care provider if: Your pee is cloudy and smells bad. You develop new bleeding when you pee. You pass blood clots when you pee. You have pain that does not get better with medicine. You have a fever. Your genital area is swollen, bruised, or discolored. This includes: ?The penis, scrotum, and inner thighs for males. ?The outer genital organs (vulva) and inner thighs for females. Get help right away if: You develop new bleeding that does not stop. You cannot pee. Your catheter stops draining pee. You cannot pee after your catheter is removed. These symptoms may be an emergency. Get help right away. Call 911. Do not wait to see if the symptoms will go away. Do not drive yourself to the hospital. This information is not intended to replace advice given to you by your health care provider. Make sure you discuss any questions you have with your health care provider. Document Revised: 04/29/2023 Document Reviewed: 04/29/2023 [employer] Patient Education 2023 [employer] Follow Up Care 06/27/2024 15:40:12 With:MARY HENRY, Dione Marie, URL Address: [address] [place], [place] [address] [address] [place], [place] [id number]- When: Unknown [facility] Jean-Pierre [id number] NotePatient Education Urology Urethral Dilation Urethral dilation is a procedure to stretch open (dilate) the urethra. The urethra is the tube thatdrains pee (urine) from the bladder out of the body. In females, the urethra opens above the vaginal opening. In males, the urethra opens at the tip of the penis. Urethral dilation is usually done to treat narrowing of the urethra (urethral stricture), which canmake it difficult to pee (urinate). Urethral strictures can be caused by scar tissue, infection, injury, or surgery. Urethral dilation widens the urethra so that you can pee normally. Urethral dilation is done through the opening of the urethra. There are no incisions made during the procedure. Tell a health care provider about: ??? Any allergies you have. ??? All medicines you are taking, including vitamins, herbs, eye drops, creams, and yhrn-ubg-sjyoxcx medicines. ??? Any problems you or family members have had with anesthesia. ??? Any bleeding problems you have. ??? Any surgeries you have had. ??? Any medical conditions you have. ??? Whether you are or may be . What are the risks? Your health care provider will talk with you about risks. These may include: ??? Bleeding. ??? Infection. ??? A return of urethral stricture, which requires repeating the dilation procedure or more surgery. ??? Damage to the urethra, which may require reconstructive surgery. ??? Allergic reactions to medicines. What happens before the procedure? Medicines Ask your provider about: ??? Changing or stopping your regular medicines. These include any diabetes medicines or blood thinners you take. ??? Taking medicines such as aspirin and ibuprofen. These medicines can thin your blood. Do not take them unless your provider tells you to. ??? Taking whsw-ihu-vmhdvpi medicines, vitamins, herbs, and supplements. General instructions ??? Follow instructions from your provider about what you may eat and drink. ??? If you will be going home right after the procedure, plan to have a responsible adult: ? Take you home from the hospital or clinic. You will not be allowed to drive. ? Care for you for the time you are told. ??? Ask your provider: ? How your surgery site will be marked. ? What steps will be taken to help prevent infection. These steps may include: ? Removing hair at the surgery site. ? Washing skin with a soap that kills germs. ? Taking antibiotics. What happens during the procedure? An IV may be inserted into one of your veins. ??? You may be given: ? A local anesthetic to numb your urethral opening. This will be applied as a gel that will also lubricate the opening of the urethra. ? A sedative. This helps you relax. ? Anesthesia. This keeps you from feeling pain. It will make you fall asleep for surgery. ??? A thin tube with a light and camera on the end (cystoscope) will be inserted into your urethra. ??? Your urethra will be rinsed (irrigated) with a germ-free (sterile) water solution. ??? Narrow parts of your urethra will be stretched open using a dilator tool. Your surgeon will start with a very thin dilator, then use wider dilators as needed. ??? A thin tube with an inflatable balloon on the tip may be inserted into your urethra. The balloon may be inflated to help stretch your urethra open. The balloon may be coated with a medicine to help the urethra stay open longer. ??? Your urethra will be irrigated. ??? A catheter will be inserted into your bladder at the end of the procedure. The procedure may vary among providers and hospitals. What happens after the procedure? After the procedure, it is common to have: ? Burning pain when peeing. ? Blood in your pee. ? A need to pee frequently. ??? You will be asked to pee before you leave the hospital or clinic. ??? Your pee flow should improve within a few days. ??? You may have a catheter in your bladder for 2?3 days following your procedure. Follow these instructions at home: Medicines ??? Take vwjz-via-lpvrmiy and prescription medicines only as told by your provider. ??? If you were prescribed antibiotics, take them as told by your provider. Do not stop using the antibiotic even if you start to feel better. ??? Ask your provider if the medicine prescribed to you: ? Requires you to avoid driving or using machinery. ? Can cause constipation. You may need to take these actions to prevent or treat constipation: ? Take lzya-xhc-sgeronx or prescription medicines. ? Eat foods that are high in fiber, such as beans, whole grains, and fresh fruits and vegetables. ? Limit foods that are high in fat and processed sugars, such as fried or sweet foods. General instructions ??? If you were given a sedative during the procedure, it can affect you for several hours. Do not drive or operate machinery until your provider says that it is safe. ??? If you were sent home with a soft tube (catheter) (more content not included)...[facility]12-18-2024 NoteRight Eye Quality was good. Scan locations included subfoveal. Progression has been stable. Findings include abnormal foveal contour. Left Eye Quality was good. Scan locations included subfoveal. Progression has been stable. Findings include abnormal foveal contour. Notes Macular Volume Loss both eyes (OU)[id number] Evaluation + Plan note Diagnostic Tests Pending * Urine Culture 06/22/24 [facility] [id number] Hospital Discharge instructions Patient Education 06/22/2024 09:43:55 Urethral Stricture Urethral Stricture Urethral stricture is when the tube that drains pee (urine) from the bladder out of the body (urethra) becomes too narrow. The urethra can become narrow because of scar tissue, infection, surgery, popeye injury. This can make it difficult to pee (urinate). In females, the urethra opens above the vaginal opening. In males, the urethra opens at the tip of the penis, and the urethra is much longer than it is in females. Because of the length of the male urethra, urethral stricture is much more common in males. What are the causes? In males and females, common causes of urethral stricture include: Urinary tract infection (UTI). Sexually transmitted infection (STI). Using a soft tube in the urethra to drain pee from the bladder (urinary catheter). Urinary tract surgery. In males, common causes of urethral stricture include: A severe injury to the pelvis. Prostate surgery. Injury to the penis. In many cases, the cause of urethral stricture is not known. What increases the risk? You are more likely to develop this condition if you: Are male. Males who have had prostate surgery are at risk of developing this condition. Use a urinary catheter. Have had urinary tract surgery. What are the signs or symptoms? The main symptom of this condition is trouble peeing. This may cause decreased pee flow, dribbling,or spraying of pee. Other symptom of this condition may include: Frequent UTIs. Blood in the pee. Pain when peeing. Swelling of the penis in males. Not being able to pee. How is this diagnosed? This condition may be diagnosed based on: Your medical history and a physical exam. Tests of your pee to check for infection or bleeding. X-rays. Ultrasound. Retrograde urethrogram. With this test, a dye is injected into the urethra and then an X-ray is taken. Urethroscopy. This is when a thin tube with a light and camera on the end (urethroscope) is used tolook at the urethra. A CT scan or MRI. How is this treated? This condition is treated with surgery or other procedures. The type of surgery that you have depends on the severity of your condition. You may have: Urethral dilation. In this procedure, the narrow part of the urethra is stretched open (dilated) with dilating instruments or a small balloon. Urethrotomy. In this procedure, a urethroscope is placed into the urethra, and the narrow part of the urethra is cut open with a surgical blade or laser inserted through the urethroscope. Urethroplasty. In this procedure, an incision is made in the urethra and the narrow part is removed. Then, the urethra is reconstructed. Follow these instructions at home: Take lcje-pig-cbeqstz and prescription medicines only as told by your health care provider. If you were prescribed antibiotics, take them as told by your provider. Do not stop using the antibiotic even if you start to feel better. Drink enough fluid to keep your pee pale yellow. Keep all follow-up visits. Your provider will check your healing and adjust your treatment plan as needed. Contact a health care provider if: You have frequent peeing or you are only peeing small amounts often. You feel the need to pee urgently. You have pain or burning when you pee. Your pee smells bad or unusual. Your pee is bloody or cloudy. You have pain in your lower abdomen or back. Your genital area is swollen, bruised, or discolored. This includes: ?The penis, scrotum, and inner thighs for males. ?The outer genital organs (vulva) and inner thighs for females. You have a fever. You develop swelling in your legs. Get help right away if: You cannot pee. You have trouble breathing. These symptoms may be an emergency. Get help right away. Call 911. Do not wait to see if the symptoms will go away. Do not drive yourself to the hospital. This information is not intended to replace advice given to you by your health care provider. Make sure you discuss any questions you have with your health care provider. Document Revised: 04/29/2023 Document Reviewed: 04/29/2023 [employer] Patient Education 2023 [employer] Follow Up Care 04/20/2024 12:07:55 With:MARY HENRY, Dione Marie, URL Address: [address] [place] [address] When: Unknown Comments:our corporate treasurer will be calling you to schedule in office [facility] 10-03-2024 Hospital Discharge instructions Patient Education 04/20/2024 12:16:00 Overactive Bladder, Adult Overactive Bladder, Adult Overactive [...] You may also have very sensitive muscles thatmake your bladder squeeze too soon. This condition [...] your health care provider. General instructions Take xvpn-vqo-ngsvmpa and prescription medicines only as told by your health care provider. If you were prescribed an antibiotic medicine, take it as told by your health care provider. Do notstop taking the antibiotic even if you start [...] provider. Document Revised: 03/24/2021 Document Reviewed: 03/24/2021 [employer] Patient Education 2023 [employer] Follow Up Care 04/03/2024 13:45:38 With:Magan GARRISON, Lizette Urbina, URL Address: When:3 months Comments:8 weeks w/ PVR [facility] Jessica 10-03-2024 NotePatient Education Obstetrics and Gynecology Overactive Bladder, Adult [...] You may also have very sensitive muscles thatmake your bladder squeeze too soon. This condition [...] as stroke, dementia, Parkinson's disease, or multiple sclerosis(MS). ? Eat or drink alcohol, spicy food, [...] health care provider. General instructions ? Take yszx-jvg-phpmfbl and prescription medicines only as told by [...] urinate. This will help your health care (more content not included)...[facility]09-16-[facility]24 Hospital Discharge instructions Patient Education 04/03/2024 13:22:20 [facility] - Cystoscopy with Botox Injection Discharge Instructions (Custom) Cystoscopy with Botox injection Voiding after the procedure: there may be some pain, burning, urgency, frequency and blood tinged urine following the procedure. These symptoms usually resolve within 2-5 days. Drink the amount of fluid it takes to keep the urine pink to yellow or clear in color. Drinking enough water and fluids will help to ease any discomfort after your procedure. It may take a few days to a week to notice a gradual improvement in the overactive bladder symptoms. If you are having problems that seem out of the ordinary, please call. If unable to contact your physician and you feel it is an emergency, go to the nearest emergency room or call 911 Do not lift more than fifteen pounds for 1-2 days. If you see a lot of blood, you probably did too much. Diet you may resume your normal diet. Pain control You may take extra strength Tylenol or Motrin for discomfort. Call if you have a fever over 100 degrees. Follow Up Care 12/07/2023 10:48:01 With:Lizette Carrero Address:Unknown When:2 to 4 weeks Comments:Please make an appointment so we can check the urine and do the bladder scan to be sure you are emptying the bladder. For now, stay on the Vesicare (solefenacin), which may be stopped at that visit. Have a great day! [facility] 09-16-2024 NotePatient Education Cystoscopy with Botox injection ? Voiding after the procedure: there may be some pain, burning, urgency, frequency and blood tingedurine following the procedure. These symptoms usually resolve within 2-5 days. Drink the amount of fluid it takes to keep the urine pink to yellow or clear in color. Drinking enough water and fluids will help to ease any discomfort after your procedure. ? It may take a few days to a week to notice a gradual improvement in the overactive bladder symptoms. ? If you are having problems that seem out of the ordinary, please call. ? If unable to contact your physician and you feel it is an emergency, go to the nearest emergency room or call 911 ? Do not lift more than fifteen pounds for 1-2 days. If you see a lot of blood, you probably did too much. ? Diet ? you may resume your normal diet. ? Pain control ? You may take extra strength Tylenol or Motrin for discomfort. ? Call if you have a fever over 100 degrees.[facility] 12-02-2023 Evaluation + Plan note Diagnostic Tests Pending * Urine Culture 12/02/23 [facility]05-16-2024 Hospital Discharge instructions Patient Education 12/02/2023 10:28:46 [...] including vitamins, herbs, eye drops, creams, and qzxw-xcj-feojila medicines. Any problems you or family members [...] provider tells you to take them. Taking mzre-dyl-rdaignh medicines, vitamins, herbs, and supplements. General instructions [...] Follow these instructions at home: Medicines Take vyak-yqe-baqkbqx and prescription medicines only as told by your health care provider. If you were prescribed an antibiotic medicine, take it as told by your health care provider. Do notstop using the antibiotic even if you start [...] provider. Document Revised: 01/09/2022 Document Reviewed: 01/09/2022 [employer] Patient Education 2022 [employer] Follow Up Care 09/24/2023 08:48:04 With:MARY HENRY, Dione Marie, URL Address: [facility] [address] [place], [place] [id number]- When: Unknown Comments:prashant Gonzalez [facility] Jean-Pierre [id number] Hospital Discharge instructions Patient Education 09/24/2023 09:05:26 Urinary Incontinence Urinary Incontinence Urinary incontinence refers to a condition in which a person is unable to control where and when topass urine. A person with this condition will urinate involuntarily. This means that the person urinates when he or she does not mean to. What are the causes? This condition may be caused by: Medicines. Infections. Constipation. Overactive bladder muscles. Weak bladder muscles. Weak pelvic floor muscles. These muscles provide support for the bladder, intestine, and, in women,the uterus. Enlarged prostate in men. The prostate [...] a small amount, or constantly dribbling urine (overflowincontinence). Urinating because you cannot get to the [...] fiber include beans, whole grains, and fresh fruitsand vegetables. Behavioral changes, such as: ?Pelvic floor [...] nerve stimulation). ?For women, using a medical billing assistant to prevent urine leaks. This is a small, tampon-like, disposabledevice that is inserted into the urethra. ?Injecting [...] right after experiencing incontinence. General instructions Take woou-xxr-vrhzfys and prescription medicines only as told by [...] important. Where to find more information National [employer] and [employer]estive and Kidney Diseases: www.niddk.nih.gov [employer] [employer]: www.urologyhealth.org Contact a health care [...] is unable to control where and when topass urine. This condition may be caused by medicines, infection, weak bladder muscles, weak pelvic floor muscles, enlargement of the prostate (in men), or surgery. Factors such as older age, obesity, and childbirth, menopause, neurological diseases, andchronic coughing may increase your risk for developing [...] provider. Document Revised: 02/07/2021 Document Reviewed: 02/07/2021 [employer] Patient Education 2022 [employer] 09/24/2023 09:05:24 Kegel Exercises Kegel Exercises Kegel [...] muscles. These are the same muscles you squeezewhen you try to stop the flow of [...] tight lift in your rectal area. If youare a female, you should also feel a [...] provider. Document Revised: 11/13/2021 Document Reviewed: 11/13/2021 [employer] Patient Education 2022 [employer] Follow Up Care 09/06/2023 13:10:25 With:KHRIS BRANDON PA-C, URL Address: [address] [place] [address] When:Within 3 Month(s) Comments:w/ PVR [facility] [place] [id number] History of Present illness Narrative* Shaikh Guzman MD - 08/19/2023 5:03 PM ESTAssociated Problem(s): Hyperlipidemia (CMS/HCC) On Lipitor 20 mg. Check Lipid panel. * Shaikh Guzman MD - 08/19/2023 5:02 PM ESTAssociated Problem(s): Mixed incontinence Following Urology and recently started using Vesicare. * Shaikh Guzman MD - 08/19/2023 5:02 PM ESTAssociated Problem(s): Recurrent major depressive disorder, in full remission (CMS/HCC) Was acutely exacerbated by her 's illness and then his . She was started on Lexapro andhas been doing well on it. Her mood is stable and depression well controlled on current dose of Lexapro. Denies adverse effects and tolerating it well. * Shaikh Guzman MD - 08/19/2023 5:01 PM ESTAssociated Problem(s): Iron deficiency anemia secondary to inadequate dietary iron intake Normal colonoscopy 03/09. On PO Iron. Check Iron profile, CBC. * Shaikh Guzman MD - 08/19/2023 5:00 PM ESTAssociated Problem(s): Essential hypertension (CMS/HCC) BP well controlled. On average less than 130/90. Tolerating Anti hypertensive w/o adverse effects. Denies lightheadedness, dizziness, syncope, presyncope. Patient encouraged to continue with home BP monitoring and call office if he experiences orthostatic symptoms or persistently elevated BP. C/w atenolol. * Shaikh Guzman MD - 08/19/2023 3:45 PM EST Subjective Patient ID: Nicci Mojica is a [...] anything else by mouth or lie down forthe next 30 min. atenolol (Tenormin) 25 MG [...] mg by mouth in the morning and 325mg before bedtime. Do not crush, chew, or [...] his . She was started on Lexapro andhas been doing well on it. Her mood [...] 3 months (around 11/17/2023). documented [place] [id number] Hospital Discharge instructions Patient Education 06/01/2023 12:05:35 [...] You may also have very sensitive muscles thatmake your bladder squeeze too soon. This condition [...] your health care provider. General instructions Take qwtt-nqd-arumniq and prescription medicines only as told by your health care provider. If you were prescribed an antibiotic medicine, take it as told by your health care provider. Do notstop taking the antibiotic even if you start [...] provider. Document Revised: 03/24/2021 Document Reviewed: 03/24/2021 [employer] Patient Education 2022 [employer] 06/01/2023 11:59:28 Clean Intermittent Catheterization, Female Clean Intermittent Catheterization, Female Clean intermittent catheterization (CIC) is a procedure to remove urine from the bladder by placinga small, flexible tube (catheter) into the bladder though the urethra. The urethra is a tube in thebody that carries urine from the bladder out [...] and water are not available, use hand clinical support tech. 2.Prepare the supplies that you will use [...] pointing to the ceiling. You may wish toplace a waterproof mat or pad under you. [...] skin around your vagina (labia) with your non- dominant hand. For example, if you are right-handed, [...] reusable catheter in a small bathroom. Take pznp-dpf-paanukd and prescription medicines only as told by [...] to remove urine from the bladder by placinga small, flexible tube (catheter) into the bladder [...] provider. Document Revised: 05/11/2022 Document Reviewed: 05/11/2022 [employer] Patient Education 2022 [employer] Follow Up Care 05/03/2023 11:43:53 With:ROMA OSCAR, KHRIS Salazar, URL Address: [address] [place] [address] When: Unknown [facility] 07-20-2023 Hospital Discharge instructions Patient Education 02/04/2023 12:00:21 [...] muscles. These are the same muscles you squeezewhen you try to stop the flow of [...] tight lift in your rectal area. If youare a female, you should also feel a [...] provider. Document Revised: 11/13/2021 Document Reviewed: 11/13/2021 [employer] Patient Education 2022 [employer] Follow Up Care 12/03/2022 14:42:27 With:ROMA OSCAR, KHRIS Salazar, URL Address: [address] [facility] [place] [address] When:Within 2 Month(s) [facility] [place] 02-01-2023 Evaluation + Plan note Diagnostic Tests Pending * Urine Culture 08/19/22 [facility]10-12-2022 Hospital Discharge instructions Patient Education 04/29/2022 15:36:40 [...] You may also have very sensitive muscles thatmake your bladder squeeze too soon. These symptoms [...] fried and sweet foods. General instructions Take yfgf-cnb-pgaaect and prescription medicines only as told by your health care provider. If you were prescribed an antibiotic medicine, take it as told by your health care provider. Do notstop taking the antibiotic even if you start [...] 05/01/2010 Document Revised: 10/26/2019 Document Reviewed: 07/21/2018 [employer] Patient Education 2019 [employer] Follow Up Care 04/07/2022 15:15:55 With:ROMA OSCAR, KHRIS Salazar, URL Address: [address] [place] [address] [address] [facility] [place] [phone] When: Unknown [facility] 07-19-2022 Hospital Discharge instructions Patient Education 02/03/2022 09:39:24 [...] You may also have very sensitive muscles thatmake your bladder squeeze too soon. These symptoms [...] fried and sweet foods. General instructions Take chpr-jnk-jxueqqr and prescription medicines only as told by your health care provider. If you were prescribed an antibiotic medicine, take it as told by your health care provider. Do notstop taking the antibiotic even if you start [...] 05/01/2010 Document Revised: 10/26/2019 Document Reviewed: 07/21/2018 [employer] Patient Education 2020 [employer] [facility] evaluation + Plan note No data available for this section [facility] evaluation + Plan note Future Appointments Appointment Date:03/30/2023 09:00:00 AM Scheduled Provider:KHRIS BRANDON PA-C Location:[facility] Appointment Type:URO Office Visit [facility] Evaluation + Plan note Future Appointments Appointment Date:09/07/2023 02:00:00 PM Scheduled Provider:KHRIS BRANDON PA-C Location:[facility] Appointment Type:URO Office Visit [facility] evaluation + Plan note Future Appointments Appointment Date:09/07/2023 02:00:00 PM Scheduled Provider:KHRIS BRANDON PA-C Location:[facility] Appointment Type:URO Office Visit Diagnostic Tests Pending * [facility] App[facility]ments Appointment Date:09/24/2023 08:00:00 AM Scheduled Provider:BLADIMIR Lucio APRN, [place] Location:[facility] Appointment Type:URO Office Visit [facility] evaluation + Plan note Future Appointments Appointment Date:12/30/2023 03:15:00 PM Scheduled Provider:KHRIS BRANDON PA-C Location:[facility] Appointment Type:URO Office Visit [facility] evaluation + Plan note Future Appointments Appointment Date:12/30/2023 03:15:00 PM Scheduled Provider:KHRIS BRANDON PA-C Location:[facility] Appointment Type:URO Office Visit Diagnostic Tests Pending * [facility]ments Appointment Date:02/02/2024 10:00:00 AM Scheduled Provider: Location:[facility] Appointment Type:Urology CALL PAT FT Appointment Date:02/07/2024 03:00:00 PM Scheduled Provider: Location:[facility] Appointment Type:Urology FT [facility] evaluation + Plan note Future Appointments Appointment Date:04/03/2024 01:15:00 PM Scheduled Provider: Location:[facility] Appointment Type:Urology FT [facility] evaluation + Plan note Future Appointments Appointment Date:04/03/2024 01:15:00 PM Scheduled Provider: Location:[facility] Appointment Type:Urology FT Diagnostic Tests Pending * Urine Culture 03/27/24 [facility] Evaluation + Plan note Future Appointments Appointment Date:06/22/2024 09:00:00 AM Scheduled Provider:Lizette Ball Location:[facility] Appointment Type:URO Office Visit [facility] evaluation + Plan note Future Appointments Appointment Date:04/20/2024 11:00:00 AM Scheduled Provider:Lizette Ball Location:[facility] Appointment Type:URO Office Visit [facility] evaluation + Plan note Future Appointments Appointment Date:10/09/2024 10:20:00 AM Scheduled Provider:BLADIMIR Lucio APRN, [place] Location:[facility] Appointment Type:URO Office Visit [facility] Evaluation + Plan note Future Appointments Appointment Date:11/14/2024 12:00:00 PM Scheduled Provider: Location:[facility] Appointment Type:Urology CALL PAT FT Appointment Date:11/16/2024 11:15:00 AM Scheduled Provider: Location:[facility] Appointment Type:Urology FT Diagnostic Tests Pending * Urine Culture 11/09/24 [facility] Evaluation note* Diagnosis Hyperlipidemia, unspecified hyperlipidemia type (CMS/HCC)- Primary Essential hypertension (CMS/HCC) Unspecified essential hypertension Mixed incontinence Mixed incontinence urge and stress (male)(female) Encounter for screening mammogram for breast cancer Iron deficiency anemia secondary to inadequate dietary iron intake Recurrent major depressive disorder, in full remission (CMS/HCC) [facility] Diagnosis Hyperlipidemia, unspecified hyperlipidemia type (CMS/HCC)- Primary Essential hypertension (CMS/HCC) Unspecified essential hypertension Mixed incontinence Mixed incontinence urge and stress (male)(female) Encounter for screening mammogram for breast cancer Iron deficiency anemia secondary to inadequate dietary iron intake Recurrent major depressive disorder, in full remission (CMS/HCC) Essential (primary) hypertension (CMS/HCC) Unspecified essential hypertension Benign essential hypertension (CMS/HCC) Essential hypertension, benign [facility] Diagnosis Hyperlipidemia, unspecified hyperlipidemia type (CMS/HCC)- Primary Essential hypertension (CMS/HCC) Unspecified essential hypertension Mixed incontinence Mixed incontinence urge and stress (male)(female) Encounter for screening mammogram for breast cancer Iron deficiency anemia secondary to inadequate dietary iron intake Recurrent major depressive disorder, in full remission (CMS/HCC) Hyperlipidemia, unspecified hyperlipidemia type (CMS/HCC) [facility] Diagnosis Hyperlipidemia, unspecified hyperlipidemia type (CMS/HCC)- Primary Essential hypertension (CMS/HCC) Unspecified essential hypertension Mixed incontinence Mixed incontinence urge and stress (male)(female) Encounter for screening mammogram for breast cancer Iron deficiency anemia secondary to inadequate dietary iron intake Recurrent major depressive disorder, in full remission (CMS/HCC) 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 dry stage nonexudative age-related macular degeneration of both eyes Dry eyes Unspecified tear film insufficiency Blepharitis of upper and lower eyelids of both eyes, unspecified type [facility] Diagnosis Hyperlipidemia, unspecified hyperlipidemia type (CMS/HCC)- Primary Essential hypertension (CMS/HCC) Unspecified essential hypertension Mixed incontinence Mixed incontinence urge and stress (male)(female) Encounter for screening mammogram for breast cancer Iron deficiency anemia secondary to inadequate dietary iron intake Recurrent major depressive disorder, in full remission (CMS/HCC) Age-related osteoporosis without current pathological fracture (CMS/HCC) Major depressive disorder, single episode, moderate (HCC) (CMS/HCC) Major depressive disorder, single episode, moderate [facility] Narrative* Zack Wilson DO - 07/05/2024 1:00 PM EST Images from the original note were not included. Assessment/Plan Diagnoses and all orders for this visit: Optic atrophy - Condition d/w pt. Stable. Unclear source. Advised starting Alphagan P both eyes (OU) BID for neuroprotective effect and if possible an intraocular pressure (IOP) aspect although her intraocular pressure (IOP)s have been stable. Early dry stage nonexudative age-related macular degeneration of both eyes - ARMD OU, dry. Importance of smoking cessation, blood pressure control, and healthy diet were emphasized. Patient was advised to consider ultraviolet-B blocking sunglasses. In accordance with the AREDS study, appropriate antioxidant and mineral supplements were prescribed. Patient was instructed to self monitor their monocular vision (reading/Amsler Grid) at least weekly. Patient should immediately report any new onset of decreased vision or metamorphopsia. Dry eyes - Dry Eyes OU -- Environmental changes to minimize dryness and exposure and the use of artificial tears were recommended. Blepharitis of upper and lower eyelids of both eyes, unspecified type - Blepharitis, posterior type OU - The patient exhibits inspissated meibomian glands. Warm compresses, lid massage and lid scrubs were recommended. [facility] Dis[facility] instructions No data available for this section [facility] [place] Progress note No data available for this section [facility] Summary Purpose Family History No Family History [...] History Records FoundNo Family History Records Found Advance Directives No [...] section and content) DATE CREATED AUTHOR 01/09/2022 [facility] DATE CREATED AUTHOR AUTHOR'S ORGANIZ ATION 09/25/2022 [facility] DATE CREATED AUTHOR AUTHOR'S ORGANIZ ATION 12/06/2023 [facility] DATE CREATED AUTHOR AUTHOR'S ORGANIZ ATION 03/31/2024 [facility] DATE CREATED AUTHOR AUTHOR'S ORGANIZ ATION 04/01/2024 [facility] DATE CREATED AUTHOR AUTHOR'S ORGANIZ ATION 04/21/2024 [facility] DATE CREATED AUTHOR AUTHOR'S ORGANIZ ATION 06/27/2024 [facility] DATE CREATED AUTHOR AUTHOR'S ORGANIZ ATION [facility]/20[facility] DATE CREATED AUTHOR AUTHOR'S ORGANIZ ATION 11/11/2024 [facility] DATE CREATED AUTHOR AUTHOR'S ORGANIZ ATION 11/12/2024 [facility] DATE CREATED AUTHOR AUTHOR'S ORGANIZ ATION 12/13/2024 [facility] DATE CREATED AUTHOR AUTHOR'S ORGANIZ ATION 12/14/2024 [facility] Care Team (unrecognized sect ion and content) Chief Fundraising Officer Relationship Specialty Start Date End Date Shaikh Hinds MD [address] [place] [address] PCP - Devoted 04/18/23 Shaikh Hinds MD [address] [place] [id number] PCP - General Internal Medicine 08/19/23 Chief Fundraising Officer Relationship Specialty Start Date End Date Shaikh Hinds MD [address] [place] [id number] PCP - Devoted 04/18/23 Shaikh Hinds MD [address] [place] [phone] PCP - General Internal Medicine 08/19/23 Chief Fundraising Officer Relationship Specialty Start Date End Date Shaikh Hinds MD [address] [place] [phone] PCP - Devoted 07/19/22 Shaikh Hinds MD [address] [place] [phone] PCP - General Internal Medicine 08/19/23 Chief Fundraising Officer Relationship Specialty Start Date End Date Shaikh Hinds MD [address] [place] [phone] PCP - Devoted 07/19/22 Shaikh Hinds MD [address] [place] [id number] PCP - General Internal Medicine 08/19/23 Chief Fundraising Officer Relationship Specialty Start Date End Date Shaikh Hinds MD [address] [place] [id number] PCP - Devoted 07/19/22 Shaikh Hinds MD [address] [place] [phone] PCP - General Internal Medicine 08/19/23 Chief Fundraising Officer Relationship Specialty Start Date End Date Shaikh Hinds MD [address] [place] [phone] PCP - Devoted 07/19/22 Shaikh Hinds MD [address] [place] [phone] PCP - General Internal Medicine 08/19/23 Reason for Visit (unrecogniz ed section and content) Reason Comments Follow-up Reason Comments Med Refill Reason Comments Follow-up Macular Degeneration FOR RECORDS PERTAINING TO PATIENTS WHO ARE [...] BE BASED ON THE PRIMARY CLINICAL RECORDS. [employer] [facility]. provides no warranty or guarantee of the accuracy or completeness of information in this document.
--- NOTE | 2025-01-18 00:10 | XR_ITS ---
The [address] [address] Patient Name: CHLOE BADILLO MRN: [id number] date: 1955 Sex: F Assigned Patient Location: ER Current Patient Location: Accession/Order Number: [id number] Exam Date: 01/18/2025 08:14 Report Date: 01/18/2025 08:20 At the request of: SAGAR HESS Procedure: XR foot RT min 3V CLINICAL DATA: Patient fell and has right ankle pain and deformity. RIGHTANKLE - 3 views COMPARISON: None AP, lateral and oblique views were obtained. There is artifact from a splint. There is an oblique comminuted fracture at the distal fibular shaft with mild displacement of fracture fragments. There is also transverse displaced fracture at the medial malleolus. There is widening of the medial ankle mortise. The talar dome is intact. XR/XR foot RT min 3V IMPRESSION: BIMALLEOLAR FRACTURE WITH DISRUPTION OF ANKLE MORTISE . RIGHT FOOT - 3 views COMPARISON: None AP, lateral and oblique views were obtained. There is slight deformity at the posterior calcaneus. This may be normal for the patient, however without priors, clinical correlation is recommended to exclude any possibility of injury. There is no other obvious acute fracture or dislocation. A tiny spur is present at the insertion of the Achilles tendon. There are no significant soft tissue abnormalities. IMPRESSION: INDETERMINANT POSTERIOR CALCANEAL DEFORMITY. FOCAL CLINICAL CORRELATION IS RECOMMENDED WITH FOLLOW-UP IMAGING, IF WARRANTED. Impression dictated by: Veronica Pickering M.D. 01/18/2025 8:20 AM Dictation Location: [place] [address] Electronically authenticated by: [id number] Y Date: 01/18/2025 08:20
--- NOTE | 2025-01-18 00:10 | XR_ITS ---
The [address] [address] Patient Name: CHLOE BADILLO MRN: [id number] date: 1955 Sex: F Assigned Patient Location: ER Current Patient Location: Accession/Order Number: [id number] Exam Date: 01/18/2025 08:14 Report Date: 01/18/2025 08:20 At the request of: SAGAR HESS Procedure: XR foot RT min 3V CLINICAL DATA: Patient fell and has right ankle pain and deformity. RIGHTANKLE - 3 views COMPARISON: None AP, lateral and oblique views were obtained. There is artifact from a splint. There is an oblique comminuted fracture at the distal fibular shaft with mild displacement of fracture fragments. There is also transverse displaced fracture at the medial malleolus. There is widening of the medial ankle mortise. The talar dome is intact. XR/XR ankle RT min 3V IMPRESSION: BIMALLEOLAR FRACTURE WITH DISRUPTION OF ANKLE MORTISE . RIGHT FOOT - 3 views COMPARISON: None AP, lateral and oblique views were obtained. There is slight deformity at the posterior calcaneus. This may be normal for the patient, however without priors, clinical correlation is recommended to exclude any possibility of injury. There is no other obvious acute fracture or dislocation. A tiny spur is present at the insertion of the Achilles tendon. There are no significant soft tissue abnormalities. IMPRESSION: INDETERMINANT POSTERIOR CALCANEAL DEFORMITY. FOCAL CLINICAL CORRELATION IS RECOMMENDED WITH FOLLOW-UP IMAGING, IF WARRANTED. Impression dictated by: Veronica Pickering M.D. 01/18/2025 8:20 AM Dictation Location: [place] [address] Electronically authenticated by: [id number] Y Date: 01/18/2025 08:20
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
[2025-01-18] MEDS: BACITRACIN 0.9 GM PACKET 1 PACKET TOPICAL (00:44)
[2025-01-18] MEDS: HYDROCODONE/ACET 5-325 MG TABLET 1 TAB PO (00:45)
[2025-01-18] MEDS: AMOXICILLIN/POT CLAV 875-125 MG TABLET 1 TAB PO (00:45)
[2025-01-18] MEDS: ADACEL DIPH,PERTUSS(ACELL),TET VAC/PF 0.5 ML ADULT SYRINGE IM (00:46)
[2025-01-18 01:30] VITALS: BP 124/84; PULSE 72; O2SAT 96
[2025-01-18] MEDS: HYDROMORPHONE HCL 1 MG/ML CARTRIDGE 0.5 MG IVP (01:45)
[2025-01-18 03:53] VITALS: BP 140/80; PULSE 72; O2SAT 98
[2025-01-18 03:59] VITALS: BP 140/80; PULSE 72; O2SAT 98
== END 2025-01-18 03:53 | disposition short-term general hospital (02) ==
PROVIDERS: Emergency Provider Emergency Medicine; PCP Internal Medicine
DX: S82.851A Displaced trimalleolar fracture of right lower leg, initial encounter for closed fracture (principal); W18.39XA Other fall on same level, initial encounter; S21.032A Puncture wound without foreign body of left breast, initial encounter; S21.132A Puncture wound without foreign body of left front wall of thorax without penetration into thoracic cavity, initial encounter; W54.0XXA Bitten by dog, initial encounter; Z23 Encounter for immunization
CPT/HCPCS: 29515; 73600; 73610; 73630; 90471; 90715; 96374; 96375; 99285; J1171; J2405

== ENCOUNTER 2025-05-01 08:57 | Outpatient (OUT) | payer OTHER, SELFPAY ==
--- OUTSIDE RECORDS SUMMARY | 2023-12-15 06:15 | XMS_ITS ---
Author Organization [facility] vices Address [address] [place] [id number] Care Team Providers Care Scanning Supervisor Name Role Phone Katelynn Natarajan Unavailable [phone] REASON FOR VISIT TOY MAKER Comp Exam Encounters Encounter Location Date Provider Diagnosis [facility] [address] [place], [place] [id number] 12/15/2023 Katelynn Natarajan Plan Of Treatment No Information Progress Notes * Nicci BADILLODOB:1955 (69 yo F)Acc No.[id number]:12/15/2023 Patient: Leyda COLINDRESma Provider: Andriy Natarajan DDS :1955 A ge:68 Y S ex:Female Date:12/15/2023 Address:[address] [place], [place] [id number] Subjective: * Chief Complaints: * 1 . TOY MAKER Comp Exam. * Medical History: Objective: * Vitals: Assessment: Plan: * Treatment: * Billing Information: * Visit Code: * Procedure Codes: * Electronic signature of Libia Natarajan DDS on 05/01/2025 at 08:58 AM EDT Sign off status: Pending * Provider: Andriy Natarajan DDS Date: 0 12/15/2023 Generated for Jose Guadalupe villagomez/Phani/Maury on: 08:58 AM EDT
--- OUTSIDE RECORDS SUMMARY | 2025-05-01 08:58 | XMS_ITS | Clinical Summary ---
Author Organization [facility] Address [address] [place] [address] Care Team Providers Care Candy Waffle Assembler Name Role Phone Shaikh CARL Hinds Unavailable [phone] Shaikh CARL Hinds Primary Care Provider [phone] Allergies No known active allergies Medications cyanocobalamin (Vitamin B-12) 1000 MCG tablet Take 1,000 mcg by mouth in the morning. Active Multiple Vitamin (multivitamin) tablet Take 1 tablet by mouth in the morning. Active solifenacin (VESIcare) 10 MG tablet Take 10 mg by mouth in the morning. Active trospium (Sanctura) 20 MG tablet 4 Active [facility] Allergy Relief-D12 5-120 MG 12 hr tablet TAKE 1 TABLET BY MOUTH EVERY 12 HOURS NEEDED FOR NASAL CONGESTION 4 Active benzonatate (Tessalon) 100 MG capsule TAKE 1 CAPSULE BY MOUTH THREE TIMES A DAY NEEDED FOR COUGH 4 Active sulfamethoxazole-t rimethoprim (Bactrim DS) 800-160 MG per tablet Take 1 tablet by mouth in the morning and 1 tablet before bedtime. 4 Active escitalopram (Lexapro) 20 MG tabletIndications: Major depressive disorder, single episode, moderate (HCC) Take 1 tablet (20 mg) by mouth Daily 90 tablet 5 025 Active atorvastatin (Lipitor) 20 MG tabletIndications: Hyperlipidemia, unspecified hyperlipidemia type Take 1 tablet (20 mg) by mouth Daily 90 tablet 5 025 Active alendronate (Fosamax) 70 MG tabletIndications: Age-related osteoporosis without current pathological fracture Take 1 tablet (70 mg) by mouth every 7 (seven) days Take in the morning with a full glass of water, on an empty stomach, and do not take anything else by mouth or lie down for the next 30 min.TAKE 1 TABLET BY MOUTH ONCE PER WEEK 12 tablet 5 025 Active atenolol (Tenormin) 25 MG tabletIndications: Essential (primary) hypertension,Benig n essential hypertension Take 1 tablet (25 mg) by mouth Daily 90 tablet 1 5 025 Active Active Problems Problem Noted Date Diagnosed Date Blepharitis of upper and lower eyelids of both e yes 09/29/2023 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 On average less than 130/90. Tolerating Anti hypertensive w/o adverse effects. Denies lightheadedness, dizziness, syncope, presyncope. Patient encouraged to continue with home BP monitoring and call office if he experiences orthostatic symptoms or persistently elevated BP. C/w atenolol. Gynecological disease 08/19/2023 Hyperlipidemia 08/19/2023 Assessment & Plan (08/19/2023 5:03 PM EST): On Lipitor 20 mg. Check Lipid panel. Mixed incontinence 08/19/2023 Assessment & Plan (08/19/2023 5:02 PM EST): Following Urology and recently started using Vesicare. Recurrent major depressive disorder, in full rem ission 08/19/2023 Assessment & Plan (08/19/2023 5:02 PM EST): Was acutely exacerbated by her 's illness and then his . She was started on Lexapro and has been doing well on it. Her mood is stable and depression well controlled on current dose of Lexapro. Denies adverse effects and tolerating it well. Iron deficiency anemia secon bhanu to inadequate dietary iron intake 08/19/2023 Assessment & Plan (08/19/2023 5:01 PM EST): Normal colonoscopy 03/09. On PO Iron. Check Iron profile, CBC. Encounters Date Type Department Care Team Description 03/01/2025 Refill [facility] [address] [place] [address] Shaina Pham NP Essential (primary) hypertension ; Benign essential hypertension 03/01/2025 Telephone [facility] [address] [place] [phone] Shaina Pham NP 02/28/2025 Telephone [facility] [address] [place] [phone] Shaina Pham NP 02/27/2025 Refill [facility] [address] [place] [phone] Shaina Pham NP Major depressive disorder, single episode, moderate (HCC); Hyperlipidemia, unspecified hyperlipidemia type ; Age-related osteoporosis without current pathological fracture 02/15/2025 Telephone [facility] [address] [place] [phone] Shaina Pham NP from Last 3 Months Immunizations Immunization Administration Dates Next Due Influenza, High-dose Seasona l, Quadrivalent, Preservative Free 05/20/2022,04/07/2021 Zoster, Recombinant 12/08/2022,10/07/2022 Family History Medical History Relation Name Comments Bipolar disorder Brother Mental illness Brother Schizophrenia Brother Factory accident Father Coronary artery disease Mother Heart failure Mother Diabetes Sibling Heart disease Sibling Mental illness Sibling Cancer Sister Diabetes Sister Heart disease Sister Relation Name Status Comments Brother Daughter Alive Father Mother Sibling Sister Son Alive Social History Tobacco Use Types Packs/Day Years Used Date Smoking Tobacco: Former Cigarettes Q uit: 1989 Passive Smoke Exposure: Never Tobacco Cessation:Counseling Given: Not Answered Alcohol Use Standard Drinks/Week Comments Yes 0 (1 standard drink = 0.6 oz pur e alcohol) Positive alcohol use Comments Unknown Sex and Gender Information Value Date Recorded Sex Assigned at Not on file Legal Sex Female 8:34 PM EDT Gender Identity Not on file Sexual Orientation Not on file Last Filed Vital Signs Vital Sign Reading Time Taken Comments Blood Pressure 118/70 09/20/2023 10:22 AM EST Pulse 73 08/19/2023 3:43 PM EST Temperature 35.8 C (96.5 F) 08/19/2023 3:43 PM EST Respiratory Rate - - Oxygen Saturation 99% 08/19/2023 3:43 PM EST Inhaled Oxygen Concentration - - Weight 59.5 kg (131 lb 1.9 oz) 09/20/2023 10:22 AM EST Height 166.4 cm (5' 5.5 ) 09/20/2023 10:22 AM ES T Body Mass Index 21.49 09/20/2023 10:22 AM EST Plan of Treatment Health Maintenance Due Date Last Done Comments CT Colonography 1955 FIT-DNA 1955 FIT 1955 FOBT 1955 Sigmoidoscopy 1955 Pneumococcal Vaccine: 65+ Ye ars (1 of 1 - PCV) 2005 Medicare Annual Wellness (AWV) 09/19/2024 09/20/2023 Mammogram 02/13/2025 02/14/2024 Influenza Vaccine (#1) 2025 05/20/2022, 2020 Colonoscopy 02/18/2032 02/17/2022 Colorectal Cancer Screening 02/18/2032 Procedures Procedure Name Priority Date/Time Associated Diagnosis Comments MM TOMOSYNTHESIS SCREENING BI 02/14/2024 4:35 PM EDT from Last 3 Months or Most Recently Relevant to Health Maintenance Results * MM TOMOSYNTHESIS SCREENING BI (02/14/2024 4:35 PM EDT) Anatomical Region Laterality Modality Other 02/14/2024 4:35 PM EDT Narrative 02/14/2024 4:37 PM EDT The [address] [address] Mammography Report Signed Patient: CHLOE BADILLO MR#: [id number] : 1955 Acct:[id number] Age/Sex: 68 / F ADM Date: 02/14/24 Loc: MAMMO Attending Dr: Alba Daley Ordering Physician: Alba Daley Results: Date of Service: 02/14/24 Follow Up: Procedure(s): MM tomosynthesis screening BI Accession Number(s): [id number] cc: Alba Daley; Shaikh Janny Hinds Patient Name: CHLOE BADILLO MR#: [id number] : 1955 Exam Date: 02/14/2024 Ordering Doctor: SANTOS Daley . RADIOLOGY REPORT PROCEDURE: MM TOMOSYNTHESIS SCREENING BI COMPARISON: MG MAMM SCREEN 3D ROMAINE CAD, 11/28/2021. MG MAMM ROMAINE SCRN W CAD DIG, 12/19/2013. INDICATIONS: Screening Calculator Name NCI Breast Cancer Risk Assessment Tool 5 Year Breast Cancer Risk 1.20% Lifetime Breast Cancer Risk 4.00% Personal Breast Cancer No Personal Ovarian Cancer No Treatments None Family Cancers None LOCATION: The [facility] BREAST COMPOSITION: There are scattered areas of fibroglandular density. FINDINGS: DIAGNOSTIC CATEGORY 1--NEGATIVE. RIGHT BREAST: No significant suspicious finding. No significant change has occurred. LEFT BREAST: No significant suspicious finding. No significant change has occurred. RECOMMENDATIONS: ROUTINE MAMMOGRAM AND CLINICAL EVALUATION IN 12 MONTHS. PLEASE NOTE: A NORMAL MAMMOGRAM DOES NOT EXCLUDE THE POSSIBILITY OF BREAST CANCER. A CLINICALLY SUSPICIOUS PALPABLE LUMP SHOULD BE BIOPSIED. Dictated by: Justin Lara M.D. on 02/14/2024 at 16:28 Approved by: Justin Lara M.D. on 02/14/2024 at 16:35 Dictated By: Justin Lara M.D. Signed By: 02/14/24 1637 DD/ 1635 TD/TT: Proofer Prepress: Procedure Note Radiology, Radiologist, - 02/14/2024 [place] [address] Mammography Report Signed Patient: CHLOE BADILLO AMR#: [id number] : 1955cct:[id number] Age/Sex: 68 / FADM Date: 02/14/24 Loc: MAMMO Attending Dr: Alba Daley Ordering Physician: Alba Martinoults: Date of Service: 02/14/24Follow Up: Procedure(s): MM tomosynthesis screening BI Accession Number(s): [id number] cc: Alba Daley; Shaikh Janny Hinds Patient Name: CHLOE BADILLO MR#: [id number] : 1955 Exam Date: 02/14/2024 Ordering Doctor: SANTOS Daley . RADIOLOGY REPORT PROCEDURE: MM TOMOSYNTHESIS SCREENING BI COMPARISON: MG MAMM SCREEN 3D ROMAINE CAD, 11/28/2021. MG MAMM ROMAINE SCRN WCAD DIG, 12/19/2013. INDICATIONS: Screening Calculator Name NCI Breast Cancer Risk Assessment Tool 5 Year Breast Cancer Risk 1.20% Lifetime Breast Cancer Risk 4.00% Personal Breast Cancer No Personal Ovarian Cancer No Treatments None Family Cancers None LOCATION: The [facility] BREAST COMPOSITION: There are scattered areas of fibroglandulardensity. FINDINGS: DIAGNOSTIC CATEGORY 1--NEGATIVE. RIGHT BREAST: No significant suspicious finding. No significant changehas occurred. LEFT BREAST: No significant suspicious finding. No significant changehas occurred. RECOMMENDATIONS: ROUTINE MAMMOGRAM AND CLINICAL EVALUATION IN 12 MONTHS. PLEASE NOTE: A NORMAL MAMMOGRAM DOES NOT EXCLUDE THE POSSIBILITY OFBREAST CANCER. A CLINICALLY SUSPICIOUS PALPABLE LUMP SHOULD BE BIOPSIED. Dictated by: Justin Lara M.D. on 02/14/2024 at 16:28 Approved by: Justin Lara M.D. on 02/14/2024 at 16:35 Dictated By: Justin Lara M.D. Signed By:02/14/24 1637 DD/ 1635 TD/TT: Proofer Prepress: Generic External Data Provider [facility] Final Result from Last 3 Months or Most Recently Relevant to Health Maintenance Insurance [employer] Care Teams Candy Waffle Assembler Relationship Specialty Start Date End Date Shaikh Hinds MD [address] [place] [phone] PCP - [facility] 07/19/22 Shaikh Hinds MD [address] [place] [address] PCP - General Internal Medicine 08/19/23
--- OUTSIDE RECORDS SUMMARY | 2025-05-01 08:58 | XMS_ITS | Encounter Summary ---
Author Organization [facility] Address [address] [place] [address] Care Team Providers Care Fusion Analyst Name Role Phone Shaikh CARL Hinds Unavailable [phone] Shaikh CARL Hinds Primary Care Provider [phone] Lacey Velazquez LPN Unavailable Unavailable Encounter Details Date Type Department Care Team (Late st Contact Info) Description 12/06/2023 Orders Only [facility] [address] [place] [address] Shaikh Hinds MD [address] [place] [address] Social History Tobacco Use Types Packs/Day Years Used Date Smoking Tobacco: Former Cigarettes Q uit: 1989 Passive Smoke Exposure: Never Alcohol Use Standard Drinks/Week Comments Yes 0 (1 standard drink = 0.6 oz pur e alcohol) Positive alcohol use Comments Unknown Sex and Gender Information Value Date Recorded Sex Assigned at Not on file Legal Sex Female 8:34 PM EDT Gender Identity Not on file Sexual Orientation Not on file documented as of this encounter Plan of Treatment Not on file documented as of this encounter Procedures Procedure Name Priority Date/Time Associated Diagnosis Comments CULTURE, URINE, ROUTINE Routine 12/06/2023 2:30 PM EDT documented in this encounter Results * Urine culture (12/06/2023 2:30 PM EDT) Urine Urine specimen obtained by clean catch procedure / Unknown Shaikh Guzman [facility] - GENERAL [place] Final Result documented in this encounter Visit Diagnoses Not on filedocumented in this encounter Care Teams Fusion Analyst Relationship Specialty Start Date End Date Shaikh Hinds MD [address] [place] [address] PCP - [facility] 07/19/22 Shaikh Hinds MD [address] [place] [address] PCP - General Internal Medicine 08/19/23 Lacey Velazquez LPN Licensed Practical Nurse Family Medicine 12/02/23 documented as of this encounter
--- OUTSIDE RECORDS SUMMARY | 2025-05-01 08:58 | XMS_ITS | Patient Health Record ---
Author Organization [facility] Address [address] [place], [place] [id number] Care Team Providers Care Welding Machine Operator Helper Gas Name Role Phone Katelynn Natarajan Unavailable [phone] Allergies No Known Allergies Reason For Referral No Information Problems Problem Type SNOMED Code ICD Code Onset Dates Problem Status W/U Status Risk Notes Problem Mixed incontinence (744657123) Mixed incontinence (N39.46) Active confirmed Comment:pt uses over the counter patches, declines medication pt to do lifestyle changes, decrease alcohol, caffeine intake, to do kegels exercises, Problem Age-related osteoporosis (889451234) Osteoporosis, 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 confirmed Comment:oste oporosis of spine, osteopenia of hip high fracture risk, will start bisphosphona rosanne, Problem Gynecological examination normal (87108828965559 4) Well woman exam with routine gynecological exam (Z01.419) Active confirmed Comment:enco uraged self breast exams, Problem Cystocele (219879623) Cystocele (618.01) Active confirmed Comment:seco nd degree, Problem Gynecological examination normal (64751972786560 4) Encounter for routine gynecological examination (Z01.419) Active confirmed Comment:last annual appt 12/07/2013, Problem Menopause (185640889) Menopause (Z78.0) Active confirmed Comment:sinc e mid 40's, no HRT encouraged calcium and vitamin D supplementat ion, Problem Screening for osteoporosis (438572488) Encounter for imaging to assess osteoporosis (Z13.820) Active confirmed Plan Of Treatment No Information Insurance Providers Payer Name Payer Address Payer Phone Subscriber Number Group Number Insured Name Patient Relationship to Insured Coverage Start Date Coverage End Date [employer] [address] [place] [address] [place], [place] [id number] Chucky Mojica Spouse - patient is the spouse of the insured 4 Medical (General) History Surgical History Surgery Date(Month/Year) Tubal Ligation, COMMENTS: 1977, ProblemS tatus: Active,
--- OUTSIDE RECORDS SUMMARY | 2025-05-01 08:58 | XMS_ITS | Encounter Summary ---
Author Organization [facility] Address [address] [facility] [place] [address] Care Team Providers Care Director Of Emergency Nursing Name Role Phone Shaikh CARL Hinds Unavailable [phone] Shaikh CARL Hinds Primary Care Provider [phone] Lacey Velazquez LPN Unavailable Unavailable Encounter Details Date Type Department Care Team (Late st Contact Info) Description 09/20/2023 Orders Only [facility] [address] [place] [address] Shaikh Hinds MD [address] [place] [address] Social History Tobacco Use Types Packs/Day Years [...] Procedure Name Priority Date/Time Associated Diagnosis Comments XR CHEST 1 VIEW Routine 09/05/2023 9:43 AM EST documented in this encounter Results * XR chest 1 view (09/05/2023 9:43 AM EST) Anatomical Region Laterality Modality Chest Radiographic Trinity ging Shaikh Guzman [facility] XR PROCEDURES Final Result documented in this encounter Visit Diagnoses Not on filedocumented in this encounter Care Teams Director Of Emergency Nursing Relationship Specialty Start Date End Date Shaikh Hinds MD [address] [place] [address] PCP - [facility] 07/19/22 Shaikh Hinds MD [address] [place] [address] PCP - General Internal Medicine 08/19/23 Lacey Velazquez LPN Licensed Practical Nurse Family Medicine 12/02/23 documented as of this encounter
--- OUTSIDE RECORDS SUMMARY | 2025-05-01 08:59 | XMS_ITS | Encounter Summary ---
Author Organization [facility] Address [address] [facility] [place] [address] Care Team Providers Care Director Business Travel Name Role Phone Shaikh CARL Hinds Unavailable [phone] Shaikh CARL Hinds Primary Care Provider [phone] Encounter Details Date Type Department Care Team ([facility] st Contact Info) Description 03/29/2024 Orders Only [facility] [address] [place] [address] Stephenie Olivier NP Social History Tobacco Use Types Packs/Day Years [...] Procedure Name Priority Date/Time Associated Diagnosis Comments SCANNED LABS Routine 03/29/2024 2:21 PM EDT documented in this encounter Results * SCANNED LABS (03/29/2024 2:21 PM EDT) Stephenie Olivier JAVA PROGRAMMING PROFESSOR LAB CHG PERFORMABLES Fin al Result documented in this encounter Visit Diagnoses Not on filedocumented in this encounter Care Teams Director Business Travel Relationship Specialty Start Date End Date Shaikh Hinds MD [address] [place] [address] PCP - [facility] 07/19/22 Shaikh Hinds MD [address] [place] [address] PCP - General Internal Medicine 08/19/23 documented as of this encounter
--- OUTSIDE RECORDS SUMMARY | 2025-05-01 08:59 | XMS_ITS | Encounter Summary ---
Author Organization [facility] Address [address] [facility] [place] [address] Care Team Providers Care Skid Road Worker Name Role Phone Shaikh CARL Hinds Unavailable [phone] Shaikh CARL Hinds Primary Care Provider [phone] Encounter Details Date Type Department Care Team ([facility] st Contact Info) Description 06/26/2024 Orders Only [facility] [address] [place] [address] Stephenie Olivier NP Social History Tobacco Use [...] Date/Time Associated Diagnosis Comments SCANNED LABS Routine 06/26/2024 3:52 PM EST documented in this encounter Results * SCANNED LABS (06/26/2024 3:52 PM EST) Stephenie Olivier ORDER FULFILLMENT SPECIALIST LAB CHG PERFORMABLES Fin al Result documented in this encounter Visit Diagnoses Not on filedocumented in this encounter Care Teams Skid Road Worker Relationship Specialty Start Date End Date Shaikh Hinds MD [address] [place] [phone] PCP - Devoted 07/19/22 Shaikh Hinds MD [address] [facility] [place] [address] PCP - General Internal Medicine 08/19/23 documented as of this encounter
--- OUTSIDE RECORDS SUMMARY | 2025-05-01 08:59 | XMS_ITS | Encounter Summary ---
Author Organization [facility] Address [address] [place] [address] Care Team Providers Care Master [place] Name Role Phone Shaikh CARL Hinds Unavailable [phone] Shaikh CARL Hinds Primary Care Provider [phone] Encounter Details Date Type Department Care Team ([facility] st Contact Info) Description 02/14/2024 Clinisync Result Encounter [facility] External Department Unsolicited Provider, Generic External Data Social History Tobacco Use Types Packs/Day Years [...] TOMOSYNTHESIS SCREENING BI 02/14/2024 4:35 PM EDT documented in this encounter Results * MM TOMOSYNTHESIS SCREENING BI (02/14/2024 4:35 PM EDT) Anatomical Region Laterality Modality Other 02/14/2024 4:35 PM EDT Narrative 02/14/2024 4:37 PM EDT The [address] [address] Mammography Report Signed Patient: NICCI BADILLO MR#: [id number] : 1955 Acct:[id number] Age/Sex: 68 / F ADM Date: 02/14/24 Loc: MAMMO Attending Dr: Alba Daley Ordering Physician: Alba Daley Results: Date of Service: 02/14/24 Follow Up: Procedure(s): MM tomosynthesis screening BI Accession Number(s): [id number] cc: Alba Daley; Shaikh Janny Hinds Patient Name: NICCI BADILLO MR#: [id number] : 1955 Exam Date: 02/14/2024 Ordering Doctor: [...] Treatments None Family Cancers None LOCATION: The [facility] BREAST COMPOSITION: There are scattered areas of [...] Signed By: 02/14/24 1637 DD/ 1635 TD/TT: Dividend Clerk: Procedure Note Radiology, Radiologist, MD - 02/14/2024 [place] [address] Mammography Report Signed Patient: NICCI BADILLO AMR#: [id number] : 1955cct:[id number] Age/Sex: 68 / FADM Date: 02/14/24 Loc: MAMMO Attending Dr: Alba Daley Ordering Physician: Alba DaleyResults: Date of Service: 02/14/24Follow Up: Procedure(s): MM tomosynthesis screening BI Accession Number(s): [id number] cc: Alba Daley; Shaikh aJnny Hinds Patient Name: NICCI BADILLO MR#: [id number] : 1955 Exam Date: 02/14/2024 Ordering Doctor: [...] Treatments None Family Cancers None LOCATION: [facility] BREAST COMPOSITION: There are scattered areas of [...] M.D. Signed By:02/14/24 1637 DD/ 1635 TD/TT: Dividend Clerk: us Generic External Data Provider [facility] Final Result documented in this encounter Visit Diagnoses Not on filedocumented in this encounter Care Teams Master [place] Relationship Specialty Start Date End Date Shaikh Hinds MD [address] [place] [address] PCP - Devoted 07/19/22 Shaikh Hinds MD [address] [place] [phone] PCP - General Internal Medicine 08/19/23 documented as of this encounter
--- OUTSIDE RECORDS SUMMARY | 2025-05-01 08:59 | XMS_ITS | Encounter Summary ---
Author Organization [facility] Address [address] [place] [address] Care Team Providers Care Primary Teaching Assistant Name Role Phone Shaikh CARL Hinds Unavailable [phone] Shaikh CARL Hinds Primary Care Provider [phone] Encounter Details Date Type Department Care Team ([facility] st Contact Info) Description 02/15/2024 Clinisync Result Encounter [facility] External Department Unsolicited [...] Name Priority Date/Time Associated Diagnosis Comments XR DEXA AXIAL SKELETON 02/15/2024 5:13 AM EDT documented in this encounter Results * XR DEXA AXIAL SKELETON (02/15/2024 5:13 AM EDT) Anatomical Region Laterality Modality Other 02/15/2024 5:13 AM EDT Narrative 02/15/2024 5:15 AM EDT The [address] [address] XRay Report Signed Patient: NICCI BADILLO MR#: [id number] : 1955 Acct:[id number] Age/Sex: 68 / F ADM Date: 02/14/24 Loc: MAMMO Attending Dr: Alba Castillo Ordering Physician: Alba Castillo Date of Service: 02/14/24 Procedure(s): XR DEXA axial skeleton Accession Number(s): [id number] cc: Alba Castillo; Shaikh Janny Hinds [address] [address] Patient Name: NICCI BADILLO MRN: [facility]:[id number] date: 1955 Sex: F Assigned Patient Location: [facility] Current Patient Location: Accession/Order Number: [id number] Exam Date: 02/14/2024 14:20 Report Date: 02/15/2024 05:13 At the request of: ALBA CASTILLO Procedure: XR DEXA axial skeleton EXAMINATION: XR DEXA axial skeleton HISTORY: Post Menopausal State Z78.0 COMPARISON: DEXA bone densitometry 02/10/2022 TECHNIQUE: Dual-energy X-ray absorptiometry (DXA) was performed. FINDINGS: SPINE ANALYSIS: Average bone mineral density is 0.704 g/cm2. T-score (standard deviation relative to young adult mean): -4.0 . -7.5% change since prior study. HIP ANALYSIS: Lowest bone mineral density is within the left femoral neck, 0.668 g/cm2. T-score (standard deviation relative to young adult mean): -2.7 . -0.9% change since prior study. XR/XR DEXA axial skeleton IMPRESSION: World Health Organization Classification: Osteoporosis - High Fracture Risk FRAX: Cannot calculate. Pharmacologic treatment recommendations * No uniform recommendation applies to all patients. Management plans must be individualized. * Consider initiating pharmacologic treatment in postmenopausal women and men >= 50 years of age who have the following: Primary fracture prevention: * T-score <= - 2.5 at the femoral neck, total hip, lumbar spine, 33% radius (some uncertainty with existing data) by DXA. * Low bone mass (osteopenia: T-score between - 1.0 and - 2.5) at the femoral neck or total hip by DXA with a 10-year hip fracture risk >= 3% or a 10-year major osteoporosis-related fracture risk >= 20% (i.e., clinical vertebral, hip, forearm, or proximal humerus) based on the [place]-adapted FRAXregistered model. Secondary fracture prevention: * Fracture of the hip or vertebra regardless of BMD [4, 5]. * Fracture of proximal humerus, pelvis, or distal forearm in persons with low bone mass (osteopenia: T-score between - 1.0 and - 2.5). The decision to treat should be individualized in persons with a fracture of the proximal humerus, pelvis, or distal forearm who do not have osteopenia or low BMD [12, 13]. Cecilio MS, Keiry SL, Gurjit KL, Laura EM, Mono KG, AJ, Radha ES. The clinician's guide to prevention and treatment of osteoporosis. Osteoporos Int. 2021;33(10):7654-6402. doi: 10.1007/d82372-122-08359-e. Epub 2021Nov 13. Erratum in: Osteoporos Int. 2021Feb 12;: PMID: 28722851; PMCID: [id number]. Electronically authenticated by: JUSTIN LARA Date: 02/15/2024 05:13 Dictated By: Justin Lara M.D. Signed By: 02/15/2415 DD/ 2 TD/TT: Medical Support Specialist: Procedure Note Radiology, Radiologist, - 02/15/[address] [address] XRay Report Signed Patient: NICCI BADILLO [facility]#: [id number] : 1955cct:[id number] Age/Sex: 68 / FADM Date: 02/14/24 Loc: MAMMO Attending Dr: Alba Castillo Ordering Physician: Alba Castillo Date of Service: 02/14/24 Procedure(s): XR DEXA axial skeleton Accession Number(s): [id number] cc: Shaikh Janny Rojas The [address] [address] Patient Name: NICCI BADILLO MRN: [facility] [place]:[id number] date: 1955 Sex: F Assigned Patient Location: [facility] Current Patient Location: Accession/Order Number: [id number] Exam Date: 02/14/2024 14:20 Report Date: 02/15/2024 05:13 At the request of: ALBA CASTILLO Procedure: XR DEXA axial skeleton EXAMINATION: XR DEXA axial skeleton HISTORY: Post Menopausal State Z78.0 COMPARISON: DEXA bone densitometry 02/10/2022 TECHNIQUE: Dual-energy X-ray absorptiometry (DXA) was performed. FINDINGS: SPINE ANALYSIS: Average bone mineral density is 0.704 g/cm2. T-score (standard deviation relative to young adult mean): -4.0 . -7.5% change since prior study. HIP ANALYSIS: Lowest bone mineral density is within the left femoral neck, 0.668 g/cm2. T-score (standard deviation relative to young adult mean): -2.7 . -0.9% change since prior study. XR/XR DEXA axial skeleton IMPRESSION: World Health Organization Classification: Osteoporosis - High FractureRisk FRAX: Cannot calculate. Pharmacologic treatment recommendations * No uniform recommendation applies to all patients. Management plans mustbe individualized. * Consider initiating pharmacologic treatment in postmenopausal women andmen >= 50 years of age who have the following: Primary fracture prevention: * T-score <= - 2.5 at the femoral neck, total hip, lumbar spine, 33%radius (some uncertainty with existing data) by DXA. * Low bone mass (osteopenia: T-score between - 1.0 and - 2.5) at thefemoral neck or total hip by DXA with a 10-year hip fracture risk >= 3% or [id number] major osteoporosis-related fracture risk >= 20% (i.e., clinical vertebral, hip, forearm, or proximal humerus) based on the [place]-adapted FRAXregisteredmodel. Secondary fracture prevention: * Fracture of the hip or vertebra regardless of BMD [4, 5]. * Fracture of proximal humerus, pelvis, or distal forearm in persons withlow bone mass (osteopenia: T-score between - 1.0 and - 2.5). The decision totreat should be individualized in persons with a fracture of the proximalhumerus, pelvis, or distal forearm who do not have osteopenia or low BMD [12, 13]. Cecilio WATSON, Keiry DE LA TORRE, Gurjit KL, Laura EM, Mono KG, AJ,Radha ES. The clinician's guide to prevention and treatment of osteoporosis.Osteoporos Int. 2021;33(10):9651-5071. doi: 10.1007/k04470-828-05724-w. Epub . Erratum in: Osteoporos Int. 2021Feb 12;: PMID: 59124906; PMCID: [id number]. Electronically authenticated by: JUSTIN LARA Date: 02/15/2024 05:13 Dictated By: Justin Lara M.D. Signed By:02/15/24514 DD/ 2 TD/TT: Medical Support Specialist: Generic External Data Provider [facility] Final Result documented in this encounter Visit Diagnoses Not on filedocumented in this encounter Care Teams Primary Teaching Assistant Relationship Specialty Start Date End Date Shaikh Hinds MD [address] [place] [address] PCP - Devoted 07/19/22 Shaikh Hinds MD [address] [place] [address] PCP - General Internal Medicine 08/19/23 documented as of this encounter
--- OUTSIDE RECORDS SUMMARY | 2025-05-01 09:02 | XMS_ITS | CCD ---
Author Organization [facility] Care Team Providers Care Computer Systems Support Specialist Name Role Phone SHAIKH HINDS Primary Care [...] Unavailable FAWWAD, HOOKER H Primary Care Unavailable ORDERVILLE, DR LAVERN Olmos Consulting Unavailable FAWWAD, HOOKER H Consulting Unavailable Fawwad Shaikh HENRY Unavailable Shaikh Hinds MD Primary Care Provider [phone] Franki MOTT Attending Unavailable Franki MOTT Attending Unavailable Dione PRIEST Admitting Unavailable Dione PRIEST Attending Unavailable KHRIS BRANDON Attending Unavailable KHRIS BRANDON Attending Unavailable Lizette Carrero Attending Unavailable Lizette Carrero Attending Unavailable Dione PRIEST Referring Unavailable Dione PRIEST Admitting Unavailable Dione PRIEST Attending Unavailable Shaikh Hinds MD Unavailable Shaikh Hinds MD Primary Care Provider SHAIKH HINDS Attending Unavailable ALBA DALEY Attending Unavailable ZACK JETT Attending Unavailable MALIHA, ZACK Santana Attending Unavailable ZACK JETT Attending Unavailable MALIHA, ZACK Santana Attending Unavailable Dione PRIEST Referring Unavailable Lizette Carrero Attending Unavailable Dione PRIEST Referring Unavailable Dione PRIEST Admitting Unavailable Dione PRIEST Attending Unavailable Shaikh Hinds MD Primary Care Provider Taz De La Cruz MD Admit Provider Ivan Interiano DO Other Provider Carmen De Anda MD Other Provider Silvia Garrido MD Other Provider Andrew Rose MD Attending Provider Andrew Rose MD Other Provider Imani Martínez APRN Other Provider Belciroman MIN, [place] L Other Provider Emigdio Stauffer MD Other Provider [phone] Ivan Interiano DO Attending Provider [phone] Dione PRIEST Attending Unavailable Naveed Debi X Attending Unavailable No Moore Attending Unavailable No Moore Admitting Unavailable Orkevin Debi X Attending Unavailable No Moore Attending Unavailable Belcik , [place] L Other Provider Unavailabl e Shereen DO, Paty Primary Care Provider Shereen DO Paty Attending Provider [phone] Shereen, Paty Primary Care Unavailable Yunier Interianoin Gary Admitting Unavailable Ivan Interiano Attending Unavailable Shaikh Hinds Primary Care Unavailable Yunier Interianoin Gary Admitting Unavailable Ivan Interiano Attending Unavailable Taz De La Cruz Admitting Unavailab le FawShaikh hughes Primary Care Unavailable Carmen De Anda Attending Unavailable Ivan Interiano Consulting Unavailable Silvia Garrido Consulting Unavailable Andrew Rose Consulting Unavailable Imani Martínez Consulting Unavailable Rafael Flores Jr Consulting UnavailEmigdio Noble Consulting Unavaila ble Medications Current Medications Medication Drug Class(es) Dates Sig (Normalized) Sig (Original) acetaminophen 325 mg oral tablet (11 sources) Start: 01-25-2025 take 1-3 tablets by mouth every six hours as needed for pain Acetaminophen (Tylenol) 325 mg Tablet Active 650 MG PO Every 6 hours as needed for Pain Scale 1 - 3 or fever 0 January 25, 2025 12:00am Complies with drug therapy Start: 11-26-2020 acetaminophen 500 mg, Oral, PRN as needed for pain, Refills(s) 0 Start Date: 11/26/20 Status: Ordered alendronic acid 70 mg oral tablet (20 sources) Bisphosphonate Start: 02-28-2025 End: 05-23-2025 take 1 tablet by mouth in the morning, then take 1 tablet by mouth every week alendronate (Fosamax) 70 MG tablet Indications: Age-related osteoporosis without current pathological fracture Take 1 tablet (70 mg) by mouth every 7 (seven) days Take in the morning with a full glass of water, on an empty stomach, and do not take anything else by mouth or lie down for the next 30 min.TAKE 1 TABLET BY MOUTH ONCE PER WEEK 12 tablet 02/28/2025 05/23/2025 Active Start: 06-01-2023 End: 02-27-2025 take 1 tablet by mouth every week Alendronate 70 mg tablet Active 70 MG PO every week January 18, 2025 12:00am Complies with drug therapy Start: 06-01-2023 alendronate 70 mg Tab Refills(s) 0 Start Date: 06/01/23 Status: Ordered aspirin 81 mg chewable tablet (11 sources) Platelet Aggregation Inhibitor, Nonsteroidal Anti-inflammatory Drug Start: 11-26-2020 aspirin 81 mg Amy w Tab 81 mg = 1 tab(s), Chewed, Daily, Refills(s) 0, Blood Thinner Start Date: 11/26/20 Status: Ordered Start: 06-26-2020 End: 01-06-2022 take 1 tablet by mouth once daily Aspirin 81 mg Tablet,Delayed Release (Dr/Ec) Discontinued 81 MG PO Daily June 26, 2020 1:00am January 06, 2022 8:57am atorvastatin 20 mg oral tablet (20 sources) HMG-CoA Reductase Inhibitor Start: 11-02-2023 End: 05-29-2025 take 1 tablet by mouth once daily at bedtime Atorvastatin 20 mg tablet Active 20 MG PO Daily at bedtime January 19, 2025 12:00am Complies with drug therapy take 1 tablet by mouth in the mo rning atorvastatin (Lipitor) 20 MG tablet Take 20 mg by mouth in the morning. 0 Active benzonatate 100 mg oral capsule (8 sources) Non-narcotic Antitussive Start: 09-05-2023 take 1 [...] bedtime. 10 mL 5 07/05/2024 01/01/2025 Active cephalexin 500 mg oral capsule (1 source) Cephalosporin Antibacterial Start: 11-13-2024 End: 11-20-2024 take 1 capsule by mouth twice daily cephalexin 500 mg Cap 500 mg = 1 cap(s), Oral, BID, X 7 day(s), # 14 cap(s), Refills(s) 0, Pharmacy: [facility]/pharmacy #[id number], 167, cm, 10/16/24 8:18:00 EDT, [...] procedure, # 10 tab(s), Refills(s) 0, Pharmacy: [facility]/pharmacy #[id number], 167, cm, 10/16/24 8:18:00 EDT, Height/Length Dosing, 61, kg, 10/16/24 8:18:00 EDT, Weight Dosing Start Date: 10/16/24 Status: Ordered Quantity: 10.0 Unit: tab(s) Repeat number: 1 Start: 02-14-2024 Cipro 500 mg T ab 500 mg = 1 tab(s), Oral, BID, Take twice daily x5 days starting the day prior to the procedure, # 10 tab(s), Refills(s) 0, Pharmacy: [facility]/pharmacy #[id number], 167, cm, 12/02/23 10:10:00 EDT, Height/Length Dosing, 61.3, kg, 12/02/23 10:10:00 EDT, Weight Dosing Start Date: 02/14/24 Status: Ordered Start: 02-03-2022 End: 02-08-2022 take 1 tablet by mouth twice daily Cipro 500 mg Tab 500 mg = 1 tab(s), Oral, BID, X 5 day(s), # 10 tab(s), Refills(s) 0, Pharmacy: [facility]/pharmacy #[id number], 167, cm, 02/03/22 9:28:00 EDT, Height/Length Dosing, 69, kg, 02/03/22 9:28:00 EDT, Weight Dosing Start Date: 02/03/22 Stop Date: 02/08/22 Status: Ordered 0.4 ml enoxaparin sodium 100 mg/ml prefilled syringe (6 sources) Low Molecular Weight Heparin Start: 01-25-2025 escitalopram 20 mg oral tablet (20 sources) Serotonin Reuptake Inhibitor Start: 06-01-2023 End: 05-29-2025 take 1 tablet by mouth once daily Escitalopram Oxalate 20 mg tablet Active 20 MG PO Daily January 18, 2025 12:00am Complies with drug therapy End: 08-19-2023 take 1 tablet by mouth in the morning escitalopram (Lexapro) 10 MG tablet Take 10 mg by mouth in the morning. 0 08/19/2023 Discontinued (Dose adjustment) glucosamine hydrochloride 1500 mg oral tablet (1 source) Start: 04-16-2025 take 1 tablet by mouth once daily Glucosamine Hcl 1,500 mg tablet Active 1500 MG PO Daily April 16, 2025 12:00am administer with a meal Complies with drug therapy ibuprofen 200 mg oral tablet (5 sources) Nonsteroidal Anti-inflammatory Drug Start: 11-26-2020 take 200 mg by mouth every eight hours as needed for pain ibuprofen 200 mg, Oral, q8hr, PRN as needed for pain, Refills(s) 0 Start Date: 11/26/20 Status: Ordered 12 hr loratadine 5 mg / pseudoephedrine sulfate 120 mg extended release oral tablet (8 sources) alpha-Adrenergic Agonist Start: 09-05-2023 take 5-120 [...] Start: 12-02-2023 take 1 capsule by mo [facility] once daily Multi Vitamin+ 1 cap, Oral, Daily, Refill(s) 0 Start Date: 12/02/23 Status: Ordered Multiple Vitamin (multivitamin) tablet (10 sources) take 1 tablet by tracy th in the morning Multiple Vitamin (multivitamin) tablet Take 1 tablet by mouth in the morning. Active take 1 tablet by mouth in the mo rning Multiple Vitamin (multivitamin) tablet Take 1 tablet by mouth in the morning. 0 Active Multivitamin Tablet (6 sources) Start: 06-25-2020 take 1 tablet by mouth once daily Multivitamin Tablet Active 1 TAB PO Daily June 25, 2020 1:00am Complies with drug therapy 24 hr oxybutynin chloride 10 mg extended release oral tablet (6 sources) Cholinergic Muscarinic Antagonist Start: 02-04-2023 take 1 tablet by mouth once daily oxybutynin 10 mg ER Tab 10 mg = 1 tab(s), Oral, Daily, # 30 tab(s), Refills(s) 0, Pharmacy: [facility]/pharmacy #[id number], 167, cm, 02/04/23 11:36:00 EDT, Height/Length Dosing, 69.1, kg, 02/04/23 11:36:00 EDT, Weight Dosing Start Date: 02/04/23 Status: Ordered Start: 02-04-2023 oxybutynin 15 mg ER Tab 15 mg = 1 tab(s), Oral, Daily, start after you finish the 10mg tabs, # 30 tab(s), Refills(s) 0, Pharmacy: [facility]/pharmacy #[id number], 167, cm, 02/04/23 11:36:00 EDT, Height/Length Dosing, 69.1, kg, 02/04/23 11:36:00 EDT, Weight Dosing Start Date: 02/04/23 Status: Ordered solifenacin succinate 10 mg oral tablet (20 sources) Cholinergic Muscarinic Antagonist Start: 12-02-2023 take 1 tablet by mouth once daily solifenacin 10 mg Tab 10 mg = 1 tab(s), Oral, Daily, # 30 tab(s), Refills(s) 3, Pharmacy: [facility]/pharmacy #[id number], 167, cm, 12/02/23 10:10:00 EDT, Height/Length Dosing, 61.3, kg, 12/02/23 10:10:00 EDT, Weight Dosing Start Date: 12/02/23 Status: Ordered Quantity: 30.0 Unit: tab(s) Repeat number: 4 Start: 06-14-2023 End: 10-12-2023 take 1 tablet by mouth once daily solifenacin 10 mg Tab 10 mg = 1 tab(s), Oral, Daily, X 30 day(s), # 30 tab(s), Refills(s) 3, Pharmacy: [facility]/pharmacy #[id number], 167, cm, 06/01/23 11:31:00 EST, Height/Length Dosing, 63, kg, 06/01/23 11:31:00 EST, Weight Dosing Start Date: 06/14/23 Stop Date: 10/12/23 Status: Ordered sulfamethoxazole 400 mg / trimethoprim 80 mg oral tablet (13 sources) Dihydrofolate Reductase Inhibitor Antibacterial, Sulfonamide Antimicrobial Start: 12-13-2023 Bactrim 400 mg-80 mg Tab 1 tab(s), Oral, Daily, 30 tab(s), Refill(s) 1, [facility]/pharmacy #[id number], 167, cm, 12/02/23 10:10:00 EDT, [...] # 30 cap(s), Refills(s) 2, Pharmacy: [facility] #[id number], 167, cm, 08/19/22 13:07:00 EST, Height/Length Dosing, 69, kg, 08/19/22 13:07:00 EST, Weight Dosing Start Date: 08/19/22 Status: Ordered trospium chloride 20 mg oral tablet (10 sources) Cholinergic Muscarinic Antagonist Start: 09-24-2023 trospium [...] Ordered vitamin b12 1 mg oral tablet (16 sources) Vitamin B12 Start: 12-08-2019 take 1 tablet by mouth once daily in the morning Cyanocobalamin (Vitamin B-12) 1,000 mcg Tablet Active 1000 MCG PO Every morning 90 90 December 08, 2019 12:00am Complies with drug therapy Completed/Discontinued Medications Medication Drug Class(es) Dates Sig (Normalized) Sig (Original) atenolol 25 mg oral tablet (20 sources) beta-Adrenergic Claire Start: 10-18-2023 End: 05-30-2025 take 1 tablet by mouth once daily Atenolol 25 mg tablet Discontinued 25 MG PO Daily January 18, 2025 12:00am January 25, 2025 11:00am take 1 tablet by mouth in the mo rning atenolol (Tenormin) 25 MG tablet Take 25 mg by mouth in the morning. 0 Active carvedilol 6.25 mg oral tablet (17 sources) alpha-Adrenergic Claire, beta-Adrenergic Claire Start: 01-06-2022 End: 04-16-2025 take 1 tablet by mouth once daily Carvedilol 6.25 mg tablet Discontinued 6.25 MG PO Daily January 06, 2022 8:58am April 16, 2025 11:37am Start: 12-08-2019 End: 01-06-2022 take 1 tablet by mouth twice daily at mealtime Carvedilol 6.25 mg Tablet Discontinued 6.25 MG PO Twice daily with meals 120 30 December 08, 2019 12:00am January 06, 2022 8:58am dexamethasone 6 mg oral tablet (6 sources) Corticosteroid Start: 06-27-2020 End: 01-06-2022 take 1 tablet by mouth once daily Dexamethasone (Decadron) 6 mg tablet Discontinued 6 MG PO Daily June 27, 2020 1:00am January 06, 2022 8:58am diphenhydrAMINE hydrochloride 25 mg oral tablet (2 [...] wks. then 3x per week thereafter., [facility]/pharmacy #[id number], 167, cm, 04/29/22 15:35:00 EDT, Height/Length Dosing, 69, kg, 04/29/22 15:35:... Start Date: 04/29/22 Status: Ordered ferrous sulfate 324 mg delayed release oral tablet (20 sources) Start: 01-06-2022 End: 01-18-2025 take 1 tablet by mouth once daily Ferrous Sulfate 324 mg (65 mg iron) tablet,delayed release (DR/EC) Discontinued 324 MG PO Daily January 06, 2022 8:58am January 18, 2025 5:09am Start: 11-26-2020 take 325 mg by mouth every other day ferrous sulfate 325 mg, Oral, q2Days, Anemia Start Date: 11/26/20 Status: Ordered Repeat number: 1 Start: 06-26-2020 End: 01-06-2022 Ferrous Sulfate 324 mg (65 m g iron) Tablet,Delayed Release (Dr/Ec) Discontinued 324 MG PO Q48H 120 June 26, 2020 11:38am January 06, 2022 8:58am Start: 12-08-2019 End: 06-27-2020 take 1 tablet by mouth twice daily Ferrous Sulfate 324 mg (65 mg iron) Tablet,Delayed Release (Dr/Ec) Discontinued 324 MG PO Twice daily 120 December 08, 2019 12:00am June 27, 2020 12:36pm End: 08-19-2023 take 1 tablet by mouth in the morning ferrous sulfate 325 (65 Fe) MG EC tablet Take 325 mg by mouth in the morning and 325 mg before bedtime. Do not crush, chew, or split.. 0 08/19/2023 Discontinued (Therapy completed) oxyCODONE hydrochloride 5 mg oral tablet (6 sources) Opioid Agonist Start: 01-19-2025 End: 02-14-2025 take 1 tablet by mouth every six hours as needed for pain Oxycodone 5 mg tablet Discontinued 5 MG PO Q6H as needed for pain 14 02January 19, 2025 February 14, 2025 2:57pm polyethylene glycol 3350 08615 mg powder for oral solution (6 sources) Osmotic Laxative Start: 01-25-2025 End: 02-14-2025 Polyethylene Glycol 3350 (Healthylax) 17 gram Powder In Packet Discontinued 17 GM PO Daily 0 January 25, 2025 12:00am February 14, 2025 2:57pm sennosides, correction 8.6 mg oral tablet (6 sources) Start: 01-25-2025 End: 02-14-2025 take 2 tablets by mouth twice daily as needed for constipation Sennosides (Senna Lax) 8.6 mg Tablet Discontinued 17.2 MG PO Twice daily as needed for constipation 0 January 25, 2025 12:00am February 14, 2025 2:57pm Problems Active Problems Problem Classification Problem Date Documented Date Episodic/Chronic Conditions associated with dizziness or vertigo (12 sources) Dizziness; Translations: [Dizziness and giddiness] 06-30-2023 Episodic Comment on above: Problem List clean-u p per request of Phys. EHR Cmte Deficiency and other anemia (20 sources) Anemia; Translations: [Anemia, unspecified] 02-03-2022 Episodic Comment on above: Problem List clean-u p per request of Phys. EHR Cmte Disorders of lipid metabolism (15 sources) Hyperlipidemia, unspecified; Translations: [Hyperlipidemia] Onset: 11-28-2021 08-19-2023 Chronic Essential hypertension (20 sources) Hypertensive disorder; Translations: [Essential (primary) hypertension] Onset: 12-03-2021 02-03-2022 Chronic Comment on above: Problem List clean-u p per request of Phys. EHR Cmte Fracture of lower limb (17 sources) Closed trimalleolar fracture; Translations: [Displaced trimalleolar fracture of unspecified lower leg, initial encounter for closed fracture] Onset: 01-18-2025 01-18-2025 Episodic Genitourinary symptoms and ill-defined conditions (20 sources) Mixed incontinence; Translations: [Incontinence] Onset: 02-03-2022 Chronic Genitourinary symptoms and ill-defined conditions (20 sources) Retention of urine; Translations: [Retention of urine, unspecified] Onset: 04-29-2022 Episodic Mood disorders (14 sources) Recurrent major depression in full remission; Translations: [Major depressive disorder, recurrent, in full remission] Onset: 08-19-2023 08-19-2023 Chronic Nutritional deficiencies (2 sources) Cobalamin deficiency; Translations: [Deficiency of other specified B group vitamins] 04-16-2025 Episodic Occlusion or stenosis of precerebral arteries (1 source) Occlusion and stenosis of bilateral carotid arteries; Translations: [OCCLUSION AND STENOS ROMAINE CAROTID ART] Onset: 12-03-2021 Chronic Osteoporosis (3 sources) Age-related osteoporosis without current pathological fracture; Translations: [Senile osteoporosis] Onset: 02-24-2022 09-06-2024 Chronic Other aftercare (10 sources) Removal of sutures done; Translations: [Encounter for removal of sutures] 02-14-2025 Episodic Other circulatory disease (1 source) Disorder of arteries and arterioles, unspecified; Translations: [DISORDER ARTERIES AND ARTERIOLES UNS] Onset: 12-03-2021 Chronic Other diseases of bladder and urethra (9 sources) Male urethral stricture; Translations: [Unspecified urethral stricture, male, unspecified site] Onset: 04-29-2022 Episodic Other diseases of bladder and urethra (20 sources) Urethral stricture 04-29-2022 Episodic Other eye disorders (9 sources) Optic atrophy; 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 EHR Cmte Other nervous system disorders (12 sources) Postoperative pain ; Translations: [Other acute postprocedural pain] 01-22-2025 Episodic Other screening for suspected conditions (not mental disorders or infectious disease) (15 sources) Encounter for screening for malignant neoplasm of cervix; Translations: [Encounter for screening mammogram for malignant neoplasm of breast] Onset: 11-28-2021 Episodic Comment on above: Problem List clean-u p per request of Phys. EHR Cmte Pathological fracture (2 sources) Osteoporosis; Translations: [Age-related osteoporosis with current pathological fracture, unspecified site, initial encounter for fracture] 04-16-2025 Episodic Prolapse of female genital organs (19 sources) Cystocele 08-20-2022 Chronic Residual codes; unclassified (20 sources) History of ankle surgery; Translations: [Other specified postprocedural states] 01-22-2025 Episodic Residual codes; unclassified (1 source) Other specified postprocedural states; Translations: [Other specified postprocedural states] Onset: 02-14-2025 Episodic Retinal detachments; defects; vascular occlusion; and retinopathy (9 sources) Nonexudative age-related macular degeneration; Translations: [Nonexudative age-related macular degeneration, bilateral, early dry stage] Onset: 09-28-2023 09-28-2023 Chronic Screening and history of mental health and substance abuse codes (20 sources) Ex-smoker 02-03-2022 Episodic Unclassified (12 sources) Please schedule an appointment for 3 weeks post surgery. Urinary tract infections (20 sources) Acute cystitis; Translations: [Acute cystitis without hematuria] Onset: 02-03-2022 Episodic Comment on above: Problem List clean-u p per request of Phys. EHR Cmte Viral infection (6 sources) Disease caused by 2019-nCoV; Translations: [COVID-19] 06-30-2023 Episodic Comment on above: Problem List clean-u p per request of Phys. EHR Cmte Past or Other Problems Problem Classification Problem Date Documented Date Episodic/Chronic Administrative/social admission (13 sources) Other reduced mobility; Translations: [Impaired mobility and activities of daily living] Onset: 01-18-2025 01-22-2025 Episodic Deficiency and other anemia (1 source) Iron deficiency anemia, unspecified; Translations: [IRON DEFICIENCY ANEMIA UNSPECIFIED] Onset: 11-28-2021 Episodic Deficiency and other anemia (10 sources) Iron deficiency anemia secondary to inadequate dietary iron intake; Translations: [Other iron deficiency anemias] Onset: 08-19-2023 08-19-2023 Episodic Diabetes mellitus without complication (4 sources) Other abnormal glucose; Translations: [OTHER ABNORMAL GLUCOSE] Onset: 11-26-2021 Episodic E Codes: Natural/environment (1 source) Bitten by dog, initial encounter; Translations: [Bitten by dog, initial encounter] Onset: 01-18-2025 Episodic Immunizations and screening for infectious disease (1 source) Encounter for screening for human papillomavirus (HPV); Translations: [ENC SCREENING HUMAN PAPILLOMAVIRUS] Onset: 12-31-2021 Episodic Inflammation; infection of eye (except that caused by tuberculosis or sexually transmitteddisease) (9 sources) Blepharitis of upper and lower eyelids of bilateral eyes; Translations: [Unspecified blepharitis right eye, upper and lower eyelids] Onset: 09-29-2023 09-29-2023 Episodic Open wounds of head; neck; and trunk (13 sources) Dog bite of chest; Translations: [Open bite of unspecified back wall of thorax without penetration into thoracic cavity, initial encounter] Onset: 01-18-2025 01-18-2025 Episodic Other eye disorders (9 sources) Dry eyes; Translations: [Dry eye syndrome of bilateral lacrimal glands] Onset: 09-28-2023 09-28-2023 Episodic Other female genital disorders (9 sources) Disorder of female genital system; Translations: [Unspecified condition associated with female genital organs and menstrual cycle] Onset: 08-19-2023 08-19-2023 Episodic Other nervous system disorders (1 source) Other acute postprocedural pain; Translations: [Other acute postprocedural pain] Onset: 01-18-2025 Episodic Residual codes; unclassified (4 sources) Asymptomatic menopausal state; Translations: [ASYMPTOMATIC MENOPAUSAL STATE] Onset: 02-10-2022 Episodic Residual codes; unclassified (1 source) Other specified health status; Translations: [Other specified health status] Onset: 01-18-2025 Episodic Results Test Name Value Interpretation Reference Range Facility X-ray reportOrdered By: Deangelo Love on 03-21-2025 Study report [facility] [address] [place] [address] XRay Report Signed Patient: Nicci Mojica MR#: [id number] : 1955 Acct:[id number] Age/Sex: 69 / F ADM Date: 5 Loc: [facility] [place] Room: Type: [facility] Attending Dr: Ivan Interiano DO Copies to: Ivan Interiano DO~ Ordering Provider: Ivan Interiano DO Date of Service: 03/21/25 XR/XR ankle RT min 3V*: S82.853A - Displaced trimalleolar fracture of unspecified... 3 views right ankle plain film COMPARISON: 01/18/2025 HISTORY: Status post ORIF right ankle ACUTE FINDINGS: Stable alignment of fracture fragments DEGENERATIVE CHANGE: Unremarkable SOFT TISSUE FINDINGS: Unremarkable JOINT EFFUSION: None POSTOP CHANGES: Stable hardware BONE MINERALIZATION: Adequate XR/XR ankle RT min 3V* IMPRESSION: Stable findings Impression dictated by: Daryn Love M.D. 03/21/2025 10:37 PM Dictation Location: RADIO-PC-20 Transcribed By: [facility] 03/21/252236 Dictated By: Daryn Love DO 03/21/252235 Signed By: 03/21/252236 [facility] XR ankle RT min 3V*on 2024 XR ankle RT min 3V* [facility] [address] [place] [address] XRay Report Signed Patient: Nicci Mojica MR#: [id number] : 1955 Acct:[id number] Age/Sex: 69 / F ADM Date: 03/21/25 Loc: [facility] [place] Room: Type: [facility] Attending Dr: Ivan Interiano DO Copies to: Ivan Interiano DO Ordering Provider: Ivan Interiano DO Date of Service: 03/21/25 XR/XR ankle RT min 3V*: S82.853A - Displaced trimalleolar fracture of unspecified... 3 views right ankle plain film COMPARISON: 01/18/2025 HISTORY: Status post ORIF right ankle ACUTE FINDINGS: Stable alignment of fracture fragments DEGENERATIVE CHANGE: Unremarkable SOFT TISSUE FINDINGS: Unremarkable JOINT EFFUSION: None POSTOP CHANGES: Stable hardware BONE MINERALIZATION: Adequate XR/XR ankle RT min 3V* IMPRESSION: Stable findings Impression dictated by: Daryn Love M.D. 03/21/2025 10:37 PM Dictation Location: [facility]PC-20 Transcribed By: MARINO 03/21/252236 Dictated By: Daryn Love DO 03/21/252235 Signed By: 03/21/2522[address] [place] [facility] X-ray reportOrdered By: Sunny Thurston on 02-15-2025 Study report [facility] [address] [place] [address] XRay Report Signed Patient: Nicci Mojica MR#: [id number] : 1955 Acct:[id number] Age/Sex: 69 / F ADM Date: 5 Loc: [facility] [place] Room: Type: [facility] CLI Attending Dr: Ivan Interiano DO Copies to: Ivan Interiano DO~ Ordering Provider: Ivan Interiano DO Date of Service: 02/14/25 XR/XR ankle LT min 3V*: Z98.890 - Other specified postprocedural states 3 views right ankle INDICATION: Fracture COMPARISON:: 01/18/2025 FINDINGS: Overlying casting material. Otherwise stable postsurgical changes status post lateral plate and screw fixation of the distal fibula, screw fixation of the medial malleolus, and syndesmotic screw placement. Medial malleolar and distal fibular fractures appear unchanged alignment. No new fracture. XR/XR ankle LT min 3V* IMPRESSION: postsurgical changes status post ORIF of the ankle fractures. No significant change in alignment. No hardware convocation Impression dictated by: Doug Thurston M.D. 02/15/2025 12:15 AM Dictation Location: [place] [address] Transcribed By: [facility] 02/15/25 001 Dictated By: Doug Thurston MD 02/15/25 0013 Signed By: 02/15/25 0015 [facility] Work Phone: XR ankle LT min 3V*on 2024 XR ankle LT min 3V* [facility] [place] [facility] [place] [address] XRay Report Signed Patient: Nicci Mojica MR#: [id number] 756 : 1955 Acct:[id number] Age/Sex: 69 / F ADM Date: 02/14/25 Loc: [facility] [place] Room: Type: DEP CLI Attending Dr: Ivan Interiano DO Copies to: Ivan Interiano DO Ordering Provider: Ivan Interiano DO Date of Service: 02/14/25 XR/XR ankle LT min 3V*: Z98.890 - Other specified postprocedural states 3 views right ankle INDICATION: Fracture COMPARISON:: 01/18/2025 FINDINGS: Overlying casting material. Otherwise stable postsurgical changes status post lateral plate and screw fixation of the distal fibula, screw fixation of the medial malleolus, and syndesmotic screw placement. Medial malleolar and distal fibular fractures appear unchanged alignment. No new fracture. XR/XR ankle LT min 3V* IMPRESSION: postsurgical changes status post ORIF of the ankle fractures. No significant change in alignment. No hardware convocation Impression dictated by: Doug Thurston M.D. 02/15/2025 12:15 AM Dictation Location: [place] [address] Transcribed By: [facility] 02/15/25 0015 Dictated By: Doug Thurston MD 02/15/25 0013 Signed By: 02/15/[address] [facility] XR ankle RT 2Von 01-22-2025 XR ankle RT 2V [facility] Main [facility] [address] [place] [address] XRay Report Signed Patient: Nicci Mojica MR#: [id number] 756 : 1955 Acct:[id number] Age/Sex: 69 / F ADM Date: 01/18/25 Loc: Room: [address] [place] [address] Type: ADM IN Attending Dr: Carmen De Anda MD Copies to: DO Carmen Colby MD Ordering Provider: Ivan Interiano DO Date of Service: 01/18/25 XR/XR ankle RT 2V: ORIF XR ankle RT 2V 01/18/2025 4:00 PM SIGNS AND SYMPTOMS: ORIF Q fixation of right ankle fracture PROTOCOL: Intraoperative views of the right ankle COMPARISON: 01/18/2025 FINDINGS: Intraoperative views right ankle demonstrate lateral plate and screw fixation of the distal fibula, screw fixation of the medial malleolus, and syndesmotic screw placement. Cumulative Air Kerma in mGy: 2.21 mGy XR/XR ankle RT 2V IMPRESSION: Intraoperative views right ankle demonstrate lateral plate and screw fixation of the distal fibula, screw fixation of the medial malleolus, and syndesmotic screw placement. Impression dictated by: Davidson Shoemaker M.D. 01/22/2025 8:30 AM Dictation Location: [place] [address] Transcribed By: [facility] 01/22/25829 Dictated By: Davidson Shoemaker II, MD 01/22/25828 Signed By: 01/22/[address] [facility] Basic Metabolic Panelon Anion gap [Moles/Vol] 10.0 mmol/L Normal 6.0-15.[address] [facility] Comment on above: Performed By: #### C BC, BMP #### [facility] [address] Calcium [Mass/Vol] 9.1 mg/dL Normal 8.6-10.3 [facility] Comment on above: Performed By: #### C BC, BMP #### [facility] [address] Chloride [Moles/Vol] 105 mmol/L Normal 98-[address] [facility] Comment on above: Performed By: #### C BC, BMP #### [facility] [address] CO2 [Moles/Vol] 28.0 mmol/L Normal 21.0-31.0 [facility] Comment on above: Performed By: #### C BC, BMP #### [facility] [address] [place] [address] [place] Creatinine [Mass/Vol] 0.56 mg/dL Low 0.60-1.[address] [facility] Comment on above: Performed By: #### C BC, BMP #### [facility] [address] [place] [address] [place] Creatinine Clr Calc Pharmacy 62.[address] [facility] Comment on above: Result Comment: PERF ORMED BY: [place] [address] PATHOLOGIST [employer]PORATE SERVICES MANAGER FUENTES FERMIN M.D. Performed By: #### C BC, BMP #### [address] GFR/1.73 sq M.predicted MDRD (S/P/Bld) [Vol rate/Area] mL/min/{1.73_m2} Normal [facility] Comment on above: Performed By: #### C BC, BMP #### [address] Glucose [Mass/Vol] 106 mg/dL High 70-100 [facility] Comment on above: Result Comment: [place] Glucose Reference Range is dependent on time and content of last meal. Glucose of more than 200 mg/dL in a nonstressed, ambulatory subject supports the diagnosis of Diabetes Mellitus. ADA recommended reference range Performed By: #### C BC, BMP #### [address] Potassium [Moles/Vol] 4.0 mmol/L Normal 3.5-5.[address] [facility] Comment on above: Performed By: #### C BC, BMP #### [address] Sodium [Moles/Vol] 139 mmol/L Normal 136-145 [facility] Comment on above: Performed By: #### C BC, BMP #### [address] Urea nitrogen [Mass/Vol] 11 mg/dL Normal 7-[address] [facility] Comment on above: Performed By: #### C BC, BMP #### [address] Complete Blood Count Auto Di ffon 01-21-2025 Basophils (Bld) [#/Vol] 0.0 10*3/uL Normal 0.0-0.[address] [facility] Comment on above: Result Comment: PERF ORMED BY: [place] [address] PATHOLOGIST CORPORATE SERVICES MANAGER FUENTES FERMIN M.D. Performed By: #### C BC, BMP #### [place] [address] [place] Basophils/100 WBC (Bld) 0.7 % Normal . [facility] Comment on above: Performed By: #### C BC, BMP #### [address] Eosinophils (Bld) [#/Vol] 0.1 10*3/uL Normal 0.0-0.[address] [facility] Comment on above: Performed By: #### C BC, BMP #### [address] Eosinophils/100 WBC (Bld) 1.6 % Normal . [facility] Comment on above: Performed By: #### C BC, BMP #### [address] Erythrocyte distribution width (RBC) [Ratio] 14.0 % Normal 11.9-15.[address] [facility] Comment on above: Performed By: #### C BC, BMP #### [address] Hematocrit (Bld) [Volume fraction] 35.2 % Normal 34.0-46.[address] [facility] Comment on above: Performed By: #### C BC, BMP #### [address] Hemoglobin (Bld) [Mass/Vol] 11.8 g/dL Normal 11.8-15.[address] [facility] Comment on above: Performed By: #### C BC, BMP #### [place] [address] [place] Lymphocytes (Bld) [#/Vol] 1.1 10*3/uL Normal 1.00-4.[address] [facility] Comment on above: Performed By: #### C BC, BMP #### [place] [address] [place] Lymphocytes/100 WBC (Bld) 19.2 % Normal . [facility] Comment on above: Performed By: #### C BC, BMP #### [address] MCH (RBC) [Entitic mass] 31.5 pg Normal 24.7-34.[address] [facility] Comment on above: Performed By: #### C BC, BMP #### [address] MCV (RBC) [Entitic vol] 94.6 fL Normal 80-[address] [facility] Comment on above: Performed By: #### C BC, BMP #### [address] Mean Corpuscular HGB Conc 33.4 g/dL Normal 32.0-35.[address] [facility] Comment on above: Performed By: #### C BC, BMP #### [address] Monocytes (Bld) [#/Vol] 0.6 10*3/uL Normal 0.0-0.[address] [facility] Comment on above: Performed By: #### C BC, BMP #### [address] Monocytes/100 WBC (Bld) 10.7 % Normal . [facility] Comment on above: Performed By: #### C BC, BMP #### [address] Neutrophils (Bld) [#/Vol] 3.8 10*3/uL Normal 1.8-7.[address] [facility] Comment on above: Performed By: #### C BC, BMP #### [address] Neutrophils/100 WBC (Bld) 67.8 % Normal . [facility] Comment on above: Performed By: #### C BC, BMP #### [address] NRBC% 0.1 /100{WBC} Normal 0-0.5 [facility] Comment on above: Performed By: #### C BC, BMP #### [address] [address] [place] Platelet mean volume (Bld) [Entitic vol] 8.0 fL Normal 6.3-10.[address] [facility] Comment on above: Performed By: #### C BC, BMP #### [address] Platelets (Bld) [#/Vol] 170 10*3/uL Normal 150-[address] [facility] Comment on above: Performed By: #### C BC, BMP #### [address] RBC (Bld) [#/Vol] 3.72 10*6/uL Normal 3.60-5.00 [facility] Comment on above: Performed By: #### C BC, BMP #### [address] WBC (Bld) [#/Vol] 5.7 10*3/uL Normal 3.8-11.6 [facility] Comment on above: Performed By: #### C BC, BMP #### [address] White Blood Count 5.7 [CFU]/mL Normal 3.8-11.6 [facility] Comment on above: Performed By: #### C BC, BMP #### [address] A1C with Estimated Average G fredyn 01-18-2025 Glucose [Mass/Vol] 117 mg/dL Normal [facility] Comment on above: Result Comment: PERF ORMED BY: [place] [address] PATHOLOGIST CORPORATE SERVICES MANAGER FUENTES FERMIN M.D. Performed By: #### L IPID, CBC, PT, CMP, MG, PTT, [id number], A1C WTH eA ####[facility] [place] [address] HbA1c (Bld) [Mass fraction] 5.7 % High 4.3-5.[address] [facility] Comment on above: Result Comment: Incr eased risk for diabetes: 5.7 - 6.4 diabetes: >6.4 glycemic control for adults with diabetes: <7.0 Performed By: #### L IPID, CBC, PT, CMP, MG, PTT, [id number], A1C WTH eA ####[facility] [id number] [place] [id number] [facility] CT ankle RT wo conon 025 CT ankle RT wo con [facility] [address] [facility] [address] [place] [id number] Scan Report Signed Patient: Nicci Mojica MR#: [id number] 756 : 1955 Acct:[id number] Age/Sex: 69 / F ADM Date: 01/18/25 Loc: Room: 1Q7157-8 Type: ADM IN Attending Dr: Ghanshyam Ch DO Copies to: DO Ghanshyam Colby DO Ordering Provider: Ivan Interiano DO Date of Service: 01/18/25 CT/CT ankle RT wo con: pre op CT right ankle WITHOUT CONTRAST WITH 3D RECONSTRUCTIONS: CLINICAL HISTORY: Fall last night. Trimalleolar fracture. COMPARISON: Right ankle series 01/18/2025 TECHNIQUE: Spiral axial unenhanced images were obtained through the right ankle. Sagittal, coronal and 3D volume-rendered reconstructions were also reviewed. This CT exam was performed using one or more following dose reduction techniques: Automated exposure control, adjustment of the mA and/or kV according to patient size, or use of iterative reconstruction technique. FINDINGS: Soft tissue swelling is present. No fluid collection is seen. A comminuted fracture involving the distal fibula is seen. Comminuted fracture involving the medial malleolus with disruption of the ankle mortise with widening of the medial clear space of approximately 1.4 cm suggestive of ligamentous disruption. There is also widening of the tibia and fibula interspace suggestive of interosseous ligament disruption. Talus appears intact. Calcaneus appears intact. Plantar spurring. Visualized mid foot appears intact. CT/CT ankle RT wo con IMPRESSION: COMMINUTED FRACTURE INVOLVING THE DISTAL FIBULA. COMMINUTED FRACTURE INVOLVING THE MEDIAL MALLEOLUS WITH DISRUPTION OF THE ANKLE MORTISE CONSISTENT WITH LIGAMENTOUS DISRUPTION. THERE IS ALSO WIDENING OF THE TIBIA AND FIBULA INTERSPACE SUGGESTIVE OF INTEROSSEOUS LIGAMENT DISRUPTION. Impression dictated by: Andrew Lyn Jr., D.O. 01/18/2025 9:58 AM Dictation Location: [place] [address] Transcribed By: [facility] 01/18/25 0958 Dictated By: Andrew Lyn Jr, DO 01/18/25 0947 Signed By: 01/18/[address] [facility] Complete Blood Count Auto Di ffon 01-18-2025 Basophils (Bld) [#/Vol] 0.1 10*3/uL Normal 0.0-0.[address] [facility] Comment on above: Result Comment: PERF ORMED BY: [place] [address] PATHOLOGIST [employer]PORATE SERVICES MANAGER FUENTES FERMIN M.D. Performed By: #### L IPID, CBC, PT, CMP, MG, PTT, [id number], A1C WTH eA #### [address] Basophils/100 WBC (Bld) 0.7 % Normal . [facility] Comment on above: Performed By: #### L IPID, CBC, PT, CMP, MG, PTT, [id number], A1C WTH eA #### [place] [address] [place] Eosinophils (Bld) [#/Vol] 0.1 10*3/uL Normal 0.0-0.[address] [facility] Comment on above: Performed By: #### L IPID, CBC, PT, CMP, MG, PTT, [id number], A1C WTH eA #### [place] [address] [place] Eosinophils/100 WBC (Bld) 1.0 % Normal . [facility] Comment on above: Performed By: #### L IPID, CBC, PT, CMP, MG, PTT, [id number], A1C WTH eA #### [address] Erythrocyte distribution width (RBC) [Ratio] 14.0 % Normal 11.9-15.[address] [facility] Comment on above: Performed By: #### L IPID, CBC, PT, CMP, MG, PTT, [id number], A1C WTH eA #### [address] Hematocrit (Bld) [Volume fraction] 36.8 % Normal 34.0-46.[address] [facility] Comment on above: Performed By: #### L IPID, CBC, PT, CMP, MG, PTT, [id number], A1C WTH eA #### [address] Hemoglobin (Bld) [Mass/Vol] 12.3 g/dL Normal 11.8-15.[address] [facility] Comment on above: Performed By: #### L IPID, CBC, PT, CMP, MG, PTT, [id number], A1C WTH eA #### [address] Lymphocytes (Bld) [#/Vol] 1.5 10*3/uL Normal 1.00-4.[address] [facility] Comment on above: Performed By: #### L IPID, CBC, PT, CMP, MG, PTT, [id number], A1C WTH eA #### [address] Lymphocytes/100 WBC (Bld) 20.9 % Normal . [facility] Comment on above: Performed By: #### L IPID, CBC, PT, CMP, MG, PTT, [id number], A1C WTH eA #### [address] MCH (RBC) [Entitic mass] 31.7 pg Normal 24.7-34.[address] [facility] Comment on above: Performed By: #### L IPID, CBC, PT, CMP, MG, PTT, [id number], A1C WTH eA #### [address] MCV (RBC) [Entitic vol] 94.8 fL Normal 80-[address] [facility] Comment on above: Performed By: #### L IPID, CBC, PT, CMP, MG, PTT, [id number], A1C WTH eA #### [address] Mean Corpuscular HGB Conc 33.4 g/dL Normal 32.0-35.[address] [facility] Comment on above: Performed By: #### L IPID, CBC, PT, CMP, MG, PTT, [id number], A1C WTH eA #### [address] Monocytes (Bld) [#/Vol] 0.7 10*3/uL Normal 0.0-0.[address] [facility] Comment on above: Performed By: #### L IPID, CBC, PT, CMP, MG, PTT, [id number], A1C WTH eA #### [address] Monocytes/100 WBC (Bld) 9.4 % Normal . [facility] Comment on above: Performed By: #### L IPID, CBC, PT, CMP, MG, PTT, [id number], A1C WTH eA #### [address] Neutrophils (Bld) [#/Vol] 4.8 10*3/uL Normal 1.8-7.[address] [facility] Comment on above: Performed By: #### L IPID, CBC, PT, CMP, MG, PTT, [id number], A1C WTH eA #### [address] Neutrophils/100 WBC (Bld) 68.0 % Normal . [facility] Comment on above: Performed By: #### L IPID, CBC, PT, CMP, MG, PTT, [id number], A1C WTH eA #### [address] NRBC% 0.0 /100{WBC} Normal 0-0.5 [facility] Comment on above: Performed By: #### L IPID, CBC, PT, CMP, MG, PTT, [id number], A1C WTH eA #### [facility] [address] Platelet mean volume (Bld) [Entitic vol] 7.6 fL Normal 6.3-10.[address] [facility] Comment on above: Performed By: #### L IPID, CBC, PT, CMP, MG, PTT, [id number], A1C WTH eA #### [address] Platelets (Bld) [#/Vol] 200 10*3/uL Normal 150-[address] [facility] Comment on above: Performed By: #### L IPID, CBC, PT, CMP, MG, PTT, [id number], A1C WTH eA #### [address] RBC (Bld) [#/Vol] 3.88 10*6/uL Normal 3.60-5.00 [facility] Comment on above: Performed By: #### L IPID, CBC, PT, CMP, MG, PTT, [id number], A1C WTH eA #### [address] WBC (Bld) [#/Vol] 7.1 10*3/uL Normal 3.8-11.6 [facility] Comment on above: Performed By: #### L IPID, CBC, PT, CMP, MG, PTT, [id number], A1C WTH eA #### [address] White Blood Count 7.1 [CFU]/mL Normal 3.8-11.6 [facility] Comment on above: Performed By: #### L IPID, CBC, PT, CMP, MG, PTT, [id number], A1C WTH eA #### [address] Comprehensive Metabolic Pane roz 01-18-2025 Albumin [Mass/Vol] 4.2 g/dL Normal 3.5-5.7 [facility] Comment on above: Order Comment: FASTI NG Y Performed By: #### L IPID, CBC, PT, CMP, MG, PTT, [id number], A1C WTH eA #### [address] Albumin/Globulin [Mass ratio] 1.6 {ratio} Normal [facility] Comment on above: Order Comment: FASTI NG Y Performed By: #### L IPID, CBC, PT, CMP, MG, PTT, [id number], A1C WTH eA #### [address] ALP [Catalytic activity/Vol] 40 U/L Normal 34-[address] [facility] Comment on above: Order Comment: FASTI NG Y Performed By: #### L IPID, CBC, PT, CMP, MG, PTT, [id number], A1C WTH eA #### [address] ALT [Catalytic activity/Vol] 19 U/L Normal 7-[address] [facility] Comment on above: Order Comment: FASTI NG Y Performed By: #### L IPID, CBC, PT, CMP, MG, PTT, [id number], A1C WTH eA #### [address] Anion gap [Moles/Vol] 10.8 mmol/L Normal 6.0-15.[address] [facility] Comment on above: Order Comment: FASTI NG Y Performed By: #### L IPID, CBC, PT, CMP, MG, PTT, [id number], A1C WTH eA #### [address] AST [Catalytic activity/Vol] 20 U/L Normal 13-[address] [facility] Comment on above: Order Comment: FASTI NG Y Performed By: #### L IPID, CBC, PT, CMP, MG, PTT, [id number], A1C WTH eA #### [address] Bilirubin [Mass/Vol] 0.4 mg/dL Normal 0.3-1.[address] [facility] Comment on above: Order Comment: FASTI NG Y Performed By: #### L IPID, CBC, PT, CMP, MG, PTT, [id number], A1C WTH eA #### [facility] [address] Calcium [Mass/Vol] 8.9 mg/dL Normal 8.6-10.3 [facility] Comment on above: Order Comment: FASTI NG Y Performed By: #### L IPID, CBC, PT, CMP, MG, PTT, [id number], A1C WTH eA #### [facility] [address] Chloride [Moles/Vol] 106 mmol/L Normal 98-[address] [facility] Comment on above: Order Comment: FASTI NG Y Performed By: #### L IPID, CBC, PT, CMP, MG, PTT, [id number], A1C WTH eA #### [address] CO2 [Moles/Vol] 27.3 mmol/L Normal 21.0-31.0 [facility] Comment on above: Order Comment: FASTI NG Y Performed By: #### L IPID, CBC, PT, CMP, MG, PTT, [id number], A1C WTH eA #### [address] Creatinine [Mass/Vol] 0.82 mg/dL Normal 0.60-1.[address] [facility] Comment on above: Order Comment: FASTI NG Y Performed By: #### L IPID, CBC, PT, CMP, MG, PTT, [id number], A1C WTH eA #### [address] Creatinine Clr Calc Pharmacy 60.[address] [facility] Comment on above: Order Comment: FASTI NG Y Performed By: #### L IPID, CBC, PT, CMP, MG, PTT, [id number], A1C WTH eA #### [place] [id number] [facility] GFR/1.73 sq M.predicted MDRD (S/P/Bld) [Vol rate/Area] mL/min/{1.73_m2} Normal [facility] Comment on above: Order Comment: FASTI NG Y Performed By: #### L IPID, CBC, PT, CMP, MG, PTT, [id number], A1C WTH eA #### [facility] [address] Globulin (S) [Mass/Vol] 2.6 g/dL Normal [facility] Comment on above: Order Comment: FASTI NG Y Performed By: #### L IPID, CBC, PT, CMP, MG, PTT, [id number], A1C WTH eA #### [address] Glucose [Mass/Vol] 94 mg/dL Normal 70-100 [facility] Comment on above: Order Comment: FASTI NG Y Result Comment: [facility] Glucose Reference Range is dependent on time and content of last meal. Glucose of more than 200 mg/dL in a nonstressed, ambulatory subject supports the diagnosis of Diabetes Mellitus. ADA recommended reference range Performed By: #### L IPID, CBC, PT, CMP, MG, PTT, [id number], A1C WTH eA #### [address] Potassium [Moles/Vol] 4.1 mmol/L Normal 3.5-5.[address] [facility] Comment on above: Order Comment: FASTI NG Y Performed By: #### L IPID, CBC, PT, CMP, MG, PTT, [id number], A1C WTH eA #### [address] Protein [Mass/Vol] 6.8 g/dL Normal 6.4-8.9 [facility] Comment on above: Order Comment: FASTI NG Y Performed By: #### L IPID, CBC, PT, CMP, MG, PTT, [id number], A1C WTH eA #### [address] Sodium [Moles/Vol] 140 mmol/L Normal 136-145 [facility] Comment on above: Order Comment: FASTI NG Y Performed By: #### L IPID, CBC, PT, CMP, MG, PTT, [id number], A1C WTH eA #### [facility] [address] Urea nitrogen [Mass/Vol] 22 mg/dL Normal 02-[address] [facility] Comment on above: Order Comment: FASTI NG Y Performed By: #### L IPID, CBC, PT, CMP, MG, PTT, [id number], A1C WT eA #### [facility] [address] ECG 12 lead ECGon 01-18-2025 ECG 12 lead ECG [facility] [address] [place] [address] Electrocardiograph Report Signed Patient: Nicci Mojica MR#: [id number] 756 : 1955 Acct:[id number] Age/Sex: 69 / F ADM Date: 01/18/25 Loc: Room: [address] [place] [address] Type: ADM IN Attending Dr: Ghanshyam Ch DO Ordering Provider: Taz De La Cruz MD Date of Service: 01/18/2510/10/658 ECG/ECG 12 lead ECG: Baseline-Perioperativ e Copies to: Test Reason : Blood Pressure : */* mmHG Vent. Rate : 61 BPM Atrial Rate : 61 BPM P-R Int : 210 ms QRS Dur : 98 ms QT Int : 422 ms P-R-T Axes : 71 49 55 degrees QTcB Int : 424 ms Sinus rhythm with 1st degree AV block Incomplete right bundle branch block Borderline ECG When compared with ECG of 25-Jun-2020 11:57, [place] interval has increased Confirmed by YARELIS HENRY [facility], PETROS ([id number]) on 01/18/2025 4:12:24 PM Referred By: Electronically Signed By: PETROS SANTOYO MD [facility] Transcribed By: MUS Signed By Petros Santoyo MD, FACC 01/18/[address] [facility] Lipid Panelon 01-18-2025 Cholesterol [Mass/Vol] 148 mg/dL Normal 140-[address] [facility] Comment on above: Order Comment: FASTI NG Y Result Comment: Chol less than 200 mg/dl low risk Chol 201-239 mg/dl borderline risk Chol 240 mg/dl and greater high risk Performed By: #### L IPID, CBC, PT, CMP, MG, PTT, [id number], A1C WTH eA ####[facility] [place] [address] [facility] Cholesterol in HDL [Mass/Vol] 73 mg/dL Normal 23-[address] [facility] Comment on above: Order Comment: CYNTHIA [place] Result Comment: HDL CHOL ATP-III CLASSIFICATION Cardiovascular Risk HDL > or equal to 60 mg/dL LOW HDL < 40 mg/dL HIGH Performed By: #### L IPID, CBC, PT, CMP, MG, PTT, [id number], A1C WTH eA ####[place] [id number] [place] [address] [facility] Cholesterol.total/Cho lesterol in HDL [Mass ratio] 2.0 {ratio} Normal <5.[address] [facility] Comment on above: Order Comment: CYNTHIA [place] Performed By: #### L IPID, CBC, PT, CMP, MG, PTT, [id number], A1C WT eA ####[place] [address] [place] [address] [facility] LDL Cholesterol,Calculate d 62 mg/dL Normal 0-[address] [facility] Comment on above: Order Comment: CYNTHIA Omalley Result Comment: LDL ATP III CLASSIFICATION LDL less than 100 mg/dL Optimal LDL 100-129 mg/dL Near or above optimal LDL 130-159 mg/dL Borderline high LDL 160-189 mg/dL High LDL greater than 189 mg/dL Very high Performed By: #### L IPID, CBC, PT, CMP, MG, PTT, [id number], A1C WTH eA ####[address] [address] [facility] Triglyceride w/Reflex 63 mg/dL Normal 0-[address] [facility] Comment on above: Order Comment: CYNTHIA Omalley Result Comment: TRIG ATP III CLASSIFICATION TRIG less than 150 mg/dL Normal TRIG 150-199 mg/dL Borderline high TRIG 200-500 mg/dL High TRIG greater than 500 mg/dL Very high Standard traceable to the Center for Disease Conrtrol and Prevention (CDC) test method. Performed By: #### L IPID, CBC, PT, CMP, MG, PTT, [id number], A1C WTH eA ####[facility] VLDL CHOLESTEROL 12 mg/dL Normal [facility] Comment on above: Order Comment: FASTI NG Y Performed By: #### L IPID, CBC, PT, CMP, MG, PTT, [id number], A1C WTH eA ####[facility] Magnesiumon 01-18-2025 Magnesium [Mass/Vol] 2.0 mg/dL Normal 1.9-2.[address] [facility] Comment on above: Order Comment: FASTI NG Y Performed By: #### L IPID, CBC, PT, CMP, MG, PTT, [id number], A1C WTH eA ####[place] [id number] Partial Thromboplastin Timeo n 01-18-2025 aPTT Coag (Bld) [Time] 26.5 s Normal 25.1-36.[address] [facility] Comment on above: Result Comment: A he matocrit value greater than 55% may lead to inaccurate results in coagulation testing. Patients having hematocrit values >55% require a special collection tube for coagulation studies. Please contact the laboratory at [phone] for redraw instructions. PERFORMED BY: [place] [address] PATHOLOGIST CORPORATE SERVICES MANAGER FUENTES FERMIN M.D. Performed By: #### L IPID, CBC, PT, CMP, MG, PTT, [id number], A1C WTH eA #### [facility] [address] Prothrombin Time INRon 01-18 INR Coag (PPP) [Relative time] 1.0 {INR} Normal [facility] Comment on above: Result Comment: INR Therapeutic Range A) Pre- and Peroperative OAT started two weeks before surgery. NOT HIP SURGERY: 1.5 - 2.5 HIP SURGERY: 2 - 3 B) Primary and secondary prevention of venous THROMBOSIS: 2 - 3 C) Active venous thrombosis, pulmonary embolism and prevention of recurrent venous thrombosis: 2 - 3 D) Prevention of arterial thromboembolism including patients with mechanical heart valves: 3 - 4.5 Performed By: #### L IPID, CBC, PT, CMP, MG, PTT, [id number], A1C WTH eA #### [facility] [address] [place] [id number] [facility] PT Coag (PPP) [Time] 11.1 s Normal 9.0-12.[address] [facility] Comment on above: Result Comment: A he matocrit value greater than 55% may lead to inaccurate results in coagulation testing. Patients having hematocrit values >55% require a special collection tube for coagulation studies. Please contact the laboratory at [phone] for redraw instructions. Performed By: #### L IPID, CBC, PT, CMP, MG, PTT, [id number], A1C WTH eA #### [place] [id number] [facility] Vitamin D 25 Hydroxy Totalon 01-18-2025 Vitamin D 25 Hydroxy Total 33.8 ng/mL Normal 30-[address] [facility] Comment on above: Order Comment: CYNTHIA NG Y Result Comment: CHARO MIN D STATUS 25(OH)VITAMIN D RANGE (ng/mL) Deficient <20 Insufficient 20 to <30 Sufficient 30 to 100 Reference: Kevon MF,Gabrielle NC, Te LAZAR, et al. Evaluation,treatment, and prevention of vitamin D deficiency; an Endocrine Society clinical practice guideline. JCEM. 2010; 96(7):1911-30. PERFORMED BY: [place] [id number] PATHOLOGIST CORPORATE SERVICES MANAGER FUENTES FERMIN M.D. Performed By: #### L IPID, CBC, PT, CMP, MG, PTT, [id number], A1C WTH eA ####[facility] [place], [place] [id number] [facility] Patient Letter FTon [address] [facility] Patient Letter [facility] December 07, 2024 NICCI MOJICA [address] [place] [address] : 1955 Dear Ms. Nicci Mojica, You [...] any future cancellations. Sincerely, [facility] [place] [id number] ext.3 [facility] Inpatient Patient Summaryon 11-16-2024 Inpatient Patient Summary Inpatient Patient Summary [address] [address] Clinical Summary Person Information Name: NICCI MOJICA Age: 69 Years : 1955 Sex: Female PCP: SHAIKH HINDS MD Marital Status: Race: White Ethnicity: Non- or Language: Nigerien Visit Id: Visit Reason: URINARY INCONTENENCE Speciality: Acuity: Enc Type: Outpatient Med Service: Surgery Arrival: 11/16/2024 10:39:50 Discharge: Dispo Type: Address: [address] [id number] Provider Notes: Diagnosis: Problems Active History of [...] 3. Care Team Members: Attending Physician: Dione PRIEST MD Consulting Physician: Referring Physician: Dione PRIEST MD Follow up: With: Address: When: Dione PRIEST [address] [place] [address], [address], [place] [address] [facility] (1) Comments: We were able to [...] with Botox Injection Discharge Instructions (Custom) [facility] Main OR Intraoperative Recor don 11-16-2024 Main OR Intraoperative Record Main OR Intraoperative Record IntraOp Document Type FTURO Summary Primary Physician: Dione PRIEST MD Finalized Date/Time: 11/16/24 12:15:18 Pt. Name: NICCI MOJICA/Sex: 1955 Female Med Rec #: [id number] Physician: Dione PRIEST MD Financial #: [id number] Pt. Type: O Room/Bed: / Admit/Disch: 11/16/24 [...] Millicent Campo Role Performed Surgeon - Primary Property Management Intern - Primary Scrub - Primary Time In 11/16/24 11:56:00 11/16/24 11:56:00 11/16/24 11:56:00 Time Out 11/16/24 12:18:00 11/16/24 12:18:00 11/16/24 12:18:00 Procedure CYSTOSCOPY LOCAL(.) CYSTOSCOPY LOCAL(.) CYSTOSCOPY LOCAL(.) Comments Last Modified By: Princess RN, CNOR, Princess RN, CNOR, Princess RN, CNOR, Jahaira 11/16/24 Jahaira 11/16/24 Jahaira 11/16/24 12:13:51 12:14:06 12:14:06 Surgical Procedures FTURO Entry 1 Procedure Description Procedure CYSTOSCOPY LOCAL Modifiers . Surgeon Description CYSTO 150 UNITS OF BOTOX Primary Procedure Yes Primary Surgeon Dione PRIEST MD Start 11/16/24 12:02:00 Stop 11/16/24 12:13:00 Anesthesia Type Local Surgical Service Urology Wound Class 2 - Clean-Contaminated Last Modified By: Princess HUNG, CHASOR, Jahaira 11/16/24 12:13:53 General Comments: botox 150 units lot [id number] outdate 11/2026 General Case Data FTURO Pre-Care Text: Classifies surgical wound, implements aseptic technique, initiates traffic control Entry 1 Case Information OR URO 1 FT Case Level None Wound Class 2 - Clean-Contaminated Specialty Urology Preop Diagnosis URINARY INCONTENENCE Postop Same As Preop Yes Postop Diagnosis URINARY INCONTENENCE Outcomes Met? Yes Last Modified By: MALINDA Sánchez RN, Ruthann 11/16/24 12:08:46 Post-Care Text: The patient is [...] Verified Availability Equipment, Medication Time Out Dione PRIEST MD, Verified (If Participants MALINDA Sánchez RN, Applicable) Robbi Campo CST, Kimberly A Time Out Complete 11/16/24 11:58:00 Allergies Reviewed? [...] By: MALINDA Sánchez RN, Ruthann 11/16/24 12:15 [facility] Main OR Preoperative Recordo n 11-16-2024 Main OR Preoperative Record Main OR Preoperative Record Holding Area Document Type FTURO Summary Primary Physician: Dione PRIEST MD Finalized Date/Time: 11/16/24 11:45:28 Pt. Name: NICCI MOJICA /Sex: 1955 Female Med Rec #: [id number] Physician: Dione PRISET MD Financial #: [id number] Pt. Type: O Room/Bed: / Admit/Disch: 11/16/24 [...] Signed By: Cally Fernandez 11/16/24 11:45 Normal [facility] Operative Reporton Operative Report Operative Report Patient: NICCI MOJICA Age: 69 years Sex: Female : 1955 Associated Diagnoses: None Author: MARY HENRY, Dione Marie Procedure Operative Information Details: Date/ Time: 11/16/2024 12:12:00. Pre-Op Dx: Mixed stress and urge urinary incontinence (IPQ21-WB N39.46, Working, Medical), OAB (overactive bladder) (WSH93-OQ N32.81, Working, Medical), Unspecified urethral stricture, female (JDL62-UU N35.92, Working, Medical). Post-Op Dx: Same. Anesthesia [...] to. I to proceed with urethral dilatation. [place] sounds were utilized. I was able to paste the 16 Serbian sound and followed all the way up to 28 Serbian. This caused no bleeding. I was subsequently [...] 150 units Botox injected in total. Normal [facility] Comment on above: Result Comment: Elec tronically Signed By: Dione PRIEST MD\.br\Date and Time Signed: 11/16/24 12:16 EDT Outpatient Surgery Discharge Instructionon 11-16-2024 Outpatient Surgery Discharge Instruction Outpatient Surgery Discharge Instruction [address] [address] Patient Discharge Instructions PERSON INFORMATION Name: NICCI MOJICA Date of : 1955 Current Date: 11/16/2024 12:12:12 PHYSICIANS Admitting Physician: Dione PRIEST MD Comment: Discharge Diagnosis: NICCI MOJICA has been given the following list of follow-up instructions, prescriptions, and patient education materials: IF UNABLE TO CONTACT YOUR PHYSICIAN AND YOU FEEL IT IS AN EMERGENCY, GO TO THE NEAREST EMERGENCY ROOM OR CALL 911 Follow up: With: Address: When: Dione PRIEST [address] [place] [address], [address], [place] [id number] Business (1) Comments: We were able to put [...] Date You may receive a survey from [employer] asking you to rate your care experience. Your feedback is important and will help us understand what we do well and how we can improve the quality of care we provide to you, your loved ones and our community. It???s an honor to serve you. Thank you for choosing [facility] Normal [facility] C Urineon 11-12-2024 Bacteria identified Cx Nom [...] Locations R1: This test was performed at: [facility], [address] [place] [address], [address] , , Normal [facility] Comment on above: Performed By: #### 2 [id number] #### [facility] [address] [place] [address] Ambulatory Visit Summaryon 0 10-16-2024 Ambulatory Visit Summary Ambulatory Visit Summary NICCI MOJICA :1955 Visit Date:10/16/2024 Ambulatory Visit Instructions Your Diagnosis Mixed incontinence Incomplete bladder emptying Urethral stricture Your Care Team Attending Physician - Naveed CHRISTIANSON, BLADIMIR, Debi Klein Primary Care Physician - GUZMAN HENRY, HOOKER This Is Your Medications List Contact prescribing [...] Follow-Up Appointments Wednesday 12:00 PM EDT Where: [facility] 2024 11:15 AM EDT Where: [facility] You Need to Schedule the Following Appointments Follow Up with MARY HENRY, SHERYL Valle When: Where: [address] [facility] [address] [place], [place] [id number]- Medications What How Much When Instructions Unchanged [...] for choosing us for your care. Normal [facility] Urology Office/Clinic Noteon 10-16-2024 Urology Office/Clinic Note Urology Office/Clinic Note Chief Complaint 2 month F/U HPI Staff 69 year old female 2 month follow up Previous DX: mixed incontinence, UTI and incomplete bladder emptying S/p Cysto, Botox 100u, UD done 9/16/24 BBSQ 21 Pt. denies dysuria and gross hematuria Pt. denies abd pain History of Present Illness Tests reviewed: UA I have reviewed the previous health record information and history for this patient from Dr. Priest. I have reviewed and verified the staff [...] Information MARY HENRY, Dione P, URL [address] [place] [address]- Additional Instructions: Follow up Schedule Botox Injections [...] Daily solifen (more content not included)... Normal [facility] Comment on above: Result Comment: Elec tronically Signed By: BLADIMIR Lucio APRN, Aurora X\.br\Date and Time Signed: 10/16/24 08:47 EDT\.br\Electronically Co-Signed By: Noam Rodriguez\.br\Date and Time Co-Signed: 10/16/24 08:34 EDT Ambulatory Visit Summaryon 0 08-14-2024 Ambulatory Visit Summary Ambulatory Visit Summary NICCI MOJICA :1955 Visit Date:08/14/2024 Ambulatory Visit Instructions Your Diagnosis Urethral stricture Mixed incontinence Incomplete bladder emptying Your Care Team Attending Physician - Dione PRIEST MD Primary Care Physician - GUZMAN HENRY, This [...] APRN, Debi Klein Where: [facility] [address] [place] [address]- You Need to Schedule the Following Appointments Follow Up with MARY HENRY, SHERYL Valle When: Where: [address] [place] [address]- Medications What How Much When Instructions [...] including vitamins, herbs, eye drops, creams, and fiep-rdy-bzlxaxl medicines. ??? Any problems you or family [...] the urethr (more content not included)... Normal [facility] Urology Office/Clinic Noteon 08-14-2024 Urology Office/Clinic Note [...] information and history for this patient from BLADIMIR Miller. I have reviewed and verified the staff [...] Fr. The Urethra was dilated to: 16-30 Serbian with sounds. Specimens Removed: None Postoperative Information [...] Contact Information MARY HENRY, Dione Marie, URL [address] [place] [address] [address] [place], [place] [id number]- Additional Instructions: 2 mos with AALIYAH (AG on mat leave) Patient Education Urethral Dilation I, Sultana Casillas, personally scribed for Dr. Priest on 08/14/2024 10:26:38. . Documentation recorded by the scribe, Sultana Casillas, accurately reflects the services(s) I performed and decisions made by me. Authenticated by Dr. Priest on 08/14/2024 10:29:07. Portions of this record may have been created with voice recognition artificial intelligence software, specifically [employer], [email or web address] and or [employer]. Substitutions may have occurred due to the [...] with dilat (more content not included)... Normal [facility] Comment on above: Result Comment: Elec tronically Signed By: COOK MD, Dione P\.br\Date and Time Signed: 08/14/24 10:30 EST\.br\Electronically Co-Signed By: Sultana Casillas\.br\Date and Time Co-Signed: 08/14/24 10:27 EST Ophthalmic OCT panelon 07-05 [facility] Right Eye Images reviewed and comparison made to baseline, Images reviewed. To assess optic nerve function and for use in future follow-up. Reliability: good and adequate. Left Eye Images reviewed and comparison made to baseline, Images reviewed. To assess optic nerve function and for use in future follow-up. Reliability: good and adequate. 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 [facility] Radiology Study observation (narrative) [facility] Optical coherence tomography study reporton 07-05-2024 [facility] Radiology Study observation (narrative) [facility] C Urineon 06-24-2024 Bacteria identified Cx [...] Locations R1: [facility], [address] [place] [address], [address]- , , Normal [facility] Comment on above: Performed By: #### 2 [id number] #### [facility] [address] [place] [address] Ambulatory Visit Summaryon 1 Ambulatory Visit Summary [...] With: Lizette Ball Where: [facility] [address] [place] [address]- Medications What How Much When Instructions Unchanged [...] for choosing us for your care. Normal [facility] Urology Office/Clinic Noteon 04-20-2024 Urology Office/Clinic Note [...] had 1st Botox on 04/03/[address] Priest. Pt previously had no control with leakage [...] E&M of Est. Patient Moderate 30-39 Min 64958 Urnls Dip Stick Auto w/o Microscopy POC 83515 2. UTI (urinary tract infection) (N39.0: Urinary [...] E&M of Est. Patient Moderate 30-39 Min 97792 3. Incomplete bladder emptying (R33.9: Retention of urine, unspecified) PVR (cc): 08/19/22 - 60 06/01/23 - 174 09/24/23 - 98 12/02/23 - 78 04/20/24 - 84 -See #1 Ordered: E&M of Est. Patient Moderate 30-39 Min 28449 4. Urethral stricture (N35.919: Unspecified urethral stricture, male, unspecified site) S/p Cysto/UD 02/09/22 by [facility] and 12/03/22 by [facility] Continues to report mildly weak stream. Again discussed repeat urethral dilation if patient continues to have leakage, weak stream and increased PVRs. -See #1 -Consider UD at f/u Ordered: E&M of Est. Patient Moderate 30-39 Min [address] Follow-up With When Contact Information Lizette Ball, [...] of intr (more content not included)... Normal [facility] Comment on above: Result Comment: Elec tronically Signed By: Lizette Ball\.br\Date and Time Signed: 04/20/24 12:17 EDT Inpatient Patient Summaryon 04-03-2024 Inpatient Patient Summary Inpatient Patient Summary [address] [address] Clinical Summary Person Information Name: NICCI MOJICA Age: 68 Years : 1955 Sex: Female PCP: SHAIKH HINDS MD Marital Status: Race: White Ethnicity: Non- or Language: Nigerien Visit Id: Visit Reason: URINARY INCONTINENCE Speciality: Acuity: Enc Type: Outpatient Med Service: Surgery Arrival: 04/03/2024 13:00:31 Discharge: Dispo Type: Address: [address] [id number] Provider Notes: Diagnosis: Problems Active UTI (urinary [...] 1. Care Team Members: Attending Physician: Dione PRIEST MD Consulting Physician: Referring Physician: Dione PRIEST MD Follow up: With: Address: When: Lizette [...] Cystoscopy with Botox Injection Discharge Instructions (Custom) [facility] Main OR Intraoperative Recor don 04-03-2024 Main OR Intraoperative Record Main OR Intraoperative Record IntraOp Document Type FTURO Summary Primary Physician: Dione PRIEST MD Finalized Date/Time: 04/03/24 13:41:31 Pt. Name: NICCI MOJICA/Sex: 1955 Female Med Rec #: [id number] Physician: Dione PRIEST MD Financial #: [id number] Pt. Type: O Room/Bed: / Admit/Disch: 04/03/24 13:00:31 - Institution: Case Times FTURO Entry 1 Patient Times In Room 04/03/24 13:25:00 Out Room 04/03/24 13:42:00 Procedure Times Start 04/03/24 13:30:00 Stop 04/03/24 13:37:00 Anesthesia Times Last Modified By: Narinder Dillard Ii 04/03/24 13:39:03 Case Attendance FTURO Entry 1 Entry 2 Entry 3 Case Attendee Dione PRISET MD, Alfons Ii F McClain CST, Kimberly A Role Performed Surgeon - Primary Property Management Intern - Primary Scrub - Primary Time In [...] BOTOX Primary Procedure Yes Primary Surgeon Dione PRIEST MD Start 04/03/24 13:30:00 Stop 04/03/24 13:37:00 [...] Narinder Dillard Ii, Verified (If Participants Dione PRIEST MD, Applicable) Millicent Culp CST Time Out Complete 04/03/24 13:30:00 Allergies Reviewed? Yes Allergies Reviewed Self/Patient With Body Position Low Lithotomy Prep Area VAGINA Prep Agents Betadine Solution Skin. Condition Intact, Edom, Warm, & Dry Additional None Specimens Collected [...] By: Narinder Dillard Ii 04/03/24 13:41 Normal [facility] Main OR Preoperative Recordo n 04-03-2024 Main OR Preoperative Record Main OR Preoperative Record Holding Area Document Type FTURO Summary Primary Physician: Dione PRIEST MD Finalized Date/Time: 04/03/24 13:26:47 Pt. Name: NICCI MOJICA/Sex: 1955 Female Med Rec #: [id number] Physician: Dione PRIEST MD Financial #: [id number] Pt. Type: O Room/Bed: / Admit/Disch: 04/03/24 [...] MALINDA Sánchez RN, Ruthann 04/03/24 13:26 Normal [facility] Operative Reporton Operative Report Operative Report Patient: NICCI MOJICA Age: 68 years Sex: Female : 1955 Associated Diagnoses: None Author: Dione PRIEST MD Procedure Operative Information Details: Date/ Time: 04/03/2024 13:39:00. Pre-Op Dx: Mixed stress and urge urinary incontinence (CFM60-RY N39.46, Working, Medical), Overactive bladder (GRA71-NI N32.81, Working, Medical), Recurrent UTI (APR33-IQ N39.0, Working, Medical), Unspecified urethral stricture, female (AQT74-WA N35.92, Working, Medical). Post-Op Dx: Same. Anesthesia [...] with bladder scan for PVR> . Normal [facility] Comment on above: Result Comment: Elec tronically Signed By: Dione PRIEST MD\.br\Date and Time Signed: 04/03/24 13:42 EDT Outpatient Surgery Discharge Instructionon 04-03-2024 Outpatient Surgery Discharge Instruction Outpatient Surgery Discharge Instruction [place] [id number] Patient Discharge Instructions PERSON INFORMATION Name: NICCI MOJICA Date of : 1955 Current Date: 04/03/2024 13:38:30 PHYSICIANS Admitting Physician: Dione PRIEST MD Comment: Discharge Diagnosis: NICCI MOJICA has [...] Date You may receive a survey from [employer] asking you to rate your care experience. Your feedback is important and will help us understand what we do well and how we can improve the quality of care we provide to you, your loved ones and our community. It?s an honor to serve you. Thank you for choosing [facility] Normal [facility] C Urineon 03-30-2024 Bacteria identified Cx Nom (U) Microbiology PROCEDURE: Urine Culture [R1] SOURCE: U CleanCatch BODY SITE: COLLECTED DATE/TIME: 03/27/2024 16:30 EDT RECEIVED DATE/TIME: 03/28/2024 18:37 EDT START DATE/TIME: 03/28/2024 18:37 EDT FREE TEXT SOURCE: MRAY HENRY, Dione PRIEST MD, Dione Marie FINAL REPORTS Final Report [] Verified Date/Time: 03/30/2024 11:02 EDT 2,000 cfu/ml Mixed skin contaminants Performing Locations R1: This test was performed at: [facility], [address] [place] [address], [address] , , [facility] Comment on above: Performed By: #### 2 [id number] #### [facility] [address] [place] [address] Urineon 12-04-2023 Bacteria identified Cx Nom (U) Microbiology PROCEDURE: Urine Culture [R1] SOURCE: U Random BODY SITE: COLLECTED DATE/TIME: 12/02/2023 10:33 EDT RECEIVED DATE/TIME: 12/02/2023 12:47 EDT START DATE/TIME: 12/02/2023 12:47 EDT FREE TEXT SOURCE: KHRIS BRANDON PA-C, PA-C, JENNIFER E FINAL REPORTS [...] This test was performed at: [facility], [address] [place] [address], [address] , , [facility] Comment on above: Performed By: #### 2 [id number] #### [facility] [address] [place] [address] Bacteria identified Cx Nom (U) Microbiology PROCEDURE: [...] Locations R1: This test was performed at: [facility], [address] [place] [address], [address]- , [place], Normal [facility] Comment on above: Performed By: #### 2 [id number] #### [facility] [address] [place] [address] URINALYSISOrdered By: Ellen hernadez on 08-19-2022 Bacteria [...] Interpretation Code Negative [facility] UA Auto SS [place].plasma/Lithiu m.RBC (Bld) [Mass ratio] 4-20 /HPF Normal [...] [facility] UA Auto SS Urobilinogen Qn (U) 0.0081069 {Shawna'U}/dL Normal 0.0 - 1.0 EU/dL [facility] [...] by: SABRINA PORTILLO Date: 2022-02-10 16:45 Normal [facility] PAP ACOG PANEL 2: 30 to 65on 01-02-2022 . . Normal [facility] Comment on above: Performed By: #### 4 [id number] #### [facility] [address] [place] [address] [address] Huang Ojeda Age Gdln ACOG Testing Comment [facility] Comment on above: Result Comment: <21 or >65 or no age provided Performed By: #### 4 [id number] #### [facility] [address] [place] [address] Dr. Huang Ojeda DIAGNOSIS: Comment [facility] Comment on above: Result Comment: NEGA TIVE FOR INTRAEPITHELIAL LESION OR MALIGNANCY. Performed By: #### 4 [id number] #### [facility] [address] [place] [address] Dr. Huang Ojeda Methodology: Comment [facility] Comment on above: Result Comment: This liquid based ThinPrep(R) pap test was screened with the use of an image guided system. Performed By: #### 4 [id number] #### [facility] [address] [place] [address] Dr. Huang Ojeda Note: Comment [facility] Comment on above: Result Comment: The Pap smear is a screening test designed to aid in the detection of premalignant and malignant conditions of the uterine cervix. It is not a diagnostic procedure and should not be used as the sole means of detecting cervical cancer. Both false-positive and false-negative reports do occur. . Performed By: #### [id number] #### [facility] [address] [place] [address] Dr. Huang Ojeda Performed by: Comment Normal [facility] Comment on above: Result Comment: Isela Forman, Bedspread Folder (ASCP) Performed By: #### [id number] #### [facility] [address] [place] [address] Dr. Huang Ojeda Specimen adequacy: Comment [facility] Comment on above: Result Comment: Sati sfactory for evaluation. Endocervical and/or squamous metaplastic cells (endocervical component) are present. Performed By: #### [id number] #### [facility] [address] [place] [address] Dr. Huang Ojeda MG MAMM SCREEN 3D ROMAINE CADon 11-28-2021 MG MAMM SCREEN 3D ROMAINE CAD Patient: NICCI MOJICA Exam Date: 11/28/2021 : 1955 Gender:F Ordering : SHAIKH Rand HINDS . Admission #: [id number] Family : Order #: [id number] CLICK HERE TO VIEW EXAM RADIOLOGY REPORT PROCEDURE: MAMMOGRAM SCREENING 3D BILATERAL CAD COMPARISON: MG MAMM ROMAINE SCRN W CAD DIG, 12/19/2013. INDICATIONS: Screening mammography Calculator Name NCI Breast Cancer Risk Assessment Tool 5 Year Breast Cancer Risk 1.20% Lifetime Breast Cancer Risk 4.40% Personal Breast Cancer No Personal Ovarian Cancer No Treatments None Family Cancers None LOCATION: [facility] BREAST COMPOSITION: Scattered areas fibroglandular density. [...] LUMP SHOULD BE BIOPSIED. Dictated by: Lavern Forman MD on 11/28/2021 at 15:00 Approved by: Lavern Forman MD on 11/28/2021 at 15:01 Normal [facility] US CAROTID ART BILon 2 022 US [...] >70 >225 >4.0 Electronically authenticated by: LAVERN FORMAN Date: 2021-11-28 14:17 Normal [facility] CBC AUTO DIFFon 11-27-2021 BASO # 0.1 103/ul Normal 0.0-0.1 [facility] Comment on above: Performed By: #### C BC #### [facility] [address] [place] [address] Dr. Huang Ojeda Basophils/100 WBC (Bld) 0.8 % Normal 0.2-2.0 [facility] Comment on above: Performed By: #### C BC #### [facility] [address] [place] [address] Dr. Huang Ojeda EO # 0.2 103/ul Normal 0.0-0.7 [facility] Comment on above: Performed By: #### C BC #### [facility] [address] [place] [address] Dr. Huang Ojeda Eosinophils/100 WBC (Bld) 2.5 % Normal 0.9-7.0 [facility] Comment on above: Performed By: #### C BC #### [facility] [address] [place] [address] Dr. Huang Ojeda Erythrocyte distribution width (RBC) [Ratio] 13.1 % Normal 11.0-15.0 [facility] Comment on above: Performed By: #### C BC #### [facility] [address] [place] [address] Dr. Huang Ojeda Hematocrit (Bld) [Volume fraction] 38.9 % Normal 36.0-48.0 [facility] Comment on above: Performed By: #### C BC #### [facility] [address] [place] [address] Dr. Huang Ojeda Hemoglobin (Bld) [Mass/Vol] 12.1 g/dL Normal 12.0-16.0 [facility] Comment on above: Performed By: #### C BC #### [facility] [address] [place] [address] Dr. Huang Ojeda IG # 0.01 10e3/ul Normal 0.00-0.03 [facility] Comment on above: Performed By: #### C BC #### [facility] [address] [place] [address] Dr. Huang Ojeda IG % 0.2 % Normal 0.0-0.5 [facility] Comment on above: Performed By: #### C BC #### [facility] [address] [place] [address] Dr. Huang Ojeda LYMPH # 1.7 103/ul Normal 1.2-3.8 [facility] Comment on above: Performed By: #### C BC #### [facility] [address] [place] [address] Dr. Huang Ojeda Lymphocytes/100 WBC (Bld) 27.8 % Normal 20.5-60.0 [facility] Comment on above: Performed By: #### C BC #### [facility] [address] [place] [address] Dr. Huang Ojeda MANUAL DIFF REQ NO Normal [facility] Comment on above: Performed By: #### C BC #### [facility] [address] [place] [address] Dr. Huang Ojeda MCH (RBC) [Entitic mass] 31.3 pg Normal 26.7-34.0 [facility] Comment on above: Performed By: #### C BC #### [facility] [address] [place] [address] Dr. Huang Ojeda MCHC (RBC) [Mass/Vol] 31.1 g/dL Normal 29.9-35.2 [facility] Comment on above: Performed By: #### C BC #### [facility] [address] [place] [address] Dr. Huang Ojeda MCV (RBC) [Entitic vol] 100.8 fL Critically high 81.0-99.0 [facility] Comment on above: Performed By: #### C BC #### [facility] [address] [place] [address] Dr. Huang Ojeda MONO # 0.6 103/ul Normal 0.3-0.8 [facility] Comment on above: Performed By: #### C BC #### [facility] [address] [address] [address] Huang Ojeda Monocytes/100 WBC (Bld) 10.2 % Normal 1.7-12.0 [facility] Comment on above: Performed By: #### C BC #### [facility] [address] [address] [address] Huang Ojeda NEUT # 3.5 103/ul Normal 1.4-6.5 [facility] Comment on above: Performed By: #### C BC #### [facility] [address] [address] [address] Huang Ojeda Neutrophils/100 WBC (Bld) 58.5 % Normal 43.0-75.0 [facility] Comment on above: Performed By: #### C BC #### [facility] [address] [place] [address] Dr. Huang Ojeda Platelet mean volume (Bld) [Entitic vol] 10.6 fL Normal 9.5-13.5 [facility] Comment on above: Performed By: #### C BC #### [facility] [address] [address] [address] Huang Ojeda PLT 364 103/ul Normal 150-450 [facility] Comment on above: Performed By: #### C BC #### [facility] [address] [place] [address] Dr. Huang Ojeda RBC 3.86 106/ul Critically low 4.20-5.40 [facility] Comment on above: Performed By: #### C BC #### [facility] [address] [address] [address] Huang Ojeda WBC 6.0 103/ul Normal 4.0-11.0 [facility] Comment on above: Performed By: #### C BC #### [facility] [address] [place] [address] Dr. Huang Ojeda FERRITINon 11-27-2021 Ferritin [Mass/Vol] 92.0 ng/mL Normal 8.0-252.0 [facility] Comment on above: Performed By: #### F ERR #### [facility] [address] [address] [address] Huang Ojeda GLYCOHEMOGLOBIN A1Con 2021 ADA RECOMMENDATION SEE BELOW Normal [facility] Comment on above: Result Comment: ADA RECOMMENDED LIMIT 4.0 - 6.0 ADA THERAPEUTIC TARGET < 7.0 ACTION SUGGESTED > 7.0 Performed By: #### A 1C #### [facility] [address] [place] [address] Dr. Huang Ojeda Glucose [Mass/Vol] 120 mg/dL Normal [facility] Comment on above: Performed By: #### A 1C #### [facility] [address] [place] [address] Dr. Huang Ojeda HbA1c (Bld) [Mass fraction] 5.8 % Normal 4.5-6.2 [facility] Comment on above: Performed By: #### A 1C #### [facility] [address] [place] [address] Dr. Huang Ojeda LIPID PROFILEon 11-27-2021 CHOL-HDL RATIO NORM SEE BELOW Normal [facility] Comment on above: Result Comment: 3.3 - 4.4 LOW RISK 4.4 - 7.1 AVERAGE RISK 7.1 - 11.0 MODERATE RISK >11.0 HIGH RISK Performed By: #### C MP, LIPID #### [facility] [address] [place] [address] Dr. Huang Ojeda Cholesterol [Mass/Vol] 146 mg/dL Normal <=200 [facility] Comment on above: Performed By: #### C MP, LIPID #### [facility] [address] [place] [address] Dr. Huang Ojeda Cholesterol in HDL [Mass/Vol] 62 mg/dL Critically high 40-60 [facility] Comment on above: Performed By: #### C MP, LIPID #### [facility] [address] [place] [address] Dr. Huang Ojeda Cholesterol in LDL [Mass/Vol] 62.4 mg/dL Normal [facility] Comment on above: Performed By: #### C MP, LIPID #### [facility] [address] [address] [address] Huang Ojeda Cholesterol.total/Cho lesterol in HDL [Mass ratio] 2.4 {ratio} Normal [facility] Comment on above: Performed By: #### C MP, LIPID #### [facility] [address] [address] [address] Huang Ojeda HDL NORMAL > or = 60 mg/dl - LO W CARDIOVASCULAR RISK <40 mg/dl - HIGH CARDIOVASCULAR RISK Normal [facility] Comment on above: Performed By: #### C MP, LIPID #### [facility] [address] [address] [address] Huang Ojeda LDL CALC NORMAL SEE BELOW Normal [facility] Comment on above: Result Comment: <100 mg/dl OPTIMAL 100 - 129 mg/dl NEAR OR ABOVE OPTIMAL 130 - 159 mg/dl BORDERLINE HIGH 160 - 189 mg/dl HIGH >190 mg/dl VERY HIGH Performed By: #### C MP, LIPID #### [facility] [address] [address] [address] Huang Ojeda Triglyceride [Mass/Vol] 108 mg/dL Normal <=150 [facility] Comment on above: Performed By: #### C MP, LIPID #### [facility] [address] [place] [address] Dr. Huang Ojeda VLDL CALC 21.6 mg/dL Normal [facility] Comment on above: Performed By: #### C MP, LIPID #### [facility] [address] [place] [address] Dr. Huang Ojeda PROF 14(COMP METB)on 022 Albumin [Mass/Vol] 3.7 g/dL Normal 3.4-5.0 [facility] Comment on above: Performed By: #### C MP, LIPID #### [facility] [address] [place] [address] Dr. Huang Ojeda Albumin/Globulin [Mass ratio] 1.1 {ratio} Normal [facility] Comment on above: Performed By: #### C MP, LIPID #### [facility] [address] [place] [address] Dr. Huang Ojeda ALP [Catalytic activity/Vol] 72 U/L Normal 46-116 [facility] Comment on above: Performed By: #### C MP, LIPID #### [facility] [address] [place] [address] Dr. Huang Ojeda ALT [Catalytic activity/Vol] 28 U/L Normal 14-59 [facility] Comment on above: Performed By: #### C MP, LIPID #### [facility] [address] [place] [address] Dr. Huang Ojeda Anion gap [Moles/Vol] 11.0 mmol/L Normal [facility] Comment on above: Performed By: #### C MP, LIPID #### [facility] [address] [place] [address] Dr. Huang Ojeda AST [Catalytic activity/Vol] 17 U/L Normal 15-37 [facility] Comment on above: Performed By: #### C MP, LIPID #### [facility] [address] [place] [address] Dr. Huang Ojeda Bilirubin [Mass/Vol] 0.3 mg/dL Normal 0.2-1.0 [facility] Comment on above: Performed By: #### C MP, LIPID #### [facility] [address] [place] [address] Dr. Huang Ojeda Calcium [Mass/Vol] 9.2 mg/dL Normal 8.5-10.1 [facility] Comment on above: Performed By: #### C MP, LIPID #### [facility] [address] [place] [address] Dr. Huang Ojeda Chloride [Moles/Vol] 106 mmol/L Normal 98-107 [facility] Comment on above: Performed By: #### C MP, LIPID #### [facility] [address] [place] [address] Dr. Huang Ojeda CO2 [Moles/Vol] 29.1 mmol/L Normal 21.0-32.0 [facility] Comment on above: Performed By: #### C MP, LIPID #### [facility] [address] [place] [address] Dr. Huang Ojeda Creatinine [Mass/Vol] 0.69 mg/dL Normal 0.55-1.02 [facility] Comment on above: Performed By: #### C MP, LIPID #### [facility] [address] [address] [address] Huang Ojeda EGFR-AF MOROCCAN >60 Normal >=60 [facility] Comment on above: Performed By: #### C MP, LIPID #### [facility] [address] [address] [address] Huang Ojeda EGFR-NON AF MOROCCAN >60 Normal >=60 [facility] Comment on above: Performed By: #### C MP, LIPID #### [facility] [address] [address] [address] Huang Ojeda Globulin (S) [Mass/Vol] 3.4 g/dL Normal [facility] Comment on above: Performed By: #### C MP, LIPID #### [facility] [address] [address] [address] Huang Ojeda Glucose [Mass/Vol] 92 mg/dL Normal 74-106 [facility] Comment on above: Performed By: #### C MP, LIPID #### [facility] [address] [address] [address] Huang Ojeda Potassium [Moles/Vol] 4.1 mmol/L Normal 3.5-5.1 [facility] Comment on above: Performed By: #### C MP, LIPID #### [facility] [address] [address] [address] Huang Ojeda Protein [Mass/Vol] 7.1 g/dL Normal 6.4-8.2 [facility] Comment on above: Performed By: #### C MP, LIPID #### [facility] [address] [address] [address] Huang Ojeda Sodium [Moles/Vol] 142 mmol/L Normal 136-145 [facility] Comment on above: Performed By: #### C MP, LIPID #### [facility] [address] [address] [address] Huang Ojeda Urea nitrogen [Mass/Vol] 19.0 mg/dL Critically high 7.0-18.0 [facility] Comment on above: Performed By: #### C MP, LIPID #### [facility] [address] [place], [place] [address] Dr. Huang Ojeda Urea nitrogen/Creatinine [Mass ratio] 27.5 mg/mg Normal [facility] Comment on above: Performed By: #### C MP, LIPID #### [facility] [address] [place], [place] [address] Dr. Huang Ojeda Vital Signs Date Time Vital Sign Value Performing Clinician Facility 04-16-2025 11:33-0400 Body height 167.64 cm Shaikh Guzman HENRY Work Phone: [facility] 04-16-2025 11:33-0400 Body mass index (BMI) [Ratio] 23.3 kg/m2 Shaikh Guzman HENRY Work Phone: [facility] 04-16-2025 11:33-0400 Body weight 65.77 kg Shaikh Guzman HENRY Work Phone: [facility] 04-16-2025 11:33-0400 Diastolic blood pressure 62 mm[Hg] Shaikh Guzman HENRY Work Phone: [facility] 04-16-2025 11:33-0400 Heart rate 65 /min Shaikh Guzman HENRY Work Phone: [facility] 04-16-2025 11:33-0400 Respiratory rate 16 /min Shaikh Guzman HENRY Work Phone: [facility] 04-16-2025 11:33-0400 SaO2% (BldA) [Mass fraction] 98 % Shaikh Guzman HENRY Work Phone: [facility] 04-16-2025 11:33-0400 Systolic blood pressure 116 mm[Hg] Shaikh Guzman HENRY Work Phone: [facility] 01-25-2025 11:46-0400 Body temperature 98.3 [degF] Shaikh Guzman HENRY Work Phone: [facility] 01-25-2025 11:46-0400 Diastolic blood pressure 79 mm[Hg] Shaikh Guzman HENRY Work Phone: [facility] 01-25-2025 11:46-0400 Heart rate 85 /min Shaikh Guzman HENRY Work Phone: [facility] 01-25-2025 11:46-0400 Respiratory rate 16 /min Shaikh Guzman HENRY Work Phone: [facility] 01-25-2025 11:46-0400 SaO2% (BldA) [Mass fraction] 98 % Shaikh Guzman HENRY Work Phone: [facility] 01-25-2025 11:46-0400 Systolic blood pressure 119 mm[Hg] Shaikh Guzman HENRY Work Phone: [facility] 01-25-2025 06:00-0400 Body weight 69 kg Shaikh Guzman HENRY Work Phone: [facility] 01-24-2025 12:05-0400 Body height 167.64 cm Shaikh Guzman HENRY Work Phone: [facility] 01-18-2025 16:01-0400 Inhaled oxygen flow rate 8 L/min Shaikh Guzman HENRY Work Phone: [facility] 08-14-2024 10:00-0500 Diastolic blood pressure 100 mm[Hg] Dione PRIEST [facility] 08-14-2024 10:00-0500 Heart rate 64 /min Dione PRIEST [facility] 08-14-2024 10:00-0500 Respiratory rate 16 /min Dione PRIEST [facility] 08-14-2024 10:00-0500 Systolic blood pressure 160 mm[Hg] Dione PRIEST [facility] 06-22-2024 09:08-0500 Blood Pressure Location Lizette Galea [facility] 06-22-2024 09:08-0500 Body temperature 98.6 [degF] Lizette Galea [facility] 06-22-2024 09:08-0500 Diastolic blood pressure 92 mm[Hg] Lizette Galea [facility] 06-22-2024 09:08-0500 Heart rate 76 /min Lizette Galea [facility] 06-22-2024 09:08-0500 Respiratory rate 16 /min Lizette Galea [facility] 06-22-2024 09:08-0500 Systolic blood pressure 140 mm[Hg] Lizette Galea [facility] 04-20-2024 11:28-0400 Blood Pressure Location Lizette Galea [facility] 04-20-2024 11:28-0400 Body temperature 98.6 [degF] Lizette Galea [facility] 04-20-2024 11:28-0400 Diastolic blood pressure 74 mm[Hg] Lizette Galea [facility] 04-20-2024 11:28-0400 Heart rate 63 /min Lizette Galea [facility] 04-20-2024 11:28-0400 Respiratory rate 16 /min Lizette Galea [facility] 04-20-2024 11:28-0400 Systolic blood pressure 128 mm[Hg] Lizette Galea [facility] 12-02-2023 10:01-0400 Blood Pressure Location KHRIS ROMA [facility] 12-02-2023 10:01-0400 Body temperature 98.06 [degF] KHRIS ROMA [facility] 12-02-2023 10:01-0400 Diastolic blood pressure 77 mm[Hg] KHRIS ROMA [facility] 12-02-2023 10:01-0400 Heart rate 58 /min KHRIS ROMA [facility] 12-02-2023 10:01-0400 Respiratory rate 16 /min KHRIS ROMA [facility] 12-02-2023 10:01-0400 Systolic blood pressure 128 mm[Hg] KHRIS ROMA [facility] 09-24-2023 08:06-0500 Blood Pressure Location Debi Orzech [facility] 09-24-2023 08:06-0500 Body temperature 98.6 [degF] Debi Orzech [facility] 09-24-2023 08:06-0500 Diastolic blood pressure 80 mm[Hg] Debi Orzech [facility] 09-24-2023 08:06-0500 Heart rate 82 /min Debi Orzech [facility] 09-24-2023 08:06-0500 Systolic blood pressure 124 mm[Hg] Debi Orzech [facility] 08-19-2023 15:43-0500 Body height 166.6 cm Shaikh Guzman HENRY Work Phone: [facility] 08-19-2023 15:43-0500 Body mass index (BMI) [Ratio] 22.38 kg/m2 Shaikh Guzman HENRY Work Phone: [facility] 08-19-2023 15:43-0500 Body temperature 96.49 [degF] Shaikh Guzman HENRY Work Phone: [facility] 08-19-2023 15:43-0500 Body weight 62.14 kg Shaikh Guzman HENRY Work Phone: [facility] 08-19-2023 15:43-0500 Diastolic blood pressure 84 mm[Hg] Shaikh Guzman HENRY Work Phone: [facility] 08-19-2023 15:43-0500 Heart rate 73 /min Shaikh Guzman HENRY Work Phone: [facility] 08-19-2023 15:43-0500 SaO2% (BldA) [Mass fraction] 99 % Shaikh Guzman HENRY Work Phone: [facility] 08-19-2023 15:43-0500 Systolic blood pressure 130 mm[Hg] Shaikh Guzman HENRY Work Phone: [facility] 06-01-2023 11:30-0500 Blood Pressure Location KHRIS ROMA [facility] 06-01-2023 11:30-0500 Diastolic blood pressure 74 mm[Hg] KHRIS ROMA [facility] 06-01-2023 11:30-0500 Heart rate 68 /min KHRIS ROMA [facility] 06-01-2023 11:30-0500 Respiratory rate 16 /min KHRIS ROMA [facility] 06-01-2023 11:30-0500 Systolic blood pressure 116 mm[Hg] KHRIS ROMA [facility] 02-04-2023 11:11-0400 Blood Pressure Location KHRIS ROMA [facility] 02-04-2023 11:11-0400 Diastolic blood pressure 84 mm[Hg] KHRIS ROMA [facility] 02-04-2023 11:11-0400 Heart rate 79 /min KHRIS ROMA [facility] 02-04-2023 11:11-0400 Respiratory rate 16 /min KHRIS ROMA [facility] 02-04-2023 11:11-0400 Systolic blood pressure 132 mm[Hg] KHRIS ROMA [facility] 08-19-2022 12:57-0500 Blood Pressure Location Cynthia Rodriguez [facility] 08-19-2022 12:57-0500 Diastolic blood pressure 87 mm[Hg] Cynthia Rodriguez [facility] 08-19-2022 12:57-0500 Heart rate 76 /min Cynthia Rodriguez [facility] 08-19-2022 12:57-0500 Systolic blood pressure 135 mm[Hg] Cynthia Rodriguez [facility] 04-29-2022 15:33-0400 Blood Pressure Location KHRIS BRANDON [facility] 04-29-2022 15:33-0400 Diastolic blood pressure 76 mm[Hg] KHRIS ROMA [facility] 04-29-2022 15:33-0400 Heart rate 62 /min KHRIS BRANDON [facility] 04-29-2022 15:33-0400 Systolic blood pressure 134 mm[Hg] KHRIS ROMA [facility] 02-03-2022 09:21-0400 Blood Pressure Location Chucky Berkowitz Jr. [facility] 02-03-2022 09:21-0400 Diastolic blood pressure 82 mm[Hg] Chucky Berkowitz Jr. [facility] 02-03-2022 09:21-0400 Heart rate 70 /min Chucky Berkowitz Jr. [facility] 02-03-2022 09:21-0400 Systolic blood pressure 140 mm[Hg] Chucky Berkowitz Jr. [facility] Jessica Encounters Encounter Date Encounter Type Care Provider Facility Start: 04-16-2025 End: 04-16-2025 ambulatory Shaikh Guzman HENRY Work Phone: [facility] Work Phone: Start: 04-16-2025 End: 04-16-2025 Patient encounter procedure Paty Regan [facility] Work Phone: Start: 03-21-2025 End: 03-21-2025 ambulatory Shaikh Guzman HENRY Work Phone: [facility] Work Phone: Start: 03-21-2025 End: 03-21-2025 Patient encounter procedure Ivan Interiano [facility] Work Phone: Start: 03-21-2025 End: 03-21-2025 Patient encounter procedure Ivan Interiano [facility] Start: 03-21-2025 End: 03-21-2025 ambulatory Shaikh Guzman HENRY Work Phone: [facility] Work Phone: Start: 03-01-2025 End: 03-01-2025 Refill Shaina Vero [employer] Work Phone: [facility] Comment on above: Essential (primary) hypertension ; Benign essential hypertension Start: 02-28-2025 End: 02-28-2025 Telephone encounter Shaina Vero [employer] Work Phone: [facility] Start: 02-27-2025 End: 02-28-2025 Refill Shaina Vero [employer] Work Phone: [facility] Comment on above: Major depressive dis order, single episode, moderate (HCC); Hyperlipidemia, unspecified hyperlipidemia type ; Age-related osteoporosis without current pathological fracture Start: 02-14-2025 End: 02-14-2025 ambulatory Shaikh Guzman HENRY Work Phone: [facility] Work Phone: Start: 02-14-2025 End: 02-14-2025 Patient encounter procedure Ivan Interiano DO -[facility] Work Phone: Start: 02-14-2025 End: 02-14-2025 Patient encounter procedure Ivan Interiano DO -[facility] Start: 02-14-2025 End: 02-14-2025 ambulatory Shaikh Guzman HENRY Work Phone: [facility] Work Phone: Start: 01-18-2025 Non-patient / Non-visit Andrew Rose MD -[facility] Work Phone: Start: 01-18-2025 End: 01-25-2025 Evaluation and management of inpatient Taz De La Cruz Facility:[facility] Start: 12-07-2024 End: 12-07-2024 ambulatory Dione PRIEST Facility: [place] Start: 11-16-2024 End: 11-16-2024 ambulatory Dione PRIEST Facility:[facility] Start: 11-16-2024 End: 11-16-2024 Patient encounter procedure Dione PRIEST [facility] Start: 11-09-2024 End: 11-09-2024 Lab Drop off No Moore [facility] Start: 11-09-2024 End: 11-09-2024 ambulatory No Moore Facility:[facility] Start: 10-16-2024 End: 10-16-2024 ambulatory Debi X Orzech Facility:[facility] Start: 10-09-2024 End: 10-09-2024 ambulatory Debi X Orzech Facility:[facility] [place] Start: 09-06-2024 End: 09-06-2024 Refill Stephenie Barberk [facility]ER Work Phone: [facility] Comment on above: Age-related osteopor osis without current pathological fracture (CMS/HCC); Major depressive disorder, single episode, moderate (HCC) (CMS/HCC) Start: 08-14-2024 End: 08-14-2024 ambulatory Dione PRIEST Facility:[facility] Start: 08-14-2024 End: 08-14-2024 Patient encounter procedure Dione Marie MARY [facility] Start: 07-05-2024 End: 07-05-2024 Bamboo flowsheet Zack Jett DO Work Phone: [facility] Start: 07-05-2024 End: 07-05-2024 Bamboo flowsheet Zack Jett DO Work Phone: [facility] Start: 07-05-2024 End: 07-05-2024 ambulatory ZACK JETT Not Available Start: 06-29-2024 End: 06-29-2024 Refill Stephenie Jacksontrick [employer]ANGER Work Phone: [facility] Comment on above: Hyperlipidemia, unsp ecified hyperlipidemia type (CMS/HCC) Start: 06-22-2024 End: 06-22-2024 Lab Drop off Lizette Carrero [facility] Start: 06-22-2024 ambulatory Liz[facility]ro [facility] Start: 06-22-2024 End: 06-22-2024 Patient encounter procedure [facility] Start: 05-18-2024 End: 05-19-2024 Refill Stephenie Olivier [employer]ER[employer] ARRANGER Work Phone: [facility] Comment on above: Essential (primary) hypertension (CMS/HCC); Benign essential hypertension (CMS/HCC) Start: 04-20-2024 End: 04-20-2024 ambulatory Lizette Urbina Alexxdeedee Facility:[facility] Start: 04-20-2024 End: 04-20-2024 Patient encounter procedure Lizette Carrero [facility] Start: 04-03-2024 End: 04-03-2024 ambulatory Dione PRIEST Facility:[facility] Start: 04-03-2024 End: 04-03-2024 Patient encounter procedure Dione PRIEST [facility] Start: 03-27-2024 End: 03-27-2024 ambulatory Dione PRIEST Facility:[facility] Start: 03-27-2024 End: 03-27-2024 Lab Drop off Dione Frank PRIEST [facility] Start: 03-27-2024 End: 03-27-2024 ambulatory Franki MOTT Facility:[facility] Start: 03-27-2024 End: 03-27-2024 Patient encounter procedure Franki MOTT [facility] Start: 03-02-2024 ambulatory KHRIS Villalobos ty:[facility] Start: 01-31-2024 End: 01-31-2024 ambulatory Franki MOTT Facility:[facility] Start: 01-31-2024 End: 01-31-2024 Patient encounter procedure Franki MOTT [facility] Start: 01-04-2024 End: 01-04-2024 ambulatory ZACK JETT Not Available Start: 12-07-2023 End: 12-07-2023 ambulatory ZACK JETT Not Available Start: 12-07-2023 End: 02-08-2024 Pre-admission assessment Dione PRIEST [facility] Start: 12-02-2023 End: 12-02-2023 Lab Drop off KHRIS BRANDON [facility] Start: 12-02-2023 End: 12-02-2023 Patient encounter procedure KHRIS BRANDON [facility] Start: 09-28-2023 End: 09-28-2023 ambulatory ZACK JETT Not Available Start: 09-24-2023 End: 09-24-2023 Lab Drop off Debi X Orzech [facility] Start: 09-24-2023 End: 09-24-2023 Patient encounter procedure Debi X Orzech [facility] Start: 09-20-2023 End: 09-20-2023 ambulatory ALBA DALEY Not Available Start: 09-07-2023 End: 09-07-2023 Patient encounter procedure KHRIS BRANDON [facility] [place] Start: 08-19-2023 End: 08-19-2023 Office outpatient visit 25 minutes Shaikh Guzman HENRY Work Phone: [facility] Comment on above: Hyperlipidemia, unsp ecified hyperlipidemia type (CMS/HCC) (Primary Dx); Essential hypertension (CMS/HCC); Mixed incontinence; Encounter for screening mammogram for breast cancer; Iron deficiency anemia secondary to inadequate dietary iron intake; Recurrent major depressive disorder, in full remission ([facility]/HCC) Start: 08-19-2023 End: 08-19-2023 ambulatory SHAIKH GUZMAN Not Available Start: 08-19-2023 Catia Hinds MD Work Phone: [facility] Start: 08-19-2023 Catia Hinds MD Work Phone: [facility] Start: 06-01-2023 End: 06-01-2023 Lab Drop off KHRIS KAURRY [facility] Start: 06-01-2023 End: 06-01-2023 Patient encounter procedure KHRIS KAURRY [facility] Start: 02-04-2023 End: 02-04-2023 Patient encounter procedure KHRIS KAURRY [facility] Start: 09-24-2022 ambulatory SHAIKH Monique HINDS Facilit y:[facility] Start: 08-19-2022 End: 08-19-2022 [facility] Start: 08-19-2022 End: 08-19-2022 Patient encounter procedure Cynthia Rodriguez [facility] Start: 04-29-2022 End: 04-29-2022 Patient encounter procedure KHRIS KAURRY [facility] Start: 02-10-2022 End: 02-11-[address] DIONE KERNS . Facility:[facility] Start: 02-03-2022 End: 02-03-2022 Patient encounter procedure Chucky Berkowitz Jr. [facility] Start: 12-30-2021 End: 12-30-[address] DIONE EKRNS . Facility:[facility] Start: 11-28-2021 End: 11-29-2021 ambulatory SHAIKH Monique HINDS Facility:[facility] Start: 11-26-2021 End: 11-27-2021 ambulatory SHAIKH Monique HINDS Facility:[facility] Procedures Date Procedure Procedure Detail Performing Clinician Start: 03-21-2025 X-ray of right ankle Yuliya Hinds MD Work Phone: Start: 02-14-2025 X-ray of left ankle Jesus Hinds MD Work Phone: Start: 07-05-2024 End: 07-05-2024 [facility] medical xm&eval comprsv estab pt 1/> Optic atrophy Zack Jett DO Work Phone: Comment on above: Optic atrophy (Prima ry Dx); Early dry stage nonexudative age-related macular degeneration of both eyes; Dry eyes; Blepharitis of upper and lower eyelids of both eyes, unspecified type Start: 07-05-2024 End: 07-05-2024 Computerized ophthalmic imaging optic nerve Zack Jett DO Work Phone: Start: 04-03-2024 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 Start: 11-12-2020 Cataract extraction and insertion of intraocular lens Chucky Berkowitz Jr. Start: 01-01-2014 Colonoscopy Shaikh Jerilyn hughes MD Work Phone: Start: 07-19-1981 Bilateral tubal ligation Chucky Berkowitz Jr. Plan of Treatment Date Care Activity Detail Author Start: 02-18-2032 Screening for malign ant neoplasm of colon [facility] Start: 03-21-2025 X-ray of right ankle XR ankle RT min 3V* [facility] Start: 03-21-2025 XR Ankle - right GE 3 Views [facility] Start: 03-19-2025 Influenza vaccination Influenza Vacc ine (#1) [facility] Start: 02-14-2025 X-ray of left ankle XR ankle LT min 3V* [facility] Start: 02-14-2025 XR Ankle - left GE 3 Views [facility] Start: 02-13-2025 Screening for malign ant neoplasm of breast Mammogram [facility] Start: 01-25-2025 [facility] Start: 01-22-2025 Referral to rehabilitation physician [facility] Start: 01-18-2025 XR Ankle - right 2 Views [facility] Start: 01-18-2025 Consultation [facility] Start: 01-18-2025 Hospital admission [facility] Start: 01-08-2025 End: 01-08-2025 Patient encounter procedure 01/08/2025 1:00 PM EDT Office Visit [facility] [address] [place] [address] Zack Jett DO [address] [place] [address] [facility] Start: 09-19-2024 Medicare Annual Well ness (AWV) Medicare Annual Wellness (AWV) [facility] Start: 07-05-2024 End: 07-05-2024 Patient encounter procedure [facility] Comment on above: Arrived Start: 03-19-2024 Influenza vaccination Influenza Vacc ine (#1) [facility] Start: 01-02-2024 Screening for malign ant neoplasm of colon [facility] Start: 12-29-2023 End: 12-29-2023 Patient encounter procedure 12/29/2023 3:15 PM EDT Office Visit [facility] [address] [place] [address] Shaikh Hinds MD [address] [place] [address] [facility] Start: 09-20-2023 End: 09-20-2023 Patient encounter procedure 09/20/2023 10:00 AM EST Office Visit [facility] [address] [place] [phone] Alba Daley PA [address] [place] [address] [facility] Start: 08-19-2023 End: 08-19-2023 Patient encounter procedure 08/19/2023 3:45 PM EST Office Visit [facility] [address] [place] [address] Shaikh Hinds MD [address] [place] [phone] Arrived [facility] Comment on above: Arrived Start: 08-19-2023 End: 08-19-2024 CBC W Auto Differential panel - Blood CBC and differential Lab Routine Essential hypertension (CMS/HCC) Expected: 08/19/2023 (Approximate), Expires: 08/19/2024 [facility] Comment on above: Expected: 08/19/2023 (Approximate), Expires: 08/19/2024 Start: 08-19-2023 End: 08-19-2024 Cobalamin (Vitamin B12) [Mass/volume] in Serum or Plasma Vitamin B12 Lab Routine Iron deficiency anemia secondary to inadequate dietary iron intake Expected: 08/19/2023 (Approximate), Expires: 08/19/2024 [facility] Comment on above: Expected: 08/19/2023 (Approximate), Expires: 08/19/2024 Start: 08-19-2023 End: 08-19-2024 Comprehensive metabolic 2000 panel - Serum or Plasma Comprehensive metabolic panel Lab Routine Essential hypertension (CMS/HCC) Expected: 08/19/2023 (Approximate), Expires: 08/19/2024 [facility] Comment on above: Expected: 08/19/2023 (Approximate), Expires: 08/19/2024 Start: 08-19-2023 End: 08-19-2024 Ferritin [Mass/volume] in Serum or Plasma Ferritin Lab Routine Iron deficiency anemia secondary to inadequate dietary iron intake Expected: 08/19/2023 (Approximate), Expires: 08/19/2024 [facility] Comment on above: Expected: 08/19/2023 (Approximate), Expires: 08/19/2024 Start: 08-19-2023 End: 08-19-2024 Folate [Mass/volume] in Serum or Plasma Folate Lab Routine Iron deficiency anemia secondary to inadequate dietary iron intake Expected: 08/19/2023 (Approximate), Expires: 08/19/2024 [facility] Comment on above: Expected: 08/19/2023 (Approximate), Expires: 08/19/2024 Start: 08-19-2023 End: 08-19-2024 Iron + transferrin + TIBC Iron + transferrin + TIBC Lab Routine Iron deficiency anemia secondary to inadequate dietary iron intake Expected: 08/19/2023 (Approximate), Expires: 08/19/2024 [facility] Comment on above: Expected: 08/19/2023 (Approximate), Expires: 08/19/2024 Start: 08-19-2023 End: 08-19-2024 Lipid 1996 panel - Serum or Plasma Lipid panel Lab Routine Hyperlipidemia, unspecified hyperlipidemia type (CMS/HCC) Expected: 08/19/2023 (Approximate), Expires: 08/19/2024 [facility] Comment on above: Expected: 08/19/2023 (Approximate), Expires: 08/19/2024 Start: 08-19-2023 End: 10-17-2024 MG Breast - bilateral Screening Bilateral screening mammogram Imaging Routine Encounter for screening mammogram for breast cancer Expected: 08/19/2023, Expires: 10/17/2024 [facility] Work Phone: Comment on above: Expected: 08/19/2023 , Expires: 10/17/2024 Start: 03-19-2023 Influenza vaccination Influenza Vacc ine (#1) [facility] Start: 2020 Pneumococcal Vaccine : 65+ Years (1 - PCV) Pneumococcal Vaccine: 65+ Years (1 - PCV) [facility] Start: 2020 Pneumococcal Vaccine : 65+ Years (1 of 1 - PCV) Pneumococcal Vaccine: 65+ Years (1 of 1 - PCV) [facility] Start: 2005 Pneumococcal Vaccine : 65+ Years (1 of 1 - PCV) Pneumococcal Vaccine: 65+ Years (1 of 1 - PCV) [facility] Start: 1995 Screening for malign ant neoplasm of breast Mammogram [facility] Start: 1955 Medicare Annual Well ness (AWV) Medicare Annual Wellness (AWV) [facility] Start: 1955 Screening for malign ant neoplasm of colon [facility] Comprehensive metabo lic 2000 panel - Serum or Plasma [facility] DXA Skeletal system.axial Views for bone density [facility] MG Breast - bilatera l Screening [facility] Patient Education Hope Pamphlet Drugs, Alcohol & Your Well-Being [facility] Work Phone: Patient referral [facility] Work Phone: XR Ankle - right GE 3 Views [facility] Immunizations Immunization Date Immunization Notes Care Provider Fa cility 01-18-2025 tetanus toxoid, redu wilfred diphtheria toxoid, and acellular pertussis vaccine, adsorbed Shaikh Guzman HENRY Work Phone: [facility] 12-08-2022 zoster vaccine recombinant KHRIS BRANDON [facility] 10-07-2022 zoster vaccine recombinant KHRIS BRANDON [facility] 05-20-2022 influenza virus vaccine, unspecified formulation Cynthia Rodriguez [facility] 05-20-2022 Influenza, High-dose Seasonal, Quadrivalent, Preservative Free Shaikh Guzman HENRY Work Phone: [facility] 05-20-2022 SARS-CoV-2 (COVID-19 ) [id number] Cynthia Melvinmons [facility] 04-07-2021 influenza virus vaccine, unspecified formulation KHRIS BRANDON [facility] 04-07-2021 Influenza, High-dose Seasonal, Quadrivalent, Preservative Free Shaikh Guzman HENRY Work Phone: [facility] 11-20-2020 SARS-CoV-2 (COVID-19 ) mRNA BNT-162b2 vax KHRIS BRANDON [facility] 10-30-2020 SARS-CoV-2 (COVID-19 ) mRNA BNT-162b2 vax KHRIS BRANDON [facility] Payers Date Payer Category Payer Self-pay 2023 Medicare [id number] 2022 Medicare (Managed Care) [facility] [id number] 2022 Unknown [employer] [id number] 2022-Present [address] [place] [id number] [id number] 2020 Unknown [id number] 1959 Medicare [id number] 1955 Unknown [id number] 2.16.840.1.630443.3.579. 2.593 1955 Unknown [id number] 2.16.840.1.716690.3.579. 2.593 1955 Unknown [id number] 2.16.840.1.538382.3.579. 2.593 1955 Unknown [id number] 2.16.840.1.184303.3.579. 2.593 1955 Unknown [id number] 2.16.840.1.269025.3.579. 2.593 1955 Unknown [id number] 2.16.840.1.955308.3.579. 2.727 1955 Unknown [id number] 2.16.840.1.431338.3.579. 2.727 1955 Unknown [id number] 2.16.840.1.868481.3.579. 2.727 1955 Unknown [id number] 2.16.840.1.158314.3.579. 2.727 1955 Unknown [id number] 2.16.840.1.006167.3.579. 2.727 1955 Unknown [id number] 2.16.840.1.420798.3.579. 2.727 1955 Unknown [id number] 2.16.840.1.860635.3.579. 2.727 1955 Unknown [id number] 2.16.840.1.681048.3.579. 2.72 1955 Unknown [id number] 2.16.840.1.585972.3.579. 2.125 1955 Unknown [id number] 2.16.840.1.946732.3.579. 2.125 1955 Unknown [id number] 2.16.840.1.929323.3.579. 2.1258 1955 Unknown [id number] 2.16.840.1.660718.3.579. 2.1258 1955 Unknown [id number] 2.16.840.1.119545.3.579. 2.1258 1955 Unknown [id number] 2.16.840.1.628267.3.579. 2.1258 1955 Unknown [id number] 2.16.840.1.661092.3.579. 2. 1955 Unknown [id number] 2.16.840.1.894239.3.579. 2. 1955 Unknown [id number] 2.16.840.1.514692.3.579. 2. 1955 Unknown [id number] 2.16.840.1.176397.3.579. 2.72 1955 Unknown [id number] 2.16.840.1.702270.3.579. 2.72 1955 Unknown [id number] 2.16.840.1.052065.3.579. 2. 1955 Unknown [id number] 2.16.840.1.263706.3.579. 272 Unknown [id number] 2.16.840.1.420115.3.579. 2.531 Unknown [id number] 2.16.840.1.396027.3.579. 2.531 Unknown [id number] 2.16.840.1.016871.3.579. 2.531 Social History Date Type Detail Facility Start: 02-03-2022 End: 12-03-2022 Tobacco smoking status Never smoked tobacco (finding) [facility] Tobacco smoking status Never [facility] Start: 06-18-2023 End: 07-05-2024 Sex Assigned At Female [facility] Start: 06-01-2023 End: 04-16-2025 Tobacco smoking status Ex-smoker (finding) [facility] End: 07-19-1989 History of tobacco use Current smoker [facility] End: 07-19-1989 History of tobacco use Cigarette Smoker [facility] Start: 07-01-2023 End: 07-05-2024 Alcohol intake Current drinker of alcohol (finding) [facility] Start: 06-18-2023 End: 07-05-2024 History of Social function [facility] Start: 06-18-2023 Alcohol Comment Positive alcohol use [facility] Start: 1955 Sex Assigned At Not on file [facility] Sexual Orientation [facility] Start: 09-24-2020 Sex Female (finding) [facility] Start: 1955 Sex Assigned At Female F [facility] Start: 01-24-2025 End: 01-25-2025 SDOH Follow up SDOH Follow up [facility] Work Phone: NEGATED: Highlighted rowStart: NINF History of tobacco use Passive smoker [facility] Medical Equipment Procedure Code Equipment Code Equipment Origin al Text Equipment Identifier Dates ORIF, fracture, ankle Orthopaedic bone screw, non-bioabsorbable, non-sterile )[id number] FDA Start: 01-18-2025 ORIF, fracture, ankle Orthopaedic bone screw, non-bioabsorbable, non-sterile ()[id number] FDA Start: 01-18-2025 ORIF, fracture, ankle Orthopaedic fixation plate, non-bioabsorbable, sterile ()[id number] FDA Start: 01-18-2025 ORIF, fracture, ankle Orthopaedic bone screw, non-bioabsorbable, non-sterile ()[id number] FDA Start: 01-18-2025 ORIF, fracture, ankle Orthopaedic bone screw, non-bioabsorbable, non-sterile ()[id number] FDA Start: 01-18-2025 ORIF, fracture, ankle Orthopaedic bone screw, non-bioabsorbable, non-sterile ()[id number] FDA Start: 01-18-2025 ORIF, fracture, ankle Orthopaedic bone screw, non-bioabsorbable, non-sterile ()[id number] FDA Start: 01-18-2025 ORIF, fracture, ankle Orthopaedic bone screw, non-bioabsorbable, non-sterile ()[id number] FDA Start: 01-18-2025 CATARACT EXTRACT ION W/ INTRAOCULAR LENS Zack Jett DO 11/12/20 Non Biological Eye L {01}[id number] FDA Start: 11-12-2020 CATARACT EXTRACT ION W/ INTRAOCULAR LENS Zack Jett DO 11/26/20 Non Biological Eye R {01}[id number] FDA Start: 11-26-2020 Functional Status Date Assessment Result Facility 11-16-2024 Functional Status N/A [facility] 08-14-2024 Functional Status N/A [facility] 06-22-2024 Functional Status N/A [facility] 04-20-2024 Functional Status N/A [facility] 12-02-2023 Functional Status N/A [facility] 09-24-2023 Functional Status N/A [facility] 06-01-2023 Functional Status N/A [facility] 02-04-2023 Functional Status N/A [facility] 08-19-2022 Functional Status N/A [facility] 04-29-2022 Functional Status N/A [facility] 02-03-2022 Functional Status N/A [facility] Clinical Notes 02-03-2022 to 02-28-2025 Telephone Encounter - Shaina Pham NP - 02/28/2025 3:39 PM EDTTelephone Encounter - Shaina Pham NP - 02/28/2025 3:39 PM EDT Note Date & Type Note Facility 02-28-2025 Telephone encounter Note Pt has not been seen in over 15 months, I did fill cholesterol and lexapro and osteoporosis meds But she needs an appt with Dr Regan before any other meds are filled [place] [facility] 02-28-2025 Miscellaneous Notes Pt has not been seen in over 15 months, I did fill cholesterol and lexapro and osteoporosis meds But she needs an appt with Dr Regan before any other meds are filled [place] documented in this encounter [facility] 01-18-2025 Hospital Discharg e instructions Additional Instructions SNF TO MANAGE: PT/OT to eval and treat Monitor VS per protocol Monitor Ortho., Neurovascular assessments and pain control--Ankle fracture Monitor Skin assessment and for any signs of infection--Dog bite to left chest Follow Ortho. orders as listed--s/p right trimalleolar ORIF on 01/18/25 Dressing change every 2 days to left chest bite--clean with Vashe, apply Silvasorb gel to wounds, *top with telfa and secure with opsite Maintain high risk fall precautions Care to be managed by SNF providers Dr. Interiano's discharge instructions You are to maintain nonweightbearing to your operative ankle. You should maintain your postoperative splint and keep it clean and dry. You should elevate the injured extremity for the next 48 to 72 hours, as often as possible. You should ice the surgical area, 20 minutes with ice on and then 20 minutes off, for 3 hours a day for the first week. Take your medications as prescribed. You should not operate machinery while taking narcotic pain medications. You may take NSAIDs/Tylenol [id number] as indicated on the bottle. You should take aspirin 81 mg twice daily for 3 weeks for DVT prophylaxis, unless you are already taking anticoagulation which you may resume the day after your surgery. Please abstain from using tobacco products. If you have any increasing pain, fever chills, or abnormal drainage or surgical wound problems you should call the office. Your follow-up should be scheduled with Dr. Interiano's office at [facility]. At your follow-up we will remove your splint and sutures. Please call to confirm your follow-up appointment. Dr. Ivan Interiano [facility] [address] [place], [place] [id number] [facility] Work Phone: 01-18-2025 Evaluation note Diagnosis Onset Date Resolution Dog bite of chest acute January 4:50am Impaired mobility and activities of daily living acute January 18, 2025 4:50am Postoperative pain acute January 182024 4:50am Status post ORIF of fracture of ankle acute January 18, 2025 4:50am Trimalleolar fracture of ankle, closed acute January 18, 2025 4:50am [facility] Work Phone: 1(125) 319-691807-03-2025 Evaluation note* Diagnosis Onset Date Resolution Status Admit Date Dog bite of chest acute January 4:50am Impaired mobility and activi ties of daily living acute January 18, 2025 4 :50am Postoperative pain acute January 182024 4:50am Status post ORIF of fracture of ankle acute January 18, 2025 4 :50am Trimalleolar fracture of ank le, closed acute January 18, 2025 4 :50am Status post ORIF of fracture of ankle acute February 14, 2025 2:40pm Visit for suture removal acute February 14, 2025 2:40pm [facility] Work Phone: 1(340) 775-556307-03-2025 Evaluation note* Diagnosis Onset Date Resolution Status Admit Date Dog bite of chest acute January 4:50am Impaired mobility and activities of daily living acute January 18, 2025 4:50am Postoperative pain acute January 182024 4:50am Status post ORIF of fracture of ankle acute January 18, 2025 4 :50am Trimalleolar fracture of ankle, closed acute January 18, 2025 4 :50am Status post ORIF of fracture of ankle acute February 14, 2025 2:40pm Visit for suture removal acute February 14, 2025 2:40pm Status post ORIF of fracture of ankle acute March 21, 2 025 3:47pm Trimalleolar fracture of ankle, closed acute March 21, 2 025 3:47pm [facility] Work Phone: 1(767) 991-636607-03-2025 Evaluation note* Diagnosis Onset Date Resolution Status Admit Date Dog bite of chest acute January 4:50am Impaired mobility and activities of daily living acute January 18, 2025 4:50am Postoperative pain acute January 182024 4:50am Status post ORIF of fracture of ankle acute January 18, 2025 4 :50am Trimalleolar fracture of ank le, closed acute January 18, 2025 4 :50am Status post ORIF of fracture of ankle acute February 14, 2025 2:40pm Visit for suture removal acute February 14, 2025 2:40pm Status post ORIF of fracture of ankle acute March 21, 2 025 3:47pm Trimalleolar fracture of ank le, closed acute March 21, 2 025 3:47pm Depression acute March 11:29am Hypertension acute April 162024 11:29am Mixed hyperlipidemia acute Sept ember 2024 11:29am Osteoporosis with pathologic al fracture acute April 16, 2025 11:29am Vitamin B12 deficiency acute Se ptember 2024 11:29am [facility] Work Phone: 1(367) 777-620105-01-2025 Evaluation + Plan noteExtracted from: Title:EU Local Cysto with willy tox injection 200 Units - FT Author:Dione PRIEST MD Date:11/16/24 Patient: NICCI MOJICA Age: 69 years Sex: Female : 1955 Associated Diagnoses: None Author: Dione PRIEST MD Procedure Operative Information Details: Date/ Time: 11/16/2024 12:12:00. Pre-Op Dx: Mixed stress and urge urinary incontinence (EYX84-XQ N39.46, Working, Medical), OAB (overactive bladder) (LWF31-XL N32.81, Working, Medical), Unspecified urethral stricture, female (QIK81-AG N35.92, Working, Medical). Post-Op Dx: Same. Anesthesia [...] to. I to proceed with urethral dilatation. [place] sounds were utilized. I was able to paste the 16 Serbian sound and followed all the way up to 28 Serbian. This caused no bleeding. I was subsequently [...] for worsening urinary retention.. Addendum by Dione PRIEST MD on November 16, 2024 12:16 EDT Correction: 150 units Botox injected in total. Future Appointments Appointment Date:12/07/2024 10:40:00 AM Scheduled Provider:Lizette Ball Location:[facility] Appointment Type:URO Office Visit [facility] 05-01-2025 Hospital Discharge instructions Patient Education 11/16/2024 [...] degrees. Follow Up Care 10/16/2024 08:40:28 With:Dione MARY Address: [address] [place], [place] [id number]- Business (1) When: Unknown Comments:We were able [...] your antibiotics and have a great day. [facility] 05-01-2025 NotePatient Education Cystoscopy with Botox injection [...] if you have a fever over 100 degrees.[facility] 08-14-2024 Hospital Discharge instructions Patient Education 08/14/2024 [...] including vitamins, herbs, eye drops, creams, and cgnu-iqr-hturrrp medicines. Any problems you or family members [...] unless your provider tells you to. Taking guuo-yfq-xsyoepf medicines, vitamins, herbs, and supplements. General instructions [...] Follow these instructions at home: Medicines Take mcrk-yld-rplvlmd and prescription medicines only as told by [...] actions to prevent or treat constipation: ?Take uifl-qay-lnqvips or prescription medicines. ?Eat foods that are [...] provider. Document Revised: 04/29/2023 Document Reviewed: 04/29/2023 [employer] Patient Education 2023 Moped. Follow Up Care 06/27/2024 15:40:12 With:MARY HENRY, Dione Marie, URL Address: [facility] [employer] [facility] [address] [place], [place] [id number]- When: Unknown [facility] [place] [id number] NotePatient Education Urology Urethral Dilation Urethral dilation [...] including vitamins, herbs, eye drops, creams, and ziaa-lgp-cneifvx medicines. ??? Any problems you or family [...] your provider tells you to. ??? Taking aggk-wmj-uidpcgw medicines, vitamins, herbs, and supplements. General instructions [...] these instructions at home: Medicines ??? Take szaj-rkb-wyovhzv and prescription medicines only as told by [...] to prevent or treat constipation: ? Take lzxp-zbv-qybcbxn or prescription medicines. ? Eat foods that [...] a soft tube (catheter) (more content not included)...[facility]12-18-2024 NoteRight Eye Quality was good. Scan locations included subfoveal. Progression has been stable. Findings include abnormal foveal contour. Left Eye Quality was good. Scan locations included subfoveal. Progression has been stable. Findings include abnormal foveal contour. Notes Macular Volume Loss both eyes (OU)[facility] [id number] Evaluation + Plan note Diagnostic Tests Pending * Urine Culture 06/22/24 [facility] [id number] Hospital Discharge instructions Patient Education 06/22/2024 09:43:55 [...] reconstructed. Follow these instructions at home: Take qdxf-omb-tnaqhoz and prescription medicines only as told by [...] provider. Document Revised: 04/29/2023 Document Reviewed: 04/29/2023 [employer] Patient Education 2023 [employer] Follow Up Care 04/20/2024 12:07:55 With:MARY HENRY, Dione Marie, URL Address: [address] [place] [id number]- When: Unknown Comments:our surgical scheduler will be calling you to schedule in office UD [facility] 10-03-2024 Hospital Discharge instructions Patient Education 04/20/2024 [...] your health care provider. General instructions Take gugm-xws-qmrivac and prescription medicines only as told by [...] provider. Document Revised: 03/24/2021 Document Reviewed: 03/24/2021 [employer] Patient Education 2023 Moped. Follow Up Care 04/03/2024 13:45:38 With:Lizette Ball, URL Address: When:3 months Comments:8 weeks w/ PVR [facility] 10-03-2024 NotePatient Education Obstetrics and Gynecology Overactive [...] health care provider. General instructions ? Take omeq-opf-hhjbyin and prescription medicines only as told by [...] help your health care (more content not included)...[facility]09-16-2024 Hospital Discharge instructions Patient Education 04/03/2024 13:22:20 [...] at that visit. Have a great day! [facility] 09-16-2024 NotePatient Education Cystoscopy with Botox injection [...] if you have a fever over 100 degrees.[facility] 12-02-2023 Evaluation + Plan note Diagnostic Tests Pending * Urine Culture 12/02/23 [facility]05-16-2024 Hospital Discharge instructions Patient Education 12/02/2023 10:28:46 [...] including vitamins, herbs, eye drops, creams, and jmqw-ila-owzmbkb medicines. Any problems you or family members [...] provider tells you to take them. Taking zztm-szm-irutlll medicines, vitamins, herbs, and supplements. General instructions [...] Follow these instructions at home: Medicines Take wunr-nrr-bedmqsp and prescription medicines only as told by [...] provider. Document Revised: 01/09/2022 Document Reviewed: 01/09/2022 [employer] Patient Education 2022 Moped. Follow Up Care 09/24/2023 08:48:04 With:MARY HENRY, Dione Marie, URL Address: [facility] [place] [id number]- When: Unknown Comments:prashant Gonzalez [facility] [id number] Hospital Discharge instructions Patient Education 09/24/2023 09:05:26 [...] nerve stimulation). ?For women, using a medical insurance verifier to prevent urine leaks. This is a [...] right after experiencing incontinence. General instructions Take sfzj-cxt-zndgcof and prescription medicines only as told by [...] important. Where to find more information National [place] of Diabetes and Digestive and Kidney Diseases: www.niddk.nih.gov [place] [employer]: www.urologyhealth.org Contact a health care [...] provider. Document Revised: 02/07/2021 Document Reviewed: 02/07/2021 [employer] Patient Education 2022 Moped. 09/24/2023 09:05:24 Kegel Exercises Kegel Exercises Kegel [...] provider. Document Revised: 11/13/2021 Document Reviewed: 11/13/2021 [employer] Patient Education 2022 Moped. Follow Up Care 09/06/2023 13:10:25 With:ROMA OSCAR, KHRIS Salazar, URL Address: [address] [place] [address]. [place] [address] When:Within 3 Month(s) Comments:w/ PVR [facility] Jean-Pierre [id number] History of Present illness Narrative* Shaikh Guzman [...] 3 months (around 11/17/2023). documented in this encounter[facility] [id number] Hospital Discharge instructions Patient Education 06/01/2023 12:05:35 [...] your health care provider. General instructions Take wtsv-iid-dbxvyqm and prescription medicines only as told by [...] provider. Document Revised: 03/24/2021 Document Reviewed: 03/24/2021 [employer] Patient Education 2022 Moped. 06/01/2023 11:59:28 Clean Intermittent Catheterization, Female Clean [...] and water are not available, use hand extrusion technician. 2.Prepare the supplies that you will use [...] reusable catheter in a small bathroom. Take trjo-zja-ndtrlaa and prescription medicines only as told by [...] provider. Document Revised: 05/11/2022 Document Reviewed: 05/11/2022 [employer] Patient Education 2022 Moped. Follow Up Care 05/03/2023 11:43:53 With:KHRIS BRANDON PA-C, URL Address: [address] [place] [address] When: Unknown [facility] 07-20-2023 Hospital Discharge instructions Patient Education 02/04/2023 [...] provider. Document Revised: 11/13/2021 Document Reviewed: 11/13/2021 [employer] Patient Education 2022 Moped. Follow Up Care 12/03/2022 14:42:27 With:KHRIS BRANDON PA-C, URL Address: [address] [place] [address] When:Within 2 Month(s) [facility] 02-01-2023 Evaluation + Plan note Diagnostic Tests Pending * Urine Culture 08/19/22 [facility]10-12-2022 Hospital Discharge instructions Patient Education 04/29/2022 15:36:40 [...] fried and sweet foods. General instructions Take rgln-wdv-axnywwa and prescription medicines only as told by [...] 05/01/2010 Document Revised: 10/26/2019 Document Reviewed: 07/21/2018 [employer] Patient Education 2020 Moped. Follow Up Care 04/07/2022 15:15:55 With:KHRIS BRANDON PA-C, URL Address: [address] [place] [phone] When: Unknown [facility] 07-19-2022 Hospital Discharge instructions Patient Education 02/03/2022 [...] fried and sweet foods. General instructions Take nskq-lvv-sykcvos and prescription medicines only as told by [...] 05/01/2010 Document Revised: 10/26/2019 Document Reviewed: 07/21/2018 [employer] Patient Education 2020 Moped. [facility] evaluation + Plan note No data available for this section [facility] evaluation + Plan note Future Appointments Appointment Date:03/30/2023 09:00:00 AM Scheduled Provider:KHRIS BRANDON PA-C Location:[facility] Appointment Type:URO Office Visit [facility] Evaluation + Plan note Future Appointments Appointment Date:09/07/2023 02:00:00 PM Scheduled Provider:KHRIS BRANDON PA-C Location:[facility] Appointment Type:URO Office Visit [facility] evaluation + Plan note Future Appointments Appointment Date:09/07/2023 02:00:00 PM Scheduled Provider:KHRIS BRANDON PA-C Location:[facility] Appointment Type:URO Office Visit Diagnostic Tests Pending * [facility]ments Appointment Date:09/24/2023 08:00:00 AM Scheduled Provider:BLADIMIR Lucio APRN, [place] X Location:[facility] Appointment Type:URO Office Visit [facility] evaluation + Plan note Future Appointments Appointment Date:12/30/2023 03:15:00 PM Scheduled Provider:KHRIS BRANDON PA-C Location:[facility] Appointment Type:URO Office Visit [facility] Evaluation + Plan note Future Appointments Appointment Date:12/30/2023 03:15:00 PM Scheduled Provider:KHRIS BRANDON PA-C Location:[facility] Appointment Type:URO Office Visit Diagnostic Tests Pending * [facility]ments Appointment Date:02/02/2024 10:00:00 AM Scheduled Provider: Location:[facility] Appointment Type:Urology CALL PAT FT Appointment Date:02/07/2024 03:00:00 PM Scheduled Provider: Location:[facility] Appointment Type:Urology FT [facility] evaluation + Plan note Future Appointments Appointment Date:04/03/2024 01:15:00 PM Scheduled Provider: Location:[facility] Appointment Type:Urology FT [facility] evaluation + Plan note Future Appointments Appointment Date:04/03/2024 01:15:00 PM Scheduled Provider: Location:[facility] Appointment Type:Urology FT Diagnostic Tests Pending * Urine Culture 03/27/24 [facility] evaluation + Plan note Future Appointments Appointment Date:06/22/2024 09:00:00 AM Scheduled Provider:Lizette Ball Location:[facility] Appointment Type:URO Office Visit [facility] Evaluation + Plan note Future Appointments Appointment Date:04/20/2024 11:00:00 AM Scheduled Provider:Lizette Ball Location:[facility] Appointment Type:URO Office Visit [facility] Evaluation + Plan note Future Appointments Appointment Date:10/09/2024 10:20:00 AM Scheduled Provider:BLADIMIR Lucio APRN, [place] Location:[facility] Appointment Type:URO Office Visit [facility] Evaluation + Plan note Future Appointments Appointment Date:11/14/2024 12:00:00 PM Scheduled Provider: Location:[facility] Appointment Type:Urology CALL PAT FT Appointment Date:11/16/2024 11:15:00 AM Scheduled Provider: Location:[facility] Appointment Type:Urology FT Diagnostic Tests Pending * Urine Culture 11/09/24 [facility] evaluation note* Diagnosis Hyperlipidemia, unspecified hyperlipidemia type (CMS/HCC)- [...] episode, moderate [facility] Diagnosis Hyperlipidemia, unspecified hyperlipidemia type- Primary Essential hypertension Unspecified essential hypertension Mixed incontinence Mixed incontinence urge and stress (male)(female) Encounter for screening mammogram for breast cancer Iron deficiency anemia secondary to inadequate dietary iron intake Recurrent major depressive disorder, in full remission Major depressive disorder, single episode, moderate (HCC) Major depressive disorder, single episode, moderate Hyperlipidemia, unspecified hyperlipidemia type Age-related osteoporosis without current pathological fracture [facility] Diagnosis Hyperlipidemia, unspecified hyperlipidemia type- Primary Essential hypertension Unspecified essential hypertension Mixed incontinence Mixed incontinence urge and stress (male)(female) Encounter for screening mammogram for breast cancer Iron deficiency anemia secondary to inadequate dietary iron intake Recurrent major depressive disorder, in full remission Essential (primary) hypertension Unspecified essential hypertension Benign essential hypertension Essential hypertension, benign documented in this encounter [facility] Present illness Narrative* Zack Jett, DO - 07/05/2024 1:00 PM EST Images [...] lid scrubs were recommended. [facility] Dis[facility] instructions No data available for this section [facility] Progress note No data available for this section [facility] Summary Purpose Family History No Family History Records Found Relationship Condition Age at Onset Recorded Date/T jose mother Aneurysm Unknown Heart disease Unknown Cerebrovascular accident (CVA) Unknown sister Heart disease Unknown Advance Directives No Advanced Directives Records Found Advance Directive Response Recorded Date/ Time Advance Directives No December 05 12:02pm Chief Complaint and Reason for Visit Chief Complaint Admit Date right ankle fracture January 18, 2025 4:50 am Reason for Visit Admit Date Dog bite of chest January 18, 2025 4:50a m Impaired mobility and activities of yojana y living January 18, 2025 4:50am Postoperative pain January 18, 2025 4:50a m Status post ORIF of fracture of ankle Ju 2024 4:50am Trimalleolar fracture of ankle, closed J everett 2024 4:50am Chief Complaint Admit Date right ankle fracture January 18, 2025 4:50 am Z98.890 - Other specified postprocedural states February 14, 2025 8:15am 4 WEEKS POST OP SNF NEVER CALLED February 142024 2:40pm Reason for Visit Admit Date Dog bite of chest January 18, 2025 4:50a m Impaired mobility and activities of yojana y living January 18, 2025 4:50am Postoperative pain January 18, 2025 4:50a m Status post ORIF of fracture of ankle Ju ly 2024 4:50am Trimalleolar fracture of ankle, closed J everett 2024 4:50am Status post ORIF of fracture of ankle Ju ly 2024 2:40pm Visit for suture removal February 14, 2025 2:40pm Chief Complaint Admit Date right ankle fracture January 18, 2025 4:50 am Z98.890 - Other specified postprocedural states February 14, 2025 8:15am 4 WEEKS POST OP SNF NEVER CALLED February 142024 2:40pm S82.853A - Displaced trimalleolar fractu re of unsp March 21, 2025 9:27am 3 WEEKS March 21, 2025 3:47pm Reason for Visit Admit Date Dog bite of chest January 18, 2025 4:50a m Impaired mobility and activities of yojana y living January 18, 2025 4:50am Postoperative pain January 18, 2025 4:50a m Status post ORIF of fracture of ankle Ju ly 2024 4:50am Trimalleolar fracture of ankle, closed J everett 2024 4:50am Status post ORIF of fracture of ankle Ju ly 2024 2:40pm Visit for suture removal February 14, 2025 2:40pm Status post ORIF of fracture of ankle Se ptember 2024 3:47pm Trimalleolar fracture of ankle, closed S eptember 2024 3:47pm Chief Complaint Admit Date right ankle fracture January 18, 2025 4:50 am Z98.890 - Other specified postprocedural states February 14, 2025 8:15am 4 WEEKS POST OP SNF NEVER CALLED February 142024 2:40pm S82.853A - Displaced trimalleolar fractu re of unsp March 21, 2025 9:27am 3 WEEKS March 21, 2025 3:47pm check up April 16, 2025 11:29am Reason for Visit Admit Date Dog bite of chest January 18, 2025 4:50a m Impaired mobility and activities of yojana y living January 18, 2025 4:50am Postoperative pain January 18, 2025 4:50a m Status post ORIF of fracture of ankle Ju ly 2024 4:50am Trimalleolar fracture of ankle, closed J everett 2024 4:50am Status post ORIF of fracture of ankle Ju ly 2024 2:40pm Visit for suture removal February 14, 2025 2:40pm Status post ORIF of fracture of ankle Se ptember 2024 3:47pm Trimalleolar fracture of ankle, closed S eptember 2024 3:47pm Depression April 16, 2025 11:29am Hypertension April 16, 2025 11:29am Mixed hyperlipidemia April 16 11:29am Osteoporosis with pathological fracture April 16, 2025 11:29am Vitamin B12 deficiency April 16, 2 025 11:29am Additional Source Comments Care Team (unrecognized sect ion and content) Computer Systems Support Specialist Relationship Specialty Start Date End Date Shaikh Hinds MD [address] [place] [id number] PCP - Devoted 04/18/23 Shaikh Hinds MD [address] [place] [address] PCP - General Internal Medicine 08/19/23 Computer Systems Support Specialist Relationship Specialty Start Date End Date Shaikh Hinds MD [address] [place] [phone] PCP - Devoted 04/18/23 Shaikh Hinds MD [address] [place] [address] PCP - General Internal Medicine 08/19/23 Computer Systems Support Specialist Relationship Specialty Start Date End Date Shaikh Hinds MD [address] [place] [phone] PCP - Devoted 07/19/22 Shaikh Hinds MD [address] [place] [address] PCP - General Internal Medicine 08/19/23 Computer Systems Support Specialist Relationship Specialty Start Date End Date Shaikh Hinds MD [address] [place] [address] PCP - Devoted 07/19/22 Shaikh Hinds MD [address] [place] [address] PCP - General Internal Medicine 08/19/23 Computer Systems Support Specialist Relationship Specialty Start Date End Date Shaikh Hinds MD [address] [place] [address] PCP - Devoted 07/19/22 Shaikh Hinds MD [address] [place] [address] PCP - General Internal Medicine 08/19/23 Computer Systems Support Specialist Relationship Specialty Start Date End Date Shaikh Hinds MD [address] [place] [address] PCP - Devoted 07/19/22 Shaikh Hinds MD [address] [place] [address] PCP - General Internal Medicine 08/19/23 Team Status: Active Member Role Status Dates Shaikh Guzman MD Primary Care Provider Active Team Status: Active Member Role Status Dates Shaikh Guzman MD Primary Care Provider Active Start: January 18, 2025 Taz De La Cruz MD Admit Provider Active Start: January 18, 2025 Ivan Interiano DO Other Provider Active Start : January 18, 2025 Carmen De Anda MD Other Provider Active Start : January 18, 2025 Silvia Garrido MD Other Provider Active Start: Ju kyaw 2024 Andrew Rose MD Attending Provider Active Star t: January 18, 2025 Andrew Rose MD Other Provider Active Start: J everett 2024 Imani Martínez , PSYCHIATRIC NURSING AIDE Other Provider Active St art: January 18, 2025 Rafael Flores Jr, DO Other Provider Active S tart: January 18, 2025 Emigdio Stauffer MD Other Provider Active Start: January 18, 2025 Team Status: Active Member Role Status Dates Ivan Interiano DO Attending Provider Active S tart: February 14, 2025 Shaikh Guzman MD Primary Care Provider Active Start: February 14, 2025 Team Status: Inactive Member Role Status Dates Shaikh Guzman MD Primary Care Provider Active Start: February 14, 2025 End: February 14, 2025 Ivan Interiano DO Attending Provider Active S tart: February 14, 2025 End: February 14, 2025 Team Status: Inactive Member Role Status Dates Ivan Interiano DO Attending Provider Active S tart: February 14, 2025 End: February 14, 2025 Shaikh Guzman MD Primary Care Provider Active Start: February 14, 2025 End: February 14, 2025 Computer Systems Support Specialist Relationship Specialty Start Date End Date Shaikh Hinds MD [address] [place] [address] PCP - Devoted 07/19/22 Shaikh Hinds MD [address] [place] [place] [address] PCP - General Internal Medicine 08/19/23 Team Status: Active Member Role Status Dates Paty Regan , DO Primary Care Provider Active Team Status: Active Member Role Status Dates Paty Regan , DO Primary Care Provider Active S tart: March 21, 2025 Ivan Interiano , DO Attending Provider Active S tart: March 21, 2025 Team Status: Inactive Member Role Status Dates Ivan Interiano , DO Attending Provider Active S tart: March 21, 2025 End: March 21, 2025 Paty Regan , DO Primary Care Provider Active S tart: March 21, 2025 End: March 21, 2025 Team Status: Inactive Member Role Status Dates Paty Regan , DO Primary Care Provider Active S tart: March 21, 2025 End: March 21, 2025 Ivan Interiano , DO Attending Provider Active S tart: March 21, 2025 End: March 21, 2025 Team Status: Inactive Member Role Status Dates Paty Regan , DO Primary Care Provider Active S tart: April 16, 2025 End: April 16, 2025 Paty Regan , DO Attending Provider Active Star t: April 16, 2025 End: April 16, 2025 INFORMATION SOURCE (unrecogn ized section and content) DATE CREATED AUTHOR 09/25/2022 [facility] DATE CREATED AUTHOR AUTHOR'S ORGANIZ ATION [facility]/06/2023 [facility] DATE CREATED AUTHOR AUTHOR'S ORGANIZ ATION 03/31/2024 [facility] [place] DATE CREATED AUTHOR AUTHOR'S ORGANIZ ATION 04/01/2024 [facility] DATE CREATED AUTHOR AUTHOR'S ORGANIZ ATION 04/21/2024 [facility] DATE CREATED AUTHOR AUTHOR'S ORGANIZ ATION 06/27/2024 [facility] DATE CREATED AUTHOR AUTHOR'S ORGANIZ ATION 07/08/2024 [facility] DATE CREATED AUTHOR AUTHOR'S ORGANIZ ATION 11/12/2024 [facility] DATE CREATED AUTHOR AUTHOR'S ORGANIZ ATION 12/13/2024 [facility] DATE CREATED AUTHOR AUTHOR'S ORGANIZ ATION 12/14/2024 [facility] DATE CREATED AUTHOR AUTHOR'S ORGANIZ ATION 02/16/2025 [facility] DATE CREATED AUTHOR AUTHOR'S ORGANIZ ATION 04/27/2025 [facility] Reason for Visit (unrecogniz ed section and content) Reason Comments Follow-up Reason Comments Med Refill Reason Comments Follow-up Macular Degeneration Reason Onset Date Comments Med Refill 02/27/2025 Reason Onset Date Comments Med Refill 03/01/2025 Goals (unrecognized section and content) Goals may be documented in a n alternate section FOR RECORDS PERTAINING TO PATIENTS WHO ARE [...] BE BASED ON THE PRIMARY CLINICAL RECORDS. [employer] provides no warranty or guarantee of the accuracy or completeness of information in this document.
--- NOTE | 2025-05-01 09:38 | MM_ITS ---
Patient Name: CHLOE BADILLO MR#: [id number] : 1955 Exam Date: 05/01/2025 Ordering Doctor: NICK SMITH . RADIOLOGY REPORT PROCEDURE: MM TOMOSYNTHESIS SCREENING BI COMPARISON: MM TOMOSYNTHESIS SCREENING BI, 02/14/2024. MG MAMM SCREEN 3D ROMAINE CAD, 11/28/2021. MG MAMM ROMAINE SCRN W CAD DIG, 12/19/2013. INDICATIONS: screening for breast cancer Calculator Name NCI Breast Cancer Risk Assessment Tool 5 Year Breast Cancer Risk 1.20% Lifetime Breast Cancer Risk 3.90% Personal Breast Cancer No Personal Ovarian Cancer No Treatments None Family Cancers None LOCATION: [facility] BREAST COMPOSITION: There are scattered areas of fibroglandular density. FINDINGS: DIAGNOSTIC CATEGORY 1--NEGATIVE. RIGHT BREAST: No significant suspicious finding. LEFT BREAST: No significant suspicious finding. RECOMMENDATIONS: ROUTINE MAMMOGRAM AND CLINICAL EVALUATION IN 12 MONTHS. Dictated by: Andrew Lyn DO on 05/01/2025 at 15:33 Approved by: Andrew Lyn DO on 05/01/2025 at 15:36
[2025-05-01 10:26] LABS: Alanine Aminotransferase 31 U/L (14-59); Albumin Globulin Ratio 1.0; Albumin Level 3.6 g/dL (3.4-5.0); Alkaline Phosphatase 59 U/L (46-116); Anion Gap 8.8; Aspartate Amino Transferase 17 U/L (15-37); Blood Urea Nitrogen 13.0 mg/dL (7.0-18.0); Calcium 8.8 mg/dL (8.5-10.1); Carbon Dioxide 30.7 mmol/L (21.0-32.0); Chloride 107 mmol/L (98-107); Cholesterol 165 mg/dL (<=200); Estimated GFR (African America >60 (>=60 mL/min/1.73m^2); Estimated GFR (Non-African Ame >60 (>=60 mL/min/1.73m^2); Globulin 3.7 g/dL; Glucose 99 mg/dL (74-106); HDL Cholesterol 79 mg/dL (40-60); Potassium 4.5 mmol/L (3.5-5.1); Sodium 142 mmol/L (136-145); Total Protein 7.3 g/dL (6.4-8.2); Triglycerides 60 mg/dL (<=150); VLDL CHOLESTEROL 12.0 mg/dL
[2025-05-01 11:27] LABS: Hematocrit 38.3 % (36.0-48.0); Hemoglobin 12.9 g/dL (12.0-16.0); Immature Granulocytes Abs Auto 0.01 10^3/uL (0.00-0.03); Immature Granulocytes Pct Auto 0.2 % (0.0-0.5); Lymphocytes Absolute Auto 1.4 10^3/uL (1.2-3.8); Mean Corpuscular HGB Conc 33.7 g/dL (29.9-35.2); Mean Corpuscular Hemoglobin 31.2 pg (26.7-34.0); Mean Corpuscular Volume 92.5 fL (81.0-99.0); Platelet Count 246 10^3/uL (150-450); Red Blood Count 4.14 10^6/uL (4.20-5.40); White Blood Count 4.3 10^3/uL (4.0-11.0)
[2025-05-02 08:09] LABS: Vitamin B12 1120 pg/mL (232-1245)
== END 2025-05-01 08:58 | disposition home or self-care (01) ==
LOC: RAD 08:57
PROVIDERS: PCP Family Medicine; Visit Provider Family Medicine
DX: E78.2 Mixed hyperlipidemia (principal); Z78.0 Asymptomatic menopausal state; M80.00XD Age-related osteoporosis with current pathological fracture, unspecified site, subsequent encounter for fracture with routine healing; Z12.31 Encounter for screening mammogram for malignant neoplasm of breast; Z12.39 Encounter for other screening for malignant neoplasm of breast; E53.8 Deficiency of other specified B group vitamins; F33.0 Major depressive disorder, recurrent, mild; I10 Essential (primary) hypertension; M85.88 Other specified disorders of bone density and structure, other site
CPT/HCPCS: 36415; 77063; 77067; 77080; 80053; 80061; 82306; 82607; 85025